=== PATIENT | female | born 1995 | race Caucasian/White ===

== ENCOUNTER 2018-04-12 12:06 | Day surgery (SDC) | payer OTHER, SELFPAY ==
[2018-04-12 12:33] VITALS: BP 118/68; PULSE 58; RESP 18; TEMP 36.7; O2SAT 100; BMI 19.4
[2018-04-12 12:39] LABS: Internal QC Validated? YES +Cl - CLEAR BKGD; Pregnancy, Urine Negative Negative
[2018-04-12 12:50] LABS: Absolute Lymphocyte Count 1.29 X10^3/ul (0.83-4.51); Absolute Neutrophil Count 2.1 X10^3/uL (2.0-7.7); Basophil# 0.01 X10^3/uL; Basophil% 0.3 % (0-1); Eosinophil# 0.11 X10^3/uL; Eosinophils% 2.8 % (0-5); Hematocrit 43.8 % (37-47); Hemoglobin 14.4 g/dl (12.0-15.0); Lymphocyte # 1.29 X10^3/ul (4.0); Lymphocyte % 33.4 % (19-41); Mean Corp Hgb Conc 32.9 g/gl (32-36); Mean Corpuscular Hgb 29.7 pg (27.0-32.0); Mean Corpuscular Volume 90.3 fL (81-99); Mean Platelet Vol. 11.3 fl (6.2-12.0); Monocyte# 0.35 X10^3/uL; Monocyte% 9.1 % (0-10); Neutrophil # 2.09 X10^3/uL (2.7-7.7); Neutrophil % 54.1 % (47-70); Platelet Count 151 K/mm3 (150-450); RBC Distribution Width CV 13.2 % (11.6-14.6); RBC Distribution Width SD 43.4 fl (35.1-43.9); Red Blood Count 4.85 M/mm3 (4.2-5.4); White Blood Count 3.9 K/mm3 (4.4-11.0)
[2018-04-12 12:51] LABS: POSITIVE COUNT NO; POSITIVE DIFFERENTIAL NO; POSITIVE MORPHOLOGY NO
--- NOTE | 2018-04-12 13:30 | HP.PCM_ITS ---
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: No Is patient in pain?: Yes Pain scale (1-10): 5 Allergies No Known Allergies Allergy (Verified 03/07/18 12:01) Medications melatonin 10 mg tablet 10 mg PO HS PRN 03/07/18 [History Confirmed 03/07/18] norgestimate 0.25 mg-ethinyl estradiol 35 mcg tablet 1 tab PO DAILY 03/07/18 [History Confirmed 03/07/18] Is last menstrual period known: Yes Last Menstral Period: 02/14/18 Post menopausal: No Patient : No : No [facility] Medical History Anxiety (Acute) Family History Mother Diabetes Congestive heart failure Father Narcolepsy Grandmother Kidney disease Grandfather Heart disease Alzheimer disease Social History Smoking Status: Never smoker alcohol intake: never substance use type: does not use caffeine: Yes what type of physical activity do you participate in: walking frequency: 3-4 times per week seatbelt use: always do you feel safe at home: Yes additional social history: - Rogelio- Ayana and Lidiaon Patient works at [employer] [facility] VAGINAL TEAR NOT HEALING PROPERLY: Details: CIERRA ESPINOZA is a 22 year old who presents for dyspareunia since delivery of her child. she delivered 9 months ago and had a repair of her right labia and it broke down and is two separate areas. she has pain with intercourse and vaginal pain with exercise, sitting. she denies any irregular bleeding. Female Reproductive History Last Menstral Period: 02/14/18 Pregancy History 1 Elective abortions Hx Para 1 Spontaneous abortions Hx # Term Pregnancies Ectopic pregnancies Hx # Pregnancies Multiple births # of living children Past Pregnancies Del. Date Name GA/Weeks Outcome Route Bth Weight Infant Gen Labor Lgth Anesthesia Del Locatn Provider FOB 10/02/16 Roxane 39 live - full term 7lbs 4oz Female 12 hours none [facility] Betsy Mercado Delivery Date: 10/02/16 On 03/07/18 @ 12:08 Yahaira Tate Borderline HELP ROS Const Constitutional: Denies poor appetite, headache(s), fever(s), increased appetite, weight gain, weight loss or fatigue ENT ENT: Denies dizziness or dry mouth Cardio Card: Denies chest pain Resp Resp: Denies dyspnea or cough GI GI: Reports as per HPI; denies vomiting, nausea, abdominal pain or constipation : Reports as per HPI; denies urinary urgency, vaginal discharge, urinary frequency, vaginal itching, vaginal odor, vaginal dryness, urinary incontinence, urinary hesitancy, pelvic pain, difficulty urinating or painful urination Musc Musc: Denies muscle weakness, joint pain or back pain Skin Skin/Breast: Denies hair loss, change in hair, dry skin, breast pain, breast skin changes or breast lump Neuro Neuro: Denies dizziness Psych Psych: Denies anxiety or depression Endo Endo: Denies cold intolerance, increased thirst, excessive sweating or heat intolerance Waldemar/Lymph Hematologic/Lymphatic: Denies easy bleeding, Denies easy bruising, Denies enlarged lymph nodes Exam Const General: cooperative, healthy appearing, comfortable, no acute distress, well developed Nutritional Appearance: average body habitus Orientation: alert [facility] Head: normal to inspection, normocephalic Ears: hearing grossly normal bilaterally, external ears normal Nose: external nose normal, nares normal Face and sinus: normal facial exam Neck Neck: normal visual inspection, trachea midline, no lymphadenopathy Thyroid: thyroid normal Chest Chest palpation & inspection: normal inspection of the chest Resp Effort & Inspection: normal respiratory effort Cardio Rate: regular rate GI Inspection: normal to inspection, non-distended Palpation: soft, no hepatosplenomegaly General: bladder normal to palpation External Female Exam: abnormal external appearance (right labia in two sections, tender to touch), normal appearance of the urethra Urethra: normal appearance of the urethra, normal palpation, no discharge Speculum Exam - Vagina: normal appearance of the vagina, normal vaginal discharge Speculum Exam - Cervix: normal appearance of the cervix, nontender Bimanual Exam- Vagina & Uterus: bladder normal to palpation, No cervical tenderness, normal bimanual exam, normal vaginal palpation, uterine size normal, uterine shape normal, uterine mobility normal, uterine consistency normal, normal cervical palpation, uterus non-tender Bimanual Exam- Adnexa, other: normal adnexae, adnexae mobile, no adnexal masses, pelvic support normal Pelvic Support: normal Musc Cervical Spine: other Other: gross motor intact no deficits, full bilateral strength Skin General: no rashes or lesions noted Neuro General: alert, awake, no focal motor deficits, moves all extremities Motor: muscle tone normal throughout Extrem General: normal to inspection, no pedal edema Psych Appearance: grossly normal Mental Status: mental status grossly normal Affect: normal affect Speech and Movement: speech and movement normal Assessment & Plan Problems 1. Dyspareunia Plan labiaplasty. risk of bleeding infection dyspareunia discussed.
--- NOTE | 2018-04-12 13:31 | PCM.DC.D&C ---
Discharge Diet: No Restrictions Discharge Activity: Return to Normal Activity, May Shower May resume sexual activity in: 4-6 weeks Call your doctor if you observe: Fever of 101 or Higher, Coldness, Increased Pain, Change in Color Cleanse incision/area with: Soap & Water Allergies/Adverse Reactions: Allergies No Known Allergies Allergy (Verified 04/05/18 13:08) Medications to take at Discharge melatonin 10 mg tablet 10 mg PO HS PRN 03/07/18 Norgestimate-Ethinyl Estradiol [Mononessa 28 Tablet] 1 each PO DAILY 04/05/18 [place]'s Wort 600 mg PO DAILY 04/05/18 Primary Care Physician: Zeinab William DO [Primary Care Provider] - Test Results: Test results from this visit will be discussed in further detail at your follow-up appointment, if applicable. Please Follow Up With: Amira Padilla MD - [phone]
--- NOTE | 2018-04-12 14:15 | PCM.OPRPT ---
Problem List (1) Anxiety Status: Acute (2) Dyspareunia Status: Chronic Report of Operation Date of Procedure: 04/12/18 Pre-Operative Diagnosis: Dyspareunia Post-Operative Diagnosis: Same Surgery/Procedure Performed:: Labioplasty Description of Surgical Findings:: Right unhealed labial laceration Type of Anesthesia:: General Special Medications: None Specimen's removed: None Drains: None Estimated Blood Loss (mL): 25 cc Fluids Replaced: Crystalloid Description of Procedure: Patient has a history of dyspareunia due to a poorly healed right labial periclitoral laceration postdelivery. Patient was placed under general anesthesia was prepped and draped in normal sterile fashion in the dorsal lithotomy position. Incision was made along the area of the breakdown of healing of the previous obstetric laceration. Underlying scar tissue was broken up and mobilized the vaginal mucosa to be reapproximated with 4-0 Monocryl. Hemostasis was noted and Dermabond was applied. Area was injected with 2% Xylocaine the patient was awoken and taken recovery in stable condition Grafts/Implants Used: None - Complications None
[2018-04-12] MEDS: Bupiv/Epi 0.5% Mpf 30 ML Vial (14:45)
[2018-04-12 15:01] VITALS: BP 118/68; BP 123/69; PULSE 95; RESP 16; TEMP 36.6; O2SAT 100
[2018-04-12 15:15] VITALS: BP 118/68; BP 124/77; PULSE 77; RESP 14; O2SAT 100
[2018-04-12 15:30] VITALS: BP 116/80; BP 118/68; PULSE 73; RESP 14; O2SAT 98
[2018-04-12 15:52] VITALS: BP 111/83; BP 118/68; PULSE 68; RESP 16; TEMP 37; O2SAT 98
[2018-04-12 16:20] VITALS: BP 118/68
== END 2018-04-12 16:29 | disposition home or self-care (01) ==
LOC: SDC 12:09 → AC 12:12
PROVIDERS: Family Provider Internal Medicine; PCP Internal Medicine; Visit Provider Obstetrics & Gynecology
PROC: (CPT 56620; principal; 2018-04-12 13:30)
DX: N94.10 Unspecified dyspareunia (principal); S31.41XD Laceration without foreign body of vagina and vulva, subsequent encounter; Y84.8 Other medical procedures as the cause of abnormal reaction of the patient, or of later complication, without mention of misadventure at the time of the procedure; F41.9 Anxiety disorder, unspecified; Z79.899 Other long term (current) drug therapy
CPT/HCPCS: 56620; 81025; 85025; 86850; 86900; J7120; J2405

== ENCOUNTER → 2018-08-23 16:56 | Outpatient (CLI) | payer OTHER, SELFPAY ==
[2018-05-03 11:49] VITALS: BMI 19.9
[2018-08-23 17:56] LABS: Hemoglobin A1c 4.9 % (4.2-6.3)
== END ==
PROVIDERS: Family Provider Internal Medicine; PCP Internal Medicine; Referring Provider Internal Medicine; Visit Provider Internal Medicine
DX: R35.0 Frequency of micturition (principal)
CPT/HCPCS: 36415; 83036; 87086

== ENCOUNTER 2018-10-05 10:41 | Emergency (ER) | payer BC, SELFPAY ==
[2018-10-05 10:41] VITALS: BP 113/77; PULSE 83; RESP 17; TEMP 36.8; O2SAT 99; BMI 20.5
[2018-10-05 11:34] LABS: Bacteria 0 SEEN /hpf (None Seen); Mucous, Urine 0 SEEN /hpf (<or=2+); Red Blood Cells-Urine 0 SEEN /hpf (0-5); White Blood Cells 0 SEEN /hpf (0-5)
[2018-10-05 11:35] LABS: Color, Urine Yellow (Yellow); Glucose, Dipstick Normal (Normal); Ketone-Dipstick Negative (Negative); Leukocyte Esterase-Dipstick Negative /ul (Negative); Nitrite-Dipstick Negative (Negative); Occult Blood-Urine Negative /ul (Negative); Protein-Dipstick Negative (Negative); Urine Bilirubin Dipstick Negative (Negative); Urine Clarity Clear (Clear); Urine Urobilinogen Normal (Normal)
[2018-10-05 11:43] LABS: Squamous Epithelial Cells - UA 0-5 SEEN /hpf (5-10)
[2018-10-05 11:47] LABS: Absolute Lymphocyte Count 1.17 X10^3/ul (0.83-4.51); Absolute Neutrophil Count 3.4 X10^3/uL (2.0-7.7); Basophil# 0.01 X10^3/uL; Basophil% 0.2 % (0-1); Eosinophil# 0.07 X10^3/uL; Eosinophils% 1.4 % (0-5); Hemoglobin 13.4 g/dl (12.0-15.0); Lymphocyte # 1.17 X10^3/ul (4.0); Lymphocyte % 23.5 % (19-41); Mean Corp Hgb Conc 32.7 g/gl (32-36); Mean Corpuscular Hgb 28.8 pg (27.0-32.0); Mean Corpuscular Volume 88.2 fL (81-99); Mean Platelet Vol. 10.8 fl (6.2-12.0); Monocyte# 0.34 X10^3/uL; Monocyte% 6.8 % (0-10); Neutrophil # 3.38 X10^3/uL (2.7-7.7); Neutrophil % 67.9 % (47-70); Platelet Count 135 K/mm3 (150-450); RBC Distribution Width CV 13.2 % (11.6-14.6); RBC Distribution Width SD 42.1 fl (35.1-43.9); Red Blood Count 4.65 M/mm3 (4.2-5.4)
[2018-10-05 11:49] LABS: POSITIVE COUNT NO; POSITIVE DIFFERENTIAL NO; POSITIVE MORPHOLOGY NO
[2018-10-05] MEDS: Morphine 4 MG/ML Syringe IV (11:50)
[2018-10-05] MEDS: 0.9% Normal Saline 1,000 ML 1000 ML IV (11:50)
[2018-10-05] MEDS: Ondansetron 4 MG/2 ML Vial IV (11:50)
--- NOTE | 2018-10-05 11:53 | CT_ITS ---
STUDY: CT ABDOMEN AND PELVIS WITH CONTRAST REASON FOR EXAM: Female, 23 years old. 4 day history of right lower quadrant pain with nausea and diarrhea. Dysuria. RADIATION DOSAGE (If Supplied By Facility): CTDIvol = ( 8.82 ) mGy, DLP = ( 366.86 ) mGycm TECHNIQUE: Transaxial images were obtained from the dome of the diaphragm to the symphysis pubis with oral contrast. 75mL IV/Oral Isovue 300 was administered. Sagittal and coronal images were reconstructed. Individualized dose optimization techniques were used for this CT. COMPARISON: None. FINDINGS: The visualized lung bases are unremarkable. The visualized portions of the heart are within normal limits. Normal liver. Normal gallbladder and extrahepatic biliary system. Normal spleen. Normal pancreas. Normal bilateral adrenal glands. Normal right kidney. Normal left kidney. There is a small hiatal hernia. There is diffuse circumferential wall thickening of the terminal ileum. This may represent changes secondary to terminal ileitis. Normal colon. The appendix is visualized and appears normal. Normal abdominal aorta. Normal inferior vena cava. Normal retroperitoneum. Normal urinary bladder. Follicles are seen in the right ovary. Small amount of free fluid is seen in the cul-de-sac. There is increased vascularity of the uterus. This may be related to the patient's menstrual cycle. Normal abdominal wall. Normal osseous structures. CT/Abdomen/Pelvis WITH Contrast IMPRESSION: Findings suggestive of terminal ileitis. Small amount of free fluid in the pelvis. Follicles are seen in the right ovary. Electronically Signed: Rod Mina, at 14:38 EDT , Service support ,
--- NOTE | 2018-10-05 11:55 | ED.VIS.GEN ---
History of Present Illness Chief Complaint: Abd Pain Detail of Chief Complaint: Proximity of [place] Informant: Patient Onset: Days - Onset Tuesday Context: Gradual Onset Timing: Continuous Quality: [facility] Current Severity: Mild Maximum Severity: Moderate Worsened by: Pushing, walking Relieved by: Nothing Associated Symptoms: Nausea, decreased appetite Narrative: Patient is a 23-year-old sexually active woman who presents with right lower quadrant pain in the [facility]. She has history of sexually transmitted infection age of 20, chlamydia. She also has history of ovarian cyst. She reports onset of pain Tuesday. She reports nausea. She has decreased appetite. She has no appetite today. She believes she has a urinary tract infection. He does report frequency. She denies vaginal bleeding or discharge. Denies dyspareunia. She denies back or flank pain. There is no history of trauma. She does not give symptoms of . Prior similar symptoms: No Recent Illness/Hospitalization: No - Past Medical History (1) Chlamydia infection Status: Chronic (2) Anxiety Status: Acute Past Medical History - Allergies and Home Meds Allergies/Adverse Reactions: Allergies No Known Allergies Allergy (Verified 10/05/18 10:41) Primary Care Physician: Zeinab William DO [Primary Care Provider] - Johnny Romo MD [NON-STAFF] - 3-5 Days Prior records reviewed: Yes Lives: Spouse/ Significant Other Smoking Status: Never smoker Alcohol: None Drugs: None Review of Systems General: Reports: Chills. Denies: Fever, Subjective, Sweats Eyes: Denies: Visual changes - bilaterally, Diplopia ENT: Denies: Rhinorrhea, Sore throat Cardiovascular: Denies: Chest pain, Palpitations Respiratory: Denies: Dyspnea, Cough, Dyspnea on exertion Gastrointestinal: Reports: Abdominal pain, Nausea. Denies: Vomiting, Diarrhea, Constipation, Melena, Hematochezia Genitourinary: Reports: Frequency. Denies: Dysuria, Hematuria Musculoskeletal: Denies: Myalgias, Arthralgias, Back pain, Extremity Pain Skin: Denies: Rash, Wounds Neurological: Denies: Headache, Weakness, Numbness Allergy: Denies: Uticaria, Swelling of the mouth Physical Exam Vital Signs/Narrative: Vital Signs Temp Pulse Resp BP Pulse Ox 10/05/18 10:41 98.2 F 83 17 113/77 99 Inital Vital Signs reviewed: Yes General: Well nourished, Well developed, No Acute Distress - Patient is quiet and appears ill but not in distress Head: Normocephalic, Atraumatic Eyes: Perrl, EOMI. Negative for: Pale conjunctiva, Scleral icterus ENT: No rhinorrhea, TM's clear, Dry mucous membranes Neck: Supple, Nontender, No lymphadenopathy, No JVD Cardiovascular: Regular rate, Regular rhythm, No murmurs, Normal S1, Normal S2 Respiratory: No distress, CTA bilaterally, Chest nontender Abdomen: Soft, Nondistended, No masses, Tender, Guarding, Hypoactive bowel sounds, Rovsig's sign. Negative for: Ventral hernia, Inguinal hernia, Umbilical hernia Back: Nontender, Normal Inspection. Negative for: CVA tenderness Extremities: Nontender, No edema Skin: Normal color, No rash. Negative for: Cyanosis Neurological: Alert, Oriented x3, Cranial nerves II-XII grossly intact, Normal Strength, Normal Sensation Psychological: Normal affect, Normal Mood Diagnostic/Tx/Re-eval Impressions Abdomen/Pelvis CT 10/05/18 11:53 IMPRESSION: Findings suggestive of terminal ileitis. Small amount of free fluid in the pelvis. Follicles are seen in the right ovary. Electronically Signed: Rod Mina, at 14:38 EDT , Service support , 10/05/18 11:53 Abdomen/Pelvis WITH Contrast [CT] Stat Laboratory Results 10/05/18 10/05/18 10/05/18 11:28 11:40 11:40 WBC 5.0 RBC 4.65 Hgb 13.4 Hct 41.0 MCV 88.2 MCH 28.8 MCHC 32.7 RDW 13.2 RDW Differential 42.1 Plt Count 135 L MPV 10.8 Immature Gran % (Auto) 0.200 Neut % (Auto) 67.9 Lymph % (Auto) 23.5 [place] % (Auto) 6.8 Eos % (Auto) 1.4 Baso % (Auto) 0.2 Absolute Neuts (auto) 3.4 Absolute Lymphs (auto) 1.17 Total Counted Not Reportable Serum , Qual NEGATIVE Urine Color Yellow Urine Clarity Clear Urine pH 8.0 Ur Specific [place] 1.010 Urine Protein Negative Urine Glucose (UA) Normal Urine Ketones Negative Urine Occult Blood Negative Urine Nitrite Negative Urine Bilirubin Negative Urine Urobilinogen Normal Ur Leukocyte Esterase Negative Urine RBC 0 SEEN Urine WBC 0 SEEN Ur Squamous Epith Cells 0-5 SEEN Urine Bacteria 0 SEEN Urine Mucus 0 SEEN 6 - Medical Decision Making With right lower quadrant pain chills, urinary symptoms and anorexia need to rule out UTI/pyelonephritis versus gynecologic versus appendicitis. Patient reports improvement after IV Zofran and morphine. She was reexamined at 1150. She still has tenderness in the proximity [place]. She was informed 30% of patients with normal white count do have appendicitis. CT with IV contrast was ordered to evaluate for appendicitis. Other differential would include ovarian cyst, mesenteric adenitis or inflammatory bowel disorder. CT of the abdomen pelvis reveals terminal ileitis. This would raise concern for Crohn's disease since she presents with right lower quadrant pain and diarrhea. Dr. Johnny Romo was paged for outpatient follow-up. ED Disposition - Plan for ED Patient: Disposition: Acute Care Hospital [facility] Diagnosis: 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 Instructions: ED Inflam Bowel Disease Crohn Referrals: Zeinab William DO [Primary Care Provider] - Johnny Romo MD [NON-STAFF] - 3-5 Days
--- NOTE | 2018-10-05 11:59 | ED.DCSUM_ITS ---
History of Present Illness Chief Complaint: Abd Pain Detail of Chief Complaint: Proximity of [place] Informant: Patient Onset: Days - Onset Tuesday Context: Gradual Onset Timing: Continuous Quality: [facility]comfort [facility] Current Severity: Mild Maximum Severity: Moderate Worsened by: Pushing, walking Relieved by: Nothing Associated Symptoms: Nausea, decreased appetite Narrative: Patient is a 23-year-old sexually active woman who presents with right lower quadrant pain [facility] the [facility] She has history of sexually transmitted infection age of 20, chlamydia. She also has history of ovarian cyst. She reports onset of pain Tuesday. She reports nausea. She has decreased appetite. She has no appetite today. She believes she has a urinary tract infection. He does report frequency. She denies vaginal bleeding or discharge. Denies dyspareunia. She denies back or flank pain. There is no history of trauma. She does not give symptoms of . Prior similar symptoms: No Recent Illness/Hospitalization: No - Past Medical History (1) Chlamydia infection Status: Chronic (2) Anxiety Status: Acute Past Medical History - Allergies and Home Meds Allergies/Adverse Reactions: Allergies No Known Allergies Allergy (Verified 10/05/18 10:41) Primary Care Physician: Zeinab William DO [Primary Care Provider] - Johnny Romo MD [NON-STAFF] - 3-5 Days Prior records reviewed: Yes Lives: Spouse/ Significant Other Smoking Status: Never smoker Alcohol: None Drugs: None Review of Systems General: Reports: Chills. Denies: Fever, Subjective, Sweats Eyes: Denies: Visual changes - bilaterally, Diplopia ENT: Denies: Rhinorrhea, Sore throat Cardiovascular: Denies: Chest pain, Palpitations Respiratory: Denies: Dyspnea, Cough, Dyspnea on exertion Gastrointestinal: Reports: Abdominal pain, Nausea. Denies: Vomiting, Diarrhea, Constipation, Melena, Hematochezia Genitourinary: Reports: Frequency. Denies: Dysuria, Hematuria Musculoskeletal: Denies: Myalgias, Arthralgias, Back pain, Extremity Pain Skin: Denies: Rash, Wounds Neurological: Denies: Headache, Weakness, Numbness Allergy: Denies: Uticaria, Swelling of the mouth Physical Exam Vital Signs/Narrative: Vital Signs Temp Pulse Resp BP Pulse Ox 10/05/18 10:41 98.2 F 83 17 113/77 99 Inital Vital Signs reviewed: Yes General: Well nourished, Well developed, No Acute Distress - Patient is quiet and appears ill but not in distress Head: Normocephalic, Atraumatic Eyes: Perrl, EOMI. Negative for: Pale conjunctiva, Scleral icterus ENT: No rhinorrhea, TM's clear, Dry mucous membranes Neck: Supple, Nontender, No lymphadenopathy, No JVD Cardiovascular: Regular rate, Regular rhythm, No murmurs, Normal S1, Normal S2 Respiratory: No distress, CTA bilaterally, Chest nontender Abdomen: Soft, Nondistended, No masses, Tender, Guarding, Hypoactive bowel sounds, Rovsig's sign. Negative for: Ventral hernia, Inguinal hernia, Umbilical hernia Back: Nontender, Normal Inspection. Negative for: CVA tenderness Extremities: Nontender, No edema Skin: Normal color, No rash. Negative for: Cyanosis Neurological: Alert, Oriented x3, Cranial nerves II-XII grossly intact, Normal Strength, Normal Sensation Psychological: Normal affect, Normal Mood Diagnostic/Tx/Re-eval Impressions Abdomen/Pelvis CT 10/05/18 11:53 IMPRESSION: Findings suggestive of terminal ileitis. Small amount of free fluid in the pelvis. Follicles are seen in the right ovary. Electronically Signed: Rod Mina, at 14:38 EDT , Service support , 10/05/18 11:53 Abdomen/Pelvis WITH Contrast [CT] Stat Laboratory Results 10/05/18 10/05/18 10/05/18 11:28 11:40 11:40 WBC 5.0 RBC 4.65 Hgb 13.4 Hct 41.0 MCV 88.2 MCH 28.8 MCHC 32.7 RDW 13.2 RDW Differential 42.1 Plt Count 135 L MPV 10.8 Immature Gran % (Auto) 0.200 Neut % (Auto) 67.9 Lymph % (Auto) 23.5 [place] % (Auto) 6.8 Eos % (Auto) 1.4 Baso % (Auto) 0.2 Absolute Neuts (auto) 3.4 Absolute Lymphs (auto) 1.17 Total Counted Not Reportable Serum , Qual NEGATIVE Urine Color Yellow Urine Clarity Clear Urine pH 8.0 Ur Specific [place] 1.010 Urine Protein Negative Urine Glucose (UA) Normal Urine Ketones Negative Urine Occult Blood Negative Urine Nitrite Negative Urine Bilirubin Negative Urine Urobilinogen Normal Ur Leukocyte Esterase Negative Urine RBC 0 SEEN Urine WBC 0 SEEN Ur Squamous Epith Cells 0-5 SEEN Urine Bacteria 0 SEEN Urine Mucus 0 SEEN 6 - Medical Decision Making With right lower quadrant pain chills, urinary symptoms and anorexia need to rule out UTI/pyelonephritis versus gynecologic versus appendicitis. Patient reports improvement after IV Zofran and morphine. She was reexamined at 1150. She still has tenderness in the proximity [place]. She was informed 30% of patients with normal white count do have appendicitis. CT with IV contrast was ordered to evaluate for appendicitis. Other differential would include ovarian cyst, mesenteric adenitis or inflammatory bowel disorder. CT of the abdomen pelvis reveals terminal ileitis. This would raise concern for Crohn's disease since she presents with right lower quadrant pain and diarrhea. Dr. Johnny Romo was paged for outpatient follow-up. ED Disposition - Plan for ED Patient: Disposition: Acute Care Hospital [facility] Diagnosis: 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 Instructions: ED Inflam Bowel Disease Crohn Referrals: Zeinab William DO [Primary Care Provider] - Johnny Romo MD [NON-STAFF] - 3-5 Days
[2018-10-05 12:45] LABS: Pregnancy, Serum, hCG Quali. NEGATIVE Negative (0-9 Nonpreg)
[2018-10-05 14:06] VITALS: BMI 20.5
[2018-10-05 14:17] VITALS: BP 103/67; PULSE 73; RESP 16; TEMP 36.7; O2SAT 100
[2018-10-05] MEDS: Morphine 2 MG/ML Syringe IV (14:34)
--- NOTE | 2018-10-05 15:33 | ED.VISSUMM ---
- ER Visit Summary Date of Service: 10/05/18 Chief Complaint: [] History of Present Illness: The patient is a 23 F [] Physical Examination: [] Test Results: [] Emergency Department Course and Treatment: [] Treatment Plan: [] Disposition: [] Impression: [] This note was generated with [employer] dictation software. It may contain incorrect words, spelling, and punctuation that were not noted in review of the chart prior to signing ED Disposition - Plan for ED Patient: Disposition: Acute Care Hospital [facility] Diagnosis: 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 Instructions: ED Inflam Bowel Disease Crohn Prescriptions: Hydrocodone Bitart/Apap 5-325 [[place] 5MG-325MG] 1 tablet PO Q6H PRN PRN 3 Days #10 tablet PRN Reason: Pain Metronidazole 500 mg PO Q8 #21 tablet Ciprofloxacin [Cipro] 500 mg PO BID #14 tablet Referrals: Zeinab William DO [Primary Care Provider] - Johnny Romo MD [NON-STAFF] - 3-5 Days
--- NOTE | 2018-10-05 15:37 | ED.DCSUM_ITS ---
- ER Visit Summary Date of Service: 10/05/18 Chief Complaint: [] History of Present Illness: The patient is a 23 F [] Physical Examination: [] Test Results: [] Emergency Department Course and Treatment: [] Treatment Plan: [] Disposition: [] Impression: [] This note was generated with [employer] dictation software. It may contain incorrect words, spelling, and punctuation that were not noted in review of the chart prior to signing ED Disposition - Plan for ED Patient: Disposition: Acute Care Hospital [facility] Diagnosis: 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 Instructions: ED Inflam Bowel Disease Crohn Prescriptions: Hydrocodone Bitart/Apap 5-325 [[place] 5MG-325MG] 1 tablet PO Q6H PRN PRN 3 Days #10 tablet PRN Reason: Pain Metronidazole 500 mg PO Q8 #21 tablet Ciprofloxacin [Cipro] 500 mg PO BID #14 tablet Referrals: Zeinab William DO [Primary Care Provider] - Johnny Romo MD [NON-STAFF] - 3-5 Days
[2018-10-05 15:40] VITALS: BP 107/67; PULSE 73; RESP 17; O2SAT 97
--- NOTE | 2018-10-05 15:41 | ED.RN ---
IV DC'ED, CATHETER INTACT, SMALL GAUZE DRESSING PLACED. DISCHARGE INSTRUCTIONS GIVEN TO AND REVIEWED WITH PATIENT, PATIENT DENIES QUESTIONS OR CONCERNS AND VOICES UNDERSTANDING OF DISCHARGE INSTRUCTIONS. PT AMBULATES OUT OF ROOM WITHOUT DIFFICULTY.
== END 2018-10-05 15:43 | disposition short-term general hospital (02) ==
PROVIDERS: Emergency Provider Emergency Medicine; Family Provider Internal Medicine; PCP Internal Medicine
DX: K50.00 Crohn's disease of small intestine without complications (principal); R35.0 Frequency of micturition; Z86.19 Personal history of other infectious and parasitic diseases
CPT/HCPCS: 74177; 81001; 84703; 85025; 96361; 96374; 96375; 96376; 99283; J7030; Q9967; A4216; J2405

== ENCOUNTER → 2019-01-25 | Outpatient (CLI) | payer BC, OTHER, SELFPAY ==
[2019-01-25 12:42] LABS: hCG Titer Quant., Serum 14761 mIU/mL (1-3)
== END | disposition home or self-care (01) ==
PROVIDERS: Family Provider Internal Medicine; PCP Internal Medicine; Referring Provider Nurse Practitioner Women's Health; Visit Provider Nurse Practitioner Women's Health
DX: O20.0 Threatened abortion (principal); Z3A.00 Weeks of gestation of pregnancy not specified
CPT/HCPCS: 36415; 84702; 86850; 86900

== ENCOUNTER → 2019-01-27 | Outpatient (CLI) | payer OTHER, SELFPAY ==
[2019-01-27 11:45] LABS: hCG Titer Quant., Serum 19359 mIU/mL (1-3)
== END | disposition home or self-care (01) ==
LOC: LAB 10:16
PROVIDERS: Family Provider Internal Medicine; PCP Internal Medicine; Referring Provider Nurse Practitioner Women's Health; Visit Provider Nurse Practitioner Women's Health
DX: O20.0 Threatened abortion (principal); Z3A.00 Weeks of gestation of pregnancy not specified
CPT/HCPCS: 36415; 84702

== ENCOUNTER → 2019-02-01 | Outpatient (CLI) | payer OTHER, SELFPAY ==
--- NOTE | 2019-02-01 08:47 | US_ITS ---
STUDY: FIRST TRIMESTER OBSTETRICAL ULTRASOUND REASON FOR EXAM: Female, 23 years old. viability. LMP: 12/11/2018 TECHNIQUE: Transvaginal TECHNICAL QUALITY: Adequate. PRIOR ULTRASOUND: None. FINDINGS: There is visualization of a single gestational sac in a normal intrauterine position. The mean sac diameter (MSD) measures 1.9 cm, indicating an estimated gestational age (EGA) of 6 weeks, 6 days. The gestational sac shape is within normal limits. There is a visualized yolk sac. The yolk sac measures 0.2 cm. The placenta is non-visualized. There is visualization of a live embryo. The crown-rump length (CRL) measures 1.1 cm, indicating an estimated gestational age (EGA) of 7 weeks, 2 days. There is demonstrated cardiac activity with a heart rate of 149 bpm. The estimated gestation age (EGA) by LMP is 7 weeks, 3 days. The estimated date of delivery (SCAR) by LMP is 09/17/2019. The estimated gestation age (EGA) by US is 7 weeks, 1 days. The estimated date of delivery (SCAR) by US is 09/19/2019. The uterus measures 9.7 x 6.7 x 4.9 cm. There is no demonstrated uterine fibroid. The cervix is closed. The right ovary measures 3.2 x 1.6 x 1.9 cm. There is no right ovarian cyst. There is no visualized right adnexal mass or complex lesion. The left ovary measures 2.3 x 1.9 x 1.3 cm. There is no left ovarian cyst. There is no visualized left adnexal mass or complex lesion. There is no fluid in the cul de sac. US/Transvaginal w/Preg US IMPRESSION: Single live intrauterine at 7 weeks, 1 day by current ultrasound with SCAR of 09/19/2019. Heart rate of 149 bpm. No suspicious sonographic findings Electronically Signed: Sher Berger MD at 9:52 EDT , Service support ,
== END | disposition home or self-care (01) ==
LOC: OPUS 08:45
PROVIDERS: Family Provider Internal Medicine; PCP Internal Medicine; Referring Provider Obstetrics & Gynecology; Visit Provider Obstetrics & Gynecology
DX: O20.0 Threatened abortion (principal); Z3A.00 Weeks of gestation of pregnancy not specified
CPT/HCPCS: 76817

== ENCOUNTER → 2019-02-13 | Outpatient (CLI) | payer OTHER, SELFPAY ==
[2019-02-13 17:05] VITALS: BMI 20.5
[2019-02-16 15:34] LABS: HPV Reflexed? NOT INDICATED
== END | disposition home or self-care (01) ==
LOC: LABSPEC 17:06
PROVIDERS: Family Provider Internal Medicine; PCP Internal Medicine; Referring Provider Obstetrics & Gynecology; Visit Provider Obstetrics & Gynecology
DX: Z12.4 Encounter for screening for malignant neoplasm of cervix (principal)
CPT/HCPCS: 87624; 88175; G0145

== ENCOUNTER 2019-02-16 10:26 | Day surgery (SDC) | payer OTHER, SELFPAY ==
[2019-02-13 17:05] VITALS: BMI 20.5
--- NOTE | 2019-02-15 05:43 | PCM.HPOB.BLA ---
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: No Is patient in pain?: No Allergies No Known Allergies Allergy (Verified 02/13/19 11:43) Medications vitamin#30 30 mg iron-10 mg iron-folic acid 1 mg-omg3 capsule cap PO cap 02/13/19 [History] Last Menstral Period: 02/14/18 Zika: Zika virus screening: Negative : No PFSH PFSH Medical History Anxiety (Acute) Surgical History labioplasty (Acute) Family History Mother Diabetes Congestive heart failure Father Narcolepsy Grandmother Kidney disease Grandfather Heart disease Alzheimer disease Social History (Updated 02/13/19 @ 13:54 by Amira Padilla MD) Smoking Status: Never smoker alcohol intake: never substance use type: does not use caffeine: Yes what type of physical activity do you participate in: walking frequency: 3-4 times per week seatbelt use: always do you feel safe at home: Yes additional social history: - Rogelio- Ayana and Nelda Patient works at [employer] Plan Pregancy History 1 Elective abortions Hx Para 1 Spontaneous abortions Hx # Term Pregnancies Ectopic pregnancies Hx # Pregnancies Multiple births # of living children Past Pregnancies Del. Date Name GA/Weeks Outcome Route Bth Weight Infant Gen Labor Lgth Anesthesia Del Locatn Provider FOB 10/02/16 Roxane 39 live - full term 7lbs 4oz Female 12 hours none [facility]etsy Mercado Delivery Date: 10/02/16 On 03/07/18 @ 12:08 Yahaira Tate Borderline HELP HPI NOB LMP 12/16: Details: CIERRA ESPINOZA is a 23 year old who presents for New OB visit. on ultrasound she has a loss confirmed 9w1d with no fht. no abnormalities seen. OB Visit Menstrual History Last Menstral Period: 02/14/18 Reported LMP: definite Normal amount/duration: Yes On hormonal BC at conception: No Antepartum Record Genetic Screening: Congenital Heart Defect: Other, Neural Tube Defect: Other, Hemoglobinopathy Or Carrier: Other, Cystic Fibrosis: Other, Chromosome Abnormality: Other, Gabrile-Sachs: Other, Hemophilia: Other, Intellectual Disability/Autism: Other, Recurrent Loss/Stillbirth: Other, Other Structural Defect: Other, Other Genetic Disease: Other, Maternal Metabolic Disorder: Other Infection History: Live with someone with TB or Exposed to TB: No, Patient or Partner has history of Genital Herpes: No, Rash or Viral illness since last mentrual period: No, Prior GBS-Infected child: No, History of STD: Yes (chlamydia in distand past), HIV Infection: No, History of Hepatitis: No, Recent travel outside of [place]: No, Concern for Hep exposure: No, Varicella immune: Yes Medical History Medical History: 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), Operations/hospitalizations, Negative: Diabetes, Hypertension, Heart disease, Auto-immune disorder, Kidney disease/UTI, Neurologic/epilepsy, Psychiatric, Depression/ depression, Hepatitis/liver disease, Varicosities/phlebitis, Thyroid dysfunction, Trauma/domestic violence, History of blood transfusions, D (Rh) Sensitized, Pulmonary (e.g.,TB,Asthma), Seasonal allergies, Drug/latex allergies/reactions, Breast, Anesthetic complications, History of abnormal pap, Uterine anomaly/lisbet, Infertility, Anti-retroviral treatment, Relevant family history, Other ACOG First Trimester First Trimester: Discussed ROS Const Reports system reviewed and no additional complaints, except as docu, Reports fatigue, Denies fever(s) Eyes Reports system reviewed and no additional complaints, except as docu ENT Reports system reviewed and no additional complaints, except as docu Card Denies chest pain, Denies shortness of breath Resp Reports system reviewed and no additional complaints, except as docu, Denies cough, Denies shortness of breath GI Denies abdominal pain, Reports nausea Reports system reviewed and no additional complaints, except as docu Musc Reports system reviewed and no additional complaints, except as docu Skin/Breast Reports system reviewed and no additional complaints, except as docu Neuro Yes system reviewed and no additional complaints, except as docu Psych Reports system reviewed and no additional complaints, except as docu Endo Reports system reviewed and no additional complaints, except as docu, Reports fatigue Exam Const General: healthy appearing, comfortable, no acute distress Orientation: alert [facility] Head: normal to inspection, normocephalic, atraumatic Ears: hearing grossly normal bilaterally, external ears normal Nose: external nose normal, nares normal Mouth: oral mucosae normal Teeth and gingiva: dentition normal Eyes General: appearance normal, both eyes and all related structures Neck Neck: normal visual inspection, no lymphadenopathy, supple Thyroid: thyroid normal Resp Effort & Inspection: normal respiratory effort GI Inspection: normal to inspection Palpation: soft, no hepatosplenomegaly General: bladder normal to palpation External Female Exam: normal external appearance, normal appearance of the urethra Urethra: normal appearance of the urethra Speculum Exam - Vagina: normal appearance of the vagina, normal vaginal discharge Speculum Exam - Cervix: normal appearance of the cervix Bimanual Exam- Vagina & Uterus: normal bimanual exam, bladder normal to palpation, uterus non-tender, other Bimanual Exam- Adnexa, other: adnexae non-tender Skin General: no rashes or lesions noted Neuro Motor: muscle tone normal throughout, no movement abnormalities noted Extrem General: normal to inspection, full ROM Assessment & Plan Problems 1. Missed O02.1 Plan discussed options plan suction d and c discussed surgical risks including risks of anesthesia, infection, bleeding, injury to bowel, bladder or blood vessels, and patient wishes to proceed with surgery. Orders Orders: Hepatitis B Surface Antigen Today Z34.90 Antibody Screen Today Z34.90 Type & Screen Today Z34.90 HIV - [facility] Today Z34.90 Rubella IgG Today Z34.90 CBC W/Diff, Automated Today Z34.90 Culture, Urine Today Z34.90 CT/NG [facility] BY PCR Today Z34.90 Rapid Plasmin Reagin (RPR) Today Z34.90 Supplemental Info ACOG book given and patient encouraged to read about nutrition, exercise, weight gain, and food avoidance in . Coding Level of Care Code Off vis,est,level 4 Diagnoses Missed O02.1 UPDATE- I have seen the patient and performed any clinically relevant updates to the history and physical exam. Amira Padilla MD
[2019-02-16] VITALS (8 sets, daily range): BP systolic 93–115; BP diastolic 57–88; PULSE 57–84; RESP 16–18; TEMP 36.2–37; O2SAT 100; BMI 20.5
--- NOTE | 2019-02-16 12:00 | POC_PTH ---
PATIENT: CIERRA ESPINOZA LOC: [facility] U#:[id number] AGE/SX: 23/ ROOM: RE02/16/[address]: Dr. Amira Padilla MD : 1995 BED: DIS: 02/16/2019 SPEC #: [id number] RECD: 02/16/19 14:46 STATUS: MABEL REJennifer #: [id number] BRENNAN: 02/16/19 12:[address]: Amira Padilla DEPT: SURGICAL PATHOLOGY RECD BY: Minesh Drake ENTERED: 02/16/19 15:08 SP TYPE: PROD CONC OTHR DR: Dr. Zeinab William DO Tissues: Product of conception, NOS Procedures: Surgery Specimen Level IV HEADER OPERATION: Dilation and curettage, suction PRE-OP DIAGNOSIS: Missed TISSUE SUBMITTED: Products of conception MICROSCOPIC DIAGNOSIS Endometrium, curettage: Chorionic villi, decidualized stroma and trophoblastic cells consistent with products of conception. AM:alban 02/19/19 MICROSCOPIC DESCRIPTION Slides are reviewed. GROSS DESCRIPTION Received without fixative is one container labeled with the patient's name and designated products of conception. The specimen consists of multiple fragments of hemorrhagic soft tissue that in aggregate measure 6 x 4 x 1.5 cm. No tissue is identified. Technician Preventative Medicine sections are submitted in three cassettes. A portion of the specimen is also submitted for Anora testing as per protocol. / SJ:alban 02/16/19 TC:5 CPT: 88110 ADDENDUM ADDENDUM ADDENDUM ADDENDUM ADDENDUM ADDENDUM ADDENDUM ADDENDUM ADDENDUM 03/01/2019 09:05 ADDENDUM 03/01/2019 09:05 ADDENDUM 03/01/2019 09:05 ADDENDUM 03/01/2019 09:05 ADDENDUM 03/01/2019 09:05 ANORA MICROARRAY CHROMOSOME ANALYSIS WITH PARENTAL SUPPORT RESULT: Maternal cell contamination MICROARRAY RESULT: N/A CLINICAL INTERPRETATION: Maternal cell contamination (GROUP HOME) was detected. Insufficient DNA detected for analysis. Please see complete above mentioned report in EMR
[2019-02-16] MEDS: Doxycycline 100 MG CAPSULE PO (12:11)
[2019-02-16 12:29] LABS: Hematocrit 38.5 % (37-47); Hemoglobin 13.1 g/dL (12.0-15.0); Mean Corpuscular Hgb 30.3 pg (27.0-32.0); Mean Corpuscular Volume 89.1 fL (81-99); Mean Platelet Vol. 11.1 fl (6.2-12.0); Platelet Count 116 K/mm3 (150-450); RBC Distribution Width CV 12.7 % (11.6-14.6); RBC Distribution Width SD 41.5 fl (35.1-43.9); Red Blood Count 4.32 M/mm3 (4.2-5.4); White Blood Count 3.2 K/mm3 (4.4-11.0)
--- NOTE | 2019-02-16 13:29 | PCM.OPRPT ---
Problem List (1) Missed Status: Acute Report of Operation Date of Procedure: 02/16/19 Pre-Operative Diagnosis: missed ab Post-Operative Diagnosis: same Surgery/Procedure Performed:: suction d and c Description of Surgical Findings:: 9 week sab Type of Anesthesia:: Local MAC Special Medications: cytotec Specimen's removed: poc Drains: none Estimated Blood Loss (mL): 50 Fluids Replaced: crystalloid Description of Procedure: Patient was taken to the operating room and placed under MAC local anesthesia. She was prepped and draped in the normal sterile fashion the dorsal lithotomy position. Bladder was drained of clear urine and anterior lip of the cervix was grasped and the uterus sounded to9 centimeters. Cervix was progressively dilated to allow passage of a 9 mm suction curette. Progressive passes were made removing the retained products of conception without complication. Sharp curettage confirmed complete removal of the retained products. All instruments were removed from the vagina and excellent hemostasis was noted and the patient was taken to recovery in stable condition. cytotec given rectally. Grafts/Implants Used: none - Complications none Multi Select Codes - Urinary/Genital Urinary/Genital CPT Codes: 97183 Care of miscarriage
--- NOTE | 2019-02-16 13:31 | DCINST_ITS ---
Discharge Diet: No Restrictions Discharge Activity: Return to Normal Activity, May Shower, May Take a Tub Bath Allergies/Adverse Reactions: Allergies No Known Allergies Allergy (Verified 02/14/19 11:30) Medications to take at Discharge NK 02/14/19 Primary Care Physician: Zeinab William DO [Primary Care Provider] - Test Results: Test results from this visit will be discussed in further detail at your follow- up appointment, if applicable. Please Follow Up With: Amira Padilla MD - [phone]
[2019-02-16] MEDS: miSOPROStol 200 MCG Tablet (13:35)
[2019-02-16] MEDS: HYDROcodone Bitartrate/Apap 5/325 Tablet PO (15:33)
== END 2019-02-16 16:55 | disposition home or self-care (01) ==
LOC: SDC 10:30 → AC 10:32
PROVIDERS: Family Provider Internal Medicine; PCP Internal Medicine; Referring Provider Obstetrics & Gynecology; Visit Provider Obstetrics & Gynecology
PROC: (CPT 59820; principal; 2019-02-16 11:45)
DX: O02.1 Missed abortion (principal)
CPT/HCPCS: 59820; 85027; 86850; 86900; 88305; J7120; J2405

== ENCOUNTER 2019-05-09 13:10 | Emergency (ER) | payer OTHER, SELFPAY ==
[2019-03-02 11:44] VITALS: BMI 20.5
[2019-05-09 13:11] VITALS: BP 93/56; PULSE 109; RESP 16; TEMP 36.8; O2SAT 97; BMI 20.5
--- NOTE | 2019-05-09 13:33 | ED.DCSUM_ITS ---
- ER Visit Summary Date of Service: 05/09/19 Chief Complaint: Suprapubic and right flank pain with nausea and vomiting History of Present Illness: The patient is a 23 F dyspnea past medical history other than anxiety. She is had prior C-sections and a labioplasty. Patient states since Tuesday she has had suprapubic abdominal pain now in her right flank with associated nausea vomiting. Denies diarrhea. Denies chills. Currently is on her menstrual cycle. She has had prior UTIs that were similar. She still has her appendix. She is never had a kidney stone. Physical Examination: Young female no acute distress. Vital signs are stable afebrile. She does not look septic or toxic. HEENT exam unremarkable. Moist week's membranes. Neck nontender no lymphadenopathy. Lungs clear to auscultation bilaterally. Heart regular rhythm rate about 100 no murmur. Abdomen soft. Nondistended normal bowel sounds no peritoneal signs. Right upper right lower quadrants are both unremarkable. She does have tenderness in the suprapubic area. Left side of her abdomen is nontender. No hernias or masses. No signs of obstruction. Or trauma. Patient moving all 4 extremities. Back she does have mild right CVA tenderness. No ecchymosis or bruising. No signs of trauma. Neurologically she is awake and alert with no focal motor deficits. Test Results: test negative. Urinalysis shows no acute signs of infection. Patient's urine has 0 white cells 0 nitrates 150 occult blood in 10- 25 red blood cells. She is on her menstrual cycle this could also be secondary to potential stone. Her urine test is negative. Also obtain a CT flank study without contrast and showed no acute abnormality. Was read as normal by the radiologist. I reviewed the. The appendix was seen and is read as normal. There is no obvious kidney stone. Urine culture also be sent. Emergency Department Course and Treatment: Patient was offered but deferred pain or nausea medication at this time. Her history and exam are consistent with a UTI and possibly early pyelonephritis versus other etiologies The urine is negative for any signs of infection. On repeat exam at 1456 she is drawing frame tender in the suprapubic area and right CVA area. Right lower quadrant unremarkable. A CAT scan is being obtained. She is also been given Tylenol for pain. Well at 1650 8 PM. She will be discharged home. I went over all test results with her. Treatment Plan: Tylenol and Motrin for pain. Follow-up with your primary care physician. Disposition: Discharge Impression: Acute right-sided flank pain G. This note was generated with [employer] dictation software. It may contain incorrect words, spelling, and punctuation that were not noted in review of the chart prior to signing ED Disposition - Plan for ED Patient: Disposition: Home or Assisted Living Instructions: PYELONEPHRITIS, Female (Adult) Prescriptions: Cephalexin [Keflex] 500 mg PO Q6 #40 cap Prescription Printed Ondansetron [Zofran Odt] 4 mg PO Q8H PRN PRN #14 tab PRN Reason: Nausea Prescription Printed Referrals: Zeinab William DO [Primary Care Provider] - 3-5 Days if not improving Additional Instructions: Plenty of fluids and rest. Alternate Tylenol Motrin for pain. Zofran for nausea. The antibiotic Keflex 1 pill 4 times a day for 10 days for the urinary tract infection. Return if feeling worse or follow-up with your doctor if not improving.
--- NOTE | 2019-05-09 13:35 | ED.DEP ---
ED Disposition - Plan for ED Patient: Disposition: Home or Assisted Living Instructions: PYELONEPHRITIS, Female (Adult) Prescriptions: Cephalexin [Keflex] 500 mg PO Q6 #40 cap Prescription Printed Ondansetron [Zofran Odt] 4 mg PO Q8H PRN PRN #14 tab PRN Reason: Nausea Prescription Printed Referrals: Zeinab William DO [Primary Care Provider] - 3-5 Days if not improving Additional Instructions: Plenty of fluids and rest. Alternate Tylenol Motrin for pain. Zofran for nausea. The antibiotic Keflex 1 pill 4 times a day for 10 days for the urinary tract infection. Return if feeling worse or follow-up with your doctor if not improving.
[2019-05-09 14:21] LABS: Mucous, Urine 0 SEEN /hpf (<or=2+)
[2019-05-09 14:24] LABS: Color, Urine Yellow (Yellow); Glucose, Dipstick Normal (Normal); Ketone-Dipstick 5 mg/dl (Negative); Leukocyte Esterase-Dipstick 25 /ul (Negative); Nitrite-Dipstick Negative (Negative); Occult Blood-Urine 150 /ul (Negative); Protein-Dipstick 30 mg/dl (Negative); Specific Gravity, Urine 1.015 (1.002-1.030); Urine Clarity Sl. Cloudy (Clear); Urine Urobilinogen 1 mg/dl (Normal)
[2019-05-09 14:25] LABS: Internal QC Validated? YES +Cl - CLEAR BKGD; Pregnancy, Urine Negative Negative
[2019-05-09 14:30] LABS: Urine Bilirubin Dipstick 1 mg/dL (Negative)
[2019-05-09 14:37] LABS: Bacteria 1+ /hpf (None Seen); Red Blood Cells-Urine 10-25 SEEN /hpf (0-5); Squamous Epithelial Cells - UA 0-5 SEEN /hpf (5-10); White Blood Cells 0-5 SEEN /hpf (0-5)
--- NOTE | 2019-05-09 14:55 | CT_ITS ---
STUDY: CT ABDOMEN AND PELVIS WITHOUT CONTRAST REASON FOR EXAM: Female, 23 years old. Right flank pain. Dysuria and hematuria. RADIATION DOSAGE (If Supplied By Facility): CTDIvol = ( 6.45 ) mGy, DLP = ( 307.84 ) mGycm TECHNIQUE: Transaxial images were obtained from the dome of the diaphragm to the symphysis pubis without oral contrast, and without intravenous contrast. Sagittal and coronal images were reconstructed. Individualized dose optimization techniques were used for this CT. COMPARISON: Comparison is made with prior study dated October 05, 2018. FINDINGS: The visualized lung bases are unremarkable. The visualized portions of the heart are within normal limits. Normal liver. Normal gallbladder and extrahepatic biliary system. Normal spleen. Normal pancreas. Normal bilateral adrenal glands. Normal right kidney. Normal left kidney. Normal visualized stomach. Normal small intestine. Normal colon. The appendix is visualized and appears normal. Normal abdominal aorta. Normal inferior vena cava. Normal retroperitoneum. Normal urinary bladder. Normal abdominal wall. Normal osseous structures. CT/Abdomen/Pelvis without Cont IMPRESSION: Normal unenhanced CT of the abdomen and pelvis. Electronically Signed: Rod Mina, at 15:33 EDT , Service support ,
[2019-05-09] MEDS: Acetaminophen 500 MG Tablet 1000 MG PO (15:44)
--- NOTE | 2019-05-09 16:59 | ED.DEP ---
ED Disposition - Plan for ED Patient: Disposition: Home or Assisted Living Instructions: FLANK PAIN, Uncertain Cause Prescriptions: Cephalexin [Keflex] 500 mg PO Q6 #40 cap Prescription Printed Ondansetron [Zofran Odt] 4 mg PO Q8H PRN PRN #14 tab PRN Reason: Nausea Prescription Printed Referrals: Zeinab William DO [Primary Care Provider] - 3-5 Days if not improving Additional Instructions: Plenty of fluids and rest. Alternate Tylenol Motrin for pain. Zofran for nausea Return if feeling worse or follow-up with your doctor if not improving. Your labs and CAT scan were normal today. The urinalysis appears negative. A urine culture was also sent due to your symptoms.
[2019-05-09 17:23] VITALS: BP 104/59; PULSE 93; RESP 18; O2SAT 97
== END 2019-05-09 17:25 | disposition home or self-care (01) ==
LOC: ED 13:38
PROVIDERS: Emergency Provider Emergency Medicine; Family Provider Internal Medicine; PCP Internal Medicine
DX: R10.30 Lower abdominal pain, unspecified (principal); R11.2 Nausea with vomiting, unspecified; F41.9 Anxiety disorder, unspecified; Z87.440 Personal history of urinary (tract) infections; Z79.899 Other long term (current) drug therapy
CPT/HCPCS: 74176; 81001; 81025; 99283

== ENCOUNTER → 2019-07-26 17:01 | Outpatient (CLI) | payer OTHER, SELFPAY ==
[2019-07-26 13:18] VITALS: BMI 20.5
== END ==
PROVIDERS: PCP Internal Medicine; Referring Provider Obstetrics & Gynecology; Visit Provider Obstetrics & Gynecology
DX: N93.0 Postcoital and contact bleeding (principal)
CPT/HCPCS: 87070; 87205

== ENCOUNTER → 2019-07-27 16:27 | Outpatient (CLI) | payer OTHER, SELFPAY ==
[2019-07-26 13:18] VITALS: BMI 20.5
--- NOTE | 2019-07-27 16:29 | US_ITS ---
STUDY: ULTRASOUND OF THE FEMALE PELVIS - COMPLETE REASON FOR EXAM: Female, 23 years old. STOPPING AND BLEEDING DURING INTERCOURSE LMP: 07/01/2019 TECHNIQUE: Transabdominal TECHNICAL QUALITY: Adequate. COMPARISON: 05/09/2019 FINDINGS: The uterus is anteverted and is in a midline position. The uterus measures 8.7 x 5.3 x 3.8 cm. Normal uterine cervix. The endometrium measures 8.0 mm in thickness, and is hyperechoic. There is no demonstrated endometrial mass. There is no demonstrated myometrial mass. I.U.D. - The patient does not have an I.U.D. The right ovary is visualized. The right ovary measures 2.4 x 2.5 x 1.6 cm. There is no right ovarian cyst or ovarian mass. There is no visualized right adnexal mass or complex lesion. There is normal arterial and normal venous vascularity. The left ovary is visualized. The left ovary measures 2.8 x 1.9 x 1.8 cm. There is no left ovarian cyst or ovarian mass. There is no visualized left adnexal mass or complex lesion. There is normal arterial and normal venous vascularity. There is no fluid in the cul-de-sac. Visualized urinary bladder is unremarkable. US/Pelvic (Non ) IMPRESSION: Normal female pelvis. Electronically Signed: Ziyad Hancock MD (Brooks) at 21:15 EST , Service support ,
== END ==
PROVIDERS: PCP Internal Medicine; Referring Provider Nurse Practitioner Women's Health; Visit Provider Nurse Practitioner Women's Health
DX: N93.0 Postcoital and contact bleeding (principal)
CPT/HCPCS: 76856

== ENCOUNTER → 2019-09-18 | Outpatient (CLI) | payer OTHER, SELFPAY ==
[2019-09-18 13:42] VITALS: BMI 20.5
[2019-09-18 20:49] LABS: Chlamydia Trachomatis by PCR Negative (Negative); Neisserai gonorrhoeae by PCR Negative (Negative); Probe Check PASS; Sample Adequacy Control PASS; Specimen Processing Control PASS
== END | disposition home or self-care (01) ==
LOC: LABSPEC 15:29
PROVIDERS: PCP Internal Medicine; Referring Provider Nurse Practitioner Women's Health; Visit Provider Nurse Practitioner Women's Health
DX: N93.0 Postcoital and contact bleeding (principal)
CPT/HCPCS: 87491; 87591

== ENCOUNTER 2019-11-23 21:43 | Emergency (ER) | payer OTHER, SELFPAY ==
[2019-09-18 13:42] VITALS: BMI 20.5
[2019-11-23 21:44] VITALS: BP 134/86; PULSE 87; RESP 16; TEMP 36.3; O2SAT 99; BMI 20.9
--- NOTE | 2019-11-23 22:06 | US_ITS ---
STUDY: ULTRASOUND TRANSVAGINAL CLINICAL: Female, 24 years old. Heavy bleeding since yesterday. TECHNIQUE: Transvaginal COMPARISON: Pelvic ultrasound, July 27, 2019. FINDINGS: Uterus is anteverted and midline, measuring 8.4 x 4.6 x 3.8 cm. There is no evidence of myometrial mass. Normal endometrial thickness measuring 3.7 mm. The endometrium is hyperechoic. There are no endometrial masses, and there is no fluid in the endometrial cavity. There are nabothian cysts in otherwise normal cervix. The right ovary is not visualized. There is no evidence of right adnexal mass. Normal left ovary, measuring 3.4 x 2.2 x 3.2 cm. There are multiple follicles without a dominant cyst. No vascularity on Doppler imaging. There is no free fluid in the pelvis. Polycystic ovary disease: No. US/Transvaginal Non- IMPRESSION: 1. Normal appearing uterus and left ovary. The right ovary is not visualized. There is no major interval change. Electronically Signed: Ken Lopez DO at 23:27 EDT Tel [phone], Service support ,
--- NOTE | 2019-11-23 22:08 | ED.VIS.GEN ---
History of Present Illness Chief Complaint: Vag Bleeding Informant: Patient Onset: Yesterday Current Severity: Moderate Maximum Severity: Moderate Narrative: Patient presents with heavy vaginal bleeding. She started her menstrual cycle yesterday which she states was normal timing. Tonight she had very heavy bleeding and went through a tampon and a maxi pad in 2 hours. She states her typical period last 5 or 6 days. She will normally change her tampon every 2 hours when her bleeding is at its heaviest. She does feel somewhat lightheaded. She is G2, P1, Ab1. She had a miscarriage last February. She has been trying to get . - Past Medical History (1) Anxiety Status: Chronic Comment: celexa Past Medical History - Allergies and Home Meds Allergies/Adverse Reactions: Allergies No Known Allergies Allergy (Verified 11/23/19 21:46) Primary Care Physician: Zeinab William DO [Primary Care Provider] - Prior records reviewed: Yes Lives: With Family Smoking Status: Never smoker Review of Systems General: Denies: Chills, Fever Eyes: Denies: Visual changes - bilaterally ENT: Denies: Bilateral ear pain Cardiovascular: Denies: Chest pain Respiratory: Denies: Dyspnea, Cough Gastrointestinal: Reports: Abdominal pain - Mild pelvic cramping. Denies: Vomiting Genitourinary: Denies: Dysuria, Frequency Musculoskeletal: Denies: Extremity Pain Skin: Denies: Rash Neurological: Denies: Headache Hematologic: Denies: Easy bruising, Easy bleeding Allergy: Denies: Uticaria Physical Exam Vital Signs/Narrative: Vital Signs Temp Pulse Resp BP Pulse Ox 11/23/19 21:44 97.4 F L 87 16 134/86 H 99 Inital Vital Signs reviewed: Yes General: Well nourished, Well developed Head: Normocephalic ENT: Moist mucous membranes Neck: Supple Cardiovascular: Regular rate, Regular rhythm Respiratory: No distress, CTA bilaterally Abdomen: Soft, Nontender, Normal bowel sounds Skin: Normal color Neurological: Alert, Oriented x3 Psychological: Normal affect Diagnostic/Tx/Re-eval Impressions Transvaginal US 11/23/19 22:06 IMPRESSION: 1. Normal appearing uterus and left ovary. The right ovary is not visualized. There is no major interval change. Electronically Signed: Ken Lopez DO at 23:27 EDT Tel [phone], Service support , 11/23/19 22:06 Transvaginal Non- [US] Stat Laboratory Results 11/23/19 11/23/19 22:20 22:20 WBC 4.4 RBC 4.20 Hgb 12.1 Hct 37.4 MCV 89.0 MCH 28.8 MCHC 32.4 RDW Std Deviation 42.3 RDW Coeff of Chapin 13.0 Plt Count 148 L MPV 11.6 Immature Gran % (Auto) 0.200 Neut % (Auto) 54.3 Lymph % (Auto) 33.9 Mccracken % (Auto) 9.1 Eos % (Auto) 1.8 Baso % (Auto) 0.7 Absolute Neuts (auto) 2.4 Absolute Lymphs (auto) 1.49 Nucleated RBC % 0 Serum , Qual NEGATIVE - Medical Decision Making Patient was given 500 cc fluid bolus here. Vital signs remained stable. Hemoglobin is normal. Platelet count is slightly low, however this is improved when compared to prior values. Ultrasound is unremarkable. At this time I advised her I do not think that her bleeding will stay heavy much longer and that she has normal endometrial thickness on her ultrasound. She is to return for any worsening symptoms and call Dr. Ehsan Urrutia on Tuesday with an update. ED Disposition - Plan for ED Patient: Disposition: Home or Assisted Living Diagnosis: Menorrhagia Instructions: ED Bleeding Menstrual Heavy Referrals: Amira Padilla MD [STAFF PHYSICIAN] - 5-7 Days
[2019-11-23 22:27] LABS: Absolute Lymphocyte Count 1.49 X10^3/uL (0.83-4.51); Absolute Neutrophil Count 2.4 X10^3/uL (2.0-7.7); Basophil# 0.03 X10^3/uL; Basophil% 0.7 % (0-1); Eosinophil# 0.08 X10^3/uL; Eosinophils% 1.8 % (0-5); Hematocrit 37.4 % (37-47); Hemoglobin 12.1 g/dL (12.0-15.0); Lymphocyte # 1.49 X10^3/ul (4.0); Lymphocyte % 33.9 % (19-41); Mean Corp Hgb Conc 32.4 g/dL (32-36); Mean Corpuscular Hgb 28.8 pg (27.0-32.0); Mean Platelet Vol. 11.6 fl (6.2-12.0); Monocyte% 9.1 % (0-10); NRBC Flagged by Analyzer 0 % (0-5); Neutrophil # 2.38 X10^3/uL (2.7-7.7); Neutrophil % 54.3 % (47-70); Platelet Count 148 K/mm3 (150-450); RBC Distribution Width SD 42.3 fl (35.1-43.9); White Blood Count 4.4 K/mm3 (4.4-11.0)
[2019-11-23 23:11] LABS: Internal QC Validated? YES +Cl - CLEAR BKGD; Pregnancy, Serum, hCG Quali. NEGATIVE Negative
[2019-11-23 23:38] VITALS: BP 102/69; PULSE 60; RESP 14; O2SAT 99
== END 2019-11-23 23:38 | disposition home or self-care (01) ==
PROVIDERS: Emergency Provider Emergency Medicine; PCP Internal Medicine
DX: N92.0 Excessive and frequent menstruation with regular cycle (principal); F41.9 Anxiety disorder, unspecified; Z79.899 Other long term (current) drug therapy
CPT/HCPCS: 76830; 84703; 85025; 96360; 99283; J7040

== ENCOUNTER → 2019-11-30 13:39 | Outpatient (CLI) | payer OTHER, SELFPAY ==
[2019-11-30 13:15] VITALS: BMI 20.9
== END ==
PROVIDERS: PCP Internal Medicine; Referring Provider Obstetrics & Gynecology; Visit Provider Obstetrics & Gynecology
DX: N92.0 Excessive and frequent menstruation with regular cycle (principal)
CPT/HCPCS: 36415; 84443; 87086; 87088; 87186

== ENCOUNTER → 2020-04-04 18:32 | Outpatient (CLI) | payer OTHER, SELFPAY ==
[2019-11-30 13:15] VITALS: BMI 20.9
--- NOTE | 2020-04-04 18:37 | US_ITS ---
STUDY: ULTRASOUND OF THE FEMALE PELVIS - COMPLETE REASON FOR EXAM: Female, 24 years old. RLQ PAIN LMP: 02/24/2020 TECHNIQUE: Transabdominal and Transvaginal TECHNICAL QUALITY: Adequate. COMPARISON: Prior study of 11/23/2019 FINDINGS: The uterus is anteverted and is in a midline position. The uterus measures 9.0 x 6.0 x 4.5 cm. There is a Nabothian cyst of the cervix. The endometrium measures 7 mm in thickness, and is hyperechoic. There is no demonstrated endometrial mass. There is no demonstrated myometrial mass. There is prominence of myometrial blood vessels. I.U.D. - The patient does not have an I.U.D. The right ovary is visualized. The right ovary measures 6.1 x 4.8 x 4.3 cm. There is a right ovarian cyst measuring 3.9 x 3.9 x 4.0 cm. There is no visualized right adnexal mass or complex lesion. There is normal arterial and normal venous vascularity. The left ovary is visualized. The left ovary measures 4.0 x 2.0 x 1.9 cm. There is no left ovarian cyst or ovarian mass. There is no visualized left adnexal mass or complex lesion. There is normal arterial and normal venous vascularity. There is no fluid in the cul-de-sac. The pre void volume of the bladder was 198 ml. Polycystic ovary disease: No. US/Pelvic (Non ) IMPRESSION: Prominent uterine myometrial blood vessels. 3.9 x 3.9 x 4.0 cm right ovarian cyst. Electronically Signed: Mathew De Leon MD at 22:08 EDT , Service support ,
--- NOTE | 2020-04-04 18:52 | US_ITS ---
STUDY: ULTRASOUND OF THE FEMALE PELVIS - COMPLETE REASON FOR EXAM: Female, 24 years old. RLQ PAIN LMP: 02/24/2020 TECHNIQUE: Transabdominal and Transvaginal TECHNICAL QUALITY: Adequate. COMPARISON: Prior study of 11/23/2019 FINDINGS: The uterus is anteverted and is in a midline position. The uterus measures 9.0 x 6.0 x 4.5 cm. There is a Nabothian cyst of the cervix. The endometrium measures 7 mm in thickness, and is hyperechoic. There is no demonstrated endometrial mass. There is no demonstrated myometrial mass. There is prominence of myometrial blood vessels. I.U.D. - The patient does not have an I.U.D. The right ovary is visualized. The right ovary measures 6.1 x 4.8 x 4.3 cm. There is a right ovarian cyst measuring 3.9 x 3.9 x 4.0 cm. There is no visualized right adnexal mass or complex lesion. There is normal arterial and normal venous vascularity. The left ovary is visualized. The left ovary measures 4.0 x 2.0 x 1.9 cm. There is no left ovarian cyst or ovarian mass. There is no visualized left adnexal mass or complex lesion. There is normal arterial and normal venous vascularity. There is no fluid in the cul-de-sac. The pre void volume of the bladder was 198 ml. Polycystic ovary disease: No. US/Transvaginal Non- IMPRESSION: Prominent uterine myometrial blood vessels. 3.9 x 3.9 x 4.0 cm right ovarian cyst. Electronically Signed: Mathew De Leon MD at 22:08 EDT , Service support ,
== END ==
PROVIDERS: PCP Internal Medicine; Visit Provider Nurse Practitioner Women's Health
DX: N83.201 Unspecified ovarian cyst, right side (principal)
CPT/HCPCS: 76830; 76856; 93976

== ENCOUNTER → 2020-05-15 14:12 | Outpatient (CLI) | payer OTHER, SELFPAY ==
[2019-11-30 13:15] VITALS: BMI 20.9
--- NOTE | 2020-05-15 14:13 | US_ITS ---
STUDY: ULTRASOUND OF THE FEMALE PELVIS - COMPLETE REASON FOR EXAM: Female, 24 years old. Pelvic pain -- prev RTO cyst LMP: 04/30/2020. TECHNIQUE: Transabdominal and Transvaginal TECHNICAL QUALITY: Adequate. COMPARISON: Comparison is made with prior study dated 04/04/2020. FINDINGS: The uterus is anteverted and is in a midline position. The uterus measures 8.9 cm x 5.3 cm x 3.8 cm. Normal uterine cervix. The endometrium measures 3.6 mm in thickness, and is . There is no demonstrated endometrial mass. There is no demonstrated myometrial mass. I.U.D. - The patient does not have an I.U.D. The right ovary is visualized. The right ovary measures 2.7 cm x 1.3 cm x 2.2 cm. There is no right ovarian cyst or ovarian mass. There is no visualized right adnexal mass or complex lesion. There is normal arterial and normal venous vascularity. Previously seen right ovarian cyst is not seen at this time. The left ovary is visualized. The left ovary measures 3.1 cm x 1.5 cm x 1.4 cm. There is no left ovarian cyst or ovarian mass. There is no visualized left adnexal mass or complex lesion. There is normal arterial and normal venous vascularity. There is no fluid in the cul-de-sac. The pre void volume of the bladder was 250 ml. US/Pelvic (Non ) IMPRESSION: Normal female pelvis. The previously seen right ovarian cyst has cleared. Electronically Signed: Rod Mina, at 15:44 EST , Service support ,
--- NOTE | 2020-05-15 14:13 | US_ITS ---
STUDY: ULTRASOUND OF THE FEMALE PELVIS - COMPLETE REASON FOR EXAM: Female, 24 years old. Pelvic pain -- prev RTO cyst LMP: 04/30/2020. TECHNIQUE: Transabdominal and Transvaginal TECHNICAL QUALITY: Adequate. COMPARISON: Comparison is made with prior study dated 04/04/2020. FINDINGS: The uterus is anteverted and is in a midline position. The uterus measures 8.9 cm x 5.3 cm x 3.8 cm. Normal uterine cervix. The endometrium measures 3.6 mm in thickness, and is . There is no demonstrated endometrial mass. There is no demonstrated myometrial mass. I.U.D. - The patient does not have an I.U.D. The right ovary is visualized. The right ovary measures 2.7 cm x 1.3 cm x 2.2 cm. There is no right ovarian cyst or ovarian mass. There is no visualized right adnexal mass or complex lesion. There is normal arterial and normal venous vascularity. Previously seen right ovarian cyst is not seen at this time. The left ovary is visualized. The left ovary measures 3.1 cm x 1.5 cm x 1.4 cm. There is no left ovarian cyst or ovarian mass. There is no visualized left adnexal mass or complex lesion. There is normal arterial and normal venous vascularity. There is no fluid in the cul-de-sac. The pre void volume of the bladder was 250 ml. US/Transvaginal Non- IMPRESSION: Normal female pelvis. The previously seen right ovarian cyst has cleared. Electronically Signed: Rod Mina, at 15:44 EST , Service support ,
== END ==
PROVIDERS: PCP Internal Medicine; Referring Provider Nurse Practitioner Women's Health; Visit Provider Nurse Practitioner Women's Health
DX: R10.2 Pelvic and perineal pain (principal)
CPT/HCPCS: 76830; 76856

== ENCOUNTER → 2020-07-10 09:56 | Outpatient (CLI) | payer OTHER, SELFPAY ==
[2019-11-30 13:15] VITALS: BMI 20.9
[2020-07-10 10:49] LABS: hCG Titer Quant., Serum < 1 mIU/mL (1-3)
== END ==
PROVIDERS: PCP Internal Medicine; Referring Provider Obstetrics & Gynecology; Visit Provider Obstetrics & Gynecology
DX: N91.2 Amenorrhea, unspecified (principal)
CPT/HCPCS: 36415; 84702

== ENCOUNTER 2021-09-01 09:16 | Outpatient (CLI) | payer OTHER, SELFPAY ==
--- NOTE | 2021-09-01 09:19 | BI_ITS ---
MAMMOGRAPHY - BILATERAL DIAGNOSTIC REASON FOR EXAM: Female, 26 years old. Palpable lump in the right axillary region. PERTINENT HISTORY: Grandmother with breast cancer. TECHNIQUE: Digital bilateral breast tab (3D mammographic acquisition) in the CC and MLO projections. 2-D mediolateral oblique (MLO) and craniocaudad (CC) views of both breasts were obtained. CAD: Full Field Digital Mammography with Computer Added Detection was performed. COMPARISON: None. Baseline examination. FINDINGS: Breast Composition: The breasts are extremely dense, which lowers the sensitivity of mammography. There are no dominant masses or suspicious calcifications. Findings suggestive of a asymmetrical glandular tissue in the right axilla as compared to the left side. Correlation with ultrasound is recommended. No other significant abnormalities are identified. BI/DIAG MAMM W/CAD, BILAT IMPRESSION: Negative diagnostic mammogram. With the patient''s history of a palpable lump in the left axilla, correlation with ultrasound is recommended. ASSESSMENT CATEGORY: BIRADS Category 0: Incomplete. Need additional imaging evaluation. A letter regarding these results will be sent to the patient by the facility within 30 days. Approximately 10% of breast cancers are not detected by mammography. A normal mammogram should not delay biopsy of a clinically suspicious abnormality. Electronically Signed: Rod Mina MD at 9:57 EST ,
--- NOTE | 2021-09-01 09:19 | US_ITS ---
STUDY: ULTRASOUND BREAST - RIGHT REASON FOR EXAM: Female, 26 years old. Palpable lump in the right axilla. TECHNIQUE: Axial and longitudinal images of the RIGHT breast were performed with a high resolution ultrasound transducer. # OF IMAGES: 18 COMPARISON: Comparison is made with prior mammogram done earlier today. FINDINGS: RIGHT Breast: 3 lymph nodes are seen in the right axilla. Fatty hilum is seen in each lymph node. The largest lymph node measures 2.4 cm x 1.0 cm x 0.6 cm. US/Breast Limited Unilateral IMPRESSION: 3 lymph nodes are seen in the right axillary region. These most likely are benign in nature. Clinical correlation recommended. ASSESSMENT CATEGORY: BIRADS Category 2: Benign. A letter regarding these results will be sent to the patient by the facility within 30 days. Electronically Signed: Rod Mina MD at 12:28 EST ,
== END 2021-09-01 23:59 | disposition home or self-care (01) ==
LOC: OPBI 09:18
PROVIDERS: PCP Internal Medicine; Referring Provider Nurse Practitioner Women's Health; Visit Provider Nurse Practitioner Women's Health
DX: N63.10 Unspecified lump in the right breast, unspecified quadrant (principal)
CPT/HCPCS: 76642; 77062; 77066; G0279

== ENCOUNTER → 2022-06-17 | Outpatient (CLI) | payer OTHER, SELFPAY ==
--- NOTE | 2022-06-17 18:14 | US_ITS ---
STUDY: RENAL ULTRASOUND - COMPLETE REASON FOR EXAM: Female, 26 years old. FLANK PAIN RT and gt;LT TECHNIQUE: Ultrasound evaluation of the kidneys was performed with real-time and static rios-scale imaging. COMPARISON: ct 05.09.19 FINDINGS: RIGHT KIDNEY: Normal location of the right kidney, which is normal in size. The right kidney measures 10.4x4.3 cm. There is a normal cortex of the right kidney. The renal cortex measures 1.2 cm. There is no right renal mass or cyst. There are no right renal calculi. There is no right hydronephrosis. DISTAL RIGHT URETER: There is non-visualization of the distal right ureter. There is no demonstrated right ureterovesical junction calculus. There is no demonstrated right ureteral jet. LEFT KIDNEY: Normal location of the left kidney, which is normal in size. The left kidney measures 11.3x5.5 cm. There is a normal cortex of the left kidney. The renal cortex measures 1.9 cm. There is no left renal mass or cyst. There are 5mm and 3mm left renal calculi. There is no left hydronephrosis. DISTAL LEFT URETER: There is non-visualization of the distal left ureter. There is no demonstrated left ureterovesical junction calculus. There is no demonstrated left ureteral jet. AORTA: There is obscuration of the abdominal aorta by overlying bowel gas I.V.C.: The IVC is obscured. BLADDER: The distended urinary bladder has a volume of 19 ml. There is a normal wall thickness of the distended urinary bladder. There is no demonstrated mass within the urinary bladder. There are no demonstrated bladder calculi. US/Kidney and Bladder IMPRESSION: Nonobstructive left renal stone. Electronically Signed: Erik Lo MD at 19:32 EST ,
== END | disposition home or self-care (01) ==
LOC: US 18:14
PROVIDERS: PCP Internal Medicine; Visit Provider Internal Medicine
DX: R10.9 Unspecified abdominal pain (principal)
CPT/HCPCS: 76770

== ENCOUNTER → 2022-06-28 | Outpatient (CLI) | payer OTHER, SELFPAY ==
[2022-07-07 11:59] LABS: Chlamydia By Nucleic Acid AMP Negative; Gonococcus By Nucleic Acid AMP Negative; HPV Reflexed? NOT INDICATED
== END | disposition home or self-care (01) ==
LOC: LABSPEC 11:07
PROVIDERS: PCP Internal Medicine; Visit Provider Nurse Practitioner Women's Health
DX: Z11.3 Encounter for screening for infections with a predominantly sexual mode of transmission (principal); Z12.4 Encounter for screening for malignant neoplasm of cervix
CPT/HCPCS: 87491; 87591; 88175; G0145

== ENCOUNTER → 2022-07-01 | Outpatient (CLI) | payer OTHER, SELFPAY ==
--- NOTE | 2022-07-01 12:49 | CT_ITS ---
STUDY: CT ABDOMEN AND PELVIS WITHOUT CONTRAST REASON FOR EXAM: Female, 26 years old. L RENAL STONE/ABD PAIN RADIATION DOSAGE (If Supplied By Facility): CTDIvol = ( 6.23 ) mGy, DLP = ( 289.29 ) mGycm TECHNIQUE: Transaxial images were obtained from the dome of the diaphragm to the symphysis pubis without oral contrast, and without intravenous contrast. Sagittal and coronal images were reconstructed. Individualized dose optimization techniques were used for this CT. COMPARISON: Comparison is made with prior examination dated 05/09/2019. FINDINGS: The visualized lung bases are unremarkable. The visualized portions of the heart are within normal limits. Normal liver. Normal gallbladder and extrahepatic biliary system. Normal spleen. Normal pancreas. Normal bilateral adrenal glands. Tiny nonobstructive right intrarenal calculi in the upper pole. 2.5 mm nonobstructive calculus in the upper pole calyx of the left kidney. 2 mm calculus in the posterior mid pole calyx of the left kidney as well as a punctate calcification in the central portion of the left kidney. Minimal fullness of the proximal portion of the left ureter. No obstructive ureteral calculus is seen at this time. Normal visualized stomach. Normal small intestine. Normal colon. The appendix is visualized and appears normal. Normal abdominal aorta. Normal inferior vena cava. Normal retroperitoneum. Normal urinary bladder. IUD is seen within the uterus. There is a 2.5 cm cyst in the left ovary. Normal abdominal wall. Normal osseous structures. CT/Abdomen/Pelvis without Cont IMPRESSION: Bilateral nonobstructive intrarenal More prominent on the left side. Electronically Signed: Rod Mina MD at 13:23 EST ,
== END | disposition home or self-care (01) ==
LOC: CT 12:47
PROVIDERS: PCP Internal Medicine; Referring Provider Urology; Visit Provider Urology
DX: N20.0 Calculus of kidney (principal); N83.202 Unspecified ovarian cyst, left side; R10.9 Unspecified abdominal pain
CPT/HCPCS: 74176

== ENCOUNTER 2023-07-10 09:51 | Emergency (ER) | payer OTHER, SELFPAY ==
[2023-07-10 09:51] VITALS: BP 121/84; PULSE 97; RESP 14; TEMP 36.5; O2SAT 99; BMI 20.7
--- NOTE | 2023-07-10 10:10 | EDS_ITS ---
HPI History of Present Illness Chief Complaint: Bite Informant: patient Narrative Narrative: Patient presents after cat bite to left hand. This bite occurred about 1 in the afternoon yesterday. It was her cat. She states is a little more red today. No fevers chills. No drugs for immunosuppression. No history of immunosuppression issues. No fever. ROS ROS ED Constitutional Constitutional ED: Denies chills, fever(s) or subjective Cardiovascular Cardiovascular: Denies racing heartbeat Gastrointestinal Gastrointestinal: Denies nausea or vomiting Integumentary Reports other Details: Cat bite left hand Neurologic Neurologic: Denies paresthesias Hematologic/Lymphatic Hematologic/Lymphatic: Denies lymphadenopathy PFSH PFSH Medical History ADD (attention deficit disorder) Anxiety Home Medications citalopram 20 mg tablet (Celexa) 30 mg PO DAILY 06/24/21 [History Last Taken Unknown] lisdexamfetamine 30 mg capsule (Vyvanse) 30 mg PO DAILY 06/24/21 [History Last Taken Unknown] levonorgestrel 20.4 mcg/24 hrs (8 yrs) 52 mg intrauterine device (Liletta) 1 device intrauterine ONCE 11/18/21 [History Last Taken Unknown] amoxicillin 875 mg-potassium clavulanate 125 mg tablet 875 mg (0.875 x 875-125 mg) PO Q12H #20 TABLETS 07/10/23 [Rx Last Taken Unknown] Allergy/AdvReac Type Severity Reaction Status Date / Time No Known Allergies Allergy Verified 07/10/23 09:53 Family History Mother Diabetes Congestive heart failure Renal failure Father Narcolepsy Grandmother Kidney disease Grandfather Heart disease Alzheimer disease Surgical History labioplasty Social History (Updated 06/28/22 @ 09:28 by Yahaira Tate) current occupational status: student current occupation: [employer] Smoking Status: Never smoker alcohol intake: never substance use type: does not use caffeine: Yes what type of physical activity do you participate in: walking and aerobics frequency: 5-6 times per week seatbelt use: always do you feel safe at home: Yes additional social history: - [employer] EXAM Physical Exam Narrative Exam Narrative: General: Patient awake alert nontoxic sitting comfortably in bed. HEENT shows moist mucous membranes. Cardiorespiratory shows easy unlabored breathing normal heart rate saturations were normal at 99% on room air showing no hypoxia. Extremity: There are some small breaks in the skin in the the left first webspace. There is some local erythema but no lymphangitic streaking or proximal tenderness or swelling. No real swelling in the area. She has excell ent range of motion of all the joints. These areas of skin break are not near the joint. And joints are not painful to move. Overall there is just some mild erythema locally. But this has evidently increased since yesterday which is certainly concerning. Const Vital Signs: 07/10/23 09:51 Temperature 97.7 F L Temperature Source Temporal Pulse Rate 97 Respiratory Rate 14 Blood Pressure 121/84 H Blood Pressure Mean 96 Pulse Ox 99 Oxygen Delivery Method Room Air MDM MDM MDM Narrative Medical decision making narrative: We will get the patient started on Augmentin. If she gets worsening pain swelling pain with motion of the joint red streak up the arm fevers or chills she needs to return. I think she should do well. We are still early on on this and all the redness is just very localized. If she resolves completely by 5 days she can likely stop the antibiotics otherwise she should continue for the full 10 days if there is any remaining erythema. Patient also had had C. difficile colitis after mastitis once. We discussed using yogurt with active cultures. This is not guaranteed to prevent this but it is very low risk. We cannot totally prevent the colitis but she does need antibiotic treatment for a cat bite with erythema. Discharge Plan Triage Chief Complaint: Bite ED Provider: Eros Robin Dx/Rx/DC Orders Clinical Impression: Cat bite of left hand Instructions: ED Cat Bite Prescriptions: New amoxicillin-pot clavulanate [amoxicillin-pot clavulanate] 875-125 mg tablet 875 mg PO Q12H Qty: 20 0RF No Action citalopram [Celexa] 20 mg tablet 30 mg PO DAILY Vyvanse 30 mg capsule 30 mg PO DAILY Liletta 20.1 mcg/24 hrs (6 yrs) 52 mg intrauterine device 1 device intrauterine ONCE Rx Instructions: as a single dose Primary Care Provider: Zeinab William Referrals: Zeinab William, DO [Primary Care Provider] - 3-5 Days if not improving Disposition Disposition: Home, Self Care
[2023-07-10] MEDS: Amox/Clavulanate 875 MG Tablet PO (10:23)
--- OUTSIDE RECORDS SUMMARY | 2023-07-10 10:32 | XMS RPT_ITS | CCD ---
Author Name Unknown Address [address] [place] [address] Organization [facility] Care Team Providers Care Intelligence Intern Name Role Phone Zeinab William Unavailable Amira Paidlla Unavailable [phone] Gravius, Apryl Unavailable Unavailable Unavailable Unavailable Zeinab William Unavailable Amira Padilla Unavailable Diamante Guerrero Unavailable Unavailable Gravius, Apryl Unavailable Unavailable Unavailable Unavailable Gena Izaguirre Unavailable Gravius, Apryl Unavailable Unavailable Amira Padilla Unavailable Ilda Echavarria Unavailable Unavailable Oscar Heredia Unavailable Unavailable Danica Olguin Unavailable Unavailable Oscar Pereira Unavailable Unavailable Zeinab William DO Unavailable Amira Padilla Unavailable Gena Izaguirre Unavailable Ilda Echavarria LPN Unavailable Unavailable Oscar Heredia LPN Unavailable Unavailable Ciesa HELPER DRIVER, Marely Unavailable Gravius DRIER AND GRINDER TENDER, Apryl Unavailable Unavailable Unavailable Unavailable Mary Manley Unavailable [phone] SILVANA Walters LPN Unavailable Unavailable Odell HUBBARD, Tessa Yip Unavailable [phone] [place] DRIER AND GRINDER TENDER, Sommer Unavailable Unavailable Unavailable Unavailable Slarb BOND MANAGER, Bernadette Unavailable Unavailable Stewart , Zeinab Unavailable Danica Olguin LPN Unavailable Unavailable Ciesa, Betsy Unavailable Betsy Herring Unavailable Jennifer Wright MA Unavailable Unavailable Odell HUBBARD, Tessa Yip Unavailable [phone] Mohan EIDVíctor Unavailable Unavailable Unavailable Primary Care Provider Unavailabl e Unavailable Unavailable Zeinab William DO Attending Unavailable Zeinab William DO Referring Unavailable Zeinab William DO Consulting Unavailable Geovanni ALEJANDRA Vidal Unavailable Unavailable Kymberly Rios MA Unavailable Unavailable Unavailable Unavailable Medications Completed/Discontinued Medications Medication Drug Class(es) Dates Sig (Normalized) Sig (Original) ascorbic acid 60 mg / beta carotene 5000 unt / copper sulfate 40 mg / dl-alpha tocopheryl acetate 30 unt / sodium selenite 0.04 mg / zinc oxide 40 mg oral tablet (14 sources) Vitamin C Multivitamin Ramsey lt Oral Tablet daily Active busPIRone hydrochloride 15 mg oral tablet (20 sources) Start: 2020 End: 09-05-2020 take 2 tablets by mouth at bedtime busPIRone HCl 15 MG Oral Tablet 2 (two) Tablet at bedtime for 90 days Quantity: 90 {Tablet} Refills: 3 Ordered: 05-Sep-2020 Danica Olguin LPN Start : 08-Aug-2020 End : 05-Sep-2020 Inactive Problems Active Problems Problem Classification Problem Date Documented Da te Episodic/Chronic Abdominal pain (20 sources) Flank pain; Translations: [Flank pain] Resolved: 01-10-2023 06-17-2022 Episodic Past or Other Problems Problem Classification Problem Date Documented Da te Episodic/Chronic Chronic kidney disease (16 sources) Chronic kidney disease Conditions associated with dizziness or vertigo (20 sources) Conditions associated with dizziness or vertigo Unclassified (20 sources) Physical exam; Translations: [Patient encounter status] 05-05-2018 Unclassified (10 sources) Pregnancies (); Translations: [Pregnancies ()] 05-05-2018 Results Test Name Value Interpretation Reference Range Facil ity Vital Signs Date Time Vital Sign Value Performing Clinician Facility 01-10-2023 12:37-0400 Body height 162.56 cm [place] Geovanni ALEJANDRA [facility] Work Phone: 01-10-2023 12:37-0400 Body mass index (BMI) [Ratio] 20.28 kg/m2 [facility] Work Phone: 01-10-2023 12:37-0400 Body surface area Derived from formula 1.56 m2 [facility] Work Phone: 01-10-2023 12:37-0400 Body temperature 97.7 [degF] [facility] Work Phone: 01-10-2023 12:37-0400 Body weight 53.58 kg [facility] Work Phone: 01-10-2023 12:37-0400 Diastolic blood pressure 70 mm[Hg] [facility] Work Phone: Encounters Encounter Date Encounter Type Care Provider Facility Start: 04-01-2023 End: 04-01-2023 Office outpatient visit 5 minutes Zeinab Cavazoson DO Work Phone: [facility] Start: 04-01-2023 End: 04-01-2023 Lab Order Zeinab Cavazoson DO Work Phone: [facility] Start: 02-28-2023 End: 02-28-2023 Office outpatient visit 10 minutes Zeinab Cavazoson DO Work Phone: [facility] Start: 02-02-2023 Review Zeinab Cavazoso n DO Work Phone: [facility] Start: 02-02-2023 End: 02-24-2023 Patient encounter procedure Zeinab Cavazoson DO Work Phone: [facility] Start: 01-10-2023 End: 01-10-2023 Patient encounter status Zeinab Cavazoson DO Work Phone: [facility] Start: 01-10-2023 End: 01-10-2023 Periodic preventive med est patient 18-39 yrs Zeinab Stewart DO Work Phone: [facility] Start: 12-20-2022 End: 12-20-2022 Lab Order Zeinab Stewart DO Work Phone: [facility] Start: 11-22-2022 ambulatory Zeinab Stewart DO [facility] Start: 11-19-2022 End: 11-19-2022 Office outpatient visit 10 minutes Zeinab Stewart DO Work Phone: [facility] Start: 08-20-2022 End: 08-20-2022 Office outpatient visit 10 minutes Zeinab Stewart DO Work Phone: [facility] Start: 07-30-2022 End: 07-30-2022 Patient encounter procedure Zeinab Stewart DO Work Phone: [facility] Start: 07-30-2022 End: 07-30-2022 Office outpatient visit 15 minutes Zeinab Stewart DO Work Phone: [facility] Start: 06-21-2022 End: 06-21-2022 Annotation/Addendum Zeinab Stewart DO Work Phone: [facility] Start: 06-18-2022 End: 06-18-2022 Annotation/Addendum Zeinab Stewart DO Work Phone: [facility] Start: 06-17-2022 End: 06-17-2022 Office outpatient visit 40 minutes Zeinab Stewart DO Work Phone: [facility] Start: 06-17-2022 Review Zeinab Cavazoso n DO Work Phone: [facility] Start: 02-11-2022 Telephone encounter No Pcp [facility] [place] Procedures Date Procedure Procedure Detail Performing Clinician Start: 03-02-2023 End: 03-02-2023 Urgent Care Visit Report Procedure Note: See Note; NOTES: [facility] [address] , [address] [place] [address] OFFICE VISIT Date of Service: 03/02/23 MR#: [id number] Acct: [id number] Name: STEFANO ESPINOZA Rep #: [id number] : 1995 Provider: EDGARDO Borges Age/Sex: 27/F Location: [facility] Status: Signed Intake Vital Signs 06/28/22 09:24 03/01/23 11:02 Height 5 ft 4 in 5 ft 4 in Intake Visit Reasons: PE TCU PHYSICAL/HOSPITAL Chief Complaint: nexplanon insertion Allergies No Known Allergies Allergy (Verified 06/28/22 09:23) PFSH Medical History ADD (attention deficit disorder) Anxiety Surgical History labioplasty Family History Mother Diabetes Congestive heart failure Renal failure Father Narcolepsy Grandmother Kidney disease Grandfather Heart disease Alzheimer disease Social History (Updated 06/28/22 @ 09:28 by Yahaira Tate) current occupational status: student current occupation: [employer] Smoking Status: Never smoker alcohol intake: never substance use type: does not use caffeine: Yes what type of physical activity do you participate in: walking and aerobics frequency: 5-6 times per week seatbelt use: always do you feel safe at home: Yes additional social history: - [employer] Female Reproductive History Menstrual Ab spontaneous: 1 HPI HPI Chief Complaint: nexplanon insertion Details: STEFANO ESPINOZA, is a 27 F who presents to the office today for preemployment physical. Please see corresponding scanned documents with today's date. Office Procedures Physical Exam Coding PE Coding Pre-employment PE: Yes Coding Level of Care Code No Charge Diagnoses Encounter for pre-employment health screening examination Z02.1 Assessment and Plan Assessment and Plan (1) Encounter for pre-employment health screening examination: Status: Acute 03/02/23 1544 <Electronically signed by Venkat REYNOSO> Date Venkat Fung Signature: Date (if applicable) CC: Zeinab William DO Work Phone: Start: 07-01-2022 End: 07-01-2022 Abdomen/Pelvis without Cont Procedure Note: See Note; NOTES: [facility] Imaging Services [address] [place] [address] Abdomen/Pelvis without Cont MR#: [id number] Acct: [id number] Name: STEFANO ESPINOZA Rep #: [id number] : 1995 F 26 From: Rod ferro MD PCP: Dr. Zeinab William DO Status: REG CLI Study: Abdomen/Pelvis without Cont Date of Exam: 06/11 09/01 Exam# [id number] Ordering Dr: Gena Izaguirre MD STUDY: CT ABDOMEN AND PELVIS WITHOUT CONTRAST REASON FOR EXAM: Female, 26 years old. L RENAL STONE/ABD PAIN RADIATION DOSAGE (If Supplied By Facility): CTDIvol = ( 6.23 ) mGy, DLP = ( 289.29 ) mGycm TECHNIQUE: Transaxial images were obtained from the dome of the diaphragm to the symphysis pubis without oral contrast, and without intravenous contrast. Sagittal and coronal images were reconstructed. Individualized dose optimization techniques were used for this CT. COMPARISON: Comparison is made with prior examination dated 05/09/2019. FINDINGS: The visualized lung bases are unremarkable. The visualized portions of the heart are within normal limits. Normal liver. Normal gallbladder and extrahepatic biliary system. Normal spleen. Normal pancreas. Normal bilateral adrenal glands. Tiny nonobstructive right intrarenal calculi in the upper pole. 2.5 mm nonobstructive calculus in the upper pole calyx of the left kidney. 2 mm calculus in the posterior mid pole calyx of the left kidney as well as a punctate calcification in the central portion of the left kidney. Minimal fullness of the proximal portion of the left ureter. No obstructive ureteral calculus is seen at this time. Normal visualized stomach. Normal small intestine. Normal colon. The appendix is visualized and appears normal. Normal abdominal aorta. Normal inferior vena cava. Normal retroperitoneum. Normal urinary bladder. IUD is seen within the uterus. There is a 2.5 cm cyst in the left ovary. Normal abdominal wall. Normal osseous structures. CT/Abdomen/Pelvis without Cont IMPRESSION: Bilateral nonobstructive intrarenal More prominent on the left side. Electronically Signed: Rod Mina MD at 13:23 EST Reading Location ID and State: [address] [place] [address] , Service support , CC: Dr. Gena Izaguirre MD; Dr. Zeinab William DO Ballet Professor: Signed Gena Izaguirre Work Phone: Start: 06-28-2022 End: 06-28-2022 [employer] Office Visit Report Procedure Note: See Note; NOTES: [facility] 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: No Is patient in pain?: No Allergies No Known Allergies Allergy (Verified 06/28/22 09:23) Medications citalopram 20 mg tablet (Celexa) 30 mg PO DAILY 06/24/21 [History Confirmed 06/28/22] lisdexamfetamine 30 mg capsule (Vyvanse) 30 mg PO DAILY 06/24/21 [History Confirmed 06/28/22] levonorgestrel 20.4 mcg/24 hrs (8 yrs) 52 mg intrauterine device (Liletta) 1 device intrauterine ONCE 11/18/21 [History Confirmed 06/28/22] doxycycline monohydrate 100 mg capsule 100 mg PO BID 7 days #14 caps 06/28/22 [Rx Confirmed 06/28/22] Post menopausal: No Patient : No : No PFSH Medical History ADD (attention deficit disorder) Anxiety Surgical History labioplasty Family History Mother Diabetes Congestive heart failure Renal failure Father Narcolepsy Grandmother Kidney disease Grandfather Heart disease Alzheimer disease Social History (Updated 06/28/22 @ 09:28 by Yahaira Tate) current occupational status: student current occupation: [employer] Smoking Status: Never smoker alcohol intake: never substance use type: does not use caffeine: Yes what type of physical activity do you participate in: walking and aerobics frequency: 5-6 times per week seatbelt use: always do you feel safe at home: Yes additional social history: - [employer] History 2 Elective abortions Hx Para 1 Spontaneous abortions 1 Hx # Term Pregnancies Ectopic pregnancies Hx # Pregnancies Multiple births # of living children Past Pregnancies Del. Date Name GA/Weeks Outcome Route Bth Weight Gen Labor Lgth Anesthesia Del Locatn Provider FOB 10/02/16 Roxnae 39 live - full term 7lbs 4oz Female 12 hours none [facility] Betsy Mercado Delivery Date: 10/02/16 Last Updated by: Yahaira Tate Borderline HELP HPI Encounter for routine gynecological examination Details: STEFANO ESPINOZA is a 26 year old who presents for annual exam. Occasional light spotting with IUD. Has noted bleeding after intercourse X 1 month. Same sexual partner. History chlamydia in her teens. Last PAP: 2019 History of abnormal PAP: no Last mammogram: 08/2021 lymph node Other preventative health care screenings: Stewart Female Reproductive History Control Method: liletta IUD Questions: metorrhagia: No, sexually active: Yes, dyspareunia: No and PCB: Yes ROS Const Constitutional: Denies fatigue, weight gain or weight loss Cardio Card: Denies chest pain Resp Resp: Denies cough or dyspnea on exertion GI GI: Denies abdominal pain, bloating, change in stool character, constipation or vomiting : Reports as per HPI; Denies difficulty voiding, pelvic pain, urinary frequency, urinary incontinence, urinary urgency, vaginal discharge or vaginal pruritus Exam Const General: cooperative, healthy appearing, no acute distress and well developed Orientation: alert, oriented to person and oriented to place HENOK Head: normal to inspection Neck Neck: normal visual inspection Thyroid: thyroid normal Lymphatic: no lymphadenopathy noted Chest Breast inspection: normal inspection of the breasts and normal inspection of the axillae Breast palpation: normal palpation of the breasts, normal palpation of the axillae and no axillary lymphadenopathy Resp Effort Inspection: normal respiratory effort GI Palpation: soft, no masses and nontender Rectal Exam: deferred External Female Exam: normal external appearance and normal appearance of the urethra Urethra: normal appearance of the urethra and normal palpation Speculum Exam - Vagina: normal appearance of the vagina and normal vaginal discharge Speculum Exam - Cervix: other (friable with exam; IUD strings 3cm from os) Bimanual Exam- Vagina Uterus: normal bimanual exam, uterine size normal, uterine shape normal and non-tender Bimanual Exam- Adnexa, other: normal adnexae, no masses, normal and non-tender Pelvic Support: normal Neuro General: patient alert and patient oriented x3 Psych Affect: normal affect Coding Level of Care Code Off vis,est,prev 18-39yrs Diagnoses Encounter for routine gynecological examination Z01.411 Gynecological examination findings: abnormal findings PRESENT Postcoital bleeding N93.0 Assessment and Plan Assessment and Plan (1) Encounter for routine gynecological examination: Qualifiers: Gynecological examination findings: abnormal findings PRESENT Qualified Code(s): Z01.411 - Encounter for gynecological examination (general) (routine) with abnormal findings (2) Postcoital bleeding: Status: Acute Comment: friable cervix:GCC and pap pending Rx doxy Orders: Orders PAP I-G w/rfx hrHPV-Aptima Today Z12.4 - Encounter for screening for malignant neoplasm of cervix Medications: New doxycycline monohydrate 100 mg PO BID 7 days 14 caps 0RF Discontinued estradiol off 5 days; repeat cycle Discontinued Reason: Order Completed 0.5 mg PO DAILY 7 days 7 tabs 3RF Plan Completed breast and pelvic exam Reviewed diet and exercise Pap thin prep pap with reflex HPV GCC-call positive Discussed use, benefits, risks and side effects of doxycycline Call if postcoital bleeding persists Mammogram recent breast self exam encouraged monthly Contraception IUD RTO 1 year, prn with problems Yenifer Beth HELPER DRIVER 06/28/22 0953 <Electronically signed by Yenifer Beth NP SQL SERVER DBA DEVELOPER-C> Date Yenifer Beth NP SQL SERVER DBA DEVELOPER-C Cosigner Signature: Date (if applicable) CC: Zeinab William DO Work Phone: Start: 06-17-2022 End: 06-17-2022 Kidney and Bladder Procedure Note: See Note; NOTES: [facility] Imaging Services [address] [place] [id number] Kidney and Bladder MR#: [id number] Acct: [id number] Name: STEFANO ESPINOZA Rep #: [id number] : 1995 F 26 From: Erik Craig PCP: Dr. Zeinab William, DO Status: REG CLI Study: Kidney and Bladder Date of Exam: 06/17/22 Exam# [id number] Ordering Dr: Zeinab William DO STUDY: RENAL ULTRASOUND - COMPLETE REASON FOR EXAM: Female, 26 years old. FLANK PAIN RT and gt;LT TECHNIQUE: Ultrasound evaluation of the kidneys was performed with real-time and static rios-scale imaging. COMPARISON: ct 05.09.19 FINDINGS: RIGHT KIDNEY: Normal location of the right kidney, which is normal in size. The right kidney measures 10.4x4.3 cm. There is a normal cortex of the right kidney. The renal cortex measures 1.2 cm. There is no right renal mass or cyst. There are no right renal calculi. There is no right hydronephrosis. DISTAL RIGHT URETER: There is non-visualization of the distal right ureter. There is no demonstrated right ureterovesical junction calculus. There is no demonstrated right ureteral jet. LEFT KIDNEY: Normal location of the left kidney, which is normal in size. The left kidney measures 11.3x5.5 cm. There is a normal cortex of the left kidney. The renal cortex measures 1.9 cm. There is no left renal mass or cyst. There are 5mm and 3mm left renal calculi. There is no left hydronephrosis. DISTAL LEFT URETER: There is non-visualization of the distal left ureter. There is no demonstrated left ureterovesical junction calculus. There is no demonstrated left ureteral jet. AORTA: There is obscuration of the abdominal aorta by overlying bowel gas I.V.C.: The IVC is obscured. BLADDER: The distended urinary bladder has a volume of 19 ml. There is a normal wall thickness of the distended urinary bladder. There is no demonstrated mass within the urinary bladder. There are no demonstrated bladder calculi. US/Kidney and Bladder IMPRESSION: Nonobstructive left renal stone. Electronically Signed: Erik Lo MD at 19:32 EST , CC: Dr. Zeinab William DO Ballet Professor: Signed Zeinab William DO Work Phone: Start: 11-18-2021 End: 11-18-2021 [employer] Office Visit Report Comments: See Note; NOTES: [facility] [address] [place] [address] OFFICE VISIT Date of Service: 11/18/21 MR#: [id number] Acct: [id number] Name: STEFANO ESPINOZA Rep #: [id number] : 1995 Provider: Dr. Leticia Teixeira DO Age/Sex: 26/F [place] [facility] [place]: Signed Intake Vital Signs 11/18/21 11:04 Height 5 ft 4 in Weight: 126 lb 6 oz BMI 21.7 BP 92/62 Intake Visit Reasons: STRING CHECK Radiation Technician Required: No Is patient in pain?: No Allergies No Known Allergies Allergy (Verified 11/18/21 11:03) Medications citalopram 20 mg tablet 30 mg PO DAILY tab 06/24/21 [History Confirmed 11/18/21] lisdexamfetamine 30 mg capsule 30 mg PO DAILY 06/24/21 [History Confirmed 11/18/21] levonorgestrel 20.1 mcg/24 hrs (6 yrs) 52 mg intrauterine device 1 device INTRAUTERINE ONCE 11/18/21 [History Confirmed 11/18/21] Post menopausal: No Patient : No : No PFSH Medical History ADD (attention deficit disorder) Anxiety Contraceptive management Surgical History labioplasty Family History Mother Diabetes Congestive heart failure Renal failure Father Narcolepsy Grandmother Kidney disease Grandfather Heart disease Alzheimer disease Social History current occupational status: student current occupation: [employer] Smoking Status: Never smoker alcohol intake: never substance use type: does not use caffeine: Yes what type of physical activity do you participate in: walking frequency: 3-4 times per week seatbelt use: always do you feel safe at home: Yes additional social history: - [employer] HPI STRING CHECK Details: STEFANO ESPINOZA is a 26 year old who presents for IUD check. She states that she has had some bleeding on and off w some cramping. Pregancy History 2 Elective abortions Hx Para 1 Spontaneous abortions 1 Hx # Term Pregnancies Ectopic pregnancies Hx # Pregnancies Multiple births # of living children Past Pregnancies Del. Date Name GA/Weeks Outcome Route Bth Weight Gen Labor Lgth Anesthesia Del Locatn Provider FOB 10/02/16 Roxane 39 live - full term 7lbs 4oz Female 12 hours none [facility] Betsy Mercado Delivery Date: 10/02/16 Borderline HELP Yahaira Tate Const ROS Unobtainable: All systems reviewed are unremarkable except as noted in H Resp Resp: Reports system reviewed and no additional complaints, except as documented; Denies cough GI GI: Reports as per HPI Psych Psych: Reports system reviewed and no additional complaints, except as documented Exam Const General: cooperative, healthy appearing, comfortable and no acute distress Resp Effort Inspection: normal respiratory effort General: bimanual renal exam normal bilaterally External Female Exam: normal appearance of the urethra Urethra: normal appearance of the urethra Speculum Exam - Vagina: normal appearance of the vagina Speculum Exam - Cervix: normal appearance of the cervix Bimanual Exam- Adnexa, other: normal adnexae and normal Pelvic Support: normal Other: The IUD strings appear normal and adequately placed IUD is suspected based on the exam today. Skin General: no rashes or lesions noted Psych Appearance: grossly normal Speech and Movement: speech and movement normal Coding Level of Care Code Off vis,est,level 3 Diagnoses Contraceptive management Z30.9 Assessment and Plan Assessment and Plan (1) Contraceptive management: Status: Acute Comment: No PA needed for IUD. Plan - Dr. Leticia Patel DO: IUD appears correctly placed. pt will call if bleeding continues. will try estrogen 11/18/21 1140 <Electronically signed by Leticia Patel DO> Date Leticia Patel DO Cosigner Signature: Date (if applicable) CC: Zeinab William DO Work Phone: Start: 10-07-2021 End: 10-07-2021 [employer] Office Visit Report Comments: See Note; NOTES: [facility] [address] [place] [address] OFFICE VISIT Date of Service: 10/07/21 MR#: [id number] Acct: [id number] Name: STEFANO ESPINOZA Rep #: [id number] : 1995 Provider: Dr. Leticia Teixeira DO Age/Sex: 26/F [place] [facility] [place]: Signed Intake Vital Signs 09/23/21 14:50 10/07/21 15:27 Height 5 ft 4 in 5 ft 4 in Weight: 129 lb BMI 22.1 BP 100/70 Intake Visit Reasons: nexplanon removal and IUD insertion Radiation Technician Required: No Is patient in pain?: No Allergies No Known Allergies Allergy (Verified 10/07/21 15:26) Medications citalopram 20 mg tablet 30 mg PO DAILY tab 06/24/21 [History Confirmed 10/07/21] lisdexamfetamine 30 mg capsule 30 mg PO DAILY 06/24/21 [History Confirmed 10/07/21] Post menopausal: No Patient : No : No PFSH PFSH Medical History ADD (attention deficit disorder) Anxiety Contraceptive management Surgical History labioplasty Family History Mother Diabetes Congestive heart failure Renal failure Father Narcolepsy Grandmother Kidney disease Grandfather Heart disease Alzheimer disease Social History current occupational status: student current occupation: [employer] Smoking Status: Never smoker alcohol intake: never substance use type: does not use caffeine: Yes what type of physical activity do you participate in: walking frequency: 3-4 times per week seatbelt use: always do you feel safe at home: Yes additional social history: - Rogelio- [employer] Pregancy History 2 Elective abortions Hx Para 1 Spontaneous abortions 1 Hx # Term Pregnancies Ectopic pregnancies Hx # Pregnancies Multiple births # of living children Past Pregnancies Del. Date Name GA/Weeks Outcome Route Bth Weight Infant Gen Labor Lgth Anesthesia Del Locatn Provider FOB 10/02/16 Roxane 39 live - full term 7lbs 4oz Female 12 hours none [facility] Mercado Delivery Date: 10/02/16 Borderline HELP Yahaira Tate HPI nexplanon removal and IUD insertion Details: STEFANO ESPINOZA is a 26 year old who presents for nexplanon removal and IUD insertion ROS Const ROS Unobtainable: All systems reviewed are unremarkable except as noted in H Resp Resp: Reports system reviewed and no additional complaints, except as documented; Denies cough GI GI: Reports as per HPI Psych Psych: Reports system reviewed and no additional complaints, except as documented Exam Const General: cooperative, healthy appearing, comfortable and no acute distress Resp Effort Inspection: normal respiratory effort General: bimanual renal exam normal bilaterally External Female Exam: normal appearance of the urethra Urethra: normal appearance of the urethra Speculum Exam - Vagina: normal appearance of the vagina Speculum Exam - Cervix: normal appearance of the cervix Bimanual Exam- Adnexa, other: normal adnexae and normal Pelvic Support: normal Skin General: no rashes or lesions noted Psych Appearance: grossly normal Speech and Movement: speech and movement normal Office Procedures IUD Insertion IUD Details: Sign in Communication: Completed Sign out documentation: Completed The uterus sounded to [] cm. After prepping the cervix with betadine and using sterile technique, the cervix was grasped with a single tooth tenaculum and the IUD was inserted without difficulty and the string was cut to 3cm from the external os of the cervix. All instruments were removed from the vagina and excellent hemostasis was noted. Procedure Summary: patient tolerated the procedure well without complication. IUD Insertion IUD GC/Chlamydia:: not done Test: Yes declined Consent Signed: Yes Time out checklist: patient IUD: Yes Liletta IUD inserted Details: Sign in Communication: Completed Sign out documentation: Completed The uterus sounded to 8.5 cm. After prepping the cervix with betadine and using sterile technique, the cervix was grasped with a single tooth tenaculum and the IUD was inserted without difficulty and the string was cut to 3cm from the external os of the cervix. All instruments were removed from the vagina and excellent hemostasis was noted. Procedure Summary: patient tolerated the procedure well without complication. Nexplanon Removal Nexplanon Removal Consent Signed: Yes Time out checklist: patient Details: Sign in Communication: Completed Sign out Discussion: Completed Technique: Patient place din supine position with left arm bent at the elbow and placed of the head. Skin cleansed with betadine. 1 mL of 1% lidocaine with epi injected subQ along insertion site. Scalpel used to make a 5mm stab incision superficially at distal end of nexplanon. Device removed under sterile technique with a small hemostat. Sterile pressure dressing applied. Office Meds levonorgestrel Performing Provider: Leticia Patel DO Documented (not given) by: Leticia Patel DO on 10/07/21 15:58 Dose Route Admin Location Lot Number Expiration Date NDC Manufactu rer 1 insert intrauterine Coding Level of Care Code Attention Reji Diagnoses Contraceptive management Z30.9 CPT Codes IUD (92507) Nexplanon Removal (29366) Assessment and Plan Assessment and Plan (1) Contraceptive management: Status: Acute Comment: No PA needed for IUD. Plan - Dr. Leticia Patel DO: successful removal of nexplanon and insertion of IUD. return in 4- 6 weeks for IUD check Plan Details Other Medications: New: levonorgestrel 1 insert intrauterine ONCE 1 ea 0RF Z97.5 Other Orders: Orders: Liletta IUD Today Z97.5 Nexplanon Removal Today Z30.46 10/07/21 1617 <Electronically signed by Leticia Patel DO> Date Leticia Patel DO Cosigner Signature: Date (if applicable) CC: Zeinab William DO Work Phone: Start: 09-01-2021 End: 09-01-2021 Breast Limited Unilateral Comments: See Note; NOTES: [facility] Imaging Services [address] [place] [address] Breast Limited Unilateral MR#: [id number] Acct: [id number] Name: STEFANO ESPINOZA Rep #: [id number] : 1995 F 26 From: Rod ferro MD PCP: Dr. Zeinab William, Status: [facility] CL Study: Breast Limited Unilateral Date of Exam: Exam# [id number] Ordering Dr: Yenifer Beth NP SQL SERVER DBA DEVELOPER -C STUDY: ULTRASOUND BREAST - RIGHT REASON FOR EXAM: Female, 26 years old. Palpable lump in the right axilla. TECHNIQUE: Axial and longitudinal images of the RIGHT breast were performed with a high resolution ultrasound transducer. # OF IMAGES: 18 COMPARISON: Comparison is made with prior mammogram done earlier today. FINDINGS: RIGHT Breast: 3 lymph nodes are seen in the right axilla. Fatty hilum is seen in each lymph node. The largest lymph node measures 2.4 cm x 1.0 cm x 0.6 cm. US/Breast Limited Unilateral IMPRESSION: 3 lymph nodes are seen in the right axillary region. These most likely are benign in nature. Clinical correlation recommended. ASSESSMENT CATEGORY: BIRADS Category 2: Benign. A letter regarding these results will be sent to the patient by the facility within 30 days. Electronically Signed: Rod Mina MD at 12:28 EST , CC: BRUNILDA Beth; Dr. Zeinab William DO Ballet Professor: Signed Zeinab William DO Work Phone: Start: 09-01-2021 End: 09-01-2021 DIAG MAMM W/CAD, BILAT Comments: See Note; NOTES: [facility] Imaging Services [address] [place] [address] DIAG MAMM W/CAD, BILAT MR#: [id number] Acct: [id number] Name: STEFANO ESPINOZA Rep #: [id number] : 1995 F 26 From: Rod ferro MD PCP: Dr. Zeinab William DO Status: REG CLI Study: DIAG MAMM W/CAD, BILAT Date of Exam: 09/01/21 Exam# [id number] Ordering Dr: Yenifer eBth NP SQL SERVER DBA DEVELOPER [place] MAMMOGRAPHY - BILATERAL DIAGNOSTIC REASON FOR EXAM: Female, 26 years old. Palpable lump in the right axillary region. PERTINENT HISTORY: Grandmother with breast cancer. TECHNIQUE: Digital bilateral breast tab (3D mammographic acquisition) in the CC and MLO projections. 2-D mediolateral oblique (MLO) and craniocaudad (CC) views of both breasts were obtained. CAD: Full Field Digital Mammography with Computer Added Detection was performed. COMPARISON: None. Baseline examination. FINDINGS: Breast Composition: The breasts are extremely dense, which lowers the sensitivity of mammography. There are no dominant masses or suspicious calcifications. Findings suggestive of a asymmetrical glandular tissue in the right axilla as compared to the left side. Correlation with ultrasound is recommended. No other significant abnormalities are identified. BI/DIAG MAMM W/CAD, BILAT IMPRESSION: Negative diagnostic mammogram. With the patient''s history of a palpable lump in the left axilla, correlation with ultrasound is recommended. ASSESSMENT CATEGORY: BIRADS Category 0: Incomplete. Need additional imaging evaluation. A letter regarding these results will be sent to the patient by the facility within 30 days. Approximately 10% of breast cancers are not detected by mammography. A normal mammogram should not delay biopsy of a clinically suspicious abnormality. Electronically Signed: Rod Mina MD at 9:57 EST Reading Location ID and State: [facility] / [place] , Service support , CC: BRUNILDA Beth; Dr. Zeinab William DO Ballet Professor: Signed Zeinab William DO Work Phone: Start: 08-26-2021 End: 08-26-2021 [employer] Office Visit Report Comments: See Note; NOTES: [facility] [address] [place] [address]. [address] [place] [address] OFFICE VISIT Date of Service: 08/26/21 MR#: [id number] Acct: [id number] Name: STEAFNO ESPINOZA Rep #: [id number] : 1995 Provider: BRUNILDA fritz Age/Sex: 26/F [place] [facility] [place]: [place] Intake Vital Signs 08/26/21 10:28 Height 5 ft 4 in Weight: 129 lb BMI 22.1 BP 136/78 H Intake Visit Reasons: Rt side breast lump Allergies No Known Allergies Allergy (Verified 08/26/21 10:28) Medications citalopram 20 mg tablet 30 mg PO DAILY tab 06/24/21 [History Confirmed 08/26/21] etonogestrel 68 mg subdermal implant 1 implant SUBDERMAL ONCE 06/24/21 [History Confirmed 08/26/21] lisdexamfetamine 30 mg capsule 30 mg PO DAILY 06/24/21 [History Confirmed 08/26/21] Is last menstrual period known: Yes Last Menstral Period: 06/29/21 Nurse's Note: lump R breast/axilla area x 6 days. getting larger, painful, hard PFSH Medical History ADD (attention deficit disorder) Anxiety Surgical History labioplasty Family History Mother Diabetes Congestive heart failure Renal failure Father Narcolepsy Grandmother Kidney disease Grandfather Heart disease Alzheimer disease Social History current occupational status: student current occupation: [employer] Smoking Status: Never smoker alcohol intake: never substance use type: does not use caffeine: Yes what type of physical activity do you participate in: walking frequency: 3-4 times per week seatbelt use: always do you feel safe at home: Yes additional social history: - Rogelio- [employer] and [employer] HPI Rt side breast lump Details: STEFANO ESPINOZA is a 26 year old who presents for lump in right breast X 5 days. Somewhat tender. Denies changes to skin, or nipple discharge. Denies recent illnesses or vaccines. No recent menses, has nexplanon Female Reproductive History Last Menstral Period: 06/29/21 Pregancy History 1 Elective abortions Hx Para 1 Spontaneous abortions 1 Hx # Term Pregnancies Ectopic pregnancies Hx # Pregnancies Multiple births # of living children Past Pregnancies Del. Date Name GA/Weeks Outcome Route Bth Weight Gen Labor Lgth Anesthesia Del Locatn Provider FOB 10/02/16 Roxane 39 live - full term 7lbs 4oz Female 12 hours none [facility] Delivery Date: 10/02/16 Borderline HELP Yahaira Tate ROS Const ROS Unobtainable: All systems reviewed are unremarkable except as noted in H Skin Skin/Breast: Reports as per HPI Exam Const General: cooperative and no acute distress Nutritional Appearance: well nourished Orientation: oriented x3 Chest Breast inspection: normal inspection of the breasts and normal inspection of the axillae Breast palpation: normal palpation of the breasts and abnormal palpation of the breast (right breast tail has 3mm firm mobile mass) Results POC Urine Office , Urine Negative Last Edit by Mini Molina on 08/26/21 10:43 Coding Level of Care Code Off vis,est,level 3 Diagnoses Breast mass, right N63.10 Assessment and Plan Assessment and Plan (1) Breast mass, right: Status: Acute Comment: imaging Orders: Orders: DIAG MAMM W/CAD, BILAT Today N63.10 Breast Complete Unilateral Today N63.10 Plan - Yenifer Beth NP, SQL SERVER DBA DEVELOPER-C: Bilateral diagnositic mammogram with right breast ultrasound-call results UPT negative Plan Details Other Orders: Orders: POC Urine Today N92.6 08/26/21 1046 <Electronically signed by Yenifer WORLEY> Date Yenifer WORLEY Cosigner Signature: Date (if applicable) CC: Zeinab William DO Work Phone: Start: 06-24-2021 End: 06-24-2021 [employer] Office Visit Report Comments: See Note; NOTES: [facility] [address] [place] [address]. 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) Allergies No Known Allergies Allergy (Verified 06/24/21 13:36) Medications citalopram 20 mg tablet 30 mg PO DAILY tab 06/24/21 [History Confirmed 06/24/21] etonogestrel 68 mg subdermal implant 1 implant SUBDERMAL ONCE 06/24/21 [History Confirmed 06/24/21] lisdexamfetamine 30 mg capsule 30 mg PO DAILY 06/24/21 [History Confirmed 06/24/21] Is last menstrual period known: Yes Last Menstral Period: 06/21/21 PFSH Medical History (Updated 06/24/21 @ 13:55 by Yenifer Beth SQL SERVER DBA DEVELOPER, SQL SERVER DBA DEVELOPER-C) ADD (attention deficit disorder) Anxiety Surgical History labioplasty Family History (Updated 06/24/21 @ 13:39 by Mini Molina) Mother Diabetes Congestive heart failure Renal failure Father Narcolepsy Grandmother Kidney disease Grandfather Heart disease Alzheimer disease Social History (Updated 06/24/21 @ 13:40 by Mini Molina) current occupational status: student current occupation: [employer] Smoking Status: Never smoker alcohol intake: never substance use type: does not use caffeine: Yes what type of physical activity do you participate in: walking frequency: 3-4 times per week seatbelt use: always do you feel safe at home: Yes additional social history: - Rogelio- [employer] and [employer] Pregancy History 1 Elective abortions Hx Para 1 Spontaneous abortions 1 Hx # Term Pregnancies Ectopic pregnancies Hx # Pregnancies Multiple births # of living children Past Pregnancies Del. Date Name GA/Weeks Outcome Route Bth Weight Infant Gen Labor Lgth Anesthesia Del Locatn Provider FOB 10/02/16 Roxane 39 live - full term 7lbs 4oz Female 12 hours none [facility] Delivery Date: 10/02/16 Borderline HELP Yahaira Tate HPI Encounter for routine gynecological examination: Details: STEFANO ESPINOZA is a 25 year old who presents for annual exam. Just finished sprintec for 3 months as prescribed per Dr Whitehead for break through bleeding with nexplanon. She did start a menses day after finishing pills. , denies concerns. Last PAP: 2019 History of abnormal PAP: no Other preventative health care screenings: Stewart Details: STEFANO ESPINOZA is a 25 year old who presents for annual exam. Last PAP: [] History of abnormal PAP: [] Last mammogram: [] History of abnormal mammogram: [] Colon cancer screening: [] Other preventative health care screenings: [] Female Reproductive History Last Menstral Period: 06/21/21 ROS Const Constitutional: Denies fatigue, weight gain or weight loss Cardio Card: Denies chest pain Resp Resp: Denies cough or dyspnea on exertion GI GI: Denies abdominal pain, bloating, change in stool character, constipation or vomiting : Reports as per HPI; Denies difficulty voiding, pelvic pain, urinary frequency, urinary incontinence, urinary urgency, vaginal discharge or vaginal pruritus Exam Const General: cooperative, healthy appearing, no acute distress and well developed Orientation: alert, oriented to person and oriented to place HENMT Head: normal to inspection Neck Neck: normal visual inspection Thyroid: thyroid normal Lymphatic: no lymphadenopathy noted Chest Breast inspection: normal inspection of the breasts and normal inspection of the axillae Breast palpation: normal palpation of the breasts, normal palpation of the axillae and no axillary lymphadenopathy Resp Effort Inspection: normal respiratory effort GI Palpation: soft, no masses and nontender Rectal Exam: deferred External Female Exam: normal external appearance and normal appearance of the urethra Urethra: normal appearance of the urethra and normal palpation Speculum Exam - Vagina: normal appearance of the vagina and normal vaginal discharge Speculum Exam - Cervix: normal appearance of the cervix Bimanual Exam- Vagina Uterus: normal bimanual exam, uterine size normal, uterine shape normal and non-tender Bimanual Exam- Adnexa, other: normal adnexae, no masses, normal and non-tender Pelvic Support: normal Neuro General: patient alert and patient oriented x3 Psych Affect: normal affect Coding Level of Care Code Off vis,est,prev 18-39yrs Diagnoses Encounter for routine gynecological examination Z01.419 Breakthrough bleeding on Nexplanon N92.1; Z97.5 Assessment and Plan Assessment and Plan (1) Encounter for routine gynecological examination: (2) Breakthrough bleeding on Nexplanon: Status: Acute Comment: Sprintec continuous X 3 months. Finishes 06/29: will call if recurs/wants IUD then Plan - Yenifer Beth SQL SERVER DBA DEVELOPER, SQL SERVER DBA DEVELOPER-C: Completed breast and pelvic exam Reviewed diet and exercise Pap 2018 breast self exam encouraged monthly Contraception nexplanon; will call if irregular bleeding recurs RTO 1 year, prn with problems Yenifer Beth HELPER DRIVER Plan Details Other Medications: Changed: From: citalopram (Celexa) 20 mg PO DAILY 90 tabs 1RF To: citalopram (Celexa) 30 mg PO DAILY 06/24/21 1355 <Electronically signed by Yenifer Beth SQL SERVER DBA DEVELOPER SQL SERVER DBA DEVELOPER-C> Date Yenifer Beth SQL SERVER DBA DEVELOPER SQL SERVER DBA DEVELOPER-C Cosigner Signature: Date (if applicable) CC: Zeinab William DO Work Phone: Start: 04-13-2021 End: 04-13-2021 [employer] Office Visit Report Comments: See Note; NOTES: [facility] [address] [place] [address] OFFICE VISIT Date of Service: 04/13/21 MR#: [id number] Acct: [id number] Name: STEFANO ESPINOZA Rep #: [id number] : 1995 Provider: Dr. Zakia ledbetter MD Age/Sex: 25/F [place] [facility] [place]: Signed Intake Vital Signs 04/13/21 14:59 Height 5 ft 4 in Weight: 128 lb BMI 21.9 BP 110/80 Intake Visit Reasons: bleeding w/Nexplanon Radiation Technician Required: No Is patient in pain?: No Allergies No Known Allergies Allergy (Verified 04/13/21 14:59) Medications citalopram 20 mg tablet 20 mg PO DAILY #90 tab 02/26/20 [Rx Confirmed 04/13/21] norgestimate 0.25 mg-ethinyl estradiol 35 mcg tablet 1 tab PO DAILY #84 tab 04/13/21 [Rx Confirmed 04/13/21] Post menopausal: No Patient : No PFSH Medical History (Updated 04/13/21 @ 15:[address] Zakia Whitehead MD) Anxiety Surgical History labioplasty Family History Mother Diabetes Congestive heart failure Father Narcolepsy Grandmother Kidney disease Grandfather Heart disease Alzheimer disease Social History Smoking Status: Never smoker alcohol intake: never substance use type: does not use caffeine: Yes what type of physical activity do you participate in: walking frequency: 3-4 times per week seatbelt use: always do you feel safe at home: Yes additional social history: - Rogelio- [employer] and [employer] Patient works at [employer] HPI bleeding w/Nexplanon Details: STEFANO ESPINOZA is a 25 year old who presents for AUB with nexplanon. Placed end of September/Early October. Bleeding was initially off and on and has now become very heavy. Soaks through a pad and a tampon in an hour and a half. Bleeding started becoming worse about 2 months ago. Has bleeding lasting 7-10 days then 3 days of spotting followed by 5 days off before resumes. Does report back cramping. Pregancy History 1 Elective abortions Hx Para 1 Spontaneous abortions 1 Hx # Term Pregnancies Ectopic pregnancies Hx # Pregnancies Multiple births # of living children Past Pregnancies Del. Date Name GA/Weeks Outcome Route Bth Weight Gen Labor Lgth Anesthesia Del Locatn Provider FOB 10/02/16 Roxane 39 live - full term 7lbs 4oz Female 12 hours none [facility] Delivery Date: 10/02/16 Borderline HELP Yahaira Tate ROS Const Constitutional: Denies chills, fatigue or fever(s) : Denies hematuria, pelvic pain, urinary urgency, vaginal discharge, vaginal dryness, vaginal odor or vaginal pruritus Exam Const General: cooperative, healthy appearing, comfortable, no acute distress, well developed and well groomed Nutritional Appearance: average body habitus and well nourished Orientation: alert, awake and oriented x3 HENMT Head: normal to inspection, normocephalic and atraumatic Eyes Pupils: PERRL and accommodation normal EOM: EOM intact bilaterally Resp Effort Inspection: normal respiratory effort, able to speak in complete sentences and symmetric chest movement Cardio Rate: regular rate Neuro General: patient alert, patient awake, patient oriented x3 and CN's II-XI intact bilaterally Cranial Nerves: PERRL, accommodation normal and EOM intact bilaterally Cognition: normal cognition Speech: speech normal Gait: normal gait Psych Appearance: grossly normal and well kempt Mental Status: mental status grossly normal Affect: normal affect Speech and Movement: speech and movement normal Attitude: cooperative Thought Process: normal Thought Content: normal Judgment: judgment good Coding Level of Care Code Off vis,est,level 3 Diagnoses Breakthrough bleeding on Nexplanon N92.1; Z97.5 Assessment and Plan Assessment and Plan (1) Breakthrough bleeding on Nexplanon: Status: Acute Comment: Started on Sprintec continuous on 04/13. If not better, considering IUD Plan - Dr. Zakia Whitehead MD: Patient presents with heavy, frequent bleeding on Nexplanon Discussed removal vs. OCPs to try to stabilize lining and reset cycle. Plan continuous OCPs x3 months. If bleeding not improved with OCPs, would consider changing to IUD Plan Details Other Medications: New: norgestimate-ethinyl estradiol 0.25-35 mg-mcg (Sprintec (28)) take active pills only 1 TAB PO DAILY 84 tabs 0RF 04/13/21 9893 <Electronically signed by Zakia Whitehead MD> Date Zakia Whitehead MD Cosigner Signature: Date (if applicable) CC: Zeinab William DO Work Phone: Start: 01-01-2021 End: 01-02-2021 Foot min 3 Views Comments: See Note; NOTES: [facility] [address] [place] [address] Foot min 3 Views MR#: [id number] Acct: [id number] Name: STEFANO ESPINOZA Rep #: [id number] : 1995 F 25 From: Dayron Roberts MD PCP: Dr. Zeinab William DO Status: DEP AMB Study: Foot min 3 Views Date of Exam: 01/01/21 Exam# [id number] Ordering Dr: Zeinab William DO STUDY: X-RAY - LEFT FOOT CLINICAL: Female, 25 years old. FOOT PAIN TECHNIQUE: 3 view(s) of the foot. COMPARISON: None. FINDINGS: Normal talus, calcaneus, and tarsal bones. Normal visualized subtalar, talonavicular, calcaneocuboid, tarsal and tarsometatarsal articulations. Normal metatarsi. Normal metatarsophalangeal joint of the great toe. Normal tibial and fibular sesamoid bones. Normal interphalangeal joint of the great toe. Normal phalanges of the great toe. Normal second through fifth metatarsophalangeal joints. Normal interphalangeal joints and phalanges of the lesser toes. The soft tissue structures are unremarkable. RAD/Foot min 3 Views IMPRESSION: Normal x-ray examination of the foot. Electronically Signed: Dayron Roberts MD at 15:37 EDT Tel , Service support , CC: Dr. Zeinab William DO Ballet Professor: Signed Zeinab William DO Work Phone: Start: 09-08-2020 End: 09-09-2020 [employer] Office Visit Report Comments: See Note; NOTES: [facility] [address] [place] [address] OFFICE VISIT Date of Service: 09/08/20 MR#: [id number] Acct: [id number] Name: STEFANO ESPINOZA Rep #: [id number] : 1995 Provider: Dr. Amira peterson MD Age/Sex: 25/F [place] [facility] [place]: Signed Intake Vital Signs 09/08/20 Height 5 ft 4 in 09/08/20 Weight: 129 lb 09/08/20 BMI 22.1 09/08/20 BP 120/82 H Intake Visit Reasons: Nexplanon insertion Chief Complaint: nexplanon insertion Radiation Technician Required: No Is patient in pain?: No Allergies No Known Allergies Allergy (Verified 09/08/20 16:08) Medications citalopram 20 mg tablet 20 mg PO DAILY #90 tab 02/26/20 [Rx] Is last menstrual period known: Yes Last Menstral Period: 09/07/20 Post menopausal: No Patient : No : No PFSH PFSH Medical History Anxiety (Chronic) Surgical History labioplasty (Acute) Family History Mother Diabetes Congestive heart failure Father Narcolepsy Grandmother Kidney disease Grandfather Heart disease Alzheimer disease Social History (Updated 09/09/20 @ 03:[address] Amira Padilla MD) Smoking Status: Never smoker alcohol intake: never substance use type: does not use caffeine: Yes what type of physical activity do you participate in: walking frequency: 3-4 times per week seatbelt use: always do you feel safe at home: Yes additional social history: - [employer] and [employer] Patient works at [employer] Pregancy History 1 Elective abortions Hx Para 1 Spontaneous abortions 1 Hx # Term Pregnancies Ectopic pregnancies Hx # Pregnancies Multiple births # of living children Past Pregnancies Del. Date Name GA/Weeks Outcome Route Bth Weight Gen Labor Lgth Anesthesia Del Locatn Provider FOB 10/02/16 Roxane 39 live - full term 7lbs 4oz Female 12 hours none [facility] Betsy Mercado Delivery Date: 10/02/16 Borderline HELP Yahaira Tate HPI Nexplanon insertion: Details: STEFANO ESPINOZA is a 25 year old who presents for nexplanon insertion Female Reproductive History Last Menstral Period: 09/07/20 ROS Const Constitutional: Reports system reviewed and no additional complaints, except as docu; denies chills, fever(s), weight gain or weight loss GI GI: Reports as per HPI; denies abdominal pain, bloating, constipation, cramping, nausea or vomiting : Reports as per HPI; denies urinary frequency, urinary incontinence, urinary urgency, vaginal discharge or vaginal dryness Exam Const General: cooperative, healthy appearing, comfortable, well developed Orientation: alert HENMT Head: normal to inspection Resp Effort Inspection: normal respiratory effort Office Procedures Nexplanon insert Nexplanon Insertion Test: Yes declined (on day 2 full flow menses) Consent Signed: Yes Time out checklist: patient, procedure, site marked/identified, positioning of patient, supplies available, allergies confirmed, team agrees on procedure Time out time: 16:20 Details: Sign in Communication: Completed Sign out Discussion: Completed Technique: Patient placed in supine position with left arm bent at the elbow and placed over the head. Skin cleansed with betadine. 1mL of 1% lidocaine with epinephrine injected subQ along insertion site. 5mm stab incision made with a scalpel and Nexplanon carlota inserted under sterile technique. The carlota was palpable under the skin after insertion and the notch visible on the trochar after insertion. Steristrips and sterile pressure dressing applied. Office Meds Nexplanon Performing Provider: Amira Padilla MD Administered by: Ava Field on 09/08/20 16:22 Dose Route Admin Location Lot Number Expiration Date NDC Manufactu rer 68 mg subdermal left arm [id number] 09/26/22 8931-0197-48 [employer]. Assessment Plan Problems 1. Pelvic pain R10.2 2. Metrorrhagia N92.1 Plan fu annually or prn Orders Orders: Nexplanon insert 09/08/20 Z30.9 Coding Level of Care Code Off vis,est,level 2 Diagnoses Pelvic pain R10.2 Metrorrhagia N92.1 Additional Codes Nexplanon Insertion (29991) 09/09/20 0307 <Electronically signed by Amira Padilla MD> Date Amira Padilla MD [facility] Signature: Date (if applicable) CC: Zeinab William Start: 05-15-2020 End: 05-15-2020 Pelvic (Non ) Comments: See Note; NOTES: [facility] Imaging Services [address] [place] [address] Pelvic (Non ) MR#: [id number] Acct: [id number] Name: STEFANO ESPINOZA Rep #: [id number] : 1995 F 24 From: Rod ferro MD PCP: Dr. Zeinab William, DO Status: REG CLI Study: Pelvic (Non ) Date of Exam: 05/15/20 Exam# [id number] Ordering Dr: Yenifer Beth SQL SERVER DBA DEVELOPER SQL SERVER DBA DEVELOPER -C STUDY: ULTRASOUND OF THE FEMALE PELVIS - COMPLETE REASON FOR EXAM: Female, 24 years old. Pelvic pain -- prev RTO cyst LMP: 04/30/2020. TECHNIQUE: Transabdominal and Transvaginal TECHNICAL QUALITY: Adequate. COMPARISON: Comparison is made with prior study dated 04/04/2020. FINDINGS: The uterus is anteverted and is in a midline position. The uterus measures 8.9 cm x 5.3 cm x 3.8 cm. Normal uterine cervix. The endometrium measures 3.6 mm in thickness, and is . There is no demonstrated endometrial mass. There is no demonstrated myometrial mass. I.U.D. - The patient does not have an I.U.D. The right ovary is visualized. The right ovary measures 2.7 cm x 1.3 cm x 2.2 cm. There is no right ovarian cyst or ovarian mass. There is no visualized right adnexal mass or complex lesion. There is normal arterial and normal venous vascularity. Previously seen right ovarian cyst is not seen at this time. The left ovary is visualized. The left ovary measures 3.1 cm x 1.5 cm x 1.4 cm. There is no left ovarian cyst or ovarian mass. There is no visualized left adnexal mass or complex lesion. There is normal arterial and normal venous vascularity. There is no fluid in the cul-de-sac. The pre void volume of the bladder was 250 ml. US/Pelvic (Non ) IMPRESSION: Normal female pelvis. The previously seen right ovarian cyst has cleared. Electronically Signed: Rod Mina, at 15:44 EST , Service support , CC: BRUNILDA Beth; Dr. Zeinab William DO Ballet Professor: Signed Zeinab William Work Phone: Start: 05-15-2020 End: 05-15-2020 Transvaginal Non- Comments: See Note; NOTES: [facility] Imaging Services [address] [place] [address] Transvaginal Non- MR#: [id number] Acct: [id number] Name: STEFANO ESPINOZA Rep #: [id number] : 1995 F 24 From: Rod ferro MD PCP: Dr. Zeinab William DO Status: REG CLI Study: Transvaginal Non- Date of Exam: Exam# [id number] Ordering Dr: Yenifer Beth NP, NP STUDY: ULTRASOUND OF THE FEMALE PELVIS - COMPLETE REASON FOR EXAM: Female, 24 years old. Pelvic pain -- prev RTO cyst LMP: 04/30/2020. TECHNIQUE: Transabdominal and Transvaginal TECHNICAL QUALITY: Adequate. COMPARISON: Comparison is made with prior study dated 04/04/2020. FINDINGS: The uterus is anteverted and is in a midline position. The uterus measures 8.9 cm x 5.3 cm x 3.8 cm. Normal uterine cervix. The endometrium measures 3.6 mm in thickness, and is . There is no demonstrated endometrial mass. There is no demonstrated myometrial mass. I.U.D. - The patient does not have an I.U.D. The right ovary is visualized. The right ovary measures 2.7 cm x 1.3 cm x 2.2 cm. There is no right ovarian cyst or ovarian mass. There is no visualized right adnexal mass or complex lesion. There is normal arterial and normal venous vascularity. Previously seen right ovarian cyst is not seen at this time. The left ovary is visualized. The left ovary measures 3.1 cm x 1.5 cm x 1.4 cm. There is no left ovarian cyst or ovarian mass. There is no visualized left adnexal mass or complex lesion. There is normal arterial and normal venous vascularity. There is no fluid in the cul-de-sac. The pre void volume of the bladder was 250 ml. US/Transvaginal Non- IMPRESSION: Normal female pelvis. The previously seen right ovarian cyst has cleared. Electronically Signed: Rod Mina, at 15:44 EST , Service support , CC: BRUNILDA Beth; Dr. Zeinab William, Ballet Professor: Signed Zeinab William Work Phone: Start: 04-04-2020 End: 04-04-2020 Transvaginal Non- Comments: See Note; NOTES: [facility] Imaging Services [address] [place] [address] Transvaginal Non- MR#: [id number] Acct: [id number] Name: STEFANO ESPINOZA Rep #: [id number] : 1995 F 24 From: Mathew Clifford i, MD PCP: Dr. Zeinab William, DO Status: REG CLI Study: Transvaginal Non- Date of Exam: Exam# [id number] Ordering Dr: Yenifer Beth SQL SERVER DBA DEVELOPER SQL SERVER DBA DEVELOPER -C STUDY: ULTRASOUND OF THE FEMALE PELVIS - COMPLETE REASON FOR EXAM: Female, 24 years old. RLQ PAIN LMP: 02/24/2020 TECHNIQUE: Transabdominal and Transvaginal TECHNICAL QUALITY: Adequate. COMPARISON: Prior study of 11/23/2019 FINDINGS: The uterus is anteverted and is in a midline position. The uterus measures 9.0 x 6.0 x 4.5 cm. There is a Nabothian cyst of the cervix. The endometrium measures 7 mm in thickness, and is hyperechoic. There is no demonstrated endometrial mass. There is no demonstrated myometrial mass. There is prominence of myometrial blood vessels. I.U.D. - The patient does not have an I.U.D. The right ovary is visualized. The right ovary measures 6.1 x 4.8 x 4.3 cm. There is a right ovarian cyst measuring 3.9 x 3.9 x 4.0 cm. There is no visualized right adnexal mass or complex lesion. There is normal arterial and normal venous vascularity. The left ovary is visualized. The left ovary measures 4.0 x 2.0 x 1.9 cm. There is no left ovarian cyst or ovarian mass. There is no visualized left adnexal mass or complex lesion. There is normal arterial and normal venous vascularity. There is no fluid in the cul-de-sac. The pre void volume of the bladder was 198 ml. Polycystic ovary disease: No. US/Transvaginal Non- IMPRESSION: Prominent uterine myometrial blood vessels. 3.9 x 3.9 x 4.0 cm right ovarian cyst. Electronically Signed: Mathew De Leon MD at 22:08 EDT , Service support , CC: BRUNILDA Beth; Dr. Zeinab William DO Ballet Professor: Signed Zeinab William Work Phone: Start: 04-04-2020 End: 04-04-2020 Pelvic (Non ) Comments: See Note; NOTES: [facility] Imaging Services [address] [place] [address] Pelvic (Non ) MR#: [id number] Acct: [id number] Name: STEFANO ESPINOZA Rep #: [id number] : 1995 F 24 From: Mathew Clifford i, MD PCP: Dr. Zeinab William DO Status: REG CLI Study: Pelvic (Non ) Date of Exam: 04/04/20 Exam# [id number] Ordering Dr: Yenifer Beth NP, NP STUDY: ULTRASOUND OF THE FEMALE PELVIS - COMPLETE REASON FOR EXAM: Female, 24 years old. RLQ PAIN LMP: 02/24/2020 TECHNIQUE: Transabdominal and Transvaginal TECHNICAL QUALITY: Adequate. COMPARISON: Prior study of 11/23/2019 FINDINGS: The uterus is anteverted and is in a midline position. The uterus measures 9.0 x 6.0 x 4.5 cm. There is a Nabothian cyst of the cervix. The endometrium measures 7 mm in thickness, and is hyperechoic. There is no demonstrated endometrial mass. There is no demonstrated myometrial mass. There is prominence of myometrial blood vessels. I.U.D. - The patient does not have an I.U.D. The right ovary is visualized. The right ovary measures 6.1 x 4.8 x 4.3 cm. There is a right ovarian cyst measuring 3.9 x 3.9 x 4.0 cm. There is no visualized right adnexal mass or complex lesion. There is normal arterial and normal venous vascularity. The left ovary is visualized. The left ovary measures 4.0 x 2.0 x 1.9 cm. There is no left ovarian cyst or ovarian mass. There is no visualized left adnexal mass or complex lesion. There is normal arterial and normal venous vascularity. There is no fluid in the cul-de-sac. The pre void volume of the bladder was 198 ml. Polycystic ovary disease: No. US/Pelvic (Non ) IMPRESSION: Prominent uterine myometrial blood vessels. 3.9 x 3.9 x 4.0 cm right ovarian cyst. Electronically Signed: Mathew De Leon MD at 22:08 EDT , Service support , CC: BRUNILDA Beth; Dr. Zeinab William DO Ballet Professor: Signed Zeinab William Work Phone: Start: 11-30-2019 End: 11-30-2019 [employer] Office Visit Report Comments: See Note; NOTES: [facility] [address] [place] [address]. [address] [place] [address] OFFICE VISIT Date of Service: 11/30/19 MR#: [id number] Acct: [id number] Name: STEFANO ESPINOZA Rep #: : 1995 Provider: Dr. Amira peterson MD Age/Sex: 24/F [place] [facility] [place]: Signed Intake Vital Signs 11/30/19 BMI 20.9 11/30/19 Height 5 ft 4 in 11/30/19 Weight: 123 lb 11/30/19 BMI 21.1 11/30/19 BP 90/58 L Intake Visit Reasons: ER f/u for heavy bleeding episode Chief Complaint: ER follow up for menorrhagia Radiation Technician Required: No Is patient in pain?: No Allergies No Known Allergies Allergy (Verified 11/30/19 13:15) Medications citalopram 20 mg tablet 20 mg PO DAILY #30 tab 02/19/19 [Rx Confirmed 11/30/19] busPIRone [Buspar] 15 mg PO DAILY 11/23/19 [History Confirmed 11/30/19] Post menopausal: No Patient : No : No PFSH Medical History Anxiety (Chronic) Surgical History labioplasty (Acute) Family History Mother Diabetes Congestive heart failure Father Narcolepsy Grandmother Kidney disease Grandfather Heart disease Alzheimer disease Social History (Updated 11/30/19 @ 13:[address] Amira Padilla MD) Smoking Status: Never smoker alcohol intake: never substance use type: does not use caffeine: Yes what type of physical activity do you participate in: walking frequency: 3-4 times per week seatbelt use: always do you feel safe at home: Yes additional social history: - Rogelio- [employer] and [employer] Patient works at [employer] ER f/u for heavy bleeding episode: Details: STEFANO ESPINOZA is a 24 year old who presents for heavy bleeding episode that she came into the ER for. she has stopped bleeding since then. She is trying to conceive. Female Reproductive History Cycle Length: 21-35 Bleeding Duration: 5 Questions: Metorrhagia: No, Sexually active: Yes, Dyspareunia: No, PCB: No Pregancy History 2 Elective abortions Hx Para 1 Spontaneous abortions 1 Hx # Term Pregnancies Ectopic pregnancies Hx # Pregnancies Multiple births # of living children Past Pregnancies Del. Date Name GA/Weeks Outcome Route Bth Weight Infant Gen Labor Lgth Anesthesia Del Locatn Provider FOB 10/02/16 Roxane 39 live - full term 7lbs 4oz Female 12 hours none [facility] Betsy Mercado Delivery Date: 10/02/16 On 03/07/18 @ 12:08 Yahaira Tate Borderline HELP ROS Const Constitutional: Denies fatigue, fever(s), headache(s), increased appetite, poor appetite, weight gain or weight loss ENT ENT: Denies dry mouth GI GI: Reports as per HPI; denies abdominal pain, constipation, nausea or vomiting : Reports as per HPI; denies difficulty urinating, painful urination, blood in urine, nipple discharge, pelvic pain, urinary frequency, urinary incontinence, urinary hesitancy, urinary urgency, vaginal discharge, vaginal dryness, vaginal odor, vaginal itching or other Skin Skin/Breast: Denies hair loss, change in hair, dry skin, breast lump, breast pain, breast skin changes or nipple discharge Exam Const General: cooperative, healthy appearing, comfortable, no acute distress, well developed Nutritional Appearance: average body habitus Orientation: alert HENMT Head: normal to inspection, normocephalic Ears: hearing grossly normal bilaterally, external ears normal Nose: external nose normal, nares normal Face and sinus: normal facial exam Neck Neck: normal visual inspection, no lymphadenopathy, trachea midline Thyroid: thyroid normal Resp Effort Inspection: normal respiratory effort Musc Other: gross motor intact no deficits, full bilateral strength Skin General: no rashes or lesions noted Neuro Motor: muscle tone normal throughout Results POC Urinalysis Dip (Clinic) Office Urine Color YELLOW Last Edit by Ava Field on 11/30/19 13:20 Office Urine Clarity Cloudy Last Edit by Ava Field on 11/30/19 13:20 Office Urine Glucose Negative Last Edit by Ava Field on 11/30/19 13:20 Office Urine Ketones Last Edit by Ava Field on 11/30/19 13:20 Off Ur Spec Aroda 1.015 Last Edit by Ava Field on 11/30/19 13:20 Office Urine pH Last Edit by Ava Field on 11/30/19 13:20 Office Urine Bilirubin Negative Last Edit by Ava Field on 11/30/19 13:20 Office Urine Urobilinogen Negative Last Edit by Ava Field on 11/30/19 13:20 Office Urine Blood Last Edit by Ava Field on 11/30/19 13:20 Office Urine Blood Hemolyzed Large Last Edit by Ava Field on 11/30/19 13:20 Office Urine Protein Negative Last Edit by Ava Field on 11/30/19 13:20 Office Urine Nitrate Negative Last Edit by Ava Field on 11/30/19 13:20 Off Ur Leukocytes Positive Last Edit by Ava Field on 11/30/19 13:20 Assessment Plan Problems 1. Pelvic pain R10.2 2. Metrorrhagia N92.1 Plan recommend checking TSH, reassurrance given. offered lysteda. discussed possible infertility Orders Orders: POC Urinalysis Dip (Clinic) Today N92.0 Culture, Urine Today N92.0 Coding Level of Care Code Off vis,est,level 3 Diagnoses Pelvic pain R10.2 Metrorrhagia N92.1 11/30/19 1332 <Electronically signed by Amira Padilla MD> Date Amira Padilla MD Cosigner Signature: Date (if applicable) CC: Zeinab William Start: 11-23-2019 End: 11-24-2019 MR/ED.DCSUM Comments: See Note; NOTES: [facility] Medical Records Department [address] [place] [address] Emergency Department Summary 11/23/19 MR#: [id number] Acct: [id number] Name: STEFANO ESPINOZA Rep #: [id number] : 1995 24 From: Leticia Santo MD PCP: Dr. Zeinab William, DO Status:DEP ER History of Present Illness Chief Complaint: Vag Bleeding Informant: Patient Onset: Yesterday Current Severity: Moderate Maximum Severity: Moderate Narrative: Patient presents with heavy vaginal bleeding. She started her menstrual cycle yesterday which she states was normal timing. Tonight she had very heavy bleeding and went through a tampon and a maxi pad in 2 hours. She states her typical period last 5 or 6 days. She will normally change her tampon every 2 hours when her bleeding is at its heaviest. She does feel somewhat lightheaded. She is G2, P1, Ab1. She had a miscarriage last February. She has been trying to get . - Past Medical History (1) Anxiety Status: Chronic Comment: melvina Past Medical History - Allergies and Home Meds Allergies/Adverse Reactions: Allergies No Known Allergies Allergy (Verified 11/23/19 21:46) Primary Care Physician: Zeinab William DO [Primary Care Provider] - Prior records reviewed: Yes Lives: With Family Smoking Status: Never smoker Review of Systems General: Denies: Chills, Fever Eyes: Denies: Visual changes - bilaterally ENT: Denies: Bilateral ear pain Cardiovascular: Denies: Chest pain Respiratory: Denies: Dyspnea, Cough Gastrointestinal: Reports: Abdominal pain - Mild pelvic cramping. Denies: Vomiting Genitourinary: Denies: Dysuria, Frequency Musculoskeletal: Denies: Extremity Pain Skin: Denies: Rash Neurological: Denies: Headache Hematologic: Denies: Easy bruising, Easy bleeding Allergy: Denies: Uticaria Physical Exam Vital Signs/Narrative: Vital Signs Temp Pulse Resp BP Pulse Ox 11/23/19 21:44 97.4 F L 87 16 134/86 H 99 Inital Vital Signs reviewed: Yes General: Well nourished, Well developed Head: Normocephalic ENT: Moist mucous membranes Neck: Supple Cardiovascular: Regular rate, Regular rhythm Respiratory: No distress, CTA bilaterally Abdomen: Soft, Nontender, Normal bowel sounds Skin: Normal color Neurological: Alert, Oriented x3 Psychological: Normal affect Diagnostic/Tx/Re-eval Impressions Transvaginal US 11/23/19 22:06 IMPRESSION: 1. Normal appearing uterus and left ovary. The right ovary is not visualized. There is no major interval change. Electronically Signed: Ken Lopez DO at 23:27 EDT Tel [phone], Service support , 11/23/19 22:06 Transvaginal Non- [US] Stat Laboratory Results 11/23/19 11/23/19 22:20 22:20 WBC 4.4 RBC 4.20 Hgb 12.1 Hct 37.4 MCV 89.0 MCH 28.8 MCHC 32.4 RDW Std Deviation 42.3 RDW Coeff of Chapin 13.0 Plt Count 148 L MPV 11.6 Immature Gran % (Auto) 0.200 Neut % (Auto) 54.3 Lymph % (Auto) 33.9 Power % (Auto) 9.1 Eos % (Auto) 1.8 Baso % (Auto) 0.7 Absolute Neuts (auto) 2.4 Absolute Lymphs (auto) 1.49 Nucleated RBC % 0 Serum , Qual NEGATIVE - Medical Decision Making Patient was given 500 cc fluid bolus here. Vital signs remained stable. Hemoglobin is normal. Platelet count is slightly low, however this is improved when compared to prior values. Ultrasound is unremarkable. At this time I advised her I do not think that her bleeding will stay heavy much longer and that she has normal endometrial thickness on her ultrasound. She is to return for any worsening symptoms and call Dr. Ehsan Urrutia on Tuesday with an update. ED Disposition - Plan for ED Patient: Disposition: Home or Assisted Living Diagnosis: Menorrhagia Instructions: ED Bleeding Menstrual Heavy Referrals: Amira Padilla MD [STAFF PHYSICIAN] - 5-7 Days What to do if you have Problems For any increased pain, shortness of breath, bleeding, nausea or vomiting, chest pain, or any unexpected problems, contact your Primary Care Provider. Call [facility] ([phone]) or report to the closest Emergency Room. Call 911 if necessary. 11/24/19 0211 <Electronically signed by Leticia Santo MD> Date Leticia Santo MD Cosigner Signature (If Indicated): Date CC: DO Zeinab Johnson Start: 11-23-2019 End: 11-23-2019 Transvaginal Non- Comments: See Note; NOTES: [facility] Imaging Services [address] [facility] [place] [address] Transvaginal Non- MR#: [id number] Acct: [id number] Name: STEFANO ESPINOZA Rep #: [id number] : 1995 F 24 From: Ken Lopez DO PCP: Dr. Zeinab William DO Status: REG ER Study: Transvaginal Non- Date of Exam: Exam# [id number] Ordering Dr: Leticia Santo MD STUDY: ULTRASOUND TRANSVAGINAL CLINICAL: Female, 24 years old. Heavy bleeding since yesterday. TECHNIQUE: Transvaginal COMPARISON: Pelvic ultrasound, July 27, 2019. FINDINGS: Uterus is anteverted and midline, measuring 8.4 x 4.6 x 3.8 cm. There is no evidence of myometrial mass. Normal endometrial thickness measuring 3.7 mm. The endometrium is hyperechoic. There are no endometrial masses, and there is no fluid in the endometrial cavity. There are nabothian cysts in otherwise normal cervix. The right ovary is not visualized. There is no evidence of right adnexal mass. Normal left ovary, measuring 3.4 x 2.2 x 3.2 cm. There are multiple follicles without a dominant cyst. No vascularity on Doppler imaging. There is no free fluid in the pelvis. Polycystic ovary disease: No. US/Transvaginal Non- IMPRESSION: 1. Normal appearing uterus and left ovary. The right ovary is not visualized. There is no major interval change. Electronically Signed: Ken Lopez DO at 23:27 EDT Tel [phone], Service support , CC: Dr. Leticia Santo MD; Dr. Zeinab William DO Ballet Professor: Signed Zeinab William Start: 09-18-2019 End: 09-18-2019 [employer] Office Visit Report Comments: See Note; NOTES: [facility] [address] [place], [place] [address] OFFICE VISIT Date of Service: 09/18/19 MR#: [id number] Acct: [id number] Name: STEFANO ESPINOZA Rep #: [id number] : 1995 Provider: TIMI Beth Age/Sex: 24/F [place] [facility] [place]: Signed Intake Vital Signs09/18/19 Height 5 ft 4 in 09/18/19 Weight: 122 lb 8 oz 09/18/19 BMI 21.0 09/18/19 BP 112/70 Intake Visit Reasons: [employer] PERIODS Radiation Technician Required: No Is patient in pain?: Yes Allergies No Known Allergies Allergy (Verified 09/18/19 13:41) Medications citalopram 20 mg tablet 20 mg PO DAILY #30 tab 02/19/19 [Rx Confirmed 09/18/19] doxycycline monohydrate 100 mg capsule 100 mg PO BID #20 cap 09/18/19 [Rx Confirmed 09/18/19] Is last menstrual period known: Yes Post menopausal: No Patient : No : No [facility] Medical History Anxiety (Acute) Surgical History labioplasty (Acute) Family History Mother Diabetes Congestive heart failure Father Narcolepsy Grandmother Kidney disease Grandfather Heart disease Alzheimer disease Social History (Updated 09/18/19 @ 14:29 by BRUNILDA Villatoro) Smoking Status: Never smoker alcohol intake: never substance use type: does not use caffeine: Yes what type of physical activity do you participate in: walking frequency: 3-4 times per week seatbelt use: always do you feel safe at home: Yes additional social history: - [employer]elio- [employer] Patient works at [employer] PERIODS: Details: STEFANO ESPINOZA is a 24 year old who presents for continued irregular spotting and pain with intercourse. Was seen in July [address] Padilla and had negative comprehensive vaginal culture and normal ultrasound. Per last OV note was to take doxycycline but did not get Rx. She is and they are attempting . LMP 08/30/19 Pregancy History 1 Elective abortions Hx Para 1 Spontaneous abortions Past Pregnancies Del. DatName GA/WeeksOutcome Route [facility] Janet Lim LgAnesthesDel LocaProviderFOB e ht en th ia tn Delivery Date: 10/02/16 On 03/07/18 @ 12:08 Yahaira Tate Borderline HELP ROS Const Constitutional: Reports system reviewed and no additional complaints, except as docu Eyes Eyes: Reports system reviewed and no additional complaints, except as docu GI GI: Denies abdominal pain or change in bowel habits : Reports as per HPI Exam General: bladder normal to palpation External Female Exam: normal external appearance, normal appearance of the urethra Urethra: normal appearance of the urethra Speculum Exam - Vagina: normal appearance of the vagina, abnormal vaginal discharge bloody, no lesions, nontender Speculum Exam - Cervix: other (friable) Bimanual Exam- Vagina AND Uterus: normal bimanual exam, uterine size normal, bladder normal to palpation, uterine shape normal, uterine mobility normal, uterus non-tender Bimanual Exam- Adnexa, other: normal adnexae, no adnexal masses, adnexae non-tender Assessment AND Plan Problems 1. Postcoital bleeding N93.0 2. Pelvic pain R10.2 Plan Recent normal US GCC Rx doxy Call if bleeding persists after antibiotic and consider short term aygestin Orders Orders: Medications New: Coding Level of Care Code Off vis,est,level 3 Diagnoses Postcoital bleeding N93.0 Pelvic pain R10.2 09/18/19 1429 <Electronically signed by Yenifer WORLEY> Date Yenifer GOODC Cosigner Signature: Date (if applicable) CC: Zeinab William Start: 07-26-2019 End: 07-26-2019 [employer] Office Visit Report Comments: See Note; NOTES: [facility] [address] [place] [address] OFFICE VISIT Date of Service: 07/26/19 MR#: [id number] Acct: [id number] Name: STEFANO ESPINOZA Rep #: [id number] : 1995 Provider: Amira Padilla MD Age/Sex: 23/F [place] [facility] [place]: [place] Intake Vital Signs07/26/19 BMI 20.5 07/26/19 Height 5 ft 4 in 07/26/19 Weight: 121 lb 07/26/19 BMI 20.7 07/26/19 BP 120/68 Intake Visit Reasons: spotting/trying to get Chief Complaint: spotting between periods, after intercourse Radiation Technician Required: No Is patient in pain?: No Allergies No Known Allergies Allergy (Verified 07/26/19 13:17) Medications citalopram 20 mg tablet 20 mg PO DAILY #30 tab 02/19/19 [Rx Confirmed 07/26/19] Is last menstrual period known: Yes Last Menstral Period: 07/01/19 Post menopausal: No Patient : No : No [facility] Social History (Updated 07/26/19 @ 13:50 by Amira Padilla MD) Smoking Status: Never smoker alcohol intake: never substance use type: does not use caffeine: Yes what type of physical activity do you participate in: walking frequency: 3-4 times per week seatbelt use: always do you feel safe at home: Yes additional social history: - [employer] Patient works at [employer] spotting/trying to get : Details: STEFANO ESPINOZA is a 23 year old who presents for postcoital bleeding for the last few months. She occasionally has bleeding in between cycles but overall is regular. she denies any endocrine abnormalities or infection symptoms. Female Reproductive History Last Menstral Period: 07/01/19 Cycle Length: 21-35 Bleeding Duration: 4 Questions: Metorrhagia: Yes, Sexually active: Yes, Dyspareunia: No, PCB: Yes Pregancy History 1 Elective abortions Hx Para 1 Spontaneous abortions Past Pregnancies Del. DatName GA/WeeksOutcome Route [facility] Janet Lim LgAnesthesDel LocaProviderFOB e ht en th ia tn Delivery Date: 10/02/16 On 03/07/18 @ 12:08 Yahaira Tate Borderline HELP ROS Const Constitutional: Denies fatigue, fever(s), headache(s), increased appetite, poor appetite, weight gain or weight loss : Reports as per HPI; denies difficulty urinating, painful urination, urinary frequency, urinary incontinence, urinary hesitancy, urinary urgency, vaginal discharge, vaginal dryness, vaginal odor or vaginal itching Skin Skin/Breast: Reports system reviewed and no additional complaints, except as docu Endo Endo: Reports system reviewed and no additional complaints, except as docu Waldemar/Lymph Hematologic/Lymphatic: Reports system reviewed and no additional complaints, except as docu Exam Const General: cooperative, healthy appearing, comfortable, no acute distress, well developed Nutritional Appearance: average body habitus Orientation: alert General: bladder normal to palpation External Female Exam: normal external appearance, normal appearance of the urethra Urethra: normal appearance of the urethra, normal palpation Speculum Exam - Vagina: normal appearance of the vagina, vaginal bleeding Speculum Exam - Cervix: normal appearance of the cervix, nontender Bimanual Exam- Vagina AND Uterus: normal bimanual exam, uterine size normal, bladder normal to palpation, uterine shape normal, No cervical tenderness, uterine mobility normal, uterine consistency normal, normal cervical palpation, uterus non-tender Bimanual Exam- Adnexa, other: normal adnexae, adnexae mobile, no adnexal masses, pelvic support normal Pelvic Support: normal OB/External AND Speculum: vaginal bleeding Speculum Exam: vaginal bleeding Assessment AND Plan Problems 1. Postcoital bleeding N93.0 check infections and ultrasound. treat with doxycycline empirically if negative testing and nl ultrasound. 2. Metrorrhagia N92.1 Plan Problem list updated and treatment plans were reviewed with the patient and relevant educational handouts given. See problem list details for specific plan information. Orders Orders: Coding Level of Care Code Off vis,est,level 4 Diagnoses Postcoital bleeding N93.0 Metrorrhagia N92.1 01/16/20 1350 <Electronically signed by Amira Padilla MD> Date Amira Padilla MD [facility] Signature: Date (if applicable) CC: Zeinab William Start: 05-09-2019 End: 05-09-2019 Discharge Instruction Comments: See Note; NOTES: [facility] Medical Records Department [address] [place] [address] Discharge Instruction 05/09/19 1335 MR#: [id number] Acct: [id number] Name: STEFANO ESPINOZA Rep #: [id number] : 1995 23 From: Edilberto Iqbal MD PCP: Zeinab William DO Status: REG ER ED Disposition - Plan for ED Patient: Disposition: Home or Assisted Living Instructions: PYELONEPHRITIS, Female (Adult) Prescriptions: Cephalexin [Keflex] 500 mg PO Q6 #40 cap Prescription Printed Ondansetron [Zofran Odt] 4 mg PO Q8H PRN PRN #14 tab PRN Reason: Nausea Prescription Printed Referrals: Zeinab William DO [Primary Care Provider] - 3-5 Days if not improving Additional Instructions: Plenty of fluids and rest. Alternate Tylenol Motrin for pain. Zofran for nausea. The antibiotic Keflex 1 pill 4 times a day for 10 days for the urinary tract infection. Return if feeling worse or follow-up with your doctor if not improving. What to do if you have Problems For any increased pain, shortness of breath, bleeding, nausea or vomiting, chest pain, or any unexpected problems, contact your Primary Care Provider. Call [facility] ([phone]) or report to the closest Emergency Room. Call 911 if necessary. 05/09/19 6496 <Electronically signed by Edilberto Iqbal MD> Date [facility]ilberto Iqbal [facility] Signature (If Indicated): Date CC: Zeinab Perkins Start: 05-09-2019 End: 05-09-2019 Emergency Department Summary Comments: See Note; NOTES: [facility] Medical Records Department [address] [place] [address] Emergency Department Summary 05/09/19 1333 MR#: [id number] Acct: [id number] Name: STEFANO ESPINOZA Rep #: [id number] : 1995 23 From: Edilberto Iqbal MD PCP: Zeinab William DO Status: REG ER - ER Visit Summary Date of Service: 05/09/19 Chief Complaint: Suprapubic and right flank pain with nausea and vomiting History of Present Illness: The patient is a 23 F dyspnea past medical history other than anxiety. She is had prior C-sections and a labioplasty. Patient states since Tuesday she has had suprapubic abdominal pain now in her right flank with associated nausea vomiting. Denies diarrhea. Denies chills. Currently is on her menstrual cycle. She has had prior UTIs that were similar. She still has her appendix. She is never had a kidney stone. Physical Examination: Young female no acute distress. Vital signs are stable afebrile. She does not look septic or toxic. HEENT exam unremarkable. Moist week's membranes. Neck nontender no lymphadenopathy. Lungs clear to auscultation bilaterally. Heart regular rhythm rate about 100 no murmur. Abdomen soft. Nondistended normal bowel sounds no peritoneal signs. Right upper right lower quadrants are both unremarkable. She does have tenderness in the suprapubic area. Left side of her abdomen is nontender. No hernias or masses. No signs of obstruction. Or trauma. Patient moving all 4 extremities. Back she does have mild right CVA tenderness. No ecchymosis or bruising. No signs of trauma. Neurologically she is awake and alert with no focal motor deficits. Test Results: test negative. Urinalysis shows no acute signs of infection. Patient's urine has 0 white cells 0 nitrates 150 occult blood in 10-25 red blood cells. She is on her menstrual cycle this could also be secondary to potential stone. Her urine test is negative. Also obtain a CT flank study without contrast and showed no acute abnormality. Was read as normal by the radiologist. I reviewed the. The appendix was seen and is read as normal. There is no obvious kidney stone. Urine culture also be sent. Emergency Department Course and Treatment: Patient was offered but deferred pain or nausea medication at this time. Her history and exam are consistent with a UTI and possibly early pyelonephritis versus other etiologies The urine is negative for any signs of infection. On repeat exam at 1456 she is drier and grinder tender in the suprapubic area and right CVA area. Right lower quadrant unremarkable. A CAT scan is being obtained. She is also been given Tylenol for pain. Well at 1650 8 PM. She will be discharged home. I went over all test results with her. Treatment Plan: Tylenol and Motrin for pain. Follow-up with your primary care physician. Disposition: Discharge Impression: Acute right-sided flank pain G. This note was generated with Minglebox dictation software. It may contain incorrect words, spelling, and punctuation that were not noted in review of the chart prior to signing ED Disposition - Plan for ED Patient: Disposition: Home or Assisted Living Instructions: PYELONEPHRITIS, Female (Adult) Prescriptions: Cephalexin [Keflex] 500 mg PO Q6 #40 cap Prescription Printed Ondansetron [Zofran Odt] 4 mg PO Q8H PRN PRN #14 tab PRN Reason: Nausea Prescription Printed Referrals: Zeinab William, [Primary Care Provider] - 3-5 Days if not improving Additional Instructions: Plenty of fluids and rest. Alternate Tylenol Motrin for pain. Zofran for nausea. The antibiotic Keflex 1 pill 4 times a day for 10 days for the urinary tract infection. Return if feeling worse or follow-up with your doctor if not improving. What to do if you have Problems For any increased pain, shortness of breath, bleeding, nausea or vomiting, chest pain, or any unexpected problems, contact your Primary Care Provider. Call [facility] ([phone]) or report to the closest Emergency Room. Call 911 if necessary. 05/09/19 1703 <Electronically signed by Edilberto Iqbal MD> Date Edilberto Iqbal MD Cosigner Signature (If Indicated): Date CC: Zeinab Perkins Start: 05-09-2019 End: 05-09-2019 Abdomen/Pelvis without Cont Comments: See Note; NOTES: [facility] Imaging Services [address] [place] [address] Abdomen/Pelvis without Cont MR#: [id number] Acct: [id number] Name: STEFANO ESPINOZA Rep #: [id number] : 1995 F 23 From: Rod Mina MD PCP: Zeinab William DO Status: REG ER Study: Abdomen/Pelvis without Cont Date of Exam: 05/09/19 Exam# [id number] Ordering Dr: Edilberto Iqbal MD STUDY: CT ABDOMEN AND PELVIS WITHOUT CONTRAST REASON FOR EXAM: Female, 23 years old. Right flank pain. Dysuria and hematuria. RADIATION DOSAGE (If Supplied By Facility): CTDIvol = ( 6.45 ) mGy, DLP = ( 307.84 ) mGycm TECHNIQUE: Transaxial images were obtained from the dome of the diaphragm to the symphysis pubis without oral contrast, and without intravenous contrast. Sagittal and coronal images were reconstructed. Individualized dose optimization techniques were used for this CT. COMPARISON: Comparison is made with prior study dated October 05, 2018. FINDINGS: The visualized lung bases are unremarkable. The visualized portions of the heart are within normal limits. Normal liver. Normal gallbladder and extrahepatic biliary system. Normal spleen. Normal pancreas. Normal bilateral adrenal glands. Normal right kidney. Normal left kidney. Normal visualized stomach. Normal small intestine. Normal colon. The appendix is visualized and appears normal. Normal abdominal aorta. Normal inferior vena cava. Normal retroperitoneum. Normal urinary bladder. Normal abdominal wall. Normal osseous structures. CT/Abdomen/Pelvis without Cont IMPRESSION: Normal unenhanced CT of the abdomen and pelvis. Electronically Signed: Rod Mina, at 15:33 EDT , Service support , CC: Edilberto Iqbal MD; Zeinab William DO Ballet Professor: Signed Tessa Bain MD Work Phone: Start: 02-16-2019 End: 02-16-2019 Discharge Instruction Comments: See Note; NOTES: [facility] Medical Records Department [address] [place] [id number] Instructions for Home/Discharge Instructions 02/16/19 1331 MR#: [id number] Acct: [id number] Name: STEFANO ESPINOZA Rep #: [id number] : 1995 23 From: Amira Padilla MD PCP: Zeinab William DO [place] [facility] [place] Diet: No Restrictions Discharge Activity: Return to Normal Activity, May Shower, May Take a Tub Bath Allergies/Adverse Reactions: Allergies No Known Allergies Allergy (Verified 02/14/19 11:30) Medications to take at Discharge NK 02/14/19 Primary Care Physician: Zeinab William DO [Primary Care Provider] - Test Results: Test results from this visit will be discussed in further detail at your follow-up appointment, if applicable. Please Follow Up With: Amira Padilla MD - [phone] 02/16/19 1332 <Electronically signed by Amira Padilla MD> Date Amira Padilla MD CC: Zeinab William DO Signed Zeinab William Start: 02-16-2019 End: 02-16-2019 Operative Report Comments: See Note; NOTES: [facility] Medical Records Department [address] [place] [address] Operative Report 02/16/19 1329 MR#: [id number] Acct: [id number] Name: STEFANO ESPINOZA Rep #: [id number] : 1995 23 From: Amira Padilla MD PCP: Zeinab William DO Status: [facility] Y Location: [place] [address] Problem List (1) Missed Status: Acute Report of Operation Date of Procedure: 02/16/19 Pre-Operative Diagnosis: missed ab Post-Operative Diagnosis: same Surgery/Procedure Performed:: suction d and c Description of Surgical Findings:: 9 week sab Type of Anesthesia:: Local MAC Special Medications: cytotec Specimen's removed: poc Drains: none Estimated Blood Loss (mL): 50 Fluids Replaced: crystalloid Description of Procedure: Patient was taken to the operating room and placed under MAC local anesthesia. She was prepped and draped in the normal sterile fashion the dorsal lithotomy position. Bladder was drained of clear urine and anterior lip of the cervix was grasped and the uterus sounded to9 centimeters. Cervix was progressively dilated to allow passage of a 9 mm suction curette. Progressive passes were made removing the retained products of conception without complication. Sharp curettage confirmed complete removal of the retained products. All instruments were removed from the vagina and excellent hemostasis was noted and the patient was taken to recovery in stable condition. cytotec given rectally. Grafts/Implants Used: none - Complications none Multi Select Codes - Urinary/Genital Urinary/Genital CPT Codes: 91455 Care of miscarriage 02/16/19 1331 <Electronically signed by Amira Padilla MD> Date Amira Padilla MD CC: Zeinab William DO; Amira Padilla MD Signed Zeinab William Start: 02-16-2019 End: 02-16-2019 History and Physical Exam Comments: See Note; NOTES: [facility] Medical Records Department [address] [place] [address] History and Physical 02/15/19 0543 MR#: [id number] Acct: [id number] Name: STEFANO ESPINOZA Rep #: [id number] : 1995 23 From: Amira Padilla MD PCP: Zeinab William DO [place]: [place] [facility] [place] Location: [address] - Problem List (1) Missed Status: Acute History and Physical Date of Admission: 02/16/19 Intake Vital Signs 02/13/19 Body Mass Index (BMI) 20.5 02/13/19 Height 5 ft 4.5 in 02/13/19 Weight: 120 lb 02/13/19 Body Mass Index (BMI) 20.2 Intake Visit Reasons: NOB LMP 12/16 Chief Complaint: NEW OB Radiation Technician Required: No Is patient in pain?: No Allergies No Known Allergies Allergy (Verified 02/13/19 11:43) Medications vitamin#30 30 mg iron-10 mg iron-folic acid 1 mg-omg3 capsule cap PO cap 02/13/19 [History] Last Menstral Period: 02/14/18 Zika: Zika virus screening: Negative : No PFSH PFSH Medical History Anxiety (Acute) Surgical History labioplasty (Acute) Family History Mother Diabetes Congestive heart failure Father Narcolepsy Grandmother Kidney disease Grandfather Heart disease Alzheimer disease Social History (Updated 02/13/19 @ 13:54 by Amira Padilla MD) Smoking Status: Never smoker alcohol intake: never substance use type: does not use caffeine: Yes what type of physical activity do you participate in: walking frequency: 3-4 times per week seatbelt use: always do you feel safe at home: Yes additional social history: - [employer] Patient works at [employer] Pregancy History 1 Elective abortions Hx Para 1 Spontaneous abortions Past Pregnancies Del. DateName GA/Weeks Outcome Route Bth WeighInfant GeLabor LgtAnesthSweta LocatProvider FOB t n h a n Delivery Date: 10/02/16 On 03/07/18 @ 12:08 Yahaira Tate Borderline HELP HPI NOB LMP 12/16: Details: STEFANO ESPINOZA is a 23 year old who presents for New OB visit. on ultrasound she has a loss confirmed 9w1d with no fht. no abnormalities seen. OB Visit Menstrual History Last Menstral Period: 02/14/18 Reported LMP: definite Normal amount/duration: Yes On hormonal BC at conception: No Antepartum Record Genetic Screening: Congenital Heart Defect: Other, Neural Tube Defect: Other, Hemoglobinopathy Or Carrier: Other, Cystic Fibrosis: Other, Chromosome Abnormality: Other, Gabriel-Sachs: Other, Hemophilia: Other, Intellectual Disability/Autism: Other, Recurrent Loss/Stillbirth: Other, Other Structural Defect: Other, Other Genetic Disease: Other, Maternal Metabolic Disorder: Other Infection History: Live with someone with TB or Exposed to TB: No, Patient or Partner has history of Genital Herpes: No, Rash or Viral illness since last mentrual period: No, Prior GBS-Infected child: No, History of STD: Yes (chlamydia in distand past), HIV Infection: No, History of Hepatitis: No, Recent travel outside of [place]: No, Concern for Hep exposure: No, Varicella immune: Yes Medical History 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), Operations/hospitalizations, Negative: Diabetes, Hypertension, Heart disease, Auto-immune disorder, Kidney disease/UTI, Neurologic/epilepsy, Psychiatric, Depression/ depression, Hepatitis/liver disease, Varicosities/phlebitis, Thyroid dysfunction, Trauma/domestic violence, History of blood transfusions, D (Rh) Sensitized, Pulmonary (e.g.,TB,Asthma), Seasonal allergies, Drug/latex allergies/reactions, Breast, Anesthetic complications, History of abnormal pap, Uterine anomaly/lisbet, Infertility, Anti-retroviral treatment, Relevant family history, Other ACOG First Trimester First Trimester: Discussed ROS Const Reports system reviewed and no additional complaints, except as docu, Reports fatigue, Denies fever(s) Eyes Reports system reviewed and no additional complaints, except as docu ENT Reports system reviewed and no additional complaints, except as docu Card Denies chest pain, Denies shortness of breath Resp Reports system reviewed and no additional complaints, except as docu, Denies cough, Denies shortness of breath GI Denies abdominal pain, Reports nausea Reports system reviewed and no additional complaints, except as docu Musc Reports system reviewed and no additional complaints, except as docu Skin/Breast Reports system reviewed and no additional complaints, except as docu Neuro Yes system reviewed and no additional complaints, except as docu Psych Reports system reviewed and no additional complaints, except as docu Endo Reports system reviewed and no additional complaints, except as docu, Reports fatigue Exam Const General: healthy appearing, comfortable, no acute distress Orientation: alert [facility] Head: normal to inspection, normocephalic, atraumatic Ears: hearing grossly normal bilaterally, external ears normal Nose: external nose normal, nares normal Mouth: oral mucosae normal Teeth and gingiva: dentition normal Eyes General: appearance normal, both eyes and all related structures Neck Neck: normal visual inspection, no lymphadenopathy, supple Thyroid: thyroid normal Resp Effort AND Inspection: normal respiratory effort GI Inspection: normal to inspection Palpation: soft, no hepatosplenomegaly General: bladder normal to palpation External Female Exam: normal external appearance, normal appearance of the urethra Urethra: normal appearance of the urethra Speculum Exam - Vagina: normal appearance of the vagina, normal vaginal discharge Speculum Exam - Cervix: normal appearance of the cervix Bimanual Exam- Vagina AND Uterus: normal bimanual exam, bladder normal to palpation, uterus non-tender, other Bimanual Exam- Adnexa, other: adnexae non-tender Skin General: no rashes or lesions noted Neuro Motor: muscle tone normal throughout, no movement abnormalities noted Extrem General: normal to inspection, full ROM Assessment AND Plan Problems 1. Missed O02.1 Plan discussed options plan suction d and c discussed surgical risks including risks of anesthesia, infection, bleeding, injury to bowel, bladder or blood vessels, and patient wishes to proceed with surgery. Orders Orders: Supplemental Info ACOG book given and patient encouraged to read about nutrition, exercise, weight gain, and food avoidance in . Coding Level of Care Code Off vis,est,level 4 Diagnoses Missed O02.1 UPDATE- I have seen the patient and performed any clinically relevant updates to the history and physical exam. Amira Padilla MD 02/16/19 1329 <Electronically signed by Amira Padilla MD> Date Amira Padilla MD Cosigner Signature: Date (if applicable) CC: Zeinab William DO; Amira Padilla MD Signed Zeinab William Start: 02-01-2019 End: 02-01-2019 Transvaginal w/Preg US Comments: See Note; NOTES: [facility] Imaging Services [address] [place] [address] Transvaginal w/Preg US MR#: [id number] Acct: [id number] Name: STEFANO ESPINOZA Rep #: [id number] : 1995 F 23 From: Zbigniew Berger MD PCP: Zeinab William DO Status: [facility] Study: Transvaginal w/Preg US Date of Exam: 02/01/19 Exam# [id number] Ordering Dr: Yenifer Beth STUDY: FIRST TRIMESTER OBSTETRICAL ULTRASOUND REASON FOR EXAM: Female, 23 years old. viability. LMP: 12/11/2018 TECHNIQUE: Transvaginal TECHNICAL QUALITY: Adequate. PRIOR ULTRASOUND: None. FINDINGS: There is visualization of a single gestational sac in a normal intrauterine position. The mean sac diameter (MSD) measures 1.9 cm, indicating an estimated gestational age (EGA) of 6 weeks, 6 days. The gestational sac shape is within normal limits. There is a visualized yolk sac. The yolk sac measures 0.2 cm. The placenta is non-visualized. There is visualization of a live embryo. The crown-rump length (CRL) measures 1.1 cm, indicating an estimated gestational age (EGA) of 7 weeks, 2 days. There is demonstrated cardiac activity with a heart rate of 149 bpm. The estimated gestation age (EGA) by LMP is 7 weeks, 3 days. The estimated date of delivery (SCAR) by LMP is 09/17/2019. The estimated gestation age (EGA) by US is 7 weeks, 1 days. The estimated date of delivery (SCAR) by US is 09/19/2019. The uterus measures 9.7 x 6.7 x 4.9 cm. There is no demonstrated uterine fibroid. The cervix is closed. The right ovary measures 3.2 x 1.6 x 1.9 cm. There is no right ovarian cyst. There is no visualized right adnexal mass or complex lesion. The left ovary measures 2.3 x 1.9 x 1.3 cm. There is no left ovarian cyst. There is no visualized left adnexal mass or complex lesion. There is no fluid in the cul de sac. US/Transvaginal w/Preg US IMPRESSION: Single live intrauterine at 7 weeks, 1 day by current ultrasound with SCAR of 09/19/2019. Heart rate of 149 bpm. No suspicious sonographic findings Electronically Signed: Sher Berger MD at 9:52 EDT , Service support , CC: TIMI Beth; Zeinab William DO Ballet Professor: Signed Zeinab William Work Phone: Start: 10-05-2018 End: 10-05-2018 Emergency Department Summary Comments: See Note; NOTES: [facility] Medical Records Department [address] [place] [address] Emergency Department Summary 10/05/18 1533 MR#: [id number] Acct: [id number] Name: STEFANO ESPINOZA Rep #: [id number] : 1995 23 From: James Terry MD PCP: Zeinab William DO Status: REG ER - ER Visit Summary Date of Service: 10/05/18 Chief Complaint: [] History of Present Illness: The patient is a 23 F [] Physical Examination: [] Test Results: [] Emergency Department Course and Treatment: [] Treatment Plan: [] Disposition: [] Impression: [] This note was generated with Minglebox dictation software. It may contain incorrect words, spelling, and punctuation that were not noted in review of the chart prior to signing ED Disposition - Plan for ED Patient: Disposition: Acute Care Hospital [facility] Diagnosis: 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 Instructions: ED Inflam Bowel Disease Crohn Prescriptions: Hydrocodone Bitart/Apap 5-325 [Fishers 5MG-325MG] 1 tablet PO Q6H PRN PRN 3 Days #10 tablet PRN Reason: Pain Metronidazole 500 mg PO Q8 #21 tablet Ciprofloxacin [Cipro] 500 mg PO BID #14 tablet Referrals: Zeinab William DO [Primary Care Provider] - Johnny Romo MD [NON-STAFF] - 3-5 Days What to do if you have Problems For any increased pain, shortness of breath, bleeding, nausea or vomiting, chest pain, or any unexpected problems, contact your Primary Care Provider. Call [facility] ([phone]) or report to the closest Emergency Room. Call 911 if necessary. 10/05/18 1537 <Electronically signed by James Terry MD> Date James Terry MD Cosigner Signature (If Indicated): Date CC: Zeinab Perkins Start: 10-05-2018 End: 10-05-2018 Abdomen/Pelvis WITH Contrast Comments: See Note; NOTES: [facility] Imaging Services [address] [place], [place] [address] [address] Abdomen/Pelvis WITH Contrast MR#: [id number] Acct: [id number] Name: STEFANO ESPINOZA Rep #: [id number] : 1995 F 23 From: Rod Mina MD PCP: Zeinab William DO Status: REG Study: Abdomen/Pelvis WITH Contrast Date of Exam: 10/05/18 Exam# [id number] Ordering Dr: James Terry MD STUDY: CT ABDOMEN AND PELVIS WITH CONTRAST REASON FOR EXAM: Female, 23 years old. 4 day history of right lower quadrant pain with nausea and diarrhea. Dysuria. RADIATION DOSAGE (If Supplied By Facility): CTDIvol = ( 8.82 ) mGy, DLP = ( 366.86 ) mGycm TECHNIQUE: Transaxial images were obtained from the dome of the diaphragm to the symphysis pubis with oral contrast. 75mL IV/Oral Isovue 300 was administered. Sagittal and coronal images were reconstructed. Individualized dose optimization techniques were used for this CT. COMPARISON: None. FINDINGS: The visualized lung bases are unremarkable. The visualized portions of the heart are within normal limits. Normal liver. Normal gallbladder and extrahepatic biliary system. Normal spleen. Normal pancreas. Normal bilateral adrenal glands. Normal right kidney. Normal left kidney. There is a small hiatal hernia. There is diffuse circumferential wall thickening of the terminal ileum. This may represent changes secondary to terminal ileitis. Normal colon. The appendix is visualized and appears normal. Normal abdominal aorta. Normal inferior vena cava. Normal retroperitoneum. Normal urinary bladder. Follicles are seen in the right ovary. Small amount of free fluid is seen in the cul-de-sac. There is increased vascularity of the uterus. This may be related to the patient's menstrual cycle. Normal abdominal wall. Normal osseous structures. CT/Abdomen/Pelvis WITH Contrast IMPRESSION: Findings suggestive of terminal ileitis. Small amount of free fluid in the pelvis. Follicles are seen in the right ovary. Electronically Signed: Rod Mina, at 14:38 EDT , Service support , CC: Zeinab William DO; James Terry MD Ballet Professor: Signed Zeinab Stewart Start: 05-31-2018 End: 05-31-2018 [employer] Office Visit Report Comments: See Note; NOTES: [facility] [address] [place] [address] OFFICE VISIT Date of Service: 05/31/18 MR#: [id number] Acct: [id number] Name: STEFANO ESPINOZA Rep #: [id number] : 1995 Provider: Amira Padilla MD Age/Sex: 22/F [place] [facility] [place] Signed Intake Vital Signs05/31/18 Weight: 115 lb 05/31/18 Height 5 ft 4 in 05/31/18 Blood Pressure 98/68 Intake Visit Reasons: RECHECK Chief Complaint: 6w post op, estrace Radiation Technician Required: No Is patient in pain?: No Allergies No Known Allergies Allergy (Verified 05/31/18 09:37) Medications melatonin 10 mg tablet 10 mg PO HS PRN 03/07/18 [History Confirmed 05/31/18] Norgestimate-Ethinyl Estradiol [Mononessa 28 Tablet] 1 ea PO DAILY 04/05/18 [History Confirmed 05/31/18] Baring's Wort 600 mg PO DAILY 04/05/18 [History Confirmed 05/31/18] ondansetron HCl 4 mg tablet 4 mg PO Q6H PRN #60 tab 04/13/18 [Rx Confirmed 05/31/18] oxycodone-acetaminophen 5 mg-325 mg tablet 1 tab PO ONCE PRN #15 tab 04/13/18 [Rx Confirmed 05/31/18] estradiol 0.01% (0.1 mg/gram) vaginal cream 1 g VAGINAL DAILY #42.5 g 05/03/18 [Rx Confirmed 05/31/18] Last Menstral Period: 02/14/18 Zika: Zika virus screening: Negative : No PFSH PFSH Medical History Anxiety (Acute) Surgical History labioplasty (Acute) Family History Mother Diabetes Congestive heart failure Father Narcolepsy Grandmother Kidney disease Grandfather Heart disease Alzheimer disease Social History Smoking Status: Never smoker alcohol intake: never substance use type: does not use caffeine: Yes what type of physical activity do you participate in: walking frequency: 3-4 times per week seatbelt use: always do you feel safe at home: Yes additional social history: - Rogelio- Ayana and Nelda Patient works at [employer] Pregancy History 1 Elective abortions Hx Para 1 Spontaneous abortions Past Pregnancies Del. DateName GA/Weeks Outcome Route Bth WeighInfant GeLabor LgtAnesthesiDel LocatProvider FOB t n h a n Delivery Date: 10/02/16 On 03/07/18 @ 12:08 Yahaira Tate Borderline HELP HPI RECHECK: Details: STEFANO ESPINOZA is a 22 year old who presents for fu postop visit. she is doing well and denies pain and feels great. ACOG First Trimester First Trimester: Discussed Diagnostics Diagnostics Labs Blood Type A POSITIVE 04/12/18 Antibody Screen NEGATIVE 04/12/18 Hct 43.8 % (37-47) 04/12/18 Hgb 14.4 g/dl (12.0-15.0) 04/12/18 Details: HIV: Urine Culture: Sequential Screen: NIPT Screen: ROS Const Reports system reviewed and no additional complaints, except as docu Reports system reviewed and no additional complaints, except as docu Exam Const General: cooperative, well groomed, healthy appearing, comfortable External Female Exam: normal external appearance (well healed lump gone) Assessment AND Plan Problems 1. Dyspareunia Plan doing well fu for annual Coding Level of Care Code Off vis,est,level 2 Diagnoses Dyspareunia 05/31/18 1036 <Electronically signed by Amira Paidlla MD> Date Amira Padilla MD Cosigner Signature: Date (if applicable) CC: Zeinab William Start: 05-06-2018 End: 05-06-2018 [employer] Office Visit Report Comments: See Note; NOTES: [facility] [address] [place] [address] OFFICE VISIT Date of Service: 05/03/18 MR#: [id number] Acct: [id number] Name: STEFANO ESPINOZA Rep #: [id number] : 1995 Provider: Amira Padilla MD Age/Sex: 22/F [place] [facility] [place]: Signed Intake Vital Signs05/03/18 Height 5 ft 4 in 05/03/18 Weight: 116 lb 2 oz 05/03/18 Body Mass Index (BMI) 19.9 05/03/18 Blood Pressure 98/62 Intake Visit Reasons: 3 week post op Chief Complaint: 3w post op Radiation Technician Required: No Is patient in pain?: Yes Allergies No Known Allergies Allergy (Verified 05/03/18 11:49) Medications melatonin 10 mg tablet 10 mg PO HS PRN 03/07/18 [History Confirmed 05/03/18] Norgestimate-Ethinyl Estradiol [Mononessa 28 Tablet] 1 ea PO DAILY 04/05/18 [History Confirmed 05/03/18] Isela's Wort 600 mg PO DAILY 04/05/18 [History Confirmed 05/03/18] ondansetron HCl 4 mg tablet 4 mg PO Q6H PRN #60 tab 04/13/18 [Rx Confirmed 05/03/18] oxycodone-acetaminophen 5 mg-325 mg tablet 1 tab PO ONCE PRN #15 tab 04/13/18 [Rx Confirmed 05/03/18] estradiol 0.01% (0.1 mg/gram) vaginal cream 1 g VAGINAL DAILY #42.5 g 05/03/18 [Rx Confirmed 05/03/18] Is last menstrual period known: No Post menopausal: No Patient : No : No PFSH Medical History Anxiety (Acute) Surgical History labioplasty (Acute) Family History Mother Diabetes Congestive heart failure Father Narcolepsy Grandmother Kidney disease Grandfather Heart disease Alzheimer disease Social History Smoking Status: Never smoker alcohol intake: never substance use type: does not use caffeine: Yes what type of physical activity do you participate in: walking frequency: 3-4 times per week seatbelt use: always do you feel safe at home: Yes additional social history: - Rogelio- Ayana and Verjamaicaon Patient works at [employer] 3 week post op: Details: STEFANO ESPINOZA is a 22 year old who presents for fu visit Pregancy History 1 Elective abortions Hx Para 1 Spontaneous abortions Past Pregnancies Del. DateName GA/Weeks Outcome Route Bth WeighInfant GeLabor LgtAnesthesiDel LocatProvider FOB t n h a n Delivery Date: 10/02/16 On 03/07/18 @ 12:08 Yahaira Tate Borderline HELP ROS Const Constitutional: Reports system reviewed and no additional complaints, except as docu GI GI: Denies abdominal pain, nausea, vomiting or cramping : Denies urinary frequency, vaginal dryness, vaginal discharge, urinary urgency, urinary incontinence, vaginal odor or pelvic pain Exam Const General: cooperative, healthy appearing, comfortable, no acute distress GI Inspection: normal to inspection Palpation: soft, nontender External Female Exam: normal external appearance (healing well, small keloid/stitch knot on internal side of healing incision) Assessment AND Plan Problems 1. Dyspareunia Plan routine postop fu in 4 weeks, recommend estrace cream Medications New: estradiol 0.01%(0.1mg/gram) (Estrace) Use finger tip 1 g Vaginal DAILY 42.5 grams 1RF amount to vaginal area nightly. Coding Level of Care Code Off vis,est,level 3 Diagnoses Dyspareunia 05/06/18 0533 <Electronically signed by Amira Padilla MD> Date Amira Padilla MD Cosigner Signature: Date (if applicable) CC: Zeinab William Start: 04-13-2018 End: 04-13-2018 Operative Report Comments: See Note; NOTES: [facility] Medical Records Department [address] [place] [address] Operative Report 04/12/18 1415 MR#: [id number] Acct: [id number] Name: STEFANO ESPINOZA Rep #: [id number] : 1995 22 From: Amira Padilla MD PCP: Zeinab William DO Status: [facility] [place] [facility] [place] List (1) Anxiety Status: Acute (2) Dyspareunia Status: Chronic Report of Operation Date of Procedure: 04/12/18 Pre-Operative Diagnosis: Dyspareunia Post-Operative Diagnosis: Same Surgery/Procedure Performed:: Labioplasty Description of Surgical Findings:: Right unhealed labial laceration Type of Anesthesia:: General Special Medications: None Specimen's removed: None Drains: None Estimated Blood Loss (mL): 25 cc Fluids Replaced: Crystalloid Description of Procedure: Patient has a history of dyspareunia due to a poorly healed right labial periclitoral laceration postdelivery. Patient was placed under general anesthesia was prepped and draped in normal sterile fashion in the dorsal lithotomy position. Incision was made along the area of the breakdown of healing of the previous obstetric laceration. Underlying scar tissue was broken up and mobilized the vaginal mucosa to be reapproximated with 4-0 Monocryl. Hemostasis was noted and Dermabond was applied. Area was injected with 2% Xylocaine the patient was awoken and taken recovery in stable condition Grafts/Implants Used: None - Complications None 04/13/18 0437 <Electronically signed by Amira Padilla MD> Date Amira Padilla MD CC: Zeinab William DO; Amira Padilla MD Signed Zeinab William Start: 04-12-2018 Antibody screen Zeinab William Plan of Treatment Date Care Activity Detail Author Start: 04-01-2023 Iaadiadoo influenza 2019 Novel Coronavirus (COVID-19), KENJI (01915) [facility]; [facility] Work Phone: Start: 01-10-2023 Procedure Education Eprescribed prescriptions (G8553) [facility]; [facility] Work Phone: Start: 01-10-2023 Glucose quantitative blood xcpt reagent strip GLUCOSE (76812) [facility]; [facility] Work Phone: Start: 01-10-2023 Lipid panel LIPID PANEL (21224) [facility]; [facility] Work Phone: Start: 07-30-2022 Provider Instructions for Treatment Reviewed Lab [facility]; [facility] Work Phone: Start: 07-30-2022 25 hydroxy includes fractions if performed CALCIFEDIOL (40450) [facility]; [facility] Work Phone: Start: 07-30-2022 Cyanocobalamin vitamin b-12 VITAMIN B-12 (CYANOCOBALAMIN) (33774) [facility]; [facility] Work Phone: Start: 06-17-2022 Procedure Education Eprescribed prescriptions (G8553) [facility]; [facility] Work Phone: Start: 06-17-2022 25 hydroxy includes fractions if performed CALCIFIDIOL (62774) VIT D 25 [facility]; [facility] Work Phone: Start: 06-17-2022 Cyanocobalamin vitamin b-12 VITAMIN B-12 (CYANOCOBALAMIN) (84130) [facility]; [facility] Work Phone: Start: 06-17-2022 Assay of thyroid stimulating hormone tsh TSH (08437) [facility]; [facility] Work Phone: Start: 06-17-2022 Comprehensive metabolic panel METABOLIC PANEL, COMPREHENSIVE (17078) [facility]; [facility] Work Phone: Start: 06-17-2022 Antinuclear antibodies lee ann LEE ANN (ANTINUCLEAR ANTIBODY) (88440) [facility]; [facility] Work Phone: Start: 06-17-2022 Culture bct isol&prsmptv id isolate ea urine URINE NATHANIEL CULTURE-IDENTIFICATN (23616) [facility]; [facility] Work Phone: Start: 06-17-2022 Blood count manual cell count each CBC WITH MANUAL DIFF (21742) [facility]; [facility] Work Phone: Start: 06-17-2022 Thromboplastin time partial plasma/whole blood PTT (Activated Partial Thromboplastin Time) (34468) [facility]; [facility] Work Phone: Start: 06-17-2022 Prothrombin time PT (Prothrobim Time) (64431) [facility]; [facility] Work Phone: Start: 06-17-2022 Lactate dehydrogenase ldh LDH (LD) (LACTATE DEHYDROGENASE) (42316) [facility]; [facility] Work Phone: Start: 06-17-2022 C-reactive protein C-REACTIVE PROTEIN (17121) [facility]; [facility] Work Phone: Start: 06-17-2022 Sedimentation rate rbc non-automated ESR-F (SED RATE ERYTHROCYTE - FEMALE) (17877) [facility]; [facility] Work Phone: Start: 03-11-2022 Influenza vaccination INFLUENZA (#1) [facility] Start: 02-01-2022 Procedure Education Eprescribed prescriptions (G8553) [facility]; [facility] Work Phone: Start: 01-14-2022 Tb cell mediated antign respnse gamma interferon QuantiFERON-TB Gold Plus (QFT-Plus) (35192) [facility]; [facility] Work Phone: Start: 01-14-2022 Procedure Education Eprescribed prescriptions (G8553) [facility]; [facility] Work Phone: Start: 01-14-2022 Provider Instructions for Treatment Reviewed Lab [facility]; [facility] Work Phone: Start: 10-05-2021 Procedure Education Eprescribed prescriptions (G8553) [facility]; [facility] Work Phone: Start: 10-05-2021 Provider Instructions for Treatment Follow up if no improvement or if symptoms worsen [facility]; [facility] Work Phone: Start: 09-28-2021 Provider Instructions for Treatment Follow up in 1 week virtual [facility]; [facility] Work Phone: Start: 07-16-2021 Procedure Education Eprescribed prescriptions (G8553) [facility]; [facility] Work Phone: Start: 07-16-2021 Iaadiadoo influenza 2019 Novel Coronavirus (COVID-19), KENJI (63081) [facility]; [facility] Work Phone: Start: 05-25-2021 Hepatitis b surf antibody hbsab HEPATITIS B SURFACE ANTIBODY (21724) [facility]; [facility] Work Phone: Start: 05-22-2021 Antibody bordetella BORDETELLA ANTIBODY (20535) [facility]; [facility] Work Phone: Start: 05-22-2021 Antibody varicella-zoster Varicella - Zoster Antibody Igg (70988) [facility]; [facility] Work Phone: Start: 05-22-2021 Immunoassay infectious agent antibody catia nos Tetanus/Diphtheria Antibody Profile (89116) [facility]; [facility] Work Phone: Start: 05-20-2021 Antibody rubeola RUBEOLA IgG (70300) [facility]; [facility] Work Phone: Start: 05-20-2021 Antibody mumps MUMPS IgG (14430) [facility]; [facility] Work Phone: Start: 05-20-2021 Antibody rubella RUBELLA IgG (05023) [facility]; [facility] Work Phone: Start: 05-18-2021 Procedure Education Eprescribed prescriptions (G8553) [facility]; [facility] Work Phone: Start: 03-27-2021 Procedure Education Eprescribed prescriptions (G8553) [facility]; [facility] Work Phone: Start: 03-27-2021 Provider Instructions for Treatment Follow up in 6 months [facility]; [facility] Work Phone: Start: 01-22-2021 Drug screen non tlc devices Urine Drug Screen -Medicare (Office - Urine Drug Screen 9 Panel) (42132) [facility]; [facility] Work Phone: Start: 01-07-2021 Drug screen class list a Drug Screen (7drug + Alcohol) (17579) [facility]; [facility] Work Phone: Start: 01-01-2021 Procedure Education Eprescribed prescriptions (G8553) [facility]; [facility] Work Phone: Start: 12-24-2020 Procedure Education Eprescribed prescriptions (G8553) [facility]; [facility] Work Phone: Start: 12-24-2020 Provider Instructions for Treatment Follow up in 3 months [facility]; [facility] Work Phone: Start: 12-17-2020 Procedure Education Eprescribed prescriptions (G8553) [facility]; [facility] Work Phone: Start: 12-17-2020 Provider Instructions for Treatment Follow up in 1 week virtual to review labs and ADD form. [facility]; [facility] Work Phone: Start: 12-17-2020 25 hydroxy includes fractions if performed CALCIFEDIOL (46751) [facility]; [facility] Work Phone: Start: 12-17-2020 Cyanocobalamin vitamin b-12 VITAMIN B12 AND FOLATES (56330) [facility]; [facility] Work Phone: Start: 10-03-2020 Procedure Education Eprescribed prescriptions (G8553) [facility]; [facility] Work Phone: Start: 10-03-2020 Provider Instructions for Treatment COVID SCREENING FORM [facility]; [facility] Work Phone: Start: 09-05-2020 Procedure Education Eprescribed prescriptions (G8553) [facility]; [facility] Work Phone: Start: 09-05-2020 Provider Instructions for Treatment Follow up in 1 month [facility]; [facility] Work Phone: Start: 09-05-2020 Comprehensive metabolic panel METABOLIC PANEL, COMPREHENSIVE (20864) [facility]; [facility] Work Phone: Start: 09-05-2020 Blood count complete auto&auto difrntl wbc CBC W/AUTO DIFF WBC (92686) [facility]; [facility] Work Phone: Start: 09-05-2020 TSH Qn TSH (36376) [facility]; [facility] Work Phone: Start: 09-05-2020 Lipid panel LIPID PANEL (47803) [facility]; [facility] Work Phone: Start: 2020 Procedure Education Eprescribed prescriptions (G8553) [facility]; [facility] Work Phone: Start: 2020 Provider Instructions for Treatment Follow up in 4 weeks [facility]; [facility] Work Phone: Start: 08-05-2020 Procedure Education Eprescribed prescriptions (G8553) [facility]; [facility] Work Phone: Start: 08-05-2020 Provider Instructions for Treatment Follow up in 3 days with KF as virtual front end application developer to schedule [facility]; [facility] Work Phone: Start: 12-24-2019 Procedure Education Eprescribed prescriptions (G8553) [facility] Work Phone: Start: 12-24-2019 Provider Instructions for Treatment Continue Current Prescription(s) [facility] Work Phone: Start: 08-23-2018 Culture bacterial quanttative colony count urine URINE NATHANIEL CULTURE-CATIA COL COUNT (53542) [facility] Work Phone: Start: 08-23-2018 Hemoglobin A1c/Hemoglobin.total mass fraction (Bld) HGB A1C (49123) [facility] Work Phone: Start: 08-23-2018 Hemoglobin glycosylated a1c HGB A1C (37695) [facility]; [facility] Work Phone: Start: 08-23-2018 Procedure Education Eprescribed prescriptions (G8553) [facility] Work Phone: Start: 05-05-2018 Glucose mass conc GLUCOSE (89443) [facility] Work Phone: Start: 05-05-2018 Lipid panel LIPID PANEL (99144) [facility] Work Phone: Start: 05-05-2018 Procedure Education Eprescribed prescriptions (G8553) [facility] Work Phone: Start: 2016 PAP TESTING PAP TESTING [facility] Start: 2014 Urine microalbumin profile DTAP,TDAP,TD (1 - Tdap) [facility] Start: 2013 HEPATITIS C SCREENING HEPATITIS C SCREENING [facility] Start: 2013 HIV SCREENING HIV SCREENING [facility] Start: 2009 PEDS TO ADULT TRANSITION ANNUAL ASSESSMENT PEDS TO ADULT TRANSITION ANNUAL ASSESSMENT [facility] Start: 2007 Adult depression screening assessment DEPRESSION SCREENING [facility] Start: 2007 PEDS TO ADULT TRANSITION INITIAL DISCUSSION PEDS TO ADULT TRANSITION INITIAL DISCUSSION [facility] Start: 2006 HPV VACCINE (1 - 2-dose series) HPV VACCINE (1 - 2-dose series) [facility] Start: 02-06-1996 COVID-19 VACCINE (#1) COVID-19 VACCINE (#1) [facility] Work Phone: [facility] [facility] Work Phone: [facility] Work Phone: [facility] Work Phone: [facility] Work Phone: [facility] Work Phone: [facility] Work Phone: [facility] Work Phone: [facility] Work Phone: [facility] Work Phone: Immunizations Immunization Date Immunization Notes Care Provider [facility] 04-01-2023 influenza, injectabl e, quadrivalent, contains preservative Zeinab Cavazoson DO Work Phone: [facility] Work Phone: Payers Date Payer Category Payer Unknown [id number] 2021 [employer] ( and others) [id number] 2021 Unknown [id number] 2018 Unknown [facility] [id number] 2018-Present [phone] [address] [address] [place] [address] Indemnity [id number] 2018 Unknown [employer] [id number] 2018-Present [phone] [address] [place] [address] Indemnity [id number] 2018 [employer] ( and others) [id number] 1995 Unknown [id number] Unknown Social History Date Type Detail Facility Caffeine Use [facility] Work Phone: Clinical Notes 01-14-2022 to 02-11-2022 Telephone Encounter - Katerina Yazmin - 02/11/2022 10:23 AM EDTTelephone Encounter - Katerina Yazmin - 01/14/2022 4:02 PM EDT Note Date & Type Note Facility 02-11-2022 Miscellaneous Notes PHONED STEFANO EXPLAINED WE DO NOT HAVE HER VACCINE RECORDS. SHE STATED SHE WAS ABLE TO OBTAIN THESE FROM THE CORRECT PROVIDER WHO HAD THEM. documented in this encounter [facility] 01-14-2022 Miscellaneous Notes PATIENT REQUESTING MEDICAL VACCINE RECORDS FOR PAOLA SALGADO NAME-VOLODYMYR PATIENT #[phone] documented in this encounter [facility] Work Phone: Instructions* Name Dates Details Patient Instructions Indication:Non-smoker Start:17-Dec-2020 Instruction Type:Provider Instructions for Treatment How to Access Health Informa tion Online using Patient Portal and [employer] Indication:Non-smoker Start:17-Dec-2020 Instruction Type:Patient Education How to Access Health Informa tion Online using Patient Portal and [employer] Apps Indication:BMI 21.0-21.9, adult Start:03-Oct-2020 Instruction Type:Patient Education Patient Instructions Indication:BMI 21.0-21.9, adult Start:03-Oct-2020 Instruction Type:Provider Instructions for Treatment Patient Instructions Indication:Non-smoker Start:05-Sep-2020 Instruction Type:Provider Instructions for Treatment How to Access Health Informa tion Online using Patient Portal and [employer] Apps Indication:Non-smoker Start:05-Sep-2020 Instruction Type:Patient Education How to Access Health Informa tion Online using Patient Portal and [employer] Apps Indication:Non-smoker Start:08-Aug-2020 Instruction Type:Patient Education Patient Instructions Indication:Non-smoker Start:08-Aug-2020 Instruction Type:Provider Instructions for Treatment Patient Instructions Indication:BMI 21.0-21.9, adult Start:05-Aug-2020 Instruction Type:Provider Instructions for Treatment How to Access Health Informa tion Online using Patient Portal and [employer] Indication:BMI 21.0-21.9, adult Start:05-Aug-2020 Instruction Type:Patient Education How to access health informa tion online Indication:BMI 21.0-21.9, adult Start:24-Dec-2019 Instruction Type:Patient Education How to access health informa tion online - Detail Indication:BMI 21.0-21.9, adult Start:24-Dec-2019 Instruction Type:Patient Education Patient Instructions Indication:BMI 21.0-21.9, adult Start:24-Dec-2019 Instruction Type:Provider Instructions for Treatment How to access health informa tion online Indication:Urinary frequency Start:23-Aug-2018 Instruction Type:Patient Education How to access health informa tion online - Detail Indication:Urinary frequency Start:23-Aug-2018 Instruction Type:Patient Education Patient Instructions Indication:Urinary frequency Start:23-Aug-2018 Instruction Type:Provider Instructions for Treatment How to access health informa tion online Indication:Non-smoker Start:05-May-2018 Instruction Type:Patient Education How to access health informa tion online - Detail Indication:Non-smoker Start:05-May-2018 Instruction Type:Patient Education Patient Instructions Indication:Non-smoker Start:05-May-2018 Instruction Type:Provider Instructions for Treatment How to access health informa tion online Indication:Non-smoker Start:27-Feb-2018 Instruction Type:Patient Education How to access health informa tion online - Detail Indication:Non-smoker Start:27-Feb-2018 Instruction Type:Patient Education Patient Instructions Indication:Non-smoker Start:27-Feb-2018 Instruction Type:Provider Instructions for Treatment [facility] Work Phone: Instructions* Name Dates Details Patient Instructions Indication:Non-smoker Start:24-Dec-2020 Instruction Type:Provider Instructions for Treatment How to Access Health Informa tion Online using Patient Portal and [employer] Apps Indication:Non-smoker Start:24-Dec-2020 Instruction Type:Patient Education Patient Instructions Indication:Non-smoker Start:17-Dec-2020 Instruction Type:Provider Instructions for Treatment How to Access Health Informa tion Online using Patient Portal and [employer] Apps Indication:Non-smoker Start:17-Dec-2020 Instruction Type:Patient Education How to Access Health Informa tion Online using Patient Portal and [employer] Apps Indication:BMI 21.0-21.9, adult Start:03-Oct-2020 Instruction Type:Patient Education Patient Instructions Indication:BMI 21.0-21.9, adult Start:03-Oct-2020 Instruction Type:Provider Instructions for Treatment Patient Instructions Indication:Non-smoker Start:05-Sep-2020 Instruction Type:Provider Instructions for Treatment How to Access Health Informa tion Online using Patient Portal and [employer] Apps Indication:Non-smoker Start:05-Sep-2020 Instruction Type:Patient Education How to Access Health Informa tion Online using Patient Portal and [employer] Apps Indication:Non-smoker Start:08-Aug-2020 Instruction Type:Patient Education Patient Instructions Indication:Non-smoker Start:08-Aug-2020 Instruction Type:Provider Instructions for Treatment Patient Instructions Indication:BMI 21.0-21.9, adult Start:05-Aug-2020 Instruction Type:Provider Instructions for Treatment How to Access Health Informa tion Online using Patient Portal and [employer] Apps Indication:BMI 21.0-21.9, adult Start:05-Aug-2020 Instruction Type:Patient Education How to access health informa tion online Indication:BMI 21.0-21.9, adult Start:24-Dec-2019 Instruction Type:Patient Education How to access health informa tion online - Detail Indication:BMI 21.0-21.9, adult Start:24-Dec-2019 Instruction Type:Patient Education Patient Instructions Indication:BMI 21.0-21.9, adult Start:24-Dec-2019 Instruction Type:Provider Instructions for Treatment How to access health informa tion online Indication:Urinary frequency Start:23-Aug-2018 Instruction Type:Patient Education How to access health informa tion online - Detail Indication:Urinary frequency Start:23-Aug-2018 Instruction Type:Patient Education Patient Instructions Indication:Urinary frequency Start:23-Aug-2018 Instruction Type:Provider Instructions for Treatment How to access health informa tion online Indication:Non-smoker Start:05-May-2018 Instruction Type:Patient Education How to access health informa tion online - Detail Indication:Non-smoker Start:05-May-2018 Instruction Type:Patient Education Patient Instructions Indication:Non-smoker Start:05-May-2018 Instruction Type:Provider Instructions for Treatment How to access health informa tion online Indication:Non-smoker Start:27-Feb-2018 Instruction Type:Patient Education How to access health informa tion online - Detail Indication:Non-smoker Start:27-Feb-2018 Instruction Type:Patient Education Patient Instructions Indication:Non-smoker Start:27-Feb-2018 Instruction Type:Provider Instructions for Treatment [facility] Work Phone: Instructions* Name Dates Details How to Access Health Informa tion Online using Patient Portal and [employer] Apps Indication:Non-smoker Start:01-Jan-2021 Instruction Type:Patient Education Patient Instructions Indication:Non-smoker Start:01-Jan-2021 Instruction Type:Provider Instructions for Treatment Patient Instructions Indication:Non-smoker Start:24-Dec-2020 Instruction Type:Provider Instructions for Treatment How to Access Health Informa tion Online using Patient Portal and [employer] Indication:Non-smoker Start:24-Dec-2020 Instruction Type:Patient Education Patient Instructions Indication:Non-smoker Start:17-Dec-2020 Instruction Type:Provider Instructions for Treatment How to Access Health Informa tion Online using Patient Portal and [employer] Indication:Non-smoker Start:17-Dec-2020 Instruction Type:Patient Education How to Access Health Informa tion Online using Patient Portal and [employer] Indication:BMI 21.0-21.9, adult Start:03-Oct-2020 Instruction Type:Patient Education Patient Instructions Indication:BMI 21.0-21.9, adult Start:03-Oct-2020 Instruction Type:Provider Instructions for Treatment Patient Instructions Indication:Non-smoker Start:05-Sep-2020 Instruction Type:Provider Instructions for Treatment How to Access Health Informa tion Online using Patient Portal and [employer] Apps Indication:Non-smoker Start:05-Sep-2020 Instruction Type:Patient Education How to Access Health Informa tion Online using Patient Portal and [employer] Apps Indication:Non-smoker Start:08-Aug-2020 Instruction Type:Patient Education Patient Instructions Indication:Non-smoker Start:08-Aug-2020 Instruction Type:Provider Instructions for Treatment Patient Instructions Indication:BMI 21.0-21.9, adult Start:05-Aug-2020 Instruction Type:Provider Instructions for Treatment How to Access Health Informa tion Online using Patient Portal and [employer] Indication:BMI 21.0-21.9, adult Start:05-Aug-2020 Instruction Type:Patient Education How to access health informa tion online Indication:BMI 21.0-21.9, adult Start:24-Dec-2019 Instruction Type:Patient Education How to access health informa tion online - Detail Indication:BMI 21.0-21.9, adult Start:24-Dec-2019 Instruction Type:Patient Education Patient Instructions Indication:BMI 21.0-21.9, adult Start:24-Dec-2019 Instruction Type:Provider Instructions for Treatment How to access health informa tion online Indication:Urinary frequency Start:23-Aug-2018 Instruction Type:Patient Education How to access health informa tion online - Detail Indication:Urinary frequency Start:23-Aug-2018 Instruction Type:Patient Education Patient Instructions Indication:Urinary frequency Start:23-Aug-2018 Instruction Type:Provider Instructions for Treatment How to access health informa tion online Indication:Non-smoker Start:05-May-2018 Instruction Type:Patient Education How to access health informa tion online - Detail Indication:Non-smoker Start:05-May-2018 Instruction Type:Patient Education Patient Instructions Indication:Non-smoker Start:05-May-2018 Instruction Type:Provider Instructions for Treatment How to access health informa tion online Indication:Non-smoker Start:27-Feb-2018 Instruction Type:Patient Education How to access health informa tion online - Detail Indication:Non-smoker Start:27-Feb-2018 Instruction Type:Patient Education Patient Instructions Indication:Non-smoker Start:27-Feb-2018 Instruction Type:Provider Instructions for Treatment [facility] Work Phone: Instructions* Name Dates Details Patient Instructions Indication:Attention deficit disorder (ADD) in adult Start:07-Jan-2021 Instruction Type:Provider Instructions for Treatment How to Access Health Informa tion Online using Patient Portal and [employer] Apps Indication:Attention deficit disorder (ADD) in adult Start:07-Jan-2021 Instruction Type:Patient Education How to Access Health Informa tion Online using Patient Portal and [employer] Apps Indication:Non-smoker Start:01-Jan-2021 Instruction Type:Patient Education Patient Instructions Indication:Non-smoker Start:01-Jan-2021 Instruction Type:Provider Instructions for Treatment Patient Instructions Indication:Non-smoker Start:24-Dec-2020 Instruction Type:Provider Instructions for Treatment How to Access Health Informa tion Online using Patient Portal and [employer] Apps Indication:Non-smoker Start:24-Dec-2020 Instruction Type:Patient Education Patient Instructions Indication:Non-smoker Start:17-Dec-2020 Instruction Type:Provider Instructions for Treatment How to Access Health Informa tion Online using Patient Portal and [employer] Apps Indication:Non-smoker Start:17-Dec-2020 Instruction Type:Patient Education How to Access Health Informa tion Online using Patient Portal and [employer] Apps Indication:BMI 21.0-21.9, adult Start:03-Oct-2020 Instruction Type:Patient Education Patient Instructions Indication:BMI 21.0-21.9, adult Start:03-Oct-2020 Instruction Type:Provider Instructions for Treatment Patient Instructions Indication:Non-smoker Start:05-Sep-2020 Instruction Type:Provider Instructions for Treatment How to Access Health Informa tion Online using Patient Portal and [employer] Apps Indication:Non-smoker Start:05-Sep-2020 Instruction Type:Patient Education How to Access Health Informa tion Online using Patient Portal and [employer] Apps Indication:Non-smoker Start:08-Aug-2020 Instruction Type:Patient Education Patient Instructions Indication:Non-smoker Start:08-Aug-2020 Instruction Type:Provider Instructions for Treatment Patient Instructions Indication:BMI 21.0-21.9, adult Start:05-Aug-2020 Instruction Type:Provider Instructions for Treatment How to Access Health Informa tion Online using Patient Portal and [employer] Apps Indication:BMI 21.0-21.9, adult Start:05-Aug-2020 Instruction Type:Patient Education How to access health informa tion online Indication:BMI 21.0-21.9, adult Start:24-Dec-2019 Instruction Type:Patient Education How to access health informa tion online - Detail Indication:BMI 21.0-21.9, adult Start:24-Dec-2019 Instruction Type:Patient Education Patient Instructions Indication:BMI 21.0-21.9, adult Start:24-Dec-2019 Instruction Type:Provider Instructions for Treatment How to access health informa tion online Indication:Urinary frequency Start:23-Aug-2018 Instruction Type:Patient Education How to access health informa tion online - Detail Indication:Urinary frequency Start:23-Aug-2018 Instruction Type:Patient Education Patient Instructions Indication:Urinary frequency Start:23-Aug-2018 Instruction Type:Provider Instructions for Treatment How to access health informa tion online Indication:Non-smoker Start:05-May-2018 Instruction Type:Patient Education How to access health informa tion online - Detail Indication:Non-smoker Start:05-May-2018 Instruction Type:Patient Education Patient Instructions Indication:Non-smoker Start:05-May-2018 Instruction Type:Provider Instructions for Treatment How to access health informa tion online Indication:Non-smoker Start:27-Feb-2018 Instruction Type:Patient Education How to access health informa tion online - Detail Indication:Non-smoker Start:27-Feb-2018 Instruction Type:Patient Education Patient Instructions Indication:Non-smoker Start:27-Feb-2018 Instruction Type:Provider Instructions for Treatment [facility] Work Phone: Instructions* Name Dates Details Patient Instructions Indication:Attention deficit disorder (ADD) in adult Start:22-Jan-2021 Instruction Type:Provider Instructions for Treatment How to Access Health Informa tion Online using Patient Portal and [employer] Apps Indication:Attention deficit disorder (ADD) in adult Start:22-Jan-2021 Instruction Type:Patient Education Patient Instructions Indication:Attention deficit disorder (ADD) in adult Start:07-Jan-2021 Instruction Type:Provider Instructions for Treatment How to Access Health Informa tion Online using Patient Portal and [employer] Apps Indication:Attention deficit disorder (ADD) in adult Start:07-Jan-2021 Instruction Type:Patient Education How to Access Health Informa tion Online using Patient Portal and [employer] Apps Indication:Non-smoker Start:01-Jan-2021 Instruction Type:Patient Education Patient Instructions Indication:Non-smoker Start:01-Jan-2021 Instruction Type:Provider Instructions for Treatment Patient Instructions Indication:Non-smoker Start:24-Dec-2020 Instruction Type:Provider Instructions for Treatment How to Access Health Informa tion Online using Patient Portal and [employer] Apps Indication:Non-smoker Start:24-Dec-2020 Instruction Type:Patient Education Patient Instructions Indication:Non-smoker Start:17-Dec-2020 Instruction Type:Provider Instructions for Treatment How to Access Health Informa tion Online using Patient Portal and [employer] Apps Indication:Non-smoker Start:17-Dec-2020 Instruction Type:Patient Education How to Access Health Informa tion Online using Patient Portal and [employer] Apps Indication:BMI 21.0-21.9, adult Start:03-Oct-2020 Instruction Type:Patient Education Patient Instructions Indication:BMI 21.0-21.9, adult Start:03-Oct-2020 Instruction Type:Provider Instructions for Treatment Patient Instructions Indication:Non-smoker Start:05-Sep-2020 Instruction Type:Provider Instructions for Treatment How to Access Health Informa tion Online using Patient Portal and [employer] Apps Indication:Non-smoker Start:05-Sep-2020 Instruction Type:Patient Education How to Access Health Informa tion Online using Patient Portal and [employer] Apps Indication:Non-smoker Start:08-Aug-2020 Instruction Type:Patient Education Patient Instructions Indication:Non-smoker Start:08-Aug-2020 Instruction Type:Provider Instructions for Treatment Patient Instructions Indication:BMI 21.0-21.9, adult Start:05-Aug-2020 Instruction Type:Provider Instructions for Treatment How to Access Health Informa tion Online using Patient Portal and [employer] Apps Indication:BMI 21.0-21.9, adult Start:05-Aug-2020 Instruction Type:Patient Education How to access health informa tion online Indication:BMI 21.0-21.9, adult Start:24-Dec-2019 Instruction Type:Patient Education How to access health informa tion online - Detail Indication:BMI 21.0-21.9, adult Start:24-Dec-2019 Instruction Type:Patient Education Patient Instructions Indication:BMI 21.0-21.9, adult Start:24-Dec-2019 Instruction Type:Provider Instructions for Treatment How to access health informa tion online Indication:Urinary frequency Start:23-Aug-2018 Instruction Type:Patient Education How to access health informa tion online - Detail Indication:Urinary frequency Start:23-Aug-2018 Instruction Type:Patient Education Patient Instructions Indication:Urinary frequency Start:23-Aug-2018 Instruction Type:Provider Instructions for Treatment How to access health informa tion online Indication:Non-smoker Start:05-May-2018 Instruction Type:Patient Education How to access health informa tion online - Detail Indication:Non-smoker Start:05-May-2018 Instruction Type:Patient Education Patient Instructions Indication:Non-smoker Start:05-May-2018 Instruction Type:Provider Instructions for Treatment How to access health informa tion online Indication:Non-smoker Start:27-Feb-2018 Instruction Type:Patient Education How to access health informa tion online - Detail Indication:Non-smoker Start:27-Feb-2018 Instruction Type:Patient Education Patient Instructions Indication:Non-smoker Start:27-Feb-2018 Instruction Type:Provider Instructions for Treatment [facility] Work Phone: Instructions* Name Dates Details Patient Instructions Indication:Attention deficit disorder (ADD) in adult Start:18-May-2021 Instruction Type:Provider Instructions for Treatment How to Access Health Informa tion Online using Patient Portal and [employer] Apps Indication:Attention deficit disorder (ADD) in adult Start:18-May-2021 Instruction Type:Patient Education Patient Instructions Indication:BMI 22.0-22.9, adult Start:27-Mar-2021 Instruction Type:Provider Instructions for Treatment How to Access Health Informa tion Online using Patient Portal and [employer] Apps Indication:BMI 22.0-22.9, adult Start:27-Mar-2021 Instruction Type:Patient Education Patient Instructions Indication:Attention deficit disorder (ADD) in adult Start:22-Jan-2021 Instruction Type:Provider Instructions for Treatment How to Access Health Informa tion Online using Patient Portal and [employer] Apps Indication:Attention deficit disorder (ADD) in adult Start:22-Jan-2021 Instruction Type:Patient Education Patient Instructions Indication:Attention deficit disorder (ADD) in adult Start:07-Jan-2021 Instruction Type:Provider Instructions for Treatment How to Access Health Informa tion Online using Patient Portal and [employer] Apps Indication:Attention deficit disorder (ADD) in adult Start:07-Jan-2021 Instruction Type:Patient Education How to Access Health Informa tion Online using Patient Portal and [employer] Apps Indication:Non-smoker Start:01-Jan-2021 Instruction Type:Patient Education Patient Instructions Indication:Non-smoker Start:01-Jan-2021 Instruction Type:Provider Instructions for Treatment Patient Instructions Indication:Non-smoker Start:24-Dec-2020 Instruction Type:Provider Instructions for Treatment How to Access Health Informa tion Online using Patient Portal and [employer] Apps Indication:Non-smoker Start:24-Dec-2020 Instruction Type:Patient Education Patient Instructions Indication:Non-smoker Start:17-Dec-2020 Instruction Type:Provider Instructions for Treatment How to Access Health Informa tion Online using Patient Portal and [employer] Apps Indication:Non-smoker Start:17-Dec-2020 Instruction Type:Patient Education How to Access Health Informa tion Online using Patient Portal and [employer] Apps Indication:BMI 21.0-21.9, adult Start:03-Oct-2020 Instruction Type:Patient Education Patient Instructions Indication:BMI 21.0-21.9, adult Start:03-Oct-2020 Instruction Type:Provider Instructions for Treatment Patient Instructions Indication:Non-smoker Start:05-Sep-2020 Instruction Type:Provider Instructions for Treatment How to Access Health Informa tion Online using Patient Portal and [employer] Apps Indication:Non-smoker Start:05-Sep-2020 Instruction Type:Patient Education How to Access Health Informa tion Online using Patient Portal and [employer] Apps Indication:Non-smoker Start:08-Aug-2020 Instruction Type:Patient Education Patient Instructions Indication:Non-smoker Start:08-Aug-2020 Instruction Type:Provider Instructions for Treatment Patient Instructions Indication:BMI 21.0-21.9, adult Start:05-Aug-2020 Instruction Type:Provider Instructions for Treatment How to Access Health Informa tion Online using Patient Portal and [employer] Indication:BMI 21.0-21.9, adult Start:05-Aug-2020 Instruction Type:Patient Education How to access health informa tion online Indication:BMI 21.0-21.9, adult Start:24-Dec-2019 Instruction Type:Patient Education How to access health informa tion online - Detail Indication:BMI 21.0-21.9, adult Start:24-Dec-2019 Instruction Type:Patient Education Patient Instructions Indication:BMI 21.0-21.9, adult Start:24-Dec-2019 Instruction Type:Provider Instructions for Treatment How to access health informa tion online Indication:Urinary frequency Start:23-Aug-2018 Instruction Type:Patient Education How to access health informa tion online - Detail Indication:Urinary frequency Start:23-Aug-2018 Instruction Type:Patient Education Patient Instructions Indication:Urinary frequency Start:23-Aug-2018 Instruction Type:Provider Instructions for Treatment How to access health informa tion online Indication:Non-smoker Start:05-May-2018 Instruction Type:Patient Education How to access health informa tion online - Detail Indication:Non-smoker Start:05-May-2018 Instruction Type:Patient Education Patient Instructions Indication:Non-smoker Start:05-May-2018 Instruction Type:Provider Instructions for Treatment How to access health informa tion online Indication:Non-smoker Start:27-Feb-2018 Instruction Type:Patient Education How to access health informa tion online - Detail Indication:Non-smoker Start:27-Feb-2018 Instruction Type:Patient Education Patient Instructions Indication:Non-smoker Start:27-Feb-2018 Instruction Type:Provider Instructions for Treatment [facility]; [facility] Work Phone: Instructions* Name Dates Details Patient Instructions Indication:Non-smoker Start:16-Jul-2021 Instruction Type:Provider Instructions for Treatment How to Access Health Informa tion Online using Patient Portal and [employer] Indication:Non-smoker Start:16-Jul-2021 Instruction Type:Patient Education Patient Instructions Indication:Attention deficit disorder (ADD) in adult Start:18-May-2021 Instruction Type:Provider Instructions for Treatment How to Access Health Informa tion Online using Patient Portal and [employer] Indication:Attention deficit disorder (ADD) in adult Start:18-May-2021 Instruction Type:Patient Education Patient Instructions Indication:BMI 22.0-22.9, adult Start:27-Mar-2021 Instruction Type:Provider Instructions for Treatment How to Access Health Informa tion Online using Patient Portal and [employer] Indication:BMI 22.0-22.9, adult Start:27-Mar-2021 Instruction Type:Patient Education Patient Instructions Indication:Attention deficit disorder (ADD) in adult Start:22-Jan-2021 Instruction Type:Provider Instructions for Treatment How to Access Health Informa tion Online using Patient Portal and [employer] Indication:Attention deficit disorder (ADD) in adult Start:22-Jan-2021 Instruction Type:Patient Education Patient Instructions Indication:Attention deficit disorder (ADD) in adult Start:07-Jan-2021 Instruction Type:Provider Instructions for Treatment How to Access Health Informa tion Online using Patient Portal and [employer] Indication:Attention deficit disorder (ADD) in adult Start:07-Jan-2021 Instruction Type:Patient Education How to Access Health Informa tion Online using Patient Portal and [employer] Apps Indication:Non-smoker Start:01-Jan-2021 Instruction Type:Patient Education Patient Instructions Indication:Non-smoker Start:01-Jan-2021 Instruction Type:Provider Instructions for Treatment Patient Instructions Indication:Non-smoker Start:24-Dec-2020 Instruction Type:Provider Instructions for Treatment How to Access Health Informa tion Online using Patient Portal and [employer] Indication:Non-smoker Start:24-Dec-2020 Instruction Type:Patient Education Patient Instructions Indication:Non-smoker Start:17-Dec-2020 Instruction Type:Provider Instructions for Treatment How to Access Health Informa tion Online using Patient Portal and [employer] Indication:Non-smoker Start:17-Dec-2020 Instruction Type:Patient Education How to Access Health Informa tion Online using Patient Portal and [employer] Indication:BMI 21.0-21.9, adult Start:03-Oct-2020 Instruction Type:Patient Education Patient Instructions Indication:BMI 21.0-21.9, adult Start:03-Oct-2020 Instruction Type:Provider Instructions for Treatment Patient Instructions Indication:Non-smoker Start:05-Sep-2020 Instruction Type:Provider Instructions for Treatment How to Access Health Informa tion Online using Patient Portal and [employer] Indication:Non-smoker Start:05-Sep-2020 Instruction Type:Patient Education How to Access Health Informa tion Online using Patient Portal and [employer] Indication:Non-smoker Start:08-Aug-2020 Instruction Type:Patient Education Patient Instructions Indication:Non-smoker Start:08-Aug-2020 Instruction Type:Provider Instructions for Treatment Patient Instructions Indication:BMI 21.0-21.9, adult Start:05-Aug-2020 Instruction Type:Provider Instructions for Treatment How to Access Health Informa tion Online using Patient Portal and [employer] Indication:BMI 21.0-21.9, adult Start:05-Aug-2020 Instruction Type:Patient Education How to access health informa tion online Indication:BMI 21.0-21.9, adult Start:24-Dec-2019 Instruction Type:Patient Education How to access health informa tion online - Detail Indication:BMI 21.0-21.9, adult Start:24-Dec-2019 Instruction Type:Patient Education Patient Instructions Indication:BMI 21.0-21.9, adult Start:24-Dec-2019 Instruction Type:Provider Instructions for Treatment How to access health informa tion online Indication:Urinary frequency Start:23-Aug-2018 Instruction Type:Patient Education How to access health informa tion online - Detail Indication:Urinary frequency Start:23-Aug-2018 Instruction Type:Patient Education Patient Instructions Indication:Urinary frequency Start:23-Aug-2018 Instruction Type:Provider Instructions for Treatment How to access health informa tion online Indication:Non-smoker Start:05-May-2018 Instruction Type:Patient Education How to access health informa tion online - Detail Indication:Non-smoker Start:05-May-2018 Instruction Type:Patient Education Patient Instructions Indication:Non-smoker Start:05-May-2018 Instruction Type:Provider Instructions for Treatment How to access health informa tion online Indication:Non-smoker Start:27-Feb-2018 Instruction Type:Patient Education How to access health informa tion online - Detail Indication:Non-smoker Start:27-Feb-2018 Instruction Type:Patient Education Patient Instructions Indication:Non-smoker Start:27-Feb-2018 Instruction Type:Provider Instructions for Treatment [facility]; [facility] Work Phone: Instructions* Name Dates Details Patient Instructions Indication:Non-smoker Start:16-Jul-2021 Instruction Type:Provider Instructions for Treatment How to Access Health Informa tion Online using Patient Portal and [employer] Apps Indication:Non-smoker Start:16-Jul-2021 Instruction Type:Patient Education Patient Instructions Indication:Attention deficit disorder (ADD) in adult Start:18-May-2021 Instruction Type:Provider Instructions for Treatment How to Access Health Informa tion Online using Patient Portal and [employer] Apps Indication:Attention deficit disorder (ADD) in adult Start:18-May-2021 Instruction Type:Patient Education Patient Instructions Indication:BMI 22.0-22.9, adult Start:27-Mar-2021 Instruction Type:Provider Instructions for Treatment How to Access Health Informa tion Online using Patient Portal and [employer] Apps Indication:BMI 22.0-22.9, adult Start:27-Mar-2021 Instruction Type:Patient Education Patient Instructions Indication:Attention deficit disorder (ADD) in adult Start:22-Jan-2021 Instruction Type:Provider Instructions for Treatment How to Access Health Informa tion Online using Patient Portal and [employer] Indication:Attention deficit disorder (ADD) in adult Start:22-Jan-2021 Instruction Type:Patient Education Patient Instructions Indication:Attention deficit disorder (ADD) in adult Start:07-Jan-2021 Instruction Type:Provider Instructions for Treatment How to Access Health Informa tion Online using Patient Portal and [employer] Indication:Attention deficit disorder (ADD) in adult Start:07-Jan-2021 Instruction Type:Patient Education How to Access Health Informa tion Online using Patient Portal and [employer] Indication:Non-smoker Start:01-Jan-2021 Instruction Type:Patient Education Patient Instructions Indication:Non-smoker Start:01-Jan-2021 Instruction Type:Provider Instructions for Treatment Patient Instructions Indication:Non-smoker Start:24-Dec-2020 Instruction Type:Provider Instructions for Treatment How to Access Health Informa tion Online using Patient Portal and [employer] Indication:Non-smoker Start:24-Dec-2020 Instruction Type:Patient Education Patient Instructions Indication:Non-smoker Start:17-Dec-2020 Instruction Type:Provider Instructions for Treatment How to Access Health Informa tion Online using Patient Portal and [employer] Indication:Non-smoker Start:17-Dec-2020 Instruction Type:Patient Education How to Access Health Informa tion Online using Patient Portal and [employer] Indication:BMI 21.0-21.9, adult Start:03-Oct-2020 Instruction Type:Patient Education Patient Instructions Indication:BMI 21.0-21.9, adult Start:03-Oct-2020 Instruction Type:Provider Instructions for Treatment Patient Instructions Indication:Non-smoker Start:05-Sep-2020 Instruction Type:Provider Instructions for Treatment How to Access Health Informa tion Online using Patient Portal and [employer] Indication:Non-smoker Start:05-Sep-2020 Instruction Type:Patient Education How to Access Health Informa tion Online using Patient Portal and [employer] Indication:Non-smoker Start:08-Aug-2020 Instruction Type:Patient Education Patient Instructions Indication:Non-smoker Start:08-Aug-2020 Instruction Type:Provider Instructions for Treatment Patient Instructions Indication:BMI 21.0-21.9, adult Start:05-Aug-2020 Instruction Type:Provider Instructions for Treatment How to Access Health Informa tion Online using Patient Portal and [employer] Indication:BMI 21.0-21.9, adult Start:05-Aug-2020 Instruction Type:Patient Education How to access health informa tion online Indication:BMI 21.0-21.9, adult Start:24-Dec-2019 Instruction Type:Patient Education How to access health informa tion online - Detail Indication:BMI 21.0-21.9, adult Start:24-Dec-2019 Instruction Type:Patient Education Patient Instructions Indication:BMI 21.0-21.9, adult Start:24-Dec-2019 Instruction Type:Provider Instructions for Treatment How to access health informa tion online Indication:Urinary frequency Start:23-Aug-2018 Instruction Type:Patient Education How to access health informa tion online - Detail Indication:Urinary frequency Start:23-Aug-2018 Instruction Type:Patient Education Patient Instructions Indication:Urinary frequency Start:23-Aug-2018 Instruction Type:Provider Instructions for Treatment How to access health informa tion online Indication:Non-smoker Start:05-May-2018 Instruction Type:Patient Education How to access health informa tion online - Detail Indication:Non-smoker Start:05-May-2018 Instruction Type:Patient Education Patient Instructions Indication:Non-smoker Start:05-May-2018 Instruction Type:Provider Instructions for Treatment How to access health informa tion online Indication:Non-smoker Start:27-Feb-2018 Instruction Type:Patient Education How to access health informa tion online - Detail Indication:Non-smoker Start:27-Feb-2018 Instruction Type:Patient Education Patient Instructions Indication:Non-smoker Start:27-Feb-2018 Instruction Type:Provider Instructions for Treatment [facility]; [facility] Work Phone: Instructions* Name Dates Details Patient Instructions Indication:Attention deficit disorder (ADD) in adult Start:04-Aug-2021 Instruction Type:Provider Instructions for Treatment How to Access Health Informa tion Online using Patient Portal and [employer] Indication:Attention deficit disorder (ADD) in adult Start:04-Aug-2021 Instruction Type:Patient Education Patient Instructions Indication:Non-smoker Start:16-Jul-2021 Instruction Type:Provider Instructions for Treatment How to Access Health Informa tion Online using Patient Portal and [employer] Indication:Non-smoker Start:16-Jul-2021 Instruction Type:Patient Education Patient Instructions Indication:Attention deficit disorder (ADD) in adult Start:18-May-2021 Instruction Type:Provider Instructions for Treatment How to Access Health Informa tion Online using Patient Portal and [employer] Indication:Attention deficit disorder (ADD) in adult Start:18-May-2021 Instruction Type:Patient Education Patient Instructions Indication:BMI 22.0-22.9, adult Start:27-Mar-2021 Instruction Type:Provider Instructions for Treatment How to Access Health Informa tion Online using Patient Portal and [employer] Indication:BMI 22.0-22.9, adult Start:27-Mar-2021 Instruction Type:Patient Education Patient Instructions Indication:Attention deficit disorder (ADD) in adult Start:22-Jan-2021 Instruction Type:Provider Instructions for Treatment How to Access Health Informa tion Online using Patient Portal and [employer] Indication:Attention deficit disorder (ADD) in adult Start:22-Jan-2021 Instruction Type:Patient Education Patient Instructions Indication:Attention deficit disorder (ADD) in adult Start:07-Jan-2021 Instruction Type:Provider Instructions for Treatment How to Access Health Informa tion Online using Patient Portal and [employer] Indication:Attention deficit disorder (ADD) in adult Start:07-Jan-2021 Instruction Type:Patient Education How to Access Health Informa tion Online using Patient Portal and [employer] Apps Indication:Non-smoker Start:01-Jan-2021 Instruction Type:Patient Education Patient Instructions Indication:Non-smoker Start:01-Jan-2021 Instruction Type:Provider Instructions for Treatment Patient Instructions Indication:Non-smoker Start:24-Dec-2020 Instruction Type:Provider Instructions for Treatment How to Access Health Informa tion Online using Patient Portal and [employer] Indication:Non-smoker Start:24-Dec-2020 Instruction Type:Patient Education Patient Instructions Indication:Non-smoker Start:17-Dec-2020 Instruction Type:Provider Instructions for Treatment How to Access Health Informa tion Online using Patient Portal and [employer] Indication:Non-smoker Start:17-Dec-2020 Instruction Type:Patient Education How to Access Health Informa tion Online using Patient Portal and [employer] Indication:BMI 21.0-21.9, adult Start:03-Oct-2020 Instruction Type:Patient Education Patient Instructions Indication:BMI 21.0-21.9, adult Start:03-Oct-2020 Instruction Type:Provider Instructions for Treatment Patient Instructions Indication:Non-smoker Start:05-Sep-2020 Instruction Type:Provider Instructions for Treatment How to Access Health Informa tion Online using Patient Portal and [employer] Indication:Non-smoker Start:05-Sep-2020 Instruction Type:Patient Education How to Access Health Informa tion Online using Patient Portal and [employer] Indication:Non-smoker Start:08-Aug-2020 Instruction Type:Patient Education Patient Instructions Indication:Non-smoker Start:08-Aug-2020 Instruction Type:Provider Instructions for Treatment Patient Instructions Indication:BMI 21.0-21.9, adult Start:05-Aug-2020 Instruction Type:Provider Instructions for Treatment How to Access Health Informa tion Online using Patient Portal and [employer] Indication:BMI 21.0-21.9, adult Start:05-Aug-2020 Instruction Type:Patient Education How to access health informa tion online Indication:BMI 21.0-21.9, adult Start:24-Dec-2019 Instruction Type:Patient Education How to access health informa tion online - Detail Indication:BMI 21.0-21.9, adult Start:24-Dec-2019 Instruction Type:Patient Education Patient Instructions Indication:BMI 21.0-21.9, adult Start:24-Dec-2019 Instruction Type:Provider Instructions for Treatment How to access health informa tion online Indication:Urinary frequency Start:23-Aug-2018 Instruction Type:Patient Education How to access health informa tion online - Detail Indication:Urinary frequency Start:23-Aug-2018 Instruction Type:Patient Education Patient Instructions Indication:Urinary frequency Start:23-Aug-2018 Instruction Type:Provider Instructions for Treatment How to access health informa tion online Indication:Non-smoker Start:05-May-2018 Instruction Type:Patient Education How to access health informa tion online - Detail Indication:Non-smoker Start:05-May-2018 Instruction Type:Patient Education Patient Instructions Indication:Non-smoker Start:05-May-2018 Instruction Type:Provider Instructions for Treatment How to access health informa tion online Indication:Non-smoker Start:27-Feb-2018 Instruction Type:Patient Education How to access health informa tion online - Detail Indication:Non-smoker Start:27-Feb-2018 Instruction Type:Patient Education Patient Instructions Indication:Non-smoker Start:27-Feb-2018 Instruction Type:Provider Instructions for Treatment [facility]; [facility] Work Phone: Instructions* Name Dates Details Patient Instructions Indication:Attention deficit disorder (ADD) in adult Start:04-Aug-2021 Instruction Type:Provider Instructions for Treatment How to Access Health Informa tion Online using Patient Portal and [employer] Indication:Attention deficit disorder (ADD) in adult Start:04-Aug-2021 Instruction Type:Patient Education Patient Instructions Indication:Non-smoker Start:16-Jul-2021 Instruction Type:Provider Instructions for Treatment How to Access Health Informa tion Online using Patient Portal and [employer] Indication:Non-smoker Start:16-Jul-2021 Instruction Type:Patient Education Patient Instructions Indication:Attention deficit disorder (ADD) in adult Start:18-May-2021 Instruction Type:Provider Instructions for Treatment How to Access Health Informa tion Online using Patient Portal and [employer] Indication:Attention deficit disorder (ADD) in adult Start:18-May-2021 Instruction Type:Patient Education Patient Instructions Indication:BMI 22.0-22.9, adult Start:27-Mar-2021 Instruction Type:Provider Instructions for Treatment How to Access Health Informa tion Online using Patient Portal and [employer] Indication:BMI 22.0-22.9, adult Start:27-Mar-2021 Instruction Type:Patient Education Patient Instructions Indication:Attention deficit disorder (ADD) in adult Start:22-Jan-2021 Instruction Type:Provider Instructions for Treatment How to Access Health Informa tion Online using Patient Portal and [employer] Indication:Attention deficit disorder (ADD) in adult Start:22-Jan-2021 Instruction Type:Patient Education Patient Instructions Indication:Attention deficit disorder (ADD) in adult Start:07-Jan-2021 Instruction Type:Provider Instructions for Treatment How to Access Health Informa tion Online using Patient Portal and [employer] Indication:Attention deficit disorder (ADD) in adult Start:07-Jan-2021 Instruction Type:Patient Education How to Access Health Informa tion Online using Patient Portal and [employer] Indication:Non-smoker Start:01-Jan-2021 Instruction Type:Patient Education Patient Instructions Indication:Non-smoker Start:01-Jan-2021 Instruction Type:Provider Instructions for Treatment Patient Instructions Indication:Non-smoker Start:24-Dec-2020 Instruction Type:Provider Instructions for Treatment How to Access Health Informa tion Online using Patient Portal and [employer] Indication:Non-smoker Start:24-Dec-2020 Instruction Type:Patient Education Patient Instructions Indication:Non-smoker Start:17-Dec-2020 Instruction Type:Provider Instructions for Treatment How to Access Health Informa tion Online using Patient Portal and [employer] Indication:Non-smoker Start:17-Dec-2020 Instruction Type:Patient Education How to Access Health Informa tion Online using Patient Portal and [employer] Indication:BMI 21.0-21.9, adult Start:03-Oct-2020 Instruction Type:Patient Education Patient Instructions Indication:BMI 21.0-21.9, adult Start:03-Oct-2020 Instruction Type:Provider Instructions for Treatment Patient Instructions Indication:Non-smoker Start:05-Sep-2020 Instruction Type:Provider Instructions for Treatment How to Access Health Informa tion Online using Patient Portal and [employer] Indication:Non-smoker Start:05-Sep-2020 Instruction Type:Patient Education How to Access Health Informa tion Online using Patient Portal and [employer] Indication:Non-smoker Start:08-Aug-2020 Instruction Type:Patient Education Patient Instructions Indication:Non-smoker Start:08-Aug-2020 Instruction Type:Provider Instructions for Treatment Patient Instructions Indication:BMI 21.0-21.9, adult Start:05-Aug-2020 Instruction Type:Provider Instructions for Treatment How to Access Health Informa tion Online using Patient Portal and [employer] Indication:BMI 21.0-21.9, adult Start:05-Aug-2020 Instruction Type:Patient Education How to access health informa tion online Indication:BMI 21.0-21.9, adult Start:24-Dec-2019 Instruction Type:Patient Education How to access health informa tion online - Detail Indication:BMI 21.0-21.9, adult Start:24-Dec-2019 Instruction Type:Patient Education Patient Instructions Indication:BMI 21.0-21.9, adult Start:24-Dec-2019 Instruction Type:Provider Instructions for Treatment How to access health informa tion online Indication:Urinary frequency Start:23-Aug-2018 Instruction Type:Patient Education How to access health informa tion online - Detail Indication:Urinary frequency Start:23-Aug-2018 Instruction Type:Patient Education Patient Instructions Indication:Urinary frequency Start:23-Aug-2018 Instruction Type:Provider Instructions for Treatment How to access health informa tion online Indication:Non-smoker Start:05-May-2018 Instruction Type:Patient Education How to access health informa tion online - Detail Indication:Non-smoker Start:05-May-2018 Instruction Type:Patient Education Patient Instructions Indication:Non-smoker Start:05-May-2018 Instruction Type:Provider Instructions for Treatment How to access health informa tion online Indication:Non-smoker Start:27-Feb-2018 Instruction Type:Patient Education How to access health informa tion online - Detail Indication:Non-smoker Start:27-Feb-2018 Instruction Type:Patient Education Patient Instructions Indication:Non-smoker Start:27-Feb-2018 Instruction Type:Provider Instructions for Treatment [facility]; [facility] Work Phone: Instructions* Name Dates Details Patient Instructions Indication:Attention deficit disorder (ADD) in adult Start:04-Aug-2021 Instruction Type:Provider Instructions for Treatment How to Access Health Informa tion Online using Patient Portal and [employer] Indication:Attention deficit disorder (ADD) in adult Start:04-Aug-2021 Instruction Type:Patient Education Patient Instructions Indication:Non-smoker Start:16-Jul-2021 Instruction Type:Provider Instructions for Treatment How to Access Health Informa tion Online using Patient Portal and [employer] Indication:Non-smoker Start:16-Jul-2021 Instruction Type:Patient Education Patient Instructions Indication:Attention deficit disorder (ADD) in adult Start:18-May-2021 Instruction Type:Provider Instructions for Treatment How to Access Health Informa tion Online using Patient Portal and [employer] Indication:Attention deficit disorder (ADD) in adult Start:18-May-2021 Instruction Type:Patient Education Patient Instructions Indication:BMI 22.0-22.9, adult Start:27-Mar-2021 Instruction Type:Provider Instructions for Treatment How to Access Health Informa tion Online using Patient Portal and [employer] Indication:BMI 22.0-22.9, adult Start:27-Mar-2021 Instruction Type:Patient Education Patient Instructions Indication:Attention deficit disorder (ADD) in adult Start:22-Jan-2021 Instruction Type:Provider Instructions for Treatment How to Access Health Informa tion Online using Patient Portal and [employer] Indication:Attention deficit disorder (ADD) in adult Start:22-Jan-2021 Instruction Type:Patient Education Patient Instructions Indication:Attention deficit disorder (ADD) in adult Start:07-Jan-2021 Instruction Type:Provider Instructions for Treatment How to Access Health Informa tion Online using Patient Portal and [employer]rd [employer] Indication:Attention deficit disorder (ADD) in adult Start:07-Jan-2021 Instruction Type:Patient Education How to Access Health Informa tion Online using Patient Portal and [employer]rd [employer] Apps Indication:Non-smoker Start:01-Jan-2021 Instruction Type:Patient Education Patient Instructions Indication:Non-smoker Start:01-Jan-2021 Instruction Type:Provider Instructions for Treatment Patient Instructions Indication:Non-smoker Start:24-Dec-2020 Instruction Type:Provider Instructions for Treatment How to Access Health Informa tion Online using Patient Portal and [employer]rd [employer] Apps Indication:Non-smoker Start:24-Dec-2020 Instruction Type:Patient Education Patient Instructions Indication:Non-smoker Start:17-Dec-2020 Instruction Type:Provider Instructions for Treatment How to Access Health Informa tion Online using Patient Portal and [employer]rd [employer] Apps Indication:Non-smoker Start:17-Dec-2020 Instruction Type:Patient Education How to Access Health Informa tion Online using Patient Portal and [employer]rd [employer] Apps Indication:BMI 21.0-21.9, adult Start:03-Oct-2020 Instruction Type:Patient Education Patient Instructions Indication:BMI 21.0-21.9, adult Start:03-Oct-2020 Instruction Type:Provider Instructions for Treatment Patient Instructions Indication:Non-smoker Start:05-Sep-2020 Instruction Type:Provider Instructions for Treatment How to Access Health Informa tion Online using Patient Portal and [employer]rd [employer] Apps Indication:Non-smoker Start:05-Sep-2020 Instruction Type:Patient Education How to Access Health Informa tion Online using Patient Portal and [employer]rd [employer] Apps Indication:Non-smoker Start:08-Aug-2020 Instruction Type:Patient Education Patient Instructions Indication:Non-smoker Start:08-Aug-2020 Instruction Type:Provider Instructions for Treatment Patient Instructions Indication:BMI 21.0-21.9, adult Start:05-Aug-2020 Instruction Type:Provider Instructions for Treatment How to Access Health Informa tion Online using Patient Portal and [employer]rd [employer] Apps Indication:BMI 21.0-21.9, adult Start:05-Aug-2020 Instruction Type:Patient Education How to access health informa tion online Indication:BMI 21.0-21.9, adult Start:24-Dec-2019 Instruction Type:Patient Education How to access health informa tion online - Detail Indication:BMI 21.0-21.9, adult Start:24-Dec-2019 Instruction Type:Patient Education Patient Instructions Indication:BMI 21.0-21.9, adult Start:24-Dec-2019 Instruction Type:Provider Instructions for Treatment How to access health informa tion online Indication:Urinary frequency Start:23-Aug-2018 Instruction Type:Patient Education How to access health informa tion online - Detail Indication:Urinary frequency Start:23-Aug-2018 Instruction Type:Patient Education Patient Instructions Indication:Urinary frequency Start:23-Aug-2018 Instruction Type:Provider Instructions for Treatment How to access health informa tion online Indication:Non-smoker Start:05-May-2018 Instruction Type:Patient Education How to access health informa tion online - Detail Indication:Non-smoker Start:05-May-2018 Instruction Type:Patient Education Patient Instructions Indication:Non-smoker Start:05-May-2018 Instruction Type:Provider Instructions for Treatment How to access health informa tion online Indication:Non-smoker Start:27-Feb-2018 Instruction Type:Patient Education How to access health informa tion online - Detail Indication:Non-smoker Start:27-Feb-2018 Instruction Type:Patient Education Patient Instructions Indication:Non-smoker Start:27-Feb-2018 Instruction Type:Provider Instructions for Treatment [facility]; [facility] Work Phone: Instructions* Name Dates Details Patient Instructions Indication:BMI 22.0-22.9, adult Start:05-Oct-2021 Instruction Type:Provider Instructions for Treatment How to Access Health Informa tion Online using Patient Portal and [employer] Apps Indication:BMI 22.0-22.9, adult Start:05-Oct-2021 Instruction Type:Patient Education Patient Instructions Indication:Attention deficit disorder (ADD) in adult Start:04-Aug-2021 Instruction Type:Provider Instructions for Treatment How to Access Health Informa tion Online using Patient Portal and [employer] Indication:Attention deficit disorder (ADD) in adult Start:04-Aug-2021 Instruction Type:Patient Education Patient Instructions Indication:Non-smoker Start:16-Jul-2021 Instruction Type:Provider Instructions for Treatment How to Access Health Informa tion Online using Patient Portal and [employer] Indication:Non-smoker Start:16-Jul-2021 Instruction Type:Patient Education Patient Instructions Indication:Attention deficit disorder (ADD) in adult Start:18-May-2021 Instruction Type:Provider Instructions for Treatment How to Access Health Informa tion Online using Patient Portal and [employer] Apps Indication:Attention deficit disorder (ADD) in adult Start:18-May-2021 Instruction Type:Patient Education Patient Instructions Indication:BMI 22.0-22.9, adult Start:27-Mar-2021 Instruction Type:Provider Instructions for Treatment How to Access Health Informa tion Online using Patient Portal and [employer] Apps Indication:BMI 22.0-22.9, adult Start:27-Mar-2021 Instruction Type:Patient Education Patient Instructions Indication:Attention deficit disorder (ADD) in adult Start:22-Jan-2021 Instruction Type:Provider Instructions for Treatment How to Access Health Informa tion Online using Patient Portal and [employer] Apps Indication:Attention deficit disorder (ADD) in adult Start:22-Jan-2021 Instruction Type:Patient Education Patient Instructions Indication:Attention deficit disorder (ADD) in adult Start:07-Jan-2021 Instruction Type:Provider Instructions for Treatment How to Access Health Informa tion Online using Patient Portal and [employer] Apps Indication:Attention deficit disorder (ADD) in adult Start:07-Jan-2021 Instruction Type:Patient Education How to Access Health Informa tion Online using Patient Portal and [employer] Apps Indication:Non-smoker Start:01-Jan-2021 Instruction Type:Patient Education Patient Instructions Indication:Non-smoker Start:01-Jan-2021 Instruction Type:Provider Instructions for Treatment Patient Instructions Indication:Non-smoker Start:24-Dec-2020 Instruction Type:Provider Instructions for Treatment How to Access Health Informa tion Online using Patient Portal and [employer] Apps Indication:Non-smoker Start:24-Dec-2020 Instruction Type:Patient Education Patient Instructions Indication:Non-smoker Start:17-Dec-2020 Instruction Type:Provider Instructions for Treatment How to Access Health Informa tion Online using Patient Portal and [employer] Apps Indication:Non-smoker Start:17-Dec-2020 Instruction Type:Patient Education How to Access Health Informa tion Online using Patient Portal and [employer] Apps Indication:BMI 21.0-21.9, adult Start:03-Oct-2020 Instruction Type:Patient Education Patient Instructions Indication:BMI 21.0-21.9, adult Start:03-Oct-2020 Instruction Type:Provider Instructions for Treatment Patient Instructions Indication:Non-smoker Start:05-Sep-2020 Instruction Type:Provider Instructions for Treatment How to Access Health Informa tion Online using Patient Portal and [employer] Indication:Non-smoker Start:05-Sep-2020 Instruction Type:Patient Education How to Access Health Informa tion Online using Patient Portal and [employer] Apps Indication:Non-smoker Start:08-Aug-2020 Instruction Type:Patient Education Patient Instructions Indication:Non-smoker Start:08-Aug-2020 Instruction Type:Provider Instructions for Treatment Patient Instructions Indication:BMI 21.0-21.9, adult Start:05-Aug-2020 Instruction Type:Provider Instructions for Treatment How to Access Health Informa tion Online using Patient Portal and [employer] Apps Indication:BMI 21.0-21.9, adult Start:05-Aug-2020 Instruction Type:Patient Education How to access health informa tion online Indication:BMI 21.0-21.9, adult Start:24-Dec-2019 Instruction Type:Patient Education How to access health informa tion online - Detail Indication:BMI 21.0-21.9, adult Start:24-Dec-2019 Instruction Type:Patient Education Patient Instructions Indication:BMI 21.0-21.9, adult Start:24-Dec-2019 Instruction Type:Provider Instructions for Treatment How to access health informa tion online Indication:Urinary frequency Start:23-Aug-2018 Instruction Type:Patient Education How to access health informa tion online - Detail Indication:Urinary frequency Start:23-Aug-2018 Instruction Type:Patient Education Patient Instructions Indication:Urinary frequency Start:23-Aug-2018 Instruction Type:Provider Instructions for Treatment How to access health informa tion online Indication:Non-smoker Start:05-May-2018 Instruction Type:Patient Education How to access health informa tion online - Detail Indication:Non-smoker Start:05-May-2018 Instruction Type:Patient Education Patient Instructions Indication:Non-smoker Start:05-May-2018 Instruction Type:Provider Instructions for Treatment How to access health informa tion online Indication:Non-smoker Start:27-Feb-2018 Instruction Type:Patient Education How to access health informa tion online - Detail Indication:Non-smoker Start:27-Feb-2018 Instruction Type:Patient Education Patient Instructions Indication:Non-smoker Start:27-Feb-2018 Instruction Type:Provider Instructions for Treatment [facility]; [facility] Work Phone: Instructions* Name Dates Details Patient Instructions Indication:BMI 22.0-22.9, adult Start:05-Oct-2021 Instruction Type:Provider Instructions for Treatment How to Access Health Informa tion Online using Patient Portal and [employer] Apps Indication:BMI 22.0-22.9, adult Start:05-Oct-2021 Instruction Type:Patient Education Patient Instructions Indication:Attention deficit disorder (ADD) in adult Start:04-Aug-2021 Instruction Type:Provider Instructions for Treatment How to Access Health Informa tion Online using Patient Portal and [employer] Apps Indication:Attention deficit disorder (ADD) in adult Start:04-Aug-2021 Instruction Type:Patient Education Patient Instructions Indication:Non-smoker Start:16-Jul-2021 Instruction Type:Provider Instructions for Treatment How to Access Health Informa tion Online using Patient Portal and [employer] Apps Indication:Non-smoker Start:16-Jul-2021 Instruction Type:Patient Education Patient Instructions Indication:Attention deficit disorder (ADD) in adult Start:18-May-2021 Instruction Type:Provider Instructions for Treatment How to Access Health Informa tion Online using Patient Portal and [employer] Apps Indication:Attention deficit disorder (ADD) in adult Start:18-May-2021 Instruction Type:Patient Education Patient Instructions Indication:BMI 22.0-22.9, adult Start:27-Mar-2021 Instruction Type:Provider Instructions for Treatment How to Access Health Informa tion Online using Patient Portal and [employer] Apps Indication:BMI 22.0-22.9, adult Start:27-Mar-2021 Instruction Type:Patient Education Patient Instructions Indication:Attention deficit disorder (ADD) in adult Start:22-Jan-2021 Instruction Type:Provider Instructions for Treatment How to Access Health Informa tion Online using Patient Portal and [employer] Apps Indication:Attention deficit disorder (ADD) in adult Start:22-Jan-2021 Instruction Type:Patient Education Patient Instructions Indication:Attention deficit disorder (ADD) in adult Start:07-Jan-2021 Instruction Type:Provider Instructions for Treatment How to Access Health Informa tion Online using Patient Portal and [employer] Apps Indication:Attention deficit disorder (ADD) in adult Start:07-Jan-2021 Instruction Type:Patient Education How to Access Health Informa tion Online using Patient Portal and [employer] Apps Indication:Non-smoker Start:01-Jan-2021 Instruction Type:Patient Education Patient Instructions Indication:Non-smoker Start:01-Jan-2021 Instruction Type:Provider Instructions for Treatment Patient Instructions Indication:Non-smoker Start:24-Dec-2020 Instruction Type:Provider Instructions for Treatment How to Access Health Informa tion Online using Patient Portal and [employer] Apps Indication:Non-smoker Start:24-Dec-2020 Instruction Type:Patient Education Patient Instructions Indication:Non-smoker Start:17-Dec-2020 Instruction Type:Provider Instructions for Treatment How to Access Health Informa tion Online using Patient Portal and [employer] Apps Indication:Non-smoker Start:17-Dec-2020 Instruction Type:Patient Education How to Access Health Informa tion Online using Patient Portal and [employer] Apps Indication:BMI 21.0-21.9, adult Start:03-Oct-2020 Instruction Type:Patient Education Patient Instructions Indication:BMI 21.0-21.9, adult Start:03-Oct-2020 Instruction Type:Provider Instructions for Treatment Patient Instructions Indication:Non-smoker Start:05-Sep-2020 Instruction Type:Provider Instructions for Treatment How to Access Health Informa tion Online using Patient Portal and [employer] Apps Indication:Non-smoker Start:05-Sep-2020 Instruction Type:Patient Education How to Access Health Informa tion Online using Patient Portal and [employer] Apps Indication:Non-smoker Start:08-Aug-2020 Instruction Type:Patient Education Patient Instructions Indication:Non-smoker Start:08-Aug-2020 Instruction Type:Provider Instructions for Treatment Patient Instructions Indication:BMI 21.0-21.9, adult Start:05-Aug-2020 Instruction Type:Provider Instructions for Treatment How to Access Health Informa tion Online using Patient Portal and [employer] Apps Indication:BMI 21.0-21.9, adult Start:05-Aug-2020 Instruction Type:Patient Education How to access health informa tion online Indication:BMI 21.0-21.9, adult Start:24-Dec-2019 Instruction Type:Patient Education How to access health informa tion online - Detail Indication:BMI 21.0-21.9, adult Start:24-Dec-2019 Instruction Type:Patient Education Patient Instructions Indication:BMI 21.0-21.9, adult Start:24-Dec-2019 Instruction Type:Provider Instructions for Treatment How to access health informa tion online Indication:Urinary frequency Start:23-Aug-2018 Instruction Type:Patient Education How to access health informa tion online - Detail Indication:Urinary frequency Start:23-Aug-2018 Instruction Type:Patient Education Patient Instructions Indication:Urinary frequency Start:23-Aug-2018 Instruction Type:Provider Instructions for Treatment How to access health informa tion online Indication:Non-smoker Start:05-May-2018 Instruction Type:Patient Education How to access health informa tion online - Detail Indication:Non-smoker Start:05-May-2018 Instruction Type:Patient Education Patient Instructions Indication:Non-smoker Start:05-May-2018 Instruction Type:Provider Instructions for Treatment How to access health informa tion online Indication:Non-smoker Start:27-Feb-2018 Instruction Type:Patient Education How to access health informa tion online - Detail Indication:Non-smoker Start:27-Feb-2018 Instruction Type:Patient Education Patient Instructions Indication:Non-smoker Start:27-Feb-2018 Instruction Type:Provider Instructions for Treatment [facility]; [facility] Work Phone: Instructions* Name Dates Details Patient Instructions Indication:BMI 22.0-22.9, adult Start:05-Oct-2021 Instruction Type:Provider Instructions for Treatment How to Access Health Informa tion Online using Patient Portal and [employer] Apps Indication:BMI 22.0-22.9, adult Start:05-Oct-2021 Instruction Type:Patient Education Patient Instructions Indication:Attention deficit disorder (ADD) in adult Start:04-Aug-2021 Instruction Type:Provider Instructions for Treatment How to Access Health Informa tion Online using Patient Portal and [employer] Indication:Attention deficit disorder (ADD) in adult Start:04-Aug-2021 Instruction Type:Patient Education Patient Instructions Indication:Non-smoker Start:16-Jul-2021 Instruction Type:Provider Instructions for Treatment How to Access Health Informa tion Online using Patient Portal and [employer] Apps Indication:Non-smoker Start:16-Jul-2021 Instruction Type:Patient Education Patient Instructions Indication:Attention deficit disorder (ADD) in adult Start:18-May-2021 Instruction Type:Provider Instructions for Treatment How to Access Health Informa tion Online using Patient Portal and [employer] Apps Indication:Attention deficit disorder (ADD) in adult Start:18-May-2021 Instruction Type:Patient Education Patient Instructions Indication:BMI 22.0-22.9, adult Start:27-Mar-2021 Instruction Type:Provider Instructions for Treatment How to Access Health Informa tion Online using Patient Portal and [employer] Apps Indication:BMI 22.0-22.9, adult Start:27-Mar-2021 Instruction Type:Patient Education Patient Instructions Indication:Attention deficit disorder (ADD) in adult Start:22-Jan-2021 Instruction Type:Provider Instructions for Treatment How to Access Health Informa tion Online using Patient Portal and [employer] Apps Indication:Attention deficit disorder (ADD) in adult Start:22-Jan-2021 Instruction Type:Patient Education Patient Instructions Indication:Attention deficit disorder (ADD) in adult Start:07-Jan-2021 Instruction Type:Provider Instructions for Treatment How to Access Health Informa tion Online using Patient Portal and [employer] Apps Indication:Attention deficit disorder (ADD) in adult Start:07-Jan-2021 Instruction Type:Patient Education How to Access Health Informa tion Online using Patient Portal and [employer] Apps Indication:Non-smoker Start:01-Jan-2021 Instruction Type:Patient Education Patient Instructions Indication:Non-smoker Start:01-Jan-2021 Instruction Type:Provider Instructions for Treatment Patient Instructions Indication:Non-smoker Start:24-Dec-2020 Instruction Type:Provider Instructions for Treatment How to Access Health Informa tion Online using Patient Portal and [employer] Apps Indication:Non-smoker Start:24-Dec-2020 Instruction Type:Patient Education Patient Instructions Indication:Non-smoker Start:17-Dec-2020 Instruction Type:Provider Instructions for Treatment How to Access Health Informa tion Online using Patient Portal and [employer] Apps Indication:Non-smoker Start:17-Dec-2020 Instruction Type:Patient Education How to Access Health Informa tion Online using Patient Portal and [employer] Apps Indication:BMI 21.0-21.9, adult Start:03-Oct-2020 Instruction Type:Patient Education Patient Instructions Indication:BMI 21.0-21.9, adult Start:03-Oct-2020 Instruction Type:Provider Instructions for Treatment Patient Instructions Indication:Non-smoker Start:05-Sep-2020 Instruction Type:Provider Instructions for Treatment How to Access Health Informa tion Online using Patient Portal and [employer] Apps Indication:Non-smoker Start:05-Sep-2020 Instruction Type:Patient Education How to Access Health Informa tion Online using Patient Portal and [employer] Apps Indication:Non-smoker Start:08-Aug-2020 Instruction Type:Patient Education Patient Instructions Indication:Non-smoker Start:08-Aug-2020 Instruction Type:Provider Instructions for Treatment Patient Instructions Indication:BMI 21.0-21.9, adult Start:05-Aug-2020 Instruction Type:Provider Instructions for Treatment How to Access Health Informa tion Online using Patient Portal and [employer] Apps Indication:BMI 21.0-21.9, adult Start:05-Aug-2020 Instruction Type:Patient Education How to access health informa tion online Indication:BMI 21.0-21.9, adult Start:24-Dec-2019 Instruction Type:Patient Education How to access health informa tion online - Detail Indication:BMI 21.0-21.9, adult Start:24-Dec-2019 Instruction Type:Patient Education Patient Instructions Indication:BMI 21.0-21.9, adult Start:24-Dec-2019 Instruction Type:Provider Instructions for Treatment How to access health informa tion online Indication:Urinary frequency Start:23-Aug-2018 Instruction Type:Patient Education How to access health informa tion online - Detail Indication:Urinary frequency Start:23-Aug-2018 Instruction Type:Patient Education Patient Instructions Indication:Urinary frequency Start:23-Aug-2018 Instruction Type:Provider Instructions for Treatment How to access health informa tion online Indication:Non-smoker Start:05-May-2018 Instruction Type:Patient Education How to access health informa tion online - Detail Indication:Non-smoker Start:05-May-2018 Instruction Type:Patient Education Patient Instructions Indication:Non-smoker Start:05-May-2018 Instruction Type:Provider Instructions for Treatment How to access health informa tion online Indication:Non-smoker Start:27-Feb-2018 Instruction Type:Patient Education How to access health informa tion online - Detail Indication:Non-smoker Start:27-Feb-2018 Instruction Type:Patient Education Patient Instructions Indication:Non-smoker Start:27-Feb-2018 Instruction Type:Provider Instructions for Treatment [facility]; [facility] Work Phone: Instructions* Name Dates Details Patient Instructions Indication:BMI 22.0-22.9, adult Start:14-Jan-2022 Instruction Type:Provider Instructions for Treatment How to Access Health Informa tion Online using Patient Portal and [employer] Indication:BMI 22.0-22.9, adult Start:14-Jan-2022 Instruction Type:Patient Education Patient Instructions Indication:BMI 22.0-22.9, adult Start:05-Oct-2021 Instruction Type:Provider Instructions for Treatment How to Access Health Informa tion Online using Patient Portal and [employer] Apps Indication:BMI 22.0-22.9, adult Start:05-Oct-2021 Instruction Type:Patient Education Patient Instructions Indication:Attention deficit disorder (ADD) in adult Start:04-Aug-2021 Instruction Type:Provider Instructions for Treatment How to Access Health Informa tion Online using Patient Portal and [employer] Apps Indication:Attention deficit disorder (ADD) in adult Start:04-Aug-2021 Instruction Type:Patient Education Patient Instructions Indication:Non-smoker Start:16-Jul-2021 Instruction Type:Provider Instructions for Treatment How to Access Health Informa tion Online using Patient Portal and [employer] Apps Indication:Non-smoker Start:16-Jul-2021 Instruction Type:Patient Education Patient Instructions Indication:Attention deficit disorder (ADD) in adult Start:18-May-2021 Instruction Type:Provider Instructions for Treatment How to Access Health Informa tion Online using Patient Portal and [employer] Apps Indication:Attention deficit disorder (ADD) in adult Start:18-May-2021 Instruction Type:Patient Education Patient Instructions Indication:BMI 22.0-22.9, adult Start:27-Mar-2021 Instruction Type:Provider Instructions for Treatment How to Access Health Informa tion Online using Patient Portal and [employer] Indication:BMI 22.0-22.9, adult Start:27-Mar-2021 Instruction Type:Patient Education Patient Instructions Indication:Attention deficit disorder (ADD) in adult Start:22-Jan-2021 Instruction Type:Provider Instructions for Treatment How to Access Health Informa tion Online using Patient Portal and [employer] Indication:Attention deficit disorder (ADD) in adult Start:22-Jan-2021 Instruction Type:Patient Education Patient Instructions Indication:Attention deficit disorder (ADD) in adult Start:07-Jan-2021 Instruction Type:Provider Instructions for Treatment How to Access Health Informa tion Online using Patient Portal and [employer] Apps Indication:Attention deficit disorder (ADD) in adult Start:07-Jan-2021 Instruction Type:Patient Education How to Access Health Informa tion Online using Patient Portal and [employer] Apps Indication:Non-smoker Start:01-Jan-2021 Instruction Type:Patient Education Patient Instructions Indication:Non-smoker Start:01-Jan-2021 Instruction Type:Provider Instructions for Treatment Patient Instructions Indication:Non-smoker Start:24-Dec-2020 Instruction Type:Provider Instructions for Treatment How to Access Health Informa tion Online using Patient Portal and [employer] Indication:Non-smoker Start:24-Dec-2020 Instruction Type:Patient Education Patient Instructions Indication:Non-smoker Start:17-Dec-2020 Instruction Type:Provider Instructions for Treatment How to Access Health Informa tion Online using Patient Portal and [employer] Indication:Non-smoker Start:17-Dec-2020 Instruction Type:Patient Education How to Access Health Informa tion Online using Patient Portal and [employer] Indication:BMI 21.0-21.9, adult Start:03-Oct-2020 Instruction Type:Patient Education Patient Instructions Indication:BMI 21.0-21.9, adult Start:03-Oct-2020 Instruction Type:Provider Instructions for Treatment Patient Instructions Indication:Non-smoker Start:05-Sep-2020 Instruction Type:Provider Instructions for Treatment How to Access Health Informa tion Online using Patient Portal and [employer] Indication:Non-smoker Start:05-Sep-2020 Instruction Type:Patient Education How to Access Health Informa tion Online using Patient Portal and [employer] Indication:Non-smoker Start:08-Aug-2020 Instruction Type:Patient Education Patient Instructions Indication:Non-smoker Start:08-Aug-2020 Instruction Type:Provider Instructions for Treatment Patient Instructions Indication:BMI 21.0-21.9, adult Start:05-Aug-2020 Instruction Type:Provider Instructions for Treatment How to Access Health Informa tion Online using Patient Portal and [employer] Indication:BMI 21.0-21.9, adult Start:05-Aug-2020 Instruction Type:Patient Education How to access health informa tion online Indication:BMI 21.0-21.9, adult Start:24-Dec-2019 Instruction Type:Patient Education How to access health informa tion online - Detail Indication:BMI 21.0-21.9, adult Start:24-Dec-2019 Instruction Type:Patient Education Patient Instructions Indication:BMI 21.0-21.9, adult Start:24-Dec-2019 Instruction Type:Provider Instructions for Treatment How to access health informa tion online Indication:Urinary frequency Start:23-Aug-2018 Instruction Type:Patient Education How to access health informa tion online - Detail Indication:Urinary frequency Start:23-Aug-2018 Instruction Type:Patient Education Patient Instructions Indication:Urinary frequency Start:23-Aug-2018 Instruction Type:Provider Instructions for Treatment How to access health informa tion online Indication:Non-smoker Start:05-May-2018 Instruction Type:Patient Education How to access health informa tion online - Detail Indication:Non-smoker Start:05-May-2018 Instruction Type:Patient Education Patient Instructions Indication:Non-smoker Start:05-May-2018 Instruction Type:Provider Instructions for Treatment How to access health informa tion online Indication:Non-smoker Start:27-Feb-2018 Instruction Type:Patient Education How to access health informa tion online - Detail Indication:Non-smoker Start:27-Feb-2018 Instruction Type:Patient Education Patient Instructions Indication:Non-smoker Start:27-Feb-2018 Instruction Type:Provider Instructions for Treatment [facility]; [facility] Work Phone: Instructions* Name Dates Details Patient Instructions Indication:BMI 22.0-22.9, adult Start:14-Jan-2022 Instruction Type:Provider Instructions for Treatment How to Access Health Informa tion Online using Patient Portal and [employer] Indication:BMI 22.0-22.9, adult Start:14-Jan-2022 Instruction Type:Patient Education Patient Instructions Indication:BMI 22.0-22.9, adult Start:05-Oct-2021 Instruction Type:Provider Instructions for Treatment How to Access Health Informa tion Online using Patient Portal and [employer] Indication:BMI 22.0-22.9, adult Start:05-Oct-2021 Instruction Type:Patient Education Patient Instructions Indication:Attention deficit disorder (ADD) in adult Start:04-Aug-2021 Instruction Type:Provider Instructions for Treatment How to Access Health Informa tion Online using Patient Portal and [employer] Indication:Attention deficit disorder (ADD) in adult Start:04-Aug-2021 Instruction Type:Patient Education Patient Instructions Indication:Non-smoker Start:16-Jul-2021 Instruction Type:Provider Instructions for Treatment How to Access Health Informa tion Online using Patient Portal and [employer] Indication:Non-smoker Start:16-Jul-2021 Instruction Type:Patient Education Patient Instructions Indication:Attention deficit disorder (ADD) in adult Start:18-May-2021 Instruction Type:Provider Instructions for Treatment How to Access Health Informa tion Online using Patient Portal and [employer] Indication:Attention deficit disorder (ADD) in adult Start:18-May-2021 Instruction Type:Patient Education Patient Instructions Indication:BMI 22.0-22.9, adult Start:27-Mar-2021 Instruction Type:Provider Instructions for Treatment How to Access Health Informa tion Online using Patient Portal and [employer] Apps Indication:BMI 22.0-22.9, adult Start:27-Mar-2021 Instruction Type:Patient Education Patient Instructions Indication:Attention deficit disorder (ADD) in adult Start:22-Jan-2021 Instruction Type:Provider Instructions for Treatment How to Access Health Informa tion Online using Patient Portal and [employer] Apps Indication:Attention deficit disorder (ADD) in adult Start:22-Jan-2021 Instruction Type:Patient Education Patient Instructions Indication:Attention deficit disorder (ADD) in adult Start:07-Jan-2021 Instruction Type:Provider Instructions for Treatment How to Access Health Informa tion Online using Patient Portal and [employer] Apps Indication:Attention deficit disorder (ADD) in adult Start:07-Jan-2021 Instruction Type:Patient Education How to Access Health Informa tion Online using Patient Portal and [employer] Apps Indication:Non-smoker Start:01-Jan-2021 Instruction Type:Patient Education Patient Instructions Indication:Non-smoker Start:01-Jan-2021 Instruction Type:Provider Instructions for Treatment Patient Instructions Indication:Non-smoker Start:24-Dec-2020 Instruction Type:Provider Instructions for Treatment How to Access Health Informa tion Online using Patient Portal and [employer] Indication:Non-smoker Start:24-Dec-2020 Instruction Type:Patient Education Patient Instructions Indication:Non-smoker Start:17-Dec-2020 Instruction Type:Provider Instructions for Treatment How to Access Health Informa tion Online using Patient Portal and [employer] Apps Indication:Non-smoker Start:17-Dec-2020 Instruction Type:Patient Education How to Access Health Informa tion Online using Patient Portal and [employer] Indication:BMI 21.0-21.9, adult Start:03-Oct-2020 Instruction Type:Patient Education Patient Instructions Indication:BMI 21.0-21.9, adult Start:03-Oct-2020 Instruction Type:Provider Instructions for Treatment Patient Instructions Indication:Non-smoker Start:05-Sep-2020 Instruction Type:Provider Instructions for Treatment How to Access Health Informa tion Online using Patient Portal and [employer] Indication:Non-smoker Start:05-Sep-2020 Instruction Type:Patient Education How to Access Health Informa tion Online using Patient Portal and [employer] Indication:Non-smoker Start:08-Aug-2020 Instruction Type:Patient Education Patient Instructions Indication:Non-smoker Start:08-Aug-2020 Instruction Type:Provider Instructions for Treatment Patient Instructions Indication:BMI 21.0-21.9, adult Start:05-Aug-2020 Instruction Type:Provider Instructions for Treatment How to Access Health Informa tion Online using Patient Portal and [employer] Indication:BMI 21.0-21.9, adult Start:05-Aug-2020 Instruction Type:Patient Education How to access health informa tion online Indication:BMI 21.0-21.9, adult Start:24-Dec-2019 Instruction Type:Patient Education How to access health informa tion online - Detail Indication:BMI 21.0-21.9, adult Start:24-Dec-2019 Instruction Type:Patient Education Patient Instructions Indication:BMI 21.0-21.9, adult Start:24-Dec-2019 Instruction Type:Provider Instructions for Treatment How to access health informa tion online Indication:Urinary frequency Start:23-Aug-2018 Instruction Type:Patient Education How to access health informa tion online - Detail Indication:Urinary frequency Start:23-Aug-2018 Instruction Type:Patient Education Patient Instructions Indication:Urinary frequency Start:23-Aug-2018 Instruction Type:Provider Instructions for Treatment How to access health informa tion online Indication:Non-smoker Start:05-May-2018 Instruction Type:Patient Education How to access health informa tion online - Detail Indication:Non-smoker Start:05-May-2018 Instruction Type:Patient Education Patient Instructions Indication:Non-smoker Start:05-May-2018 Instruction Type:Provider Instructions for Treatment How to access health informa tion online Indication:Non-smoker Start:27-Feb-2018 Instruction Type:Patient Education How to access health informa tion online - Detail Indication:Non-smoker Start:27-Feb-2018 Instruction Type:Patient Education Patient Instructions Indication:Non-smoker Start:27-Feb-2018 Instruction Type:Provider Instructions for Treatment [facility]; [facility] Work Phone: Instructions* Name Dates Details Patient Instructions Indication:BMI 22.0-22.9, adult Start:14-Jan-2022 Instruction Type:Provider Instructions for Treatment How to Access Health Informa tion Online using Patient Portal and [employer] Indication:BMI 22.0-22.9, adult Start:14-Jan-2022 Instruction Type:Patient Education Patient Instructions Indication:BMI 22.0-22.9, adult Start:05-Oct-2021 Instruction Type:Provider Instructions for Treatment How to Access Health Informa tion Online using Patient Portal and [employer] Indication:BMI 22.0-22.9, adult Start:05-Oct-2021 Instruction Type:Patient Education Patient Instructions Indication:Attention deficit disorder (ADD) in adult Start:04-Aug-2021 Instruction Type:Provider Instructions for Treatment How to Access Health Informa tion Online using Patient Portal and [employer] Indication:Attention deficit disorder (ADD) in adult Start:04-Aug-2021 Instruction Type:Patient Education Patient Instructions Indication:Non-smoker Start:16-Jul-2021 Instruction Type:Provider Instructions for Treatment How to Access Health Informa tion Online using Patient Portal and [employer] Indication:Non-smoker Start:16-Jul-2021 Instruction Type:Patient Education Patient Instructions Indication:Attention deficit disorder (ADD) in adult Start:18-May-2021 Instruction Type:Provider Instructions for Treatment How to Access Health Informa tion Online using Patient Portal and [employer] Indication:Attention deficit disorder (ADD) in adult Start:18-May-2021 Instruction Type:Patient Education Patient Instructions Indication:BMI 22.0-22.9, adult Start:27-Mar-2021 Instruction Type:Provider Instructions for Treatment How to Access Health Informa tion Online using Patient Portal and [employer] Indication:BMI 22.0-22.9, adult Start:27-Mar-2021 Instruction Type:Patient Education Patient Instructions Indication:Attention deficit disorder (ADD) in adult Start:22-Jan-2021 Instruction Type:Provider Instructions for Treatment How to Access Health Informa tion Online using Patient Portal and [employer] Indication:Attention deficit disorder (ADD) in adult Start:22-Jan-2021 Instruction Type:Patient Education Patient Instructions Indication:Attention deficit disorder (ADD) in adult Start:07-Jan-2021 Instruction Type:Provider Instructions for Treatment How to Access Health Informa tion Online using Patient Portal and [employer] Indication:Attention deficit disorder (ADD) in adult Start:07-Jan-2021 Instruction Type:Patient Education How to Access Health Informa tion Online using Patient Portal and [employer] Indication:Non-smoker Start:01-Jan-2021 Instruction Type:Patient Education Patient Instructions Indication:Non-smoker Start:01-Jan-2021 Instruction Type:Provider Instructions for Treatment Patient Instructions Indication:Non-smoker Start:24-Dec-2020 Instruction Type:Provider Instructions for Treatment How to Access Health Informa tion Online using Patient Portal and [employer] Indication:Non-smoker Start:24-Dec-2020 Instruction Type:Patient Education Patient Instructions Indication:Non-smoker Start:17-Dec-2020 Instruction Type:Provider Instructions for Treatment How to Access Health Informa tion Online using Patient Portal and [employer] Indication:Non-smoker Start:17-Dec-2020 Instruction Type:Patient Education How to Access Health Informa tion Online using Patient Portal and [employer] Indication:BMI 21.0-21.9, adult Start:03-Oct-2020 Instruction Type:Patient Education Patient Instructions Indication:BMI 21.0-21.9, adult Start:03-Oct-2020 Instruction Type:Provider Instructions for Treatment Patient Instructions Indication:Non-smoker Start:05-Sep-2020 Instruction Type:Provider Instructions for Treatment How to Access Health Informa tion Online using Patient Portal and [employer] Indication:Non-smoker Start:05-Sep-2020 Instruction Type:Patient Education How to Access Health Informa tion Online using Patient Portal and [employer] Indication:Non-smoker Start:08-Aug-2020 Instruction Type:Patient Education Patient Instructions Indication:Non-smoker Start:08-Aug-2020 Instruction Type:Provider Instructions for Treatment Patient Instructions Indication:BMI 21.0-21.9, adult Start:05-Aug-2020 Instruction Type:Provider Instructions for Treatment How to Access Health Informa tion Online using Patient Portal and [employer] Indication:BMI 21.0-21.9, adult Start:05-Aug-2020 Instruction Type:Patient Education How to access health informa tion online Indication:BMI 21.0-21.9, adult Start:24-Dec-2019 Instruction Type:Patient Education How to access health informa tion online - Detail Indication:BMI 21.0-21.9, adult Start:24-Dec-2019 Instruction Type:Patient Education Patient Instructions Indication:BMI 21.0-21.9, adult Start:24-Dec-2019 Instruction Type:Provider Instructions for Treatment How to access health informa tion online Indication:Urinary frequency Start:23-Aug-2018 Instruction Type:Patient Education How to access health informa tion online - Detail Indication:Urinary frequency Start:23-Aug-2018 Instruction Type:Patient Education Patient Instructions Indication:Urinary frequency Start:23-Aug-2018 Instruction Type:Provider Instructions for Treatment How to access health informa tion online Indication:Non-smoker Start:05-May-2018 Instruction Type:Patient Education How to access health informa tion online - Detail Indication:Non-smoker Start:05-May-2018 Instruction Type:Patient Education Patient Instructions Indication:Non-smoker Start:05-May-2018 Instruction Type:Provider Instructions for Treatment How to access health informa tion online Indication:Non-smoker Start:27-Feb-2018 Instruction Type:Patient Education How to access health informa tion online - Detail Indication:Non-smoker Start:27-Feb-2018 Instruction Type:Patient Education Patient Instructions Indication:Non-smoker Start:27-Feb-2018 Instruction Type:Provider Instructions for Treatment [facility]; [facility] Work Phone: Instructions* Name Dates Details Patient Instructions Indication:BMI 22.0-22.9, adult Start:14-Jan-2022 Instruction Type:Provider Instructions for Treatment How to Access Health Informa tion Online using Patient Portal and [employer] Indication:BMI 22.0-22.9, adult Start:14-Jan-2022 Instruction Type:Patient Education Patient Instructions Indication:BMI 22.0-22.9, adult Start:05-Oct-2021 Instruction Type:Provider Instructions for Treatment How to Access Health Informa tion Online using Patient Portal and [employer] Indication:BMI 22.0-22.9, adult Start:05-Oct-2021 Instruction Type:Patient Education Patient Instructions Indication:Attention deficit disorder (ADD) in adult Start:04-Aug-2021 Instruction Type:Provider Instructions for Treatment How to Access Health Informa tion Online using Patient Portal and [employer] Indication:Attention deficit disorder (ADD) in adult Start:04-Aug-2021 Instruction Type:Patient Education Patient Instructions Indication:Non-smoker Start:16-Jul-2021 Instruction Type:Provider Instructions for Treatment How to Access Health Informa tion Online using Patient Portal and [employer] Indication:Non-smoker Start:16-Jul-2021 Instruction Type:Patient Education Patient Instructions Indication:Attention deficit disorder (ADD) in adult Start:18-May-2021 Instruction Type:Provider Instructions for Treatment How to Access Health Informa tion Online using Patient Portal and [employer] Indication:Attention deficit disorder (ADD) in adult Start:18-May-2021 Instruction Type:Patient Education Patient Instructions Indication:BMI 22.0-22.9, adult Start:27-Mar-2021 Instruction Type:Provider Instructions for Treatment How to Access Health Informa tion Online using Patient Portal and [employer] Indication:BMI 22.0-22.9, adult Start:27-Mar-2021 Instruction Type:Patient Education Patient Instructions Indication:Attention deficit disorder (ADD) in adult Start:22-Jan-2021 Instruction Type:Provider Instructions for Treatment How to Access Health Informa tion Online using Patient Portal and [employer] Indication:Attention deficit disorder (ADD) in adult Start:22-Jan-2021 Instruction Type:Patient Education Patient Instructions Indication:Attention deficit disorder (ADD) in adult Start:07-Jan-2021 Instruction Type:Provider Instructions for Treatment How to Access Health Informa tion Online using Patient Portal and [employer] Indication:Attention deficit disorder (ADD) in adult Start:07-Jan-2021 Instruction Type:Patient Education How to Access Health Informa tion Online using Patient Portal and [employer] Indication:Non-smoker Start:01-Jan-2021 Instruction Type:Patient Education Patient Instructions Indication:Non-smoker Start:01-Jan-2021 Instruction Type:Provider Instructions for Treatment Patient Instructions Indication:Non-smoker Start:24-Dec-2020 Instruction Type:Provider Instructions for Treatment How to Access Health Informa tion Online using Patient Portal and [employer] Indication:Non-smoker Start:24-Dec-2020 Instruction Type:Patient Education Patient Instructions Indication:Non-smoker Start:17-Dec-2020 Instruction Type:Provider Instructions for Treatment How to Access Health Informa tion Online using Patient Portal and [employer] Indication:Non-smoker Start:17-Dec-2020 Instruction Type:Patient Education How to Access Health Informa tion Online using Patient Portal and [employer] Indication:BMI 21.0-21.9, adult Start:03-Oct-2020 Instruction Type:Patient Education Patient Instructions Indication:BMI 21.0-21.9, adult Start:03-Oct-2020 Instruction Type:Provider Instructions for Treatment Patient Instructions Indication:Non-smoker Start:05-Sep-2020 Instruction Type:Provider Instructions for Treatment How to Access Health Informa tion Online using Patient Portal and [employer] Indication:Non-smoker Start:05-Sep-2020 Instruction Type:Patient Education How to Access Health Informa tion Online using Patient Portal and [employer] Indication:Non-smoker Start:08-Aug-2020 Instruction Type:Patient Education Patient Instructions Indication:Non-smoker Start:08-Aug-2020 Instruction Type:Provider Instructions for Treatment Patient Instructions Indication:BMI 21.0-21.9, adult Start:05-Aug-2020 Instruction Type:Provider Instructions for Treatment How to Access Health Informa tion Online using Patient Portal and [employer] Indication:BMI 21.0-21.9, adult Start:05-Aug-2020 Instruction Type:Patient Education How to access health informa tion online Indication:BMI 21.0-21.9, adult Start:24-Dec-2019 Instruction Type:Patient Education How to access health informa tion online - Detail Indication:BMI 21.0-21.9, adult Start:24-Dec-2019 Instruction Type:Patient Education Patient Instructions Indication:BMI 21.0-21.9, adult Start:24-Dec-2019 Instruction Type:Provider Instructions for Treatment How to access health informa tion online Indication:Urinary frequency Start:23-Aug-2018 Instruction Type:Patient Education How to access health informa tion online - Detail Indication:Urinary frequency Start:23-Aug-2018 Instruction Type:Patient Education Patient Instructions Indication:Urinary frequency Start:23-Aug-2018 Instruction Type:Provider Instructions for Treatment How to access health informa tion online Indication:Non-smoker Start:05-May-2018 Instruction Type:Patient Education How to access health informa tion online - Detail Indication:Non-smoker Start:05-May-2018 Instruction Type:Patient Education Patient Instructions Indication:Non-smoker Start:05-May-2018 Instruction Type:Provider Instructions for Treatment How to access health informa tion online Indication:Non-smoker Start:27-Feb-2018 Instruction Type:Patient Education How to access health informa tion online - Detail Indication:Non-smoker Start:27-Feb-2018 Instruction Type:Patient Education Patient Instructions Indication:Non-smoker Start:27-Feb-2018 Instruction Type:Provider Instructions for Treatment [facility]; [facility] Work Phone: Instructions* Name Dates Details How to Access Health Informa tion Online using Patient Portal and [employer] Indication:Attention deficit disorder (ADD) in adult Start:01-Feb-2022 Instruction Type:Patient Education Patient Instructions Indication:Attention deficit disorder (ADD) in adult Start:01-Feb-2022 Instruction Type:Provider Instructions for Treatment Patient Instructions Indication:BMI 22.0-22.9, adult Start:14-Jan-2022 Instruction Type:Provider Instructions for Treatment How to Access Health Informa tion Online using Patient Portal and [employer] Indication:BMI 22.0-22.9, adult Start:14-Jan-2022 Instruction Type:Patient Education Patient Instructions Indication:BMI 22.0-22.9, adult Start:05-Oct-2021 Instruction Type:Provider Instructions for Treatment How to Access Health Informa tion Online using Patient Portal and [employer] Indication:BMI 22.0-22.9, adult Start:05-Oct-2021 Instruction Type:Patient Education Patient Instructions Indication:Attention deficit disorder (ADD) in adult Start:04-Aug-2021 Instruction Type:Provider Instructions for Treatment How to Access Health Informa tion Online using Patient Portal and [employer] Indication:Attention deficit disorder (ADD) in adult Start:04-Aug-2021 Instruction Type:Patient Education Patient Instructions Indication:Non-smoker Start:16-Jul-2021 Instruction Type:Provider Instructions for Treatment How to Access Health Informa tion Online using Patient Portal and [employer] Indication:Non-smoker Start:16-Jul-2021 Instruction Type:Patient Education Patient Instructions Indication:Attention deficit disorder (ADD) in adult Start:18-May-2021 Instruction Type:Provider Instructions for Treatment How to Access Health Informa tion Online using Patient Portal and [employer] Indication:Attention deficit disorder (ADD) in adult Start:18-May-2021 Instruction Type:Patient Education Patient Instructions Indication:BMI 22.0-22.9, adult Start:27-Mar-2021 Instruction Type:Provider Instructions for Treatment How to Access Health Informa tion Online using Patient Portal and [employer] Indication:BMI 22.0-22.9, adult Start:27-Mar-2021 Instruction Type:Patient Education Patient Instructions Indication:Attention deficit disorder (ADD) in adult Start:22-Jan-2021 Instruction Type:Provider Instructions for Treatment How to Access Health Informa tion Online using Patient Portal and [employer] Indication:Attention deficit disorder (ADD) in adult Start:22-Jan-2021 Instruction Type:Patient Education Patient Instructions Indication:Attention deficit disorder (ADD) in adult Start:07-Jan-2021 Instruction Type:Provider Instructions for Treatment How to Access Health Informa tion Online using Patient Portal and [employer] Indication:Attention deficit disorder (ADD) in adult Start:07-Jan-2021 Instruction Type:Patient Education How to Access Health Informa tion Online using Patient Portal and [employer] Indication:Non-smoker Start:01-Jan-2021 Instruction Type:Patient Education Patient Instructions Indication:Non-smoker Start:01-Jan-2021 Instruction Type:Provider Instructions for Treatment Patient Instructions Indication:Non-smoker Start:24-Dec-2020 Instruction Type:Provider Instructions for Treatment How to Access Health Informa tion Online using Patient Portal and [employer] Indication:Non-smoker Start:24-Dec-2020 Instruction Type:Patient Education Patient Instructions Indication:Non-smoker Start:17-Dec-2020 Instruction Type:Provider Instructions for Treatment How to Access Health Informa tion Online using Patient Portal and [employer] Indication:Non-smoker Start:17-Dec-2020 Instruction Type:Patient Education How to Access Health Informa tion Online using Patient Portal and [employer] Apps Indication:BMI 21.0-21.9, adult Start:03-Oct-2020 Instruction Type:Patient Education Patient Instructions Indication:BMI 21.0-21.9, adult Start:03-Oct-2020 Instruction Type:Provider Instructions for Treatment Patient Instructions Indication:Non-smoker Start:05-Sep-2020 Instruction Type:Provider Instructions for Treatment How to Access Health Informa tion Online using Patient Portal and [employer] Indication:Non-smoker Start:05-Sep-2020 Instruction Type:Patient Education How to Access Health Informa tion Online using Patient Portal and [employer] Indication:Non-smoker Start:08-Aug-2020 Instruction Type:Patient Education Patient Instructions Indication:Non-smoker Start:08-Aug-2020 Instruction Type:Provider Instructions for Treatment Patient Instructions Indication:BMI 21.0-21.9, adult Start:05-Aug-2020 Instruction Type:Provider Instructions for Treatment How to Access Health Informa tion Online using Patient Portal and [employer] Indication:BMI 21.0-21.9, adult Start:05-Aug-2020 Instruction Type:Patient Education How to access health informa tion online Indication:BMI 21.0-21.9, adult Start:24-Dec-2019 Instruction Type:Patient Education How to access health informa tion online - Detail Indication:BMI 21.0-21.9, adult Start:24-Dec-2019 Instruction Type:Patient Education Patient Instructions Indication:BMI 21.0-21.9, adult Start:24-Dec-2019 Instruction Type:Provider Instructions for Treatment How to access health informa tion online Indication:Urinary frequency Start:23-Aug-2018 Instruction Type:Patient Education How to access health informa tion online - Detail Indication:Urinary frequency Start:23-Aug-2018 Instruction Type:Patient Education Patient Instructions Indication:Urinary frequency Start:23-Aug-2018 Instruction Type:Provider Instructions for Treatment How to access health informa tion online Indication:Non-smoker Start:05-May-2018 Instruction Type:Patient Education How to access health informa tion online - Detail Indication:Non-smoker Start:05-May-2018 Instruction Type:Patient Education Patient Instructions Indication:Non-smoker Start:05-May-2018 Instruction Type:Provider Instructions for Treatment How to access health informa tion online Indication:Non-smoker Start:27-Feb-2018 Instruction Type:Patient Education How to access health informa tion online - Detail Indication:Non-smoker Start:27-Feb-2018 Instruction Type:Patient Education Patient Instructions Indication:Non-smoker Start:27-Feb-2018 Instruction Type:Provider Instructions for Treatment [facility]; [facility] Work Phone: Instructions* Name Dates Details How to Access Health Informa tion Online using Patient Portal and [employer] Apps Indication:Attention deficit disorder (ADD) in adult Start:01-Feb-2022 Instruction Type:Patient Education Patient Instructions Indication:Attention deficit disorder (ADD) in adult Start:01-Feb-2022 Instruction Type:Provider Instructions for Treatment Patient Instructions Indication:BMI 22.0-22.9, adult Start:14-Jan-2022 Instruction Type:Provider Instructions for Treatment How to Access Health Informa tion Online using Patient Portal and [employer] Indication:BMI 22.0-22.9, adult Start:14-Jan-2022 Instruction Type:Patient Education Patient Instructions Indication:BMI 22.0-22.9, adult Start:05-Oct-2021 Instruction Type:Provider Instructions for Treatment How to Access Health Informa tion Online using Patient Portal and [employer] Indication:BMI 22.0-22.9, adult Start:05-Oct-2021 Instruction Type:Patient Education Patient Instructions Indication:Attention deficit disorder (ADD) in adult Start:04-Aug-2021 Instruction Type:Provider Instructions for Treatment How to Access Health Informa tion Online using Patient Portal and [employer] Indication:Attention deficit disorder (ADD) in adult Start:04-Aug-2021 Instruction Type:Patient Education Patient Instructions Indication:Non-smoker Start:16-Jul-2021 Instruction Type:Provider Instructions for Treatment How to Access Health Informa tion Online using Patient Portal and [employer] Indication:Non-smoker Start:16-Jul-2021 Instruction Type:Patient Education Patient Instructions Indication:Attention deficit disorder (ADD) in adult Start:18-May-2021 Instruction Type:Provider Instructions for Treatment How to Access Health Informa tion Online using Patient Portal and [employer] Indication:Attention deficit disorder (ADD) in adult Start:18-May-2021 Instruction Type:Patient Education Patient Instructions Indication:BMI 22.0-22.9, adult Start:27-Mar-2021 Instruction Type:Provider Instructions for Treatment How to Access Health Informa tion Online using Patient Portal and [employer] Indication:BMI 22.0-22.9, adult Start:27-Mar-2021 Instruction Type:Patient Education Patient Instructions Indication:Attention deficit disorder (ADD) in adult Start:22-Jan-2021 Instruction Type:Provider Instructions for Treatment How to Access Health Informa tion Online using Patient Portal and [employer] Apps Indication:Attention deficit disorder (ADD) in adult Start:22-Jan-2021 Instruction Type:Patient Education Patient Instructions Indication:Attention deficit disorder (ADD) in adult Start:07-Jan-2021 Instruction Type:Provider Instructions for Treatment How to Access Health Informa tion Online using Patient Portal and [employer] Indication:Attention deficit disorder (ADD) in adult Start:07-Jan-2021 Instruction Type:Patient Education How to Access Health Informa tion Online using Patient Portal and [employer] Apps Indication:Non-smoker Start:01-Jan-2021 Instruction Type:Patient Education Patient Instructions Indication:Non-smoker Start:01-Jan-2021 Instruction Type:Provider Instructions for Treatment Patient Instructions Indication:Non-smoker Start:24-Dec-2020 Instruction Type:Provider Instructions for Treatment How to Access Health Informa tion Online using Patient Portal and [employer] Apps Indication:Non-smoker Start:24-Dec-2020 Instruction Type:Patient Education Patient Instructions Indication:Non-smoker Start:17-Dec-2020 Instruction Type:Provider Instructions for Treatment How to Access Health Informa tion Online using Patient Portal and [employer] Indication:Non-smoker Start:17-Dec-2020 Instruction Type:Patient Education How to Access Health Informa tion Online using Patient Portal and [employer] Indication:BMI 21.0-21.9, adult Start:03-Oct-2020 Instruction Type:Patient Education Patient Instructions Indication:BMI 21.0-21.9, adult Start:03-Oct-2020 Instruction Type:Provider Instructions for Treatment Patient Instructions Indication:Non-smoker Start:05-Sep-2020 Instruction Type:Provider Instructions for Treatment How to Access Health Informa tion Online using Patient Portal and [employer] Apps Indication:Non-smoker Start:05-Sep-2020 Instruction Type:Patient Education How to Access Health Informa tion Online using Patient Portal and [employer] Apps Indication:Non-smoker Start:08-Aug-2020 Instruction Type:Patient Education Patient Instructions Indication:Non-smoker Start:08-Aug-2020 Instruction Type:Provider Instructions for Treatment Patient Instructions Indication:BMI 21.0-21.9, adult Start:05-Aug-2020 Instruction Type:Provider Instructions for Treatment How to Access Health Informa tion Online using Patient Portal and [employer] Apps Indication:BMI 21.0-21.9, adult Start:05-Aug-2020 Instruction Type:Patient Education How to access health informa tion online Indication:BMI 21.0-21.9, adult Start:24-Dec-2019 Instruction Type:Patient Education How to access health informa tion online - Detail Indication:BMI 21.0-21.9, adult Start:24-Dec-2019 Instruction Type:Patient Education Patient Instructions Indication:BMI 21.0-21.9, adult Start:24-Dec-2019 Instruction Type:Provider Instructions for Treatment How to access health informa tion online Indication:Urinary frequency Start:23-Aug-2018 Instruction Type:Patient Education How to access health informa tion online - Detail Indication:Urinary frequency Start:23-Aug-2018 Instruction Type:Patient Education Patient Instructions Indication:Urinary frequency Start:23-Aug-2018 Instruction Type:Provider Instructions for Treatment How to access health informa tion online Indication:Non-smoker Start:05-May-2018 Instruction Type:Patient Education How to access health informa tion online - Detail Indication:Non-smoker Start:05-May-2018 Instruction Type:Patient Education Patient Instructions Indication:Non-smoker Start:05-May-2018 Instruction Type:Provider Instructions for Treatment How to access health informa tion online Indication:Non-smoker Start:27-Feb-2018 Instruction Type:Patient Education How to access health informa tion online - Detail Indication:Non-smoker Start:27-Feb-2018 Instruction Type:Patient Education Patient Instructions Indication:Non-smoker Start:27-Feb-2018 Instruction Type:Provider Instructions for Treatment [facility]; [facility] Work Phone: Instructions* Name Dates Details How to Access Health Informa tion Online using Patient Portal and [employer] Apps Indication:Attention deficit disorder (ADD) in adult Start:01-Feb-2022 Instruction Type:Patient Education Patient Instructions Indication:Attention deficit disorder (ADD) in adult Start:01-Feb-2022 Instruction Type:Provider Instructions for Treatment Patient Instructions Indication:BMI 22.0-22.9, adult Start:14-Jan-2022 Instruction Type:Provider Instructions for Treatment How to Access Health Informa tion Online using Patient Portal and [employer] Apps Indication:BMI 22.0-22.9, adult Start:14-Jan-2022 Instruction Type:Patient Education Patient Instructions Indication:BMI 22.0-22.9, adult Start:05-Oct-2021 Instruction Type:Provider Instructions for Treatment How to Access Health Informa tion Online using Patient Portal and [employer] Apps Indication:BMI 22.0-22.9, adult Start:05-Oct-2021 Instruction Type:Patient Education Patient Instructions Indication:Attention deficit disorder (ADD) in adult Start:04-Aug-2021 Instruction Type:Provider Instructions for Treatment How to Access Health Informa tion Online using Patient Portal and [employer] Apps Indication:Attention deficit disorder (ADD) in adult Start:04-Aug-2021 Instruction Type:Patient Education Patient Instructions Indication:Non-smoker Start:16-Jul-2021 Instruction Type:Provider Instructions for Treatment How to Access Health Informa tion Online using Patient Portal and [employer] Apps Indication:Non-smoker Start:16-Jul-2021 Instruction Type:Patient Education Patient Instructions Indication:Attention deficit disorder (ADD) in adult Start:18-May-2021 Instruction Type:Provider Instructions for Treatment How to Access Health Informa tion Online using Patient Portal and [employer] Indication:Attention deficit disorder (ADD) in adult Start:18-May-2021 Instruction Type:Patient Education Patient Instructions Indication:BMI 22.0-22.9, adult Start:27-Mar-2021 Instruction Type:Provider Instructions for Treatment How to Access Health Informa tion Online using Patient Portal and [employer] Indication:BMI 22.0-22.9, adult Start:27-Mar-2021 Instruction Type:Patient Education Patient Instructions Indication:Attention deficit disorder (ADD) in adult Start:22-Jan-2021 Instruction Type:Provider Instructions for Treatment How to Access Health Informa tion Online using Patient Portal and [employer] Indication:Attention deficit disorder (ADD) in adult Start:22-Jan-2021 Instruction Type:Patient Education Patient Instructions Indication:Attention deficit disorder (ADD) in adult Start:07-Jan-2021 Instruction Type:Provider Instructions for Treatment How to Access Health Informa tion Online using Patient Portal and [employer] Indication:Attention deficit disorder (ADD) in adult Start:07-Jan-2021 Instruction Type:Patient Education How to Access Health Informa tion Online using Patient Portal and [employer] Indication:Non-smoker Start:01-Jan-2021 Instruction Type:Patient Education Patient Instructions Indication:Non-smoker Start:01-Jan-2021 Instruction Type:Provider Instructions for Treatment Patient Instructions Indication:Non-smoker Start:24-Dec-2020 Instruction Type:Provider Instructions for Treatment How to Access Health Informa tion Online using Patient Portal and [employer] Indication:Non-smoker Start:24-Dec-2020 Instruction Type:Patient Education Patient Instructions Indication:Non-smoker Start:17-Dec-2020 Instruction Type:Provider Instructions for Treatment How to Access Health Informa tion Online using Patient Portal and [employer] Indication:Non-smoker Start:17-Dec-2020 Instruction Type:Patient Education How to Access Health Informa tion Online using Patient Portal and [employer] Apps Indication:BMI 21.0-21.9, adult Start:03-Oct-2020 Instruction Type:Patient Education Patient Instructions Indication:BMI 21.0-21.9, adult Start:03-Oct-2020 Instruction Type:Provider Instructions for Treatment Patient Instructions Indication:Non-smoker Start:05-Sep-2020 Instruction Type:Provider Instructions for Treatment How to Access Health Informa tion Online using Patient Portal and [employer] Indication:Non-smoker Start:05-Sep-2020 Instruction Type:Patient Education How to Access Health Informa tion Online using Patient Portal and [employer] Apps Indication:Non-smoker Start:08-Aug-2020 Instruction Type:Patient Education Patient Instructions Indication:Non-smoker Start:08-Aug-2020 Instruction Type:Provider Instructions for Treatment Patient Instructions Indication:BMI 21.0-21.9, adult Start:05-Aug-2020 Instruction Type:Provider Instructions for Treatment How to Access Health Informa tion Online using Patient Portal and [employer] Indication:BMI 21.0-21.9, adult Start:05-Aug-2020 Instruction Type:Patient Education How to access health informa tion online Indication:BMI 21.0-21.9, adult Start:24-Dec-2019 Instruction Type:Patient Education How to access health informa tion online - Detail Indication:BMI 21.0-21.9, adult Start:24-Dec-2019 Instruction Type:Patient Education Patient Instructions Indication:BMI 21.0-21.9, adult Start:24-Dec-2019 Instruction Type:Provider Instructions for Treatment How to access health informa tion online Indication:Urinary frequency Start:23-Aug-2018 Instruction Type:Patient Education How to access health informa tion online - Detail Indication:Urinary frequency Start:23-Aug-2018 Instruction Type:Patient Education Patient Instructions Indication:Urinary frequency Start:23-Aug-2018 Instruction Type:Provider Instructions for Treatment How to access health informa tion online Indication:Non-smoker Start:05-May-2018 Instruction Type:Patient Education How to access health informa tion online - Detail Indication:Non-smoker Start:05-May-2018 Instruction Type:Patient Education Patient Instructions Indication:Non-smoker Start:05-May-2018 Instruction Type:Provider Instructions for Treatment How to access health informa tion online Indication:Non-smoker Start:27-Feb-2018 Instruction Type:Patient Education How to access health informa tion online - Detail Indication:Non-smoker Start:27-Feb-2018 Instruction Type:Patient Education Patient Instructions Indication:Non-smoker Start:27-Feb-2018 Instruction Type:Provider Instructions for Treatment [facility]; [facility] Work Phone: Instructions* Name Dates Details How to Access Health Informa tion Online using Patient Portal and [employer] Indication:Attention deficit disorder (ADD) in adult Start:01-Feb-2022 Instruction Type:Patient Education Patient Instructions Indication:Attention deficit disorder (ADD) in adult Start:01-Feb-2022 Instruction Type:Provider Instructions for Treatment Patient Instructions Indication:BMI 22.0-22.9, adult Start:14-Jan-2022 Instruction Type:Provider Instructions for Treatment How to Access Health Informa tion Online using Patient Portal and [employer] Indication:BMI 22.0-22.9, adult Start:14-Jan-2022 Instruction Type:Patient Education Patient Instructions Indication:BMI 22.0-22.9, adult Start:05-Oct-2021 Instruction Type:Provider Instructions for Treatment How to Access Health Informa tion Online using Patient Portal and [employer] Indication:BMI 22.0-22.9, adult Start:05-Oct-2021 Instruction Type:Patient Education Patient Instructions Indication:Attention deficit disorder (ADD) in adult Start:04-Aug-2021 Instruction Type:Provider Instructions for Treatment How to Access Health Informa tion Online using Patient Portal and [employer] Indication:Attention deficit disorder (ADD) in adult Start:04-Aug-2021 Instruction Type:Patient Education Patient Instructions Indication:Non-smoker Start:16-Jul-2021 Instruction Type:Provider Instructions for Treatment How to Access Health Informa tion Online using Patient Portal and [employer] Apps Indication:Non-smoker Start:16-Jul-2021 Instruction Type:Patient Education Patient Instructions Indication:Attention deficit disorder (ADD) in adult Start:18-May-2021 Instruction Type:Provider Instructions for Treatment How to Access Health Informa tion Online using Patient Portal and [employer] Indication:Attention deficit disorder (ADD) in adult Start:18-May-2021 Instruction Type:Patient Education Patient Instructions Indication:BMI 22.0-22.9, adult Start:27-Mar-2021 Instruction Type:Provider Instructions for Treatment How to Access Health Informa tion Online using Patient Portal and [employer] Indication:BMI 22.0-22.9, adult Start:27-Mar-2021 Instruction Type:Patient Education Patient Instructions Indication:Attention deficit disorder (ADD) in adult Start:22-Jan-2021 Instruction Type:Provider Instructions for Treatment How to Access Health Informa tion Online using Patient Portal and [employer] Indication:Attention deficit disorder (ADD) in adult Start:22-Jan-2021 Instruction Type:Patient Education Patient Instructions Indication:Attention deficit disorder (ADD) in adult Start:07-Jan-2021 Instruction Type:Provider Instructions for Treatment How to Access Health Informa tion Online using Patient Portal and [employer] Indication:Attention deficit disorder (ADD) in adult Start:07-Jan-2021 Instruction Type:Patient Education How to Access Health Informa tion Online using Patient Portal and [employer] Indication:Non-smoker Start:01-Jan-2021 Instruction Type:Patient Education Patient Instructions Indication:Non-smoker Start:01-Jan-2021 Instruction Type:Provider Instructions for Treatment Patient Instructions Indication:Non-smoker Start:24-Dec-2020 Instruction Type:Provider Instructions for Treatment How to Access Health Informa tion Online using Patient Portal and [employer] Indication:Non-smoker Start:24-Dec-2020 Instruction Type:Patient Education Patient Instructions Indication:Non-smoker Start:17-Dec-2020 Instruction Type:Provider Instructions for Treatment How to Access Health Informa tion Online using Patient Portal and [employer] Indication:Non-smoker Start:17-Dec-2020 Instruction Type:Patient Education How to Access Health Informa tion Online using Patient Portal and [employer] Indication:BMI 21.0-21.9, adult Start:03-Oct-2020 Instruction Type:Patient Education Patient Instructions Indication:BMI 21.0-21.9, adult Start:03-Oct-2020 Instruction Type:Provider Instructions for Treatment Patient Instructions Indication:Non-smoker Start:05-Sep-2020 Instruction Type:Provider Instructions for Treatment How to Access Health Informa tion Online using Patient Portal and [employer] Indication:Non-smoker Start:05-Sep-2020 Instruction Type:Patient Education How to Access Health Informa tion Online using Patient Portal and [employer] Indication:Non-smoker Start:08-Aug-2020 Instruction Type:Patient Education Patient Instructions Indication:Non-smoker Start:08-Aug-2020 Instruction Type:Provider Instructions for Treatment Patient Instructions Indication:BMI 21.0-21.9, adult Start:05-Aug-2020 Instruction Type:Provider Instructions for Treatment How to Access Health Informa tion Online using Patient Portal and [employer] Indication:BMI 21.0-21.9, adult Start:05-Aug-2020 Instruction Type:Patient Education How to access health informa tion online Indication:BMI 21.0-21.9, adult Start:24-Dec-2019 Instruction Type:Patient Education How to access health informa tion online - Detail Indication:BMI 21.0-21.9, adult Start:24-Dec-2019 Instruction Type:Patient Education Patient Instructions Indication:BMI 21.0-21.9, adult Start:24-Dec-2019 Instruction Type:Provider Instructions for Treatment How to access health informa tion online Indication:Urinary frequency Start:23-Aug-2018 Instruction Type:Patient Education How to access health informa tion online - Detail Indication:Urinary frequency Start:23-Aug-2018 Instruction Type:Patient Education Patient Instructions Indication:Urinary frequency Start:23-Aug-2018 Instruction Type:Provider Instructions for Treatment How to access health informa tion online Indication:Non-smoker Start:05-May-2018 Instruction Type:Patient Education How to access health informa tion online - Detail Indication:Non-smoker Start:05-May-2018 Instruction Type:Patient Education Patient Instructions Indication:Non-smoker Start:05-May-2018 Instruction Type:Provider Instructions for Treatment How to access health informa tion online Indication:Non-smoker Start:27-Feb-2018 Instruction Type:Patient Education How to access health informa tion online - Detail Indication:Non-smoker Start:27-Feb-2018 Instruction Type:Patient Education Patient Instructions Indication:Non-smoker Start:27-Feb-2018 Instruction Type:Provider Instructions for Treatment [facility]; [facility] Work Phone: Instructions* Name Dates Details How to Access Health Informa tion Online using Patient Portal and [employer] Indication:Attention deficit disorder (ADD) in adult Start:01-Feb-2022 Instruction Type:Patient Education Patient Instructions Indication:Attention deficit disorder (ADD) in adult Start:01-Feb-2022 Instruction Type:Provider Instructions for Treatment Patient Instructions Indication:BMI 22.0-22.9, adult Start:14-Jan-2022 Instruction Type:Provider Instructions for Treatment How to Access Health Informa tion Online using Patient Portal and [employer] Indication:BMI 22.0-22.9, adult Start:14-Jan-2022 Instruction Type:Patient Education Patient Instructions Indication:BMI 22.0-22.9, adult Start:05-Oct-2021 Instruction Type:Provider Instructions for Treatment How to Access Health Informa tion Online using Patient Portal and [employer]rd [employer] Indication:BMI 22.0-22.9, adult Start:05-Oct-2021 Instruction Type:Patient Education Patient Instructions Indication:Attention deficit disorder (ADD) in adult Start:04-Aug-2021 Instruction Type:Provider Instructions for Treatment How to Access Health Informa tion Online using Patient Portal and [employer]rd [employer] Indication:Attention deficit disorder (ADD) in adult Start:04-Aug-2021 Instruction Type:Patient Education Patient Instructions Indication:Non-smoker Start:16-Jul-2021 Instruction Type:Provider Instructions for Treatment How to Access Health Informa tion Online using Patient Portal and [employer]rd [employer] Apps Indication:Non-smoker Start:16-Jul-2021 Instruction Type:Patient Education Patient Instructions Indication:Attention deficit disorder (ADD) in adult Start:18-May-2021 Instruction Type:Provider Instructions for Treatment How to Access Health Informa tion Online using Patient Portal and [employer]rd [employer] Apps Indication:Attention deficit disorder (ADD) in adult Start:18-May-2021 Instruction Type:Patient Education Patient Instructions Indication:BMI 22.0-22.9, adult Start:27-Mar-2021 Instruction Type:Provider Instructions for Treatment How to Access Health Informa tion Online using Patient Portal and [employer]rd [employer] Apps Indication:BMI 22.0-22.9, adult Start:27-Mar-2021 Instruction Type:Patient Education Patient Instructions Indication:Attention deficit disorder (ADD) in adult Start:22-Jan-2021 Instruction Type:Provider Instructions for Treatment How to Access Health Informa tion Online using Patient Portal and [employer]rd [employer] Indication:Attention deficit disorder (ADD) in adult Start:22-Jan-2021 Instruction Type:Patient Education Patient Instructions Indication:Attention deficit disorder (ADD) in adult Start:07-Jan-2021 Instruction Type:Provider Instructions for Treatment How to Access Health Informa tion Online using Patient Portal and [employer]rd [employer] Indication:Attention deficit disorder (ADD) in adult Start:07-Jan-2021 Instruction Type:Patient Education How to Access Health Informa tion Online using Patient Portal and [employer]rd [employer] Apps Indication:Non-smoker Start:01-Jan-2021 Instruction Type:Patient Education Patient Instructions Indication:Non-smoker Start:01-Jan-2021 Instruction Type:Provider Instructions for Treatment Patient Instructions Indication:Non-smoker Start:24-Dec-2020 Instruction Type:Provider Instructions for Treatment How to Access Health Informa tion Online using Patient Portal and [employer]rd [employer] Apps Indication:Non-smoker Start:24-Dec-2020 Instruction Type:Patient Education Patient Instructions Indication:Non-smoker Start:17-Dec-2020 Instruction Type:Provider Instructions for Treatment How to Access Health Informa tion Online using Patient Portal and [employer] Apps Indication:Non-smoker Start:17-Dec-2020 Instruction Type:Patient Education How to Access Health Informa tion Online using Patient Portal and [employer]rd [employer] Apps Indication:BMI 21.0-21.9, adult Start:03-Oct-2020 Instruction Type:Patient Education Patient Instructions Indication:BMI 21.0-21.9, adult Start:03-Oct-2020 Instruction Type:Provider Instructions for Treatment Patient Instructions Indication:Non-smoker Start:05-Sep-2020 Instruction Type:Provider Instructions for Treatment How to Access Health Informa tion Online using Patient Portal and [employer] Indication:Non-smoker Start:05-Sep-2020 Instruction Type:Patient Education How to Access Health Informa tion Online using Patient Portal and [employer] Apps Indication:Non-smoker Start:08-Aug-2020 Instruction Type:Patient Education Patient Instructions Indication:Non-smoker Start:08-Aug-2020 Instruction Type:Provider Instructions for Treatment Patient Instructions Indication:BMI 21.0-21.9, adult Start:05-Aug-2020 Instruction Type:Provider Instructions for Treatment How to Access Health Informa tion Online using Patient Portal and [employer]rd [employer] Apps Indication:BMI 21.0-21.9, adult Start:05-Aug-2020 Instruction Type:Patient Education How to access health informa tion online Indication:BMI 21.0-21.9, adult Start:24-Dec-2019 Instruction Type:Patient Education How to access health informa tion online - Detail Indication:BMI 21.0-21.9, adult Start:24-Dec-2019 Instruction Type:Patient Education Patient Instructions Indication:BMI 21.0-21.9, adult Start:24-Dec-2019 Instruction Type:Provider Instructions for Treatment How to access health informa tion online Indication:Urinary frequency Start:23-Aug-2018 Instruction Type:Patient Education How to access health informa tion online - Detail Indication:Urinary frequency Start:23-Aug-2018 Instruction Type:Patient Education Patient Instructions Indication:Urinary frequency Start:23-Aug-2018 Instruction Type:Provider Instructions for Treatment How to access health informa tion online Indication:Non-smoker Start:05-May-2018 Instruction Type:Patient Education How to access health informa tion online - Detail Indication:Non-smoker Start:05-May-2018 Instruction Type:Patient Education Patient Instructions Indication:Non-smoker Start:05-May-2018 Instruction Type:Provider Instructions for Treatment How to access health informa tion online Indication:Non-smoker Start:27-Feb-2018 Instruction Type:Patient Education How to access health informa tion online - Detail Indication:Non-smoker Start:27-Feb-2018 Instruction Type:Patient Education Patient Instructions Indication:Non-smoker Start:27-Feb-2018 Instruction Type:Provider Instructions for Treatment [facility]; [facility] Work Phone: Instructions* Name Dates Details Patient Instructions Indication:Flank pain Start:17-Jun-2022 Instruction Type:Provider Instructions for Treatment How to Access Health Informa tion Online using Patient Portal and [employer]rd [employer] Apps Indication:Flank pain Start:17-Jun-2022 Instruction Type:Patient Education How to Access Health Informa tion Online using Patient Portal and [employer] Apps Indication:Attention deficit disorder (ADD) in adult Start:01-Feb-2022 Instruction Type:Patient Education Patient Instructions Indication:Attention deficit disorder (ADD) in adult Start:01-Feb-2022 Instruction Type:Provider Instructions for Treatment Patient Instructions Indication:BMI 22.0-22.9, adult Start:14-Jan-2022 Instruction Type:Provider Instructions for Treatment How to Access Health Informa tion Online using Patient Portal and [employer] Indication:BMI 22.0-22.9, adult Start:14-Jan-2022 Instruction Type:Patient Education Patient Instructions Indication:BMI 22.0-22.9, adult Start:05-Oct-2021 Instruction Type:Provider Instructions for Treatment How to Access Health Informa tion Online using Patient Portal and [employer] Apps Indication:BMI 22.0-22.9, adult Start:05-Oct-2021 Instruction Type:Patient Education Patient Instructions Indication:Attention deficit disorder (ADD) in adult Start:04-Aug-2021 Instruction Type:Provider Instructions for Treatment How to Access Health Informa tion Online using Patient Portal and [employer] Apps Indication:Attention deficit disorder (ADD) in adult Start:04-Aug-2021 Instruction Type:Patient Education Patient Instructions Indication:Non-smoker Start:16-Jul-2021 Instruction Type:Provider Instructions for Treatment How to Access Health Informa tion Online using Patient Portal and [employer] Apps Indication:Non-smoker Start:16-Jul-2021 Instruction Type:Patient Education Patient Instructions Indication:Attention deficit disorder (ADD) in adult Start:18-May-2021 Instruction Type:Provider Instructions for Treatment How to Access Health Informa tion Online using Patient Portal and [employer] Apps Indication:Attention deficit disorder (ADD) in adult Start:18-May-2021 Instruction Type:Patient Education Patient Instructions Indication:BMI 22.0-22.9, adult Start:27-Mar-2021 Instruction Type:Provider Instructions for Treatment How to Access Health Informa tion Online using Patient Portal and [employer] Apps Indication:BMI 22.0-22.9, adult Start:27-Mar-2021 Instruction Type:Patient Education Patient Instructions Indication:Attention deficit disorder (ADD) in adult Start:22-Jan-2021 Instruction Type:Provider Instructions for Treatment How to Access Health Informa tion Online using Patient Portal and [employer] Apps Indication:Attention deficit disorder (ADD) in adult Start:22-Jan-2021 Instruction Type:Patient Education Patient Instructions Indication:Attention deficit disorder (ADD) in adult Start:07-Jan-2021 Instruction Type:Provider Instructions for Treatment How to Access Health Informa tion Online using Patient Portal and [employer] Apps Indication:Attention deficit disorder (ADD) in adult Start:07-Jan-2021 Instruction Type:Patient Education How to Access Health Informa tion Online using Patient Portal and [employer] Apps Indication:Non-smoker Start:01-Jan-2021 Instruction Type:Patient Education Patient Instructions Indication:Non-smoker Start:01-Jan-2021 Instruction Type:Provider Instructions for Treatment Patient Instructions Indication:Non-smoker Start:24-Dec-2020 Instruction Type:Provider Instructions for Treatment How to Access Health Informa tion Online using Patient Portal and [employer] Apps Indication:Non-smoker Start:24-Dec-2020 Instruction Type:Patient Education Patient Instructions Indication:Non-smoker Start:17-Dec-2020 Instruction Type:Provider Instructions for Treatment How to Access Health Informa tion Online using Patient Portal and [employer] Apps Indication:Non-smoker Start:17-Dec-2020 Instruction Type:Patient Education How to Access Health Informa tion Online using Patient Portal and [employer] Apps Indication:BMI 21.0-21.9, adult Start:03-Oct-2020 Instruction Type:Patient Education Patient Instructions Indication:BMI 21.0-21.9, adult Start:03-Oct-2020 Instruction Type:Provider Instructions for Treatment Patient Instructions Indication:Non-smoker Start:05-Sep-2020 Instruction Type:Provider Instructions for Treatment How to Access Health Informa tion Online using Patient Portal and [employer] Apps Indication:Non-smoker Start:05-Sep-2020 Instruction Type:Patient Education How to Access Health Informa tion Online using Patient Portal and [employer] Apps Indication:Non-smoker Start:08-Aug-2020 Instruction Type:Patient Education Patient Instructions Indication:Non-smoker Start:08-Aug-2020 Instruction Type:Provider Instructions for Treatment Patient Instructions Indication:BMI 21.0-21.9, adult Start:05-Aug-2020 Instruction Type:Provider Instructions for Treatment How to Access Health Informa tion Online using Patient Portal and [employer] Apps Indication:BMI 21.0-21.9, adult Start:05-Aug-2020 Instruction Type:Patient Education How to access health informa tion online Indication:BMI 21.0-21.9, adult Start:24-Dec-2019 Instruction Type:Patient Education How to access health informa tion online - Detail Indication:BMI 21.0-21.9, adult Start:24-Dec-2019 Instruction Type:Patient Education Patient Instructions Indication:BMI 21.0-21.9, adult Start:24-Dec-2019 Instruction Type:Provider Instructions for Treatment How to access health informa tion online Indication:Urinary frequency Start:23-Aug-2018 Instruction Type:Patient Education How to access health informa tion online - Detail Indication:Urinary frequency Start:23-Aug-2018 Instruction Type:Patient Education Patient Instructions Indication:Urinary frequency Start:23-Aug-2018 Instruction Type:Provider Instructions for Treatment How to access health informa tion online Indication:Non-smoker Start:05-May-2018 Instruction Type:Patient Education How to access health informa tion online - Detail Indication:Non-smoker Start:05-May-2018 Instruction Type:Patient Education Patient Instructions Indication:Non-smoker Start:05-May-2018 Instruction Type:Provider Instructions for Treatment How to access health informa tion online Indication:Non-smoker Start:27-Feb-2018 Instruction Type:Patient Education How to access health informa tion online - Detail Indication:Non-smoker Start:27-Feb-2018 Instruction Type:Patient Education Patient Instructions Indication:Non-smoker Start:27-Feb-2018 Instruction Type:Provider Instructions for Treatment [facility]; [facility] Work Phone: Instructions* Name Dates Details Patient Instructions Indication:Flank pain Start:17-Jun-2022 Instruction Type:Provider Instructions for Treatment How to Access Health Informa tion Online using Patient Portal and [employer]rd [employer] Apps Indication:Flank pain Start:17-Jun-2022 Instruction Type:Patient Education How to Access Health Informa tion Online using Patient Portal and [employer]rd [employer] Apps Indication:Attention deficit disorder (ADD) in adult Start:01-Feb-2022 Instruction Type:Patient Education Patient Instructions Indication:Attention deficit disorder (ADD) in adult Start:01-Feb-2022 Instruction Type:Provider Instructions for Treatment Patient Instructions Indication:BMI 22.0-22.9, adult Start:14-Jan-2022 Instruction Type:Provider Instructions for Treatment How to Access Health Informa tion Online using Patient Portal and [employer] Apps Indication:BMI 22.0-22.9, adult Start:14-Jan-2022 Instruction Type:Patient Education Patient Instructions Indication:BMI 22.0-22.9, adult Start:05-Oct-2021 Instruction Type:Provider Instructions for Treatment How to Access Health Informa tion Online using Patient Portal and [employer]rd [employer] Apps Indication:BMI 22.0-22.9, adult Start:05-Oct-2021 Instruction Type:Patient Education Patient Instructions Indication:Attention deficit disorder (ADD) in adult Start:04-Aug-2021 Instruction Type:Provider Instructions for Treatment How to Access Health Informa tion Online using Patient Portal and [employer] Apps Indication:Attention deficit disorder (ADD) in adult Start:04-Aug-2021 Instruction Type:Patient Education Patient Instructions Indication:Non-smoker Start:16-Jul-2021 Instruction Type:Provider Instructions for Treatment How to Access Health Informa tion Online using Patient Portal and [employer]rd [employer] Apps Indication:Non-smoker Start:16-Jul-2021 Instruction Type:Patient Education Patient Instructions Indication:Attention deficit disorder (ADD) in adult Start:18-May-2021 Instruction Type:Provider Instructions for Treatment How to Access Health Informa tion Online using Patient Portal and [employer] Apps Indication:Attention deficit disorder (ADD) in adult Start:18-May-2021 Instruction Type:Patient Education Patient Instructions Indication:BMI 22.0-22.9, adult Start:27-Mar-2021 Instruction Type:Provider Instructions for Treatment How to Access Health Informa tion Online using Patient Portal and [employer] Apps Indication:BMI 22.0-22.9, adult Start:27-Mar-2021 Instruction Type:Patient Education Patient Instructions Indication:Attention deficit disorder (ADD) in adult Start:22-Jan-2021 Instruction Type:Provider Instructions for Treatment How to Access Health Informa tion Online using Patient Portal and [employer] Apps Indication:Attention deficit disorder (ADD) in adult Start:22-Jan-2021 Instruction Type:Patient Education Patient Instructions Indication:Attention deficit disorder (ADD) in adult Start:07-Jan-2021 Instruction Type:Provider Instructions for Treatment How to Access Health Informa tion Online using Patient Portal and [employer]rd [employer] Apps Indication:Attention deficit disorder (ADD) in adult Start:07-Jan-2021 Instruction Type:Patient Education How to Access Health Informa tion Online using Patient Portal and [employer] Apps Indication:Non-smoker Start:01-Jan-2021 Instruction Type:Patient Education Patient Instructions Indication:Non-smoker Start:01-Jan-2021 Instruction Type:Provider Instructions for Treatment Patient Instructions Indication:Non-smoker Start:24-Dec-2020 Instruction Type:Provider Instructions for Treatment How to Access Health Informa tion Online using Patient Portal and [employer] Apps Indication:Non-smoker Start:24-Dec-2020 Instruction Type:Patient Education Patient Instructions Indication:Non-smoker Start:17-Dec-2020 Instruction Type:Provider Instructions for Treatment How to Access Health Informa tion Online using Patient Portal and [employer] Apps Indication:Non-smoker Start:17-Dec-2020 Instruction Type:Patient Education How to Access Health Informa tion Online using Patient Portal and [employer]rd [employer] Apps Indication:BMI 21.0-21.9, adult Start:03-Oct-2020 Instruction Type:Patient Education Patient Instructions Indication:BMI 21.0-21.9, adult Start:03-Oct-2020 Instruction Type:Provider Instructions for Treatment Patient Instructions Indication:Non-smoker Start:05-Sep-2020 Instruction Type:Provider Instructions for Treatment How to Access Health Informa tion Online using Patient Portal and [employer] Apps Indication:Non-smoker Start:05-Sep-2020 Instruction Type:Patient Education How to Access Health Informa tion Online using Patient Portal and [employer] Apps Indication:Non-smoker Start:08-Aug-2020 Instruction Type:Patient Education Patient Instructions Indication:Non-smoker Start:08-Aug-2020 Instruction Type:Provider Instructions for Treatment Patient Instructions Indication:BMI 21.0-21.9, adult Start:05-Aug-2020 Instruction Type:Provider Instructions for Treatment How to Access Health Informa tion Online using Patient Portal and [employer] Apps Indication:BMI 21.0-21.9, adult Start:05-Aug-2020 Instruction Type:Patient Education How to access health informa tion online Indication:BMI 21.0-21.9, adult Start:24-Dec-2019 Instruction Type:Patient Education How to access health informa tion online - Detail Indication:BMI 21.0-21.9, adult Start:24-Dec-2019 Instruction Type:Patient Education Patient Instructions Indication:BMI 21.0-21.9, adult Start:24-Dec-2019 Instruction Type:Provider Instructions for Treatment How to access health informa tion online Indication:Urinary frequency Start:23-Aug-2018 Instruction Type:Patient Education How to access health informa tion online - Detail Indication:Urinary frequency Start:23-Aug-2018 Instruction Type:Patient Education Patient Instructions Indication:Urinary frequency Start:23-Aug-2018 Instruction Type:Provider Instructions for Treatment How to access health informa tion online Indication:Non-smoker Start:05-May-2018 Instruction Type:Patient Education How to access health informa tion online - Detail Indication:Non-smoker Start:05-May-2018 Instruction Type:Patient Education Patient Instructions Indication:Non-smoker Start:05-May-2018 Instruction Type:Provider Instructions for Treatment How to access health informa tion online Indication:Non-smoker Start:27-Feb-2018 Instruction Type:Patient Education How to access health informa tion online - Detail Indication:Non-smoker Start:27-Feb-2018 Instruction Type:Patient Education Patient Instructions Indication:Non-smoker Start:27-Feb-2018 Instruction Type:Provider Instructions for Treatment [facility]; [facility] Work Phone: Instructions* Name Dates Details Patient Instructions Indication:Flank pain Start:17-Jun-2022 Instruction Type:Provider Instructions for Treatment How to Access Health Informa tion Online using Patient Portal and [employer]rd [employer] Apps Indication:Flank pain Start:17-Jun-2022 Instruction Type:Patient Education How to Access Health Informa tion Online using Patient Portal and [employer]rd [employer] Apps Indication:Attention deficit disorder (ADD) in adult Start:01-Feb-2022 Instruction Type:Patient Education Patient Instructions Indication:Attention deficit disorder (ADD) in adult Start:01-Feb-2022 Instruction Type:Provider Instructions for Treatment Patient Instructions Indication:BMI 22.0-22.9, adult Start:14-Jan-2022 Instruction Type:Provider Instructions for Treatment How to Access Health Informa tion Online using Patient Portal and [employer] Apps Indication:BMI 22.0-22.9, adult Start:14-Jan-2022 Instruction Type:Patient Education Patient Instructions Indication:BMI 22.0-22.9, adult Start:05-Oct-2021 Instruction Type:Provider Instructions for Treatment How to Access Health Informa tion Online using Patient Portal and [employer]rd [employer] Apps Indication:BMI 22.0-22.9, adult Start:05-Oct-2021 Instruction Type:Patient Education Patient Instructions Indication:Attention deficit disorder (ADD) in adult Start:04-Aug-2021 Instruction Type:Provider Instructions for Treatment How to Access Health Informa tion Online using Patient Portal and [employer] Apps Indication:Attention deficit disorder (ADD) in adult Start:04-Aug-2021 Instruction Type:Patient Education Patient Instructions Indication:Non-smoker Start:16-Jul-2021 Instruction Type:Provider Instructions for Treatment How to Access Health Informa tion Online using Patient Portal and [employer] Apps Indication:Non-smoker Start:16-Jul-2021 Instruction Type:Patient Education Patient Instructions Indication:Attention deficit disorder (ADD) in adult Start:18-May-2021 Instruction Type:Provider Instructions for Treatment How to Access Health Informa tion Online using Patient Portal and [employer] Apps Indication:Attention deficit disorder (ADD) in adult Start:18-May-2021 Instruction Type:Patient Education Patient Instructions Indication:BMI 22.0-22.9, adult Start:27-Mar-2021 Instruction Type:Provider Instructions for Treatment How to Access Health Informa tion Online using Patient Portal and [employer] Apps Indication:BMI 22.0-22.9, adult Start:27-Mar-2021 Instruction Type:Patient Education Patient Instructions Indication:Attention deficit disorder (ADD) in adult Start:22-Jan-2021 Instruction Type:Provider Instructions for Treatment How to Access Health Informa tion Online using Patient Portal and [employer] Apps Indication:Attention deficit disorder (ADD) in adult Start:22-Jan-2021 Instruction Type:Patient Education Patient Instructions Indication:Attention deficit disorder (ADD) in adult Start:07-Jan-2021 Instruction Type:Provider Instructions for Treatment How to Access Health Informa tion Online using Patient Portal and [employer]rd [employer] Apps Indication:Attention deficit disorder (ADD) in adult Start:07-Jan-2021 Instruction Type:Patient Education How to Access Health Informa tion Online using Patient Portal and [employer] Apps Indication:Non-smoker Start:01-Jan-2021 Instruction Type:Patient Education Patient Instructions Indication:Non-smoker Start:01-Jan-2021 Instruction Type:Provider Instructions for Treatment Patient Instructions Indication:Non-smoker Start:24-Dec-2020 Instruction Type:Provider Instructions for Treatment How to Access Health Informa tion Online using Patient Portal and [employer] Apps Indication:Non-smoker Start:24-Dec-2020 Instruction Type:Patient Education Patient Instructions Indication:Non-smoker Start:17-Dec-2020 Instruction Type:Provider Instructions for Treatment How to Access Health Informa tion Online using Patient Portal and [employer] Apps Indication:Non-smoker Start:17-Dec-2020 Instruction Type:Patient Education How to Access Health Informa tion Online using Patient Portal and [employer]rd [employer] Apps Indication:BMI 21.0-21.9, adult Start:03-Oct-2020 Instruction Type:Patient Education Patient Instructions Indication:BMI 21.0-21.9, adult Start:03-Oct-2020 Instruction Type:Provider Instructions for Treatment Patient Instructions Indication:Non-smoker Start:05-Sep-2020 Instruction Type:Provider Instructions for Treatment How to Access Health Informa tion Online using Patient Portal and [employer] Apps Indication:Non-smoker Start:05-Sep-2020 Instruction Type:Patient Education How to Access Health Informa tion Online using Patient Portal and [employer] Apps Indication:Non-smoker Start:08-Aug-2020 Instruction Type:Patient Education Patient Instructions Indication:Non-smoker Start:08-Aug-2020 Instruction Type:Provider Instructions for Treatment Patient Instructions Indication:BMI 21.0-21.9, adult Start:05-Aug-2020 Instruction Type:Provider Instructions for Treatment How to Access Health Informa tion Online using Patient Portal and [employer] Indication:BMI 21.0-21.9, adult Start:05-Aug-2020 Instruction Type:Patient Education How to access health informa tion online Indication:BMI 21.0-21.9, adult Start:24-Dec-2019 Instruction Type:Patient Education How to access health informa tion online - Detail Indication:BMI 21.0-21.9, adult Start:24-Dec-2019 Instruction Type:Patient Education Patient Instructions Indication:BMI 21.0-21.9, adult Start:24-Dec-2019 Instruction Type:Provider Instructions for Treatment How to access health informa tion online Indication:Urinary frequency Start:23-Aug-2018 Instruction Type:Patient Education How to access health informa tion online - Detail Indication:Urinary frequency Start:23-Aug-2018 Instruction Type:Patient Education Patient Instructions Indication:Urinary frequency Start:23-Aug-2018 Instruction Type:Provider Instructions for Treatment How to access health informa tion online Indication:Non-smoker Start:05-May-2018 Instruction Type:Patient Education How to access health informa tion online - Detail Indication:Non-smoker Start:05-May-2018 Instruction Type:Patient Education Patient Instructions Indication:Non-smoker Start:05-May-2018 Instruction Type:Provider Instructions for Treatment How to access health informa tion online Indication:Non-smoker Start:27-Feb-2018 Instruction Type:Patient Education How to access health informa tion online - Detail Indication:Non-smoker Start:27-Feb-2018 Instruction Type:Patient Education Patient Instructions Indication:Non-smoker Start:27-Feb-2018 Instruction Type:Provider Instructions for Treatment [facility]; [facility] Work Phone: Instructions* Name Dates Details Patient Instructions Indication:Flank pain Start:17-Jun-2022 Instruction Type:Provider Instructions for Treatment How to Access Health Informa tion Online using Patient Portal and [employer] Indication:Flank pain Start:17-Jun-2022 Instruction Type:Patient Education How to Access Health Informa tion Online using Patient Portal and [employer] Indication:Attention deficit disorder (ADD) in adult Start:01-Feb-2022 Instruction Type:Patient Education Patient Instructions Indication:Attention deficit disorder (ADD) in adult Start:01-Feb-2022 Instruction Type:Provider Instructions for Treatment Patient Instructions Indication:BMI 22.0-22.9, adult Start:14-Jan-2022 Instruction Type:Provider Instructions for Treatment How to Access Health Informa tion Online using Patient Portal and [employer] Indication:BMI 22.0-22.9, adult Start:14-Jan-2022 Instruction Type:Patient Education Patient Instructions Indication:BMI 22.0-22.9, adult Start:05-Oct-2021 Instruction Type:Provider Instructions for Treatment How to Access Health Informa tion Online using Patient Portal and [employer] Indication:BMI 22.0-22.9, adult Start:05-Oct-2021 Instruction Type:Patient Education Patient Instructions Indication:Attention deficit disorder (ADD) in adult Start:04-Aug-2021 Instruction Type:Provider Instructions for Treatment How to Access Health Informa tion Online using Patient Portal and [employer] Indication:Attention deficit disorder (ADD) in adult Start:04-Aug-2021 Instruction Type:Patient Education Patient Instructions Indication:Non-smoker Start:16-Jul-2021 Instruction Type:Provider Instructions for Treatment How to Access Health Informa tion Online using Patient Portal and [employer] Indication:Non-smoker Start:16-Jul-2021 Instruction Type:Patient Education Patient Instructions Indication:Attention deficit disorder (ADD) in adult Start:18-May-2021 Instruction Type:Provider Instructions for Treatment How to Access Health Informa tion Online using Patient Portal and [employer] Apps Indication:Attention deficit disorder (ADD) in adult Start:18-May-2021 Instruction Type:Patient Education Patient Instructions Indication:BMI 22.0-22.9, adult Start:27-Mar-2021 Instruction Type:Provider Instructions for Treatment How to Access Health Informa tion Online using Patient Portal and [employer] Indication:BMI 22.0-22.9, adult Start:27-Mar-2021 Instruction Type:Patient Education Patient Instructions Indication:Attention deficit disorder (ADD) in adult Start:22-Jan-2021 Instruction Type:Provider Instructions for Treatment How to Access Health Informa tion Online using Patient Portal and [employer] Indication:Attention deficit disorder (ADD) in adult Start:22-Jan-2021 Instruction Type:Patient Education Patient Instructions Indication:Attention deficit disorder (ADD) in adult Start:07-Jan-2021 Instruction Type:Provider Instructions for Treatment How to Access Health Informa tion Online using Patient Portal and [employer] Indication:Attention deficit disorder (ADD) in adult Start:07-Jan-2021 Instruction Type:Patient Education How to Access Health Informa tion Online using Patient Portal and [employer] Indication:Non-smoker Start:01-Jan-2021 Instruction Type:Patient Education Patient Instructions Indication:Non-smoker Start:01-Jan-2021 Instruction Type:Provider Instructions for Treatment Patient Instructions Indication:Non-smoker Start:24-Dec-2020 Instruction Type:Provider Instructions for Treatment How to Access Health Informa tion Online using Patient Portal and [employer] Indication:Non-smoker Start:24-Dec-2020 Instruction Type:Patient Education Patient Instructions Indication:Non-smoker Start:17-Dec-2020 Instruction Type:Provider Instructions for Treatment How to Access Health Informa tion Online using Patient Portal and [employer] Indication:Non-smoker Start:17-Dec-2020 Instruction Type:Patient Education How to Access Health Informa tion Online using Patient Portal and [employer] Indication:BMI 21.0-21.9, adult Start:03-Oct-2020 Instruction Type:Patient Education Patient Instructions Indication:BMI 21.0-21.9, adult Start:03-Oct-2020 Instruction Type:Provider Instructions for Treatment Patient Instructions Indication:Non-smoker Start:05-Sep-2020 Instruction Type:Provider Instructions for Treatment How to Access Health Informa tion Online using Patient Portal and [employer] Indication:Non-smoker Start:05-Sep-2020 Instruction Type:Patient Education How to Access Health Informa tion Online using Patient Portal and [employer] Indication:Non-smoker Start:08-Aug-2020 Instruction Type:Patient Education Patient Instructions Indication:Non-smoker Start:08-Aug-2020 Instruction Type:Provider Instructions for Treatment Patient Instructions Indication:BMI 21.0-21.9, adult Start:05-Aug-2020 Instruction Type:Provider Instructions for Treatment How to Access Health Informa tion Online using Patient Portal and [employer] Indication:BMI 21.0-21.9, adult Start:05-Aug-2020 Instruction Type:Patient Education How to access health informa tion online Indication:BMI 21.0-21.9, adult Start:24-Dec-2019 Instruction Type:Patient Education How to access health informa tion online - Detail Indication:BMI 21.0-21.9, adult Start:24-Dec-2019 Instruction Type:Patient Education Patient Instructions Indication:BMI 21.0-21.9, adult Start:24-Dec-2019 Instruction Type:Provider Instructions for Treatment How to access health informa tion online Indication:Urinary frequency Start:23-Aug-2018 Instruction Type:Patient Education How to access health informa tion online - Detail Indication:Urinary frequency Start:23-Aug-2018 Instruction Type:Patient Education Patient Instructions Indication:Urinary frequency Start:23-Aug-2018 Instruction Type:Provider Instructions for Treatment How to access health informa tion online Indication:Non-smoker Start:05-May-2018 Instruction Type:Patient Education How to access health informa tion online - Detail Indication:Non-smoker Start:05-May-2018 Instruction Type:Patient Education Patient Instructions Indication:Non-smoker Start:05-May-2018 Instruction Type:Provider Instructions for Treatment How to access health informa tion online Indication:Non-smoker Start:27-Feb-2018 Instruction Type:Patient Education How to access health informa tion online - Detail Indication:Non-smoker Start:27-Feb-2018 Instruction Type:Patient Education Patient Instructions Indication:Non-smoker Start:27-Feb-2018 Instruction Type:Provider Instructions for Treatment [facility]; [facility] Work Phone: Instructions* Name Dates Details Patient Instructions Indication:Flank pain Start:17-Jun-2022 Instruction Type:Provider Instructions for Treatment How to Access Health Informa tion Online using Patient Portal and [employer] Indication:Flank pain Start:17-Jun-2022 Instruction Type:Patient Education How to Access Health Informa tion Online using Patient Portal and [employer] Indication:Attention deficit disorder (ADD) in adult Start:01-Feb-2022 Instruction Type:Patient Education Patient Instructions Indication:Attention deficit disorder (ADD) in adult Start:01-Feb-2022 Instruction Type:Provider Instructions for Treatment Patient Instructions Indication:BMI 22.0-22.9, adult Start:14-Jan-2022 Instruction Type:Provider Instructions for Treatment How to Access Health Informa tion Online using Patient Portal and [employer] Apps Indication:BMI 22.0-22.9, adult Start:14-Jan-2022 Instruction Type:Patient Education Patient Instructions Indication:BMI 22.0-22.9, adult Start:05-Oct-2021 Instruction Type:Provider Instructions for Treatment How to Access Health Informa tion Online using Patient Portal and [employer] Indication:BMI 22.0-22.9, adult Start:05-Oct-2021 Instruction Type:Patient Education Patient Instructions Indication:Attention deficit disorder (ADD) in adult Start:04-Aug-2021 Instruction Type:Provider Instructions for Treatment How to Access Health Informa tion Online using Patient Portal and [employer] Indication:Attention deficit disorder (ADD) in adult Start:04-Aug-2021 Instruction Type:Patient Education Patient Instructions Indication:Non-smoker Start:16-Jul-2021 Instruction Type:Provider Instructions for Treatment How to Access Health Informa tion Online using Patient Portal and [employer] Indication:Non-smoker Start:16-Jul-2021 Instruction Type:Patient Education Patient Instructions Indication:Attention deficit disorder (ADD) in adult Start:18-May-2021 Instruction Type:Provider Instructions for Treatment How to Access Health Informa tion Online using Patient Portal and [employer] Indication:Attention deficit disorder (ADD) in adult Start:18-May-2021 Instruction Type:Patient Education Patient Instructions Indication:BMI 22.0-22.9, adult Start:27-Mar-2021 Instruction Type:Provider Instructions for Treatment How to Access Health Informa tion Online using Patient Portal and [employer] Apps Indication:BMI 22.0-22.9, adult Start:27-Mar-2021 Instruction Type:Patient Education Patient Instructions Indication:Attention deficit disorder (ADD) in adult Start:22-Jan-2021 Instruction Type:Provider Instructions for Treatment How to Access Health Informa tion Online using Patient Portal and [employer] Apps Indication:Attention deficit disorder (ADD) in adult Start:22-Jan-2021 Instruction Type:Patient Education Patient Instructions Indication:Attention deficit disorder (ADD) in adult Start:07-Jan-2021 Instruction Type:Provider Instructions for Treatment How to Access Health Informa tion Online using Patient Portal and [employer] Apps Indication:Attention deficit disorder (ADD) in adult Start:07-Jan-2021 Instruction Type:Patient Education How to Access Health Informa tion Online using Patient Portal and [employer] Indication:Non-smoker Start:01-Jan-2021 Instruction Type:Patient Education Patient Instructions Indication:Non-smoker Start:01-Jan-2021 Instruction Type:Provider Instructions for Treatment Patient Instructions Indication:Non-smoker Start:24-Dec-2020 Instruction Type:Provider Instructions for Treatment How to Access Health Informa tion Online using Patient Portal and [employer] Indication:Non-smoker Start:24-Dec-2020 Instruction Type:Patient Education Patient Instructions Indication:Non-smoker Start:17-Dec-2020 Instruction Type:Provider Instructions for Treatment How to Access Health Informa tion Online using Patient Portal and [employer] Apps Indication:Non-smoker Start:17-Dec-2020 Instruction Type:Patient Education How to Access Health Informa tion Online using Patient Portal and [employer] Indication:BMI 21.0-21.9, adult Start:03-Oct-2020 Instruction Type:Patient Education Patient Instructions Indication:BMI 21.0-21.9, adult Start:03-Oct-2020 Instruction Type:Provider Instructions for Treatment Patient Instructions Indication:Non-smoker Start:05-Sep-2020 Instruction Type:Provider Instructions for Treatment How to Access Health Informa tion Online using Patient Portal and [employer] Indication:Non-smoker Start:05-Sep-2020 Instruction Type:Patient Education How to Access Health Informa tion Online using Patient Portal and [employer] Indication:Non-smoker Start:08-Aug-2020 Instruction Type:Patient Education Patient Instructions Indication:Non-smoker Start:08-Aug-2020 Instruction Type:Provider Instructions for Treatment Patient Instructions Indication:BMI 21.0-21.9, adult Start:05-Aug-2020 Instruction Type:Provider Instructions for Treatment How to Access Health Informa tion Online using Patient Portal and [employer] Indication:BMI 21.0-21.9, adult Start:05-Aug-2020 Instruction Type:Patient Education How to access health informa tion online Indication:BMI 21.0-21.9, adult Start:24-Dec-2019 Instruction Type:Patient Education How to access health informa tion online - Detail Indication:BMI 21.0-21.9, adult Start:24-Dec-2019 Instruction Type:Patient Education Patient Instructions Indication:BMI 21.0-21.9, adult Start:24-Dec-2019 Instruction Type:Provider Instructions for Treatment How to access health informa tion online Indication:Urinary frequency Start:23-Aug-2018 Instruction Type:Patient Education How to access health informa tion online - Detail Indication:Urinary frequency Start:23-Aug-2018 Instruction Type:Patient Education Patient Instructions Indication:Urinary frequency Start:23-Aug-2018 Instruction Type:Provider Instructions for Treatment How to access health informa tion online Indication:Non-smoker Start:05-May-2018 Instruction Type:Patient Education How to access health informa tion online - Detail Indication:Non-smoker Start:05-May-2018 Instruction Type:Patient Education Patient Instructions Indication:Non-smoker Start:05-May-2018 Instruction Type:Provider Instructions for Treatment How to access health informa tion online Indication:Non-smoker Start:27-Feb-2018 Instruction Type:Patient Education How to access health informa tion online - Detail Indication:Non-smoker Start:27-Feb-2018 Instruction Type:Patient Education Patient Instructions Indication:Non-smoker Start:27-Feb-2018 Instruction Type:Provider Instructions for Treatment [facility]; [facility] Work Phone: Instructions* Name Dates Details Patient Instructions Indication:Flank pain Start:17-Jun-2022 Instruction Type:Provider Instructions for Treatment How to Access Health Informa tion Online using Patient Portal and [employer] Indication:Flank pain Start:17-Jun-2022 Instruction Type:Patient Education How to Access Health Informa tion Online using Patient Portal and [employer] Indication:Attention deficit disorder (ADD) in adult Start:01-Feb-2022 Instruction Type:Patient Education Patient Instructions Indication:Attention deficit disorder (ADD) in adult Start:01-Feb-2022 Instruction Type:Provider Instructions for Treatment Patient Instructions Indication:BMI 22.0-22.9, adult Start:14-Jan-2022 Instruction Type:Provider Instructions for Treatment How to Access Health Informa tion Online using Patient Portal and [employer] Indication:BMI 22.0-22.9, adult Start:14-Jan-2022 Instruction Type:Patient Education Patient Instructions Indication:BMI 22.0-22.9, adult Start:05-Oct-2021 Instruction Type:Provider Instructions for Treatment How to Access Health Informa tion Online using Patient Portal and [employer] Indication:BMI 22.0-22.9, adult Start:05-Oct-2021 Instruction Type:Patient Education Patient Instructions Indication:Attention deficit disorder (ADD) in adult Start:04-Aug-2021 Instruction Type:Provider Instructions for Treatment How to Access Health Informa tion Online using Patient Portal and [employer] Indication:Attention deficit disorder (ADD) in adult Start:04-Aug-2021 Instruction Type:Patient Education Patient Instructions Indication:Non-smoker Start:16-Jul-2021 Instruction Type:Provider Instructions for Treatment How to Access Health Informa tion Online using Patient Portal and [employer] Indication:Non-smoker Start:16-Jul-2021 Instruction Type:Patient Education Patient Instructions Indication:Attention deficit disorder (ADD) in adult Start:18-May-2021 Instruction Type:Provider Instructions for Treatment How to Access Health Informa tion Online using Patient Portal and [employer] Indication:Attention deficit disorder (ADD) in adult Start:18-May-2021 Instruction Type:Patient Education Patient Instructions Indication:BMI 22.0-22.9, adult Start:27-Mar-2021 Instruction Type:Provider Instructions for Treatment How to Access Health Informa tion Online using Patient Portal and [employer] Indication:BMI 22.0-22.9, adult Start:27-Mar-2021 Instruction Type:Patient Education Patient Instructions Indication:Attention deficit disorder (ADD) in adult Start:22-Jan-2021 Instruction Type:Provider Instructions for Treatment How to Access Health Informa tion Online using Patient Portal and [employer] Apps Indication:Attention deficit disorder (ADD) in adult Start:22-Jan-2021 Instruction Type:Patient Education Patient Instructions Indication:Attention deficit disorder (ADD) in adult Start:07-Jan-2021 Instruction Type:Provider Instructions for Treatment How to Access Health Informa tion Online using Patient Portal and [employer] Indication:Attention deficit disorder (ADD) in adult Start:07-Jan-2021 Instruction Type:Patient Education How to Access Health Informa tion Online using Patient Portal and [employer] Apps Indication:Non-smoker Start:01-Jan-2021 Instruction Type:Patient Education Patient Instructions Indication:Non-smoker Start:01-Jan-2021 Instruction Type:Provider Instructions for Treatment Patient Instructions Indication:Non-smoker Start:24-Dec-2020 Instruction Type:Provider Instructions for Treatment How to Access Health Informa tion Online using Patient Portal and [employer] Indication:Non-smoker Start:24-Dec-2020 Instruction Type:Patient Education Patient Instructions Indication:Non-smoker Start:17-Dec-2020 Instruction Type:Provider Instructions for Treatment How to Access Health Informa tion Online using Patient Portal and [employer] Indication:Non-smoker Start:17-Dec-2020 Instruction Type:Patient Education How to Access Health Informa tion Online using Patient Portal and [employer] Indication:BMI 21.0-21.9, adult Start:03-Oct-2020 Instruction Type:Patient Education Patient Instructions Indication:BMI 21.0-21.9, adult Start:03-Oct-2020 Instruction Type:Provider Instructions for Treatment Patient Instructions Indication:Non-smoker Start:05-Sep-2020 Instruction Type:Provider Instructions for Treatment How to Access Health Informa tion Online using Patient Portal and [employer] Indication:Non-smoker Start:05-Sep-2020 Instruction Type:Patient Education How to Access Health Informa tion Online using Patient Portal and [employer] Indication:Non-smoker Start:08-Aug-2020 Instruction Type:Patient Education Patient Instructions Indication:Non-smoker Start:08-Aug-2020 Instruction Type:Provider Instructions for Treatment Patient Instructions Indication:BMI 21.0-21.9, adult Start:05-Aug-2020 Instruction Type:Provider Instructions for Treatment How to Access Health Informa tion Online using Patient Portal and [employer] Indication:BMI 21.0-21.9, adult Start:05-Aug-2020 Instruction Type:Patient Education How to access health informa tion online Indication:BMI 21.0-21.9, adult Start:24-Dec-2019 Instruction Type:Patient Education How to access health informa tion online - Detail Indication:BMI 21.0-21.9, adult Start:24-Dec-2019 Instruction Type:Patient Education Patient Instructions Indication:BMI 21.0-21.9, adult Start:24-Dec-2019 Instruction Type:Provider Instructions for Treatment How to access health informa tion online Indication:Urinary frequency Start:23-Aug-2018 Instruction Type:Patient Education How to access health informa tion online - Detail Indication:Urinary frequency Start:23-Aug-2018 Instruction Type:Patient Education Patient Instructions Indication:Urinary frequency Start:23-Aug-2018 Instruction Type:Provider Instructions for Treatment How to access health informa tion online Indication:Non-smoker Start:05-May-2018 Instruction Type:Patient Education How to access health informa tion online - Detail Indication:Non-smoker Start:05-May-2018 Instruction Type:Patient Education Patient Instructions Indication:Non-smoker Start:05-May-2018 Instruction Type:Provider Instructions for Treatment How to access health informa tion online Indication:Non-smoker Start:27-Feb-2018 Instruction Type:Patient Education How to access health informa tion online - Detail Indication:Non-smoker Start:27-Feb-2018 Instruction Type:Patient Education Patient Instructions Indication:Non-smoker Start:27-Feb-2018 Instruction Type:Provider Instructions for Treatment [facility]; [facility] Work Phone: Instructions* Name Dates Details Patient Instructions Indication:Flank pain Start:17-Jun-2022 Instruction Type:Provider Instructions for Treatment How to Access Health Informa tion Online using Patient Portal and [employer] Indication:Flank pain Start:17-Jun-2022 Instruction Type:Patient Education How to Access Health Informa tion Online using Patient Portal and [employer] Indication:Attention deficit disorder (ADD) in adult Start:01-Feb-2022 Instruction Type:Patient Education Patient Instructions Indication:Attention deficit disorder (ADD) in adult Start:01-Feb-2022 Instruction Type:Provider Instructions for Treatment Patient Instructions Indication:BMI 22.0-22.9, adult Start:14-Jan-2022 Instruction Type:Provider Instructions for Treatment How to Access Health Informa tion Online using Patient Portal and [employer] Indication:BMI 22.0-22.9, adult Start:14-Jan-2022 Instruction Type:Patient Education Patient Instructions Indication:BMI 22.0-22.9, adult Start:05-Oct-2021 Instruction Type:Provider Instructions for Treatment How to Access Health Informa tion Online using Patient Portal and [employer] Indication:BMI 22.0-22.9, adult Start:05-Oct-2021 Instruction Type:Patient Education Patient Instructions Indication:Attention deficit disorder (ADD) in adult Start:04-Aug-2021 Instruction Type:Provider Instructions for Treatment How to Access Health Informa tion Online using Patient Portal and [employer] Indication:Attention deficit disorder (ADD) in adult Start:04-Aug-2021 Instruction Type:Patient Education Patient Instructions Indication:Non-smoker Start:16-Jul-2021 Instruction Type:Provider Instructions for Treatment How to Access Health Informa tion Online using Patient Portal and [employer] Indication:Non-smoker Start:16-Jul-2021 Instruction Type:Patient Education Patient Instructions Indication:Attention deficit disorder (ADD) in adult Start:18-May-2021 Instruction Type:Provider Instructions for Treatment How to Access Health Informa tion Online using Patient Portal and [employer] Indication:Attention deficit disorder (ADD) in adult Start:18-May-2021 Instruction Type:Patient Education Patient Instructions Indication:BMI 22.0-22.9, adult Start:27-Mar-2021 Instruction Type:Provider Instructions for Treatment How to Access Health Informa tion Online using Patient Portal and [employer]rd [employer] Indication:BMI 22.0-22.9, adult Start:27-Mar-2021 Instruction Type:Patient Education Patient Instructions Indication:Attention deficit disorder (ADD) in adult Start:22-Jan-2021 Instruction Type:Provider Instructions for Treatment How to Access Health Informa tion Online using Patient Portal and [employer]rd [employer] Apps Indication:Attention deficit disorder (ADD) in adult Start:22-Jan-2021 Instruction Type:Patient Education Patient Instructions Indication:Attention deficit disorder (ADD) in adult Start:07-Jan-2021 Instruction Type:Provider Instructions for Treatment How to Access Health Informa tion Online using Patient Portal and [employer]rd [employer] Apps Indication:Attention deficit disorder (ADD) in adult Start:07-Jan-2021 Instruction Type:Patient Education How to Access Health Informa tion Online using Patient Portal and [employer]rd [employer] Apps Indication:Non-smoker Start:01-Jan-2021 Instruction Type:Patient Education Patient Instructions Indication:Non-smoker Start:01-Jan-2021 Instruction Type:Provider Instructions for Treatment Patient Instructions Indication:Non-smoker Start:24-Dec-2020 Instruction Type:Provider Instructions for Treatment How to Access Health Informa tion Online using Patient Portal and [employer]rd [employer] Apps Indication:Non-smoker Start:24-Dec-2020 Instruction Type:Patient Education Patient Instructions Indication:Non-smoker Start:17-Dec-2020 Instruction Type:Provider Instructions for Treatment How to Access Health Informa tion Online using Patient Portal and [employer]rd [employer] Apps Indication:Non-smoker Start:17-Dec-2020 Instruction Type:Patient Education How to Access Health Informa tion Online using Patient Portal and [employer]rd [employer] Apps Indication:BMI 21.0-21.9, adult Start:03-Oct-2020 Instruction Type:Patient Education Patient Instructions Indication:BMI 21.0-21.9, adult Start:03-Oct-2020 Instruction Type:Provider Instructions for Treatment Patient Instructions Indication:Non-smoker Start:05-Sep-2020 Instruction Type:Provider Instructions for Treatment How to Access Health Informa tion Online using Patient Portal and [employer]rd [employer] Apps Indication:Non-smoker Start:05-Sep-2020 Instruction Type:Patient Education How to Access Health Informa tion Online using Patient Portal and [employer]rd [employer] Apps Indication:Non-smoker Start:08-Aug-2020 Instruction Type:Patient Education Patient Instructions Indication:Non-smoker Start:08-Aug-2020 Instruction Type:Provider Instructions for Treatment Patient Instructions Indication:BMI 21.0-21.9, adult Start:05-Aug-2020 Instruction Type:Provider Instructions for Treatment How to Access Health Informa tion Online using Patient Portal and [employer]rd [employer] Apps Indication:BMI 21.0-21.9, adult Start:05-Aug-2020 Instruction Type:Patient Education How to access health informa tion online Indication:BMI 21.0-21.9, adult Start:24-Dec-2019 Instruction Type:Patient Education How to access health informa tion online - Detail Indication:BMI 21.0-21.9, adult Start:24-Dec-2019 Instruction Type:Patient Education Patient Instructions Indication:BMI 21.0-21.9, adult Start:24-Dec-2019 Instruction Type:Provider Instructions for Treatment How to access health informa tion online Indication:Urinary frequency Start:23-Aug-2018 Instruction Type:Patient Education How to access health informa tion online - Detail Indication:Urinary frequency Start:23-Aug-2018 Instruction Type:Patient Education Patient Instructions Indication:Urinary frequency Start:23-Aug-2018 Instruction Type:Provider Instructions for Treatment How to access health informa tion online Indication:Non-smoker Start:05-May-2018 Instruction Type:Patient Education How to access health informa tion online - Detail Indication:Non-smoker Start:05-May-2018 Instruction Type:Patient Education Patient Instructions Indication:Non-smoker Start:05-May-2018 Instruction Type:Provider Instructions for Treatment How to access health informa tion online Indication:Non-smoker Start:27-Feb-2018 Instruction Type:Patient Education How to access health informa tion online - Detail Indication:Non-smoker Start:27-Feb-2018 Instruction Type:Patient Education Patient Instructions Indication:Non-smoker Start:27-Feb-2018 Instruction Type:Provider Instructions for Treatment [facility]; [facility] Work Phone: Instructions* Name Dates Details Patient Instructions Indication:Flank pain Start:17-Jun-2022 Instruction Type:Provider Instructions for Treatment How to Access Health Informa tion Online using Patient Portal and [employer]rd [employer] Apps Indication:Flank pain Start:17-Jun-2022 Instruction Type:Patient Education How to Access Health Informa tion Online using Patient Portal and [employer]rd [employer] Apps Indication:Attention deficit disorder (ADD) in adult Start:01-Feb-2022 Instruction Type:Patient Education Patient Instructions Indication:Attention deficit disorder (ADD) in adult Start:01-Feb-2022 Instruction Type:Provider Instructions for Treatment Patient Instructions Indication:BMI 22.0-22.9, adult Start:14-Jan-2022 Instruction Type:Provider Instructions for Treatment How to Access Health Informa tion Online using Patient Portal and [employer] Apps Indication:BMI 22.0-22.9, adult Start:14-Jan-2022 Instruction Type:Patient Education Patient Instructions Indication:BMI 22.0-22.9, adult Start:05-Oct-2021 Instruction Type:Provider Instructions for Treatment How to Access Health Informa tion Online using Patient Portal and [employer] Apps Indication:BMI 22.0-22.9, adult Start:05-Oct-2021 Instruction Type:Patient Education Patient Instructions Indication:Attention deficit disorder (ADD) in adult Start:04-Aug-2021 Instruction Type:Provider Instructions for Treatment How to Access Health Informa tion Online using Patient Portal and [employer] Apps Indication:Attention deficit disorder (ADD) in adult Start:04-Aug-2021 Instruction Type:Patient Education Patient Instructions Indication:Non-smoker Start:16-Jul-2021 Instruction Type:Provider Instructions for Treatment How to Access Health Informa tion Online using Patient Portal and [employer] Apps Indication:Non-smoker Start:16-Jul-2021 Instruction Type:Patient Education Patient Instructions Indication:Attention deficit disorder (ADD) in adult Start:18-May-2021 Instruction Type:Provider Instructions for Treatment How to Access Health Informa tion Online using Patient Portal and [employer] Apps Indication:Attention deficit disorder (ADD) in adult Start:18-May-2021 Instruction Type:Patient Education Patient Instructions Indication:BMI 22.0-22.9, adult Start:27-Mar-2021 Instruction Type:Provider Instructions for Treatment How to Access Health Informa tion Online using Patient Portal and [employer] Apps Indication:BMI 22.0-22.9, adult Start:27-Mar-2021 Instruction Type:Patient Education Patient Instructions Indication:Attention deficit disorder (ADD) in adult Start:22-Jan-2021 Instruction Type:Provider Instructions for Treatment How to Access Health Informa tion Online using Patient Portal and [employer] Apps Indication:Attention deficit disorder (ADD) in adult Start:22-Jan-2021 Instruction Type:Patient Education Patient Instructions Indication:Attention deficit disorder (ADD) in adult Start:07-Jan-2021 Instruction Type:Provider Instructions for Treatment How to Access Health Informa tion Online using Patient Portal and [employer] Apps Indication:Attention deficit disorder (ADD) in adult Start:07-Jan-2021 Instruction Type:Patient Education How to Access Health Informa tion Online using Patient Portal and [employer] Apps Indication:Non-smoker Start:01-Jan-2021 Instruction Type:Patient Education Patient Instructions Indication:Non-smoker Start:01-Jan-2021 Instruction Type:Provider Instructions for Treatment Patient Instructions Indication:Non-smoker Start:24-Dec-2020 Instruction Type:Provider Instructions for Treatment How to Access Health Informa tion Online using Patient Portal and [employer] Apps Indication:Non-smoker Start:24-Dec-2020 Instruction Type:Patient Education Patient Instructions Indication:Non-smoker Start:17-Dec-2020 Instruction Type:Provider Instructions for Treatment How to Access Health Informa tion Online using Patient Portal and [employer] Apps Indication:Non-smoker Start:17-Dec-2020 Instruction Type:Patient Education How to Access Health Informa tion Online using Patient Portal and [employer]rd [employer] Apps Indication:BMI 21.0-21.9, adult Start:03-Oct-2020 Instruction Type:Patient Education Patient Instructions Indication:BMI 21.0-21.9, adult Start:03-Oct-2020 Instruction Type:Provider Instructions for Treatment Patient Instructions Indication:Non-smoker Start:05-Sep-2020 Instruction Type:Provider Instructions for Treatment How to Access Health Informa tion Online using Patient Portal and [employer] Apps Indication:Non-smoker Start:05-Sep-2020 Instruction Type:Patient Education How to Access Health Informa tion Online using Patient Portal and [employer] Apps Indication:Non-smoker Start:08-Aug-2020 Instruction Type:Patient Education Patient Instructions Indication:Non-smoker Start:08-Aug-2020 Instruction Type:Provider Instructions for Treatment Patient Instructions Indication:BMI 21.0-21.9, adult Start:05-Aug-2020 Instruction Type:Provider Instructions for Treatment How to Access Health Informa tion Online using Patient Portal and [employer]rd [employer] Apps Indication:BMI 21.0-21.9, adult Start:05-Aug-2020 Instruction Type:Patient Education How to access health informa tion online Indication:BMI 21.0-21.9, adult Start:24-Dec-2019 Instruction Type:Patient Education How to access health informa tion online - Detail Indication:BMI 21.0-21.9, adult Start:24-Dec-2019 Instruction Type:Patient Education Patient Instructions Indication:BMI 21.0-21.9, adult Start:24-Dec-2019 Instruction Type:Provider Instructions for Treatment How to access health informa tion online Indication:Urinary frequency Start:23-Aug-2018 Instruction Type:Patient Education How to access health informa tion online - Detail Indication:Urinary frequency Start:23-Aug-2018 Instruction Type:Patient Education Patient Instructions Indication:Urinary frequency Start:23-Aug-2018 Instruction Type:Provider Instructions for Treatment How to access health informa tion online Indication:Non-smoker Start:05-May-2018 Instruction Type:Patient Education How to access health informa tion online - Detail Indication:Non-smoker Start:05-May-2018 Instruction Type:Patient Education Patient Instructions Indication:Non-smoker Start:05-May-2018 Instruction Type:Provider Instructions for Treatment How to access health informa tion online Indication:Non-smoker Start:27-Feb-2018 Instruction Type:Patient Education How to access health informa tion online - Detail Indication:Non-smoker Start:27-Feb-2018 Instruction Type:Patient Education Patient Instructions Indication:Non-smoker Start:27-Feb-2018 Instruction Type:Provider Instructions for Treatment [facility]; [facility] Work Phone: Instructions* Name Dates Details Patient Instructions Indication:BMI 21.0-21.9, adult Start:10-Jan-2023 Instruction Type:Provider Instructions for Treatment How to Access Health Informa tion Online using Patient Portal and [employer]rd [employer] Apps Indication:BMI 21.0-21.9, adult Start:10-Jan-2023 Instruction Type:Patient Education Patient Instructions Indication:Flank pain Start:17-Jun-2022 Instruction Type:Provider Instructions for Treatment How to Access Health Informa tion Online using Patient Portal and [employer]rd [employer] Apps Indication:Flank pain Start:17-Jun-2022 Instruction Type:Patient Education How to Access Health Informa tion Online using Patient Portal and [employer]rd [employer] Apps Indication:Attention deficit disorder (ADD) in adult Start:01-Feb-2022 Instruction Type:Patient Education Patient Instructions Indication:Attention deficit disorder (ADD) in adult Start:01-Feb-2022 Instruction Type:Provider Instructions for Treatment Patient Instructions Indication:BMI 22.0-22.9, adult Start:14-Jan-2022 Instruction Type:Provider Instructions for Treatment How to Access Health Informa tion Online using Patient Portal and [employer]rd [employer] Apps Indication:BMI 22.0-22.9, adult Start:14-Jan-2022 Instruction Type:Patient Education Patient Instructions Indication:BMI 22.0-22.9, adult Start:05-Oct-2021 Instruction Type:Provider Instructions for Treatment How to Access Health Informa tion Online using Patient Portal and [employer]rd [employer] Apps Indication:BMI 22.0-22.9, adult Start:05-Oct-2021 Instruction Type:Patient Education Patient Instructions Indication:Attention deficit disorder (ADD) in adult Start:04-Aug-2021 Instruction Type:Provider Instructions for Treatment How to Access Health Informa tion Online using Patient Portal and [employer]rd [employer] Apps Indication:Attention deficit disorder (ADD) in adult Start:04-Aug-2021 Instruction Type:Patient Education Patient Instructions Indication:Non-smoker Start:16-Jul-2021 Instruction Type:Provider Instructions for Treatment How to Access Health Informa tion Online using Patient Portal and [employer]rd [employer] Apps Indication:Non-smoker Start:16-Jul-2021 Instruction Type:Patient Education Patient Instructions Indication:Attention deficit disorder (ADD) in adult Start:18-May-2021 Instruction Type:Provider Instructions for Treatment How to Access Health Informa tion Online using Patient Portal and [employer] Apps Indication:Attention deficit disorder (ADD) in adult Start:18-May-2021 Instruction Type:Patient Education Patient Instructions Indication:BMI 22.0-22.9, adult Start:27-Mar-2021 Instruction Type:Provider Instructions for Treatment How to Access Health Informa tion Online using Patient Portal and [employer]rd [employer] Apps Indication:BMI 22.0-22.9, adult Start:27-Mar-2021 Instruction Type:Patient Education Patient Instructions Indication:Attention deficit disorder (ADD) in adult Start:22-Jan-2021 Instruction Type:Provider Instructions for Treatment How to Access Health Informa tion Online using Patient Portal and [employer]rd [employer] Apps Indication:Attention deficit disorder (ADD) in adult Start:22-Jan-2021 Instruction Type:Patient Education Patient Instructions Indication:Attention deficit disorder (ADD) in adult Start:07-Jan-2021 Instruction Type:Provider Instructions for Treatment How to Access Health Informa tion Online using Patient Portal and [employer] Apps Indication:Attention deficit disorder (ADD) in adult Start:07-Jan-2021 Instruction Type:Patient Education How to Access Health Informa tion Online using Patient Portal and [employer]rd [employer] Apps Indication:Non-smoker Start:01-Jan-2021 Instruction Type:Patient Education Patient Instructions Indication:Non-smoker Start:01-Jan-2021 Instruction Type:Provider Instructions for Treatment Patient Instructions Indication:Non-smoker Start:24-Dec-2020 Instruction Type:Provider Instructions for Treatment How to Access Health Informa tion Online using Patient Portal and [employer]rd [employer] Apps Indication:Non-smoker Start:24-Dec-2020 Instruction Type:Patient Education Patient Instructions Indication:Non-smoker Start:17-Dec-2020 Instruction Type:Provider Instructions for Treatment How to Access Health Informa tion Online using Patient Portal and [employer] Apps Indication:Non-smoker Start:17-Dec-2020 Instruction Type:Patient Education How to Access Health Informa tion Online using Patient Portal and [employer]rd [employer] Apps Indication:BMI 21.0-21.9, adult Start:03-Oct-2020 Instruction Type:Patient Education Patient Instructions Indication:BMI 21.0-21.9, adult Start:03-Oct-2020 Instruction Type:Provider Instructions for Treatment Patient Instructions Indication:Non-smoker Start:05-Sep-2020 Instruction Type:Provider Instructions for Treatment How to Access Health Informa tion Online using Patient Portal and [employer] Apps Indication:Non-smoker Start:05-Sep-2020 Instruction Type:Patient Education How to Access Health Informa tion Online using Patient Portal and [employer]rd [employer] Apps Indication:Non-smoker Start:08-Aug-2020 Instruction Type:Patient Education Patient Instructions Indication:Non-smoker Start:08-Aug-2020 Instruction Type:Provider Instructions for Treatment Patient Instructions Indication:BMI 21.0-21.9, adult Start:05-Aug-2020 Instruction Type:Provider Instructions for Treatment How to Access Health Informa tion Online using Patient Portal and [employer]rd [employer] Apps Indication:BMI 21.0-21.9, adult Start:05-Aug-2020 Instruction Type:Patient Education How to access health informa tion online Indication:BMI 21.0-21.9, adult Start:24-Dec-2019 Instruction Type:Patient Education How to access health informa tion online - Detail Indication:BMI 21.0-21.9, adult Start:24-Dec-2019 Instruction Type:Patient Education Patient Instructions Indication:BMI 21.0-21.9, adult Start:24-Dec-2019 Instruction Type:Provider Instructions for Treatment How to access health informa tion online Indication:Urinary frequency Start:23-Aug-2018 Instruction Type:Patient Education How to access health informa tion online - Detail Indication:Urinary frequency Start:23-Aug-2018 Instruction Type:Patient Education Patient Instructions Indication:Urinary frequency Start:23-Aug-2018 Instruction Type:Provider Instructions for Treatment How to access health informa tion online Indication:Non-smoker Start:05-May-2018 Instruction Type:Patient Education How to access health informa tion online - Detail Indication:Non-smoker Start:05-May-2018 Instruction Type:Patient Education Patient Instructions Indication:Non-smoker Start:05-May-2018 Instruction Type:Provider Instructions for Treatment How to access health informa tion online Indication:Non-smoker Start:27-Feb-2018 Instruction Type:Patient Education How to access health informa tion online - Detail Indication:Non-smoker Start:27-Feb-2018 Instruction Type:Patient Education Patient Instructions Indication:Non-smoker Start:27-Feb-2018 Instruction Type:Provider Instructions for Treatment [facility]; [facility] Work Phone: Instructions* Name Dates Details Patient Instructions Indication:BMI 21.0-21.9, adult Start:10-Jan-2023 Instruction Type:Provider Instructions for Treatment How to Access Health Informa tion Online using Patient Portal and [employer]rd [employer] Apps Indication:BMI 21.0-21.9, adult Start:10-Jan-2023 Instruction Type:Patient Education Patient Instructions Indication:Flank pain Start:17-Jun-2022 Instruction Type:Provider Instructions for Treatment How to Access Health Informa tion Online using Patient Portal and [employer]rd [employer] Apps Indication:Flank pain Start:17-Jun-2022 Instruction Type:Patient Education How to Access Health Informa tion Online using Patient Portal and [employer]rd [employer] Apps Indication:Attention deficit disorder (ADD) in adult Start:01-Feb-2022 Instruction Type:Patient Education Patient Instructions Indication:Attention deficit disorder (ADD) in adult Start:01-Feb-2022 Instruction Type:Provider Instructions for Treatment Patient Instructions Indication:BMI 22.0-22.9, adult Start:14-Jan-2022 Instruction Type:Provider Instructions for Treatment How to Access Health Informa tion Online using Patient Portal and [employer] Apps Indication:BMI 22.0-22.9, adult Start:14-Jan-2022 Instruction Type:Patient Education Patient Instructions Indication:BMI 22.0-22.9, adult Start:05-Oct-2021 Instruction Type:Provider Instructions for Treatment How to Access Health Informa tion Online using Patient Portal and [employer] Apps Indication:BMI 22.0-22.9, adult Start:05-Oct-2021 Instruction Type:Patient Education Patient Instructions Indication:Attention deficit disorder (ADD) in adult Start:04-Aug-2021 Instruction Type:Provider Instructions for Treatment How to Access Health Informa tion Online using Patient Portal and [employer] Apps Indication:Attention deficit disorder (ADD) in adult Start:04-Aug-2021 Instruction Type:Patient Education Patient Instructions Indication:Non-smoker Start:16-Jul-2021 Instruction Type:Provider Instructions for Treatment How to Access Health Informa tion Online using Patient Portal and [employer]rd [employer] Apps Indication:Non-smoker Start:16-Jul-2021 Instruction Type:Patient Education Patient Instructions Indication:Attention deficit disorder (ADD) in adult Start:18-May-2021 Instruction Type:Provider Instructions for Treatment How to Access Health Informa tion Online using Patient Portal and [employer]rd [employer] Apps Indication:Attention deficit disorder (ADD) in adult Start:18-May-2021 Instruction Type:Patient Education Patient Instructions Indication:BMI 22.0-22.9, adult Start:27-Mar-2021 Instruction Type:Provider Instructions for Treatment How to Access Health Informa tion Online using Patient Portal and [employer]rd [employer] Apps Indication:BMI 22.0-22.9, adult Start:27-Mar-2021 Instruction Type:Patient Education Patient Instructions Indication:Attention deficit disorder (ADD) in adult Start:22-Jan-2021 Instruction Type:Provider Instructions for Treatment How to Access Health Informa tion Online using Patient Portal and [employer] Apps Indication:Attention deficit disorder (ADD) in adult Start:22-Jan-2021 Instruction Type:Patient Education Patient Instructions Indication:Attention deficit disorder (ADD) in adult Start:07-Jan-2021 Instruction Type:Provider Instructions for Treatment How to Access Health Informa tion Online using Patient Portal and [employer] Apps Indication:Attention deficit disorder (ADD) in adult Start:07-Jan-2021 Instruction Type:Patient Education How to Access Health Informa tion Online using Patient Portal and [employer]rd [employer] Apps Indication:Non-smoker Start:01-Jan-2021 Instruction Type:Patient Education Patient Instructions Indication:Non-smoker Start:01-Jan-2021 Instruction Type:Provider Instructions for Treatment Patient Instructions Indication:Non-smoker Start:24-Dec-2020 Instruction Type:Provider Instructions for Treatment How to Access Health Informa tion Online using Patient Portal and [employer] Apps Indication:Non-smoker Start:24-Dec-2020 Instruction Type:Patient Education Patient Instructions Indication:Non-smoker Start:17-Dec-2020 Instruction Type:Provider Instructions for Treatment How to Access Health Informa tion Online using Patient Portal and [employer] Apps Indication:Non-smoker Start:17-Dec-2020 Instruction Type:Patient Education How to Access Health Informa tion Online using Patient Portal and [employer]rd [employer] Apps Indication:BMI 21.0-21.9, adult Start:03-Oct-2020 Instruction Type:Patient Education Patient Instructions Indication:BMI 21.0-21.9, adult Start:03-Oct-2020 Instruction Type:Provider Instructions for Treatment Patient Instructions Indication:Non-smoker Start:05-Sep-2020 Instruction Type:Provider Instructions for Treatment How to Access Health Informa tion Online using Patient Portal and [employer] Apps Indication:Non-smoker Start:05-Sep-2020 Instruction Type:Patient Education How to Access Health Informa tion Online using Patient Portal and [employer] Apps Indication:Non-smoker Start:08-Aug-2020 Instruction Type:Patient Education Patient Instructions Indication:Non-smoker Start:08-Aug-2020 Instruction Type:Provider Instructions for Treatment Patient Instructions Indication:BMI 21.0-21.9, adult Start:05-Aug-2020 Instruction Type:Provider Instructions for Treatment How to Access Health Informa tion Online using Patient Portal and [employer] Apps Indication:BMI 21.0-21.9, adult Start:05-Aug-2020 Instruction Type:Patient Education How to access health informa tion online Indication:BMI 21.0-21.9, adult Start:24-Dec-2019 Instruction Type:Patient Education How to access health informa tion online - Detail Indication:BMI 21.0-21.9, adult Start:24-Dec-2019 Instruction Type:Patient Education Patient Instructions Indication:BMI 21.0-21.9, adult Start:24-Dec-2019 Instruction Type:Provider Instructions for Treatment How to access health informa tion online Indication:Urinary frequency Start:23-Aug-2018 Instruction Type:Patient Education How to access health informa tion online - Detail Indication:Urinary frequency Start:23-Aug-2018 Instruction Type:Patient Education Patient Instructions Indication:Urinary frequency Start:23-Aug-2018 Instruction Type:Provider Instructions for Treatment How to access health informa tion online Indication:Non-smoker Start:05-May-2018 Instruction Type:Patient Education How to access health informa tion online - Detail Indication:Non-smoker Start:05-May-2018 Instruction Type:Patient Education Patient Instructions Indication:Non-smoker Start:05-May-2018 Instruction Type:Provider Instructions for Treatment How to access health informa tion online Indication:Non-smoker Start:27-Feb-2018 Instruction Type:Patient Education How to access health informa tion online - Detail Indication:Non-smoker Start:27-Feb-2018 Instruction Type:Patient Education Patient Instructions Indication:Non-smoker Start:27-Feb-2018 Instruction Type:Provider Instructions for Treatment [facility]; [facility] Work Phone: Instructions* Name Dates Details Patient Instructions Indication:BMI 21.0-21.9, adult Start:10-Jan-2023 Instruction Type:Provider Instructions for Treatment How to Access Health Informa tion Online using Patient Portal and [employer]rd [employer] Indication:BMI 21.0-21.9, adult Start:10-Jan-2023 Instruction Type:Patient Education Patient Instructions Indication:Flank pain Start:17-Jun-2022 Instruction Type:Provider Instructions for Treatment How to Access Health Informa tion Online using Patient Portal and [employer]rd [employer] Apps Indication:Flank pain Start:17-Jun-2022 Instruction Type:Patient Education How to Access Health Informa tion Online using Patient Portal and [employer] Apps Indication:Attention deficit disorder (ADD) in adult Start:01-Feb-2022 Instruction Type:Patient Education Patient Instructions Indication:Attention deficit disorder (ADD) in adult Start:01-Feb-2022 Instruction Type:Provider Instructions for Treatment Patient Instructions Indication:BMI 22.0-22.9, adult Start:14-Jan-2022 Instruction Type:Provider Instructions for Treatment How to Access Health Informa tion Online using Patient Portal and [employer] Apps Indication:BMI 22.0-22.9, adult Start:14-Jan-2022 Instruction Type:Patient Education Patient Instructions Indication:BMI 22.0-22.9, adult Start:05-Oct-2021 Instruction Type:Provider Instructions for Treatment How to Access Health Informa tion Online using Patient Portal and [employer] Apps Indication:BMI 22.0-22.9, adult Start:05-Oct-2021 Instruction Type:Patient Education Patient Instructions Indication:Attention deficit disorder (ADD) in adult Start:04-Aug-2021 Instruction Type:Provider Instructions for Treatment How to Access Health Informa tion Online using Patient Portal and [employer] Apps Indication:Attention deficit disorder (ADD) in adult Start:04-Aug-2021 Instruction Type:Patient Education Patient Instructions Indication:Non-smoker Start:16-Jul-2021 Instruction Type:Provider Instructions for Treatment How to Access Health Informa tion Online using Patient Portal and [employer] Apps Indication:Non-smoker Start:16-Jul-2021 Instruction Type:Patient Education Patient Instructions Indication:Attention deficit disorder (ADD) in adult Start:18-May-2021 Instruction Type:Provider Instructions for Treatment How to Access Health Informa tion Online using Patient Portal and [employer] Apps Indication:Attention deficit disorder (ADD) in adult Start:18-May-2021 Instruction Type:Patient Education Patient Instructions Indication:BMI 22.0-22.9, adult Start:27-Mar-2021 Instruction Type:Provider Instructions for Treatment How to Access Health Informa tion Online using Patient Portal and [employer] Apps Indication:BMI 22.0-22.9, adult Start:27-Mar-2021 Instruction Type:Patient Education Patient Instructions Indication:Attention deficit disorder (ADD) in adult Start:22-Jan-2021 Instruction Type:Provider Instructions for Treatment How to Access Health Informa tion Online using Patient Portal and [employer] Apps Indication:Attention deficit disorder (ADD) in adult Start:22-Jan-2021 Instruction Type:Patient Education Patient Instructions Indication:Attention deficit disorder (ADD) in adult Start:07-Jan-2021 Instruction Type:Provider Instructions for Treatment How to Access Health Informa tion Online using Patient Portal and [employer] Apps Indication:Attention deficit disorder (ADD) in adult Start:07-Jan-2021 Instruction Type:Patient Education How to Access Health Informa tion Online using Patient Portal and [employer] Apps Indication:Non-smoker Start:01-Jan-2021 Instruction Type:Patient Education Patient Instructions Indication:Non-smoker Start:01-Jan-2021 Instruction Type:Provider Instructions for Treatment Patient Instructions Indication:Non-smoker Start:24-Dec-2020 Instruction Type:Provider Instructions for Treatment How to Access Health Informa tion Online using Patient Portal and [employer] Apps Indication:Non-smoker Start:24-Dec-2020 Instruction Type:Patient Education Patient Instructions Indication:Non-smoker Start:17-Dec-2020 Instruction Type:Provider Instructions for Treatment How to Access Health Informa tion Online using Patient Portal and [employer] Apps Indication:Non-smoker Start:17-Dec-2020 Instruction Type:Patient Education How to Access Health Informa tion Online using Patient Portal and [employer] Apps Indication:BMI 21.0-21.9, adult Start:03-Oct-2020 Instruction Type:Patient Education Patient Instructions Indication:BMI 21.0-21.9, adult Start:03-Oct-2020 Instruction Type:Provider Instructions for Treatment Patient Instructions Indication:Non-smoker Start:05-Sep-2020 Instruction Type:Provider Instructions for Treatment How to Access Health Informa tion Online using Patient Portal and [employer] Apps Indication:Non-smoker Start:05-Sep-2020 Instruction Type:Patient Education How to Access Health Informa tion Online using Patient Portal and [employer] Apps Indication:Non-smoker Start:08-Aug-2020 Instruction Type:Patient Education Patient Instructions Indication:Non-smoker Start:08-Aug-2020 Instruction Type:Provider Instructions for Treatment Patient Instructions Indication:BMI 21.0-21.9, adult Start:05-Aug-2020 Instruction Type:Provider Instructions for Treatment How to Access Health Informa tion Online using Patient Portal and [employer] Apps Indication:BMI 21.0-21.9, adult Start:05-Aug-2020 Instruction Type:Patient Education How to access health informa tion online Indication:BMI 21.0-21.9, adult Start:24-Dec-2019 Instruction Type:Patient Education How to access health informa tion online - Detail Indication:BMI 21.0-21.9, adult Start:24-Dec-2019 Instruction Type:Patient Education Patient Instructions Indication:BMI 21.0-21.9, adult Start:24-Dec-2019 Instruction Type:Provider Instructions for Treatment How to access health informa tion online Indication:Urinary frequency Start:23-Aug-2018 Instruction Type:Patient Education How to access health informa tion online - Detail Indication:Urinary frequency Start:23-Aug-2018 Instruction Type:Patient Education Patient Instructions Indication:Urinary frequency Start:23-Aug-2018 Instruction Type:Provider Instructions for Treatment How to access health informa tion online Indication:Non-smoker Start:05-May-2018 Instruction Type:Patient Education How to access health informa tion online - Detail Indication:Non-smoker Start:05-May-2018 Instruction Type:Patient Education Patient Instructions Indication:Non-smoker Start:05-May-2018 Instruction Type:Provider Instructions for Treatment How to access health informa tion online Indication:Non-smoker Start:27-Feb-2018 Instruction Type:Patient Education How to access health informa tion online - Detail Indication:Non-smoker Start:27-Feb-2018 Instruction Type:Patient Education Patient Instructions Indication:Non-smoker Start:27-Feb-2018 Instruction Type:Provider Instructions for Treatment [facility]; [facility] Work Phone: Instructions* Name Dates Details Patient Instructions Indication:BMI 21.0-21.9, adult Start:10-Jan-2023 Instruction Type:Provider Instructions for Treatment How to Access Health Informa tion Online using Patient Portal and [employer] Apps Indication:BMI 21.0-21.9, adult Start:10-Jan-2023 Instruction Type:Patient Education Patient Instructions Indication:Flank pain Start:17-Jun-2022 Instruction Type:Provider Instructions for Treatment How to Access Health Informa tion Online using Patient Portal and [employer] Apps Indication:Flank pain Start:17-Jun-2022 Instruction Type:Patient Education How to Access Health Informa tion Online using Patient Portal and [employer] Apps Indication:Attention deficit disorder (ADD) in adult Start:01-Feb-2022 Instruction Type:Patient Education Patient Instructions Indication:Attention deficit disorder (ADD) in adult Start:01-Feb-2022 Instruction Type:Provider Instructions for Treatment Patient Instructions Indication:BMI 22.0-22.9, adult Start:14-Jan-2022 Instruction Type:Provider Instructions for Treatment How to Access Health Informa tion Online using Patient Portal and [employer] Apps Indication:BMI 22.0-22.9, adult Start:14-Jan-2022 Instruction Type:Patient Education Patient Instructions Indication:BMI 22.0-22.9, adult Start:05-Oct-2021 Instruction Type:Provider Instructions for Treatment How to Access Health Informa tion Online using Patient Portal and [employer] Apps Indication:BMI 22.0-22.9, adult Start:05-Oct-2021 Instruction Type:Patient Education Patient Instructions Indication:Attention deficit disorder (ADD) in adult Start:04-Aug-2021 Instruction Type:Provider Instructions for Treatment How to Access Health Informa tion Online using Patient Portal and [employer] Apps Indication:Attention deficit disorder (ADD) in adult Start:04-Aug-2021 Instruction Type:Patient Education Patient Instructions Indication:Non-smoker Start:16-Jul-2021 Instruction Type:Provider Instructions for Treatment How to Access Health Informa tion Online using Patient Portal and [employer] Apps Indication:Non-smoker Start:16-Jul-2021 Instruction Type:Patient Education Patient Instructions Indication:Attention deficit disorder (ADD) in adult Start:18-May-2021 Instruction Type:Provider Instructions for Treatment How to Access Health Informa tion Online using Patient Portal and [employer] Apps Indication:Attention deficit disorder (ADD) in adult Start:18-May-2021 Instruction Type:Patient Education Patient Instructions Indication:BMI 22.0-22.9, adult Start:27-Mar-2021 Instruction Type:Provider Instructions for Treatment How to Access Health Informa tion Online using Patient Portal and [employer] Apps Indication:BMI 22.0-22.9, adult Start:27-Mar-2021 Instruction Type:Patient Education Patient Instructions Indication:Attention deficit disorder (ADD) in adult Start:22-Jan-2021 Instruction Type:Provider Instructions for Treatment How to Access Health Informa tion Online using Patient Portal and [employer] Apps Indication:Attention deficit disorder (ADD) in adult Start:22-Jan-2021 Instruction Type:Patient Education Patient Instructions Indication:Attention deficit disorder (ADD) in adult Start:07-Jan-2021 Instruction Type:Provider Instructions for Treatment How to Access Health Informa tion Online using Patient Portal and [employer] Apps Indication:Attention deficit disorder (ADD) in adult Start:07-Jan-2021 Instruction Type:Patient Education How to Access Health Informa tion Online using Patient Portal and [employer] Apps Indication:Non-smoker Start:01-Jan-2021 Instruction Type:Patient Education Patient Instructions Indication:Non-smoker Start:01-Jan-2021 Instruction Type:Provider Instructions for Treatment Patient Instructions Indication:Non-smoker Start:24-Dec-2020 Instruction Type:Provider Instructions for Treatment How to Access Health Informa tion Online using Patient Portal and [employer] Apps Indication:Non-smoker Start:24-Dec-2020 Instruction Type:Patient Education Patient Instructions Indication:Non-smoker Start:17-Dec-2020 Instruction Type:Provider Instructions for Treatment How to Access Health Informa tion Online using Patient Portal and [employer] Apps Indication:Non-smoker Start:17-Dec-2020 Instruction Type:Patient Education How to Access Health Informa tion Online using Patient Portal and [employer] Apps Indication:BMI 21.0-21.9, adult Start:03-Oct-2020 Instruction Type:Patient Education Patient Instructions Indication:BMI 21.0-21.9, adult Start:03-Oct-2020 Instruction Type:Provider Instructions for Treatment Patient Instructions Indication:Non-smoker Start:05-Sep-2020 Instruction Type:Provider Instructions for Treatment How to Access Health Informa tion Online using Patient Portal and [employer] Apps Indication:Non-smoker Start:05-Sep-2020 Instruction Type:Patient Education How to Access Health Informa tion Online using Patient Portal and [employer] Apps Indication:Non-smoker Start:08-Aug-2020 Instruction Type:Patient Education Patient Instructions Indication:Non-smoker Start:08-Aug-2020 Instruction Type:Provider Instructions for Treatment Patient Instructions Indication:BMI 21.0-21.9, adult Start:05-Aug-2020 Instruction Type:Provider Instructions for Treatment How to Access Health Informa tion Online using Patient Portal and [employer] Apps Indication:BMI 21.0-21.9, adult Start:05-Aug-2020 Instruction Type:Patient Education How to access health informa tion online Indication:BMI 21.0-21.9, adult Start:24-Dec-2019 Instruction Type:Patient Education How to access health informa tion online - Detail Indication:BMI 21.0-21.9, adult Start:24-Dec-2019 Instruction Type:Patient Education Patient Instructions Indication:BMI 21.0-21.9, adult Start:24-Dec-2019 Instruction Type:Provider Instructions for Treatment How to access health informa tion online Indication:Urinary frequency Start:23-Aug-2018 Instruction Type:Patient Education How to access health informa tion online - Detail Indication:Urinary frequency Start:23-Aug-2018 Instruction Type:Patient Education Patient Instructions Indication:Urinary frequency Start:23-Aug-2018 Instruction Type:Provider Instructions for Treatment How to access health informa tion online Indication:Non-smoker Start:05-May-2018 Instruction Type:Patient Education How to access health informa tion online - Detail Indication:Non-smoker Start:05-May-2018 Instruction Type:Patient Education Patient Instructions Indication:Non-smoker Start:05-May-2018 Instruction Type:Provider Instructions for Treatment How to access health informa tion online Indication:Non-smoker Start:27-Feb-2018 Instruction Type:Patient Education How to access health informa tion online - Detail Indication:Non-smoker Start:27-Feb-2018 Instruction Type:Patient Education Patient Instructions Indication:Non-smoker Start:27-Feb-2018 Instruction Type:Provider Instructions for Treatment [facility]; [facility] Work Phone: Instructions* Name Dates Details Patient Instructions Indication:BMI 21.0-21.9, adult Start:10-Jan-2023 Instruction Type:Provider Instructions for Treatment How to Access Health Informa tion Online using Patient Portal and [employer]rd [employer] Apps Indication:BMI 21.0-21.9, adult Start:10-Jan-2023 Instruction Type:Patient Education Patient Instructions Indication:Flank pain Start:17-Jun-2022 Instruction Type:Provider Instructions for Treatment How to Access Health Informa tion Online using Patient Portal and [employer]rd [employer] Apps Indication:Flank pain Start:17-Jun-2022 Instruction Type:Patient Education How to Access Health Informa tion Online using Patient Portal and [employer] Apps Indication:Attention deficit disorder (ADD) in adult Start:01-Feb-2022 Instruction Type:Patient Education Patient Instructions Indication:Attention deficit disorder (ADD) in adult Start:01-Feb-2022 Instruction Type:Provider Instructions for Treatment Patient Instructions Indication:BMI 22.0-22.9, adult Start:14-Jan-2022 Instruction Type:Provider Instructions for Treatment How to Access Health Informa tion Online using Patient Portal and [employer] Apps Indication:BMI 22.0-22.9, adult Start:14-Jan-2022 Instruction Type:Patient Education Patient Instructions Indication:BMI 22.0-22.9, adult Start:05-Oct-2021 Instruction Type:Provider Instructions for Treatment How to Access Health Informa tion Online using Patient Portal and [employer] Apps Indication:BMI 22.0-22.9, adult Start:05-Oct-2021 Instruction Type:Patient Education Patient Instructions Indication:Attention deficit disorder (ADD) in adult Start:04-Aug-2021 Instruction Type:Provider Instructions for Treatment How to Access Health Informa tion Online using Patient Portal and [employer] Apps Indication:Attention deficit disorder (ADD) in adult Start:04-Aug-2021 Instruction Type:Patient Education Patient Instructions Indication:Non-smoker Start:16-Jul-2021 Instruction Type:Provider Instructions for Treatment How to Access Health Informa tion Online using Patient Portal and [employer] Apps Indication:Non-smoker Start:16-Jul-2021 Instruction Type:Patient Education Patient Instructions Indication:Attention deficit disorder (ADD) in adult Start:18-May-2021 Instruction Type:Provider Instructions for Treatment How to Access Health Informa tion Online using Patient Portal and [employer] Apps Indication:Attention deficit disorder (ADD) in adult Start:18-May-2021 Instruction Type:Patient Education Patient Instructions Indication:BMI 22.0-22.9, adult Start:27-Mar-2021 Instruction Type:Provider Instructions for Treatment How to Access Health Informa tion Online using Patient Portal and [employer]rd [employer] Apps Indication:BMI 22.0-22.9, adult Start:27-Mar-2021 Instruction Type:Patient Education Patient Instructions Indication:Attention deficit disorder (ADD) in adult Start:22-Jan-2021 Instruction Type:Provider Instructions for Treatment How to Access Health Informa tion Online using Patient Portal and [employer] Apps Indication:Attention deficit disorder (ADD) in adult Start:22-Jan-2021 Instruction Type:Patient Education Patient Instructions Indication:Attention deficit disorder (ADD) in adult Start:07-Jan-2021 Instruction Type:Provider Instructions for Treatment How to Access Health Informa tion Online using Patient Portal and [employer] Apps Indication:Attention deficit disorder (ADD) in adult Start:07-Jan-2021 Instruction Type:Patient Education How to Access Health Informa tion Online using Patient Portal and [employer] Apps Indication:Non-smoker Start:01-Jan-2021 Instruction Type:Patient Education Patient Instructions Indication:Non-smoker Start:01-Jan-2021 Instruction Type:Provider Instructions for Treatment Patient Instructions Indication:Non-smoker Start:24-Dec-2020 Instruction Type:Provider Instructions for Treatment How to Access Health Informa tion Online using Patient Portal and [employer] Apps Indication:Non-smoker Start:24-Dec-2020 Instruction Type:Patient Education Patient Instructions Indication:Non-smoker Start:17-Dec-2020 Instruction Type:Provider Instructions for Treatment How to Access Health Informa tion Online using Patient Portal and [employer] Apps Indication:Non-smoker Start:17-Dec-2020 Instruction Type:Patient Education How to Access Health Informa tion Online using Patient Portal and [employer]rd [employer] Apps Indication:BMI 21.0-21.9, adult Start:03-Oct-2020 Instruction Type:Patient Education Patient Instructions Indication:BMI 21.0-21.9, adult Start:03-Oct-2020 Instruction Type:Provider Instructions for Treatment Patient Instructions Indication:Non-smoker Start:05-Sep-2020 Instruction Type:Provider Instructions for Treatment How to Access Health Informa tion Online using Patient Portal and [employer] Apps Indication:Non-smoker Start:05-Sep-2020 Instruction Type:Patient Education How to Access Health Informa tion Online using Patient Portal and [employer]rd [employer] Apps Indication:Non-smoker Start:08-Aug-2020 Instruction Type:Patient Education Patient Instructions Indication:Non-smoker Start:08-Aug-2020 Instruction Type:Provider Instructions for Treatment Patient Instructions Indication:BMI 21.0-21.9, adult Start:05-Aug-2020 Instruction Type:Provider Instructions for Treatment How to Access Health Informa tion Online using Patient Portal and [employer] Apps Indication:BMI 21.0-21.9, adult Start:05-Aug-2020 Instruction Type:Patient Education How to access health informa tion online Indication:BMI 21.0-21.9, adult Start:24-Dec-2019 Instruction Type:Patient Education How to access health informa tion online - Detail Indication:BMI 21.0-21.9, adult Start:24-Dec-2019 Instruction Type:Patient Education Patient Instructions Indication:BMI 21.0-21.9, adult Start:24-Dec-2019 Instruction Type:Provider Instructions for Treatment How to access health informa tion online Indication:Urinary frequency Start:23-Aug-2018 Instruction Type:Patient Education How to access health informa tion online - Detail Indication:Urinary frequency Start:23-Aug-2018 Instruction Type:Patient Education Patient Instructions Indication:Urinary frequency Start:23-Aug-2018 Instruction Type:Provider Instructions for Treatment How to access health informa tion online Indication:Non-smoker Start:05-May-2018 Instruction Type:Patient Education How to access health informa tion online - Detail Indication:Non-smoker Start:05-May-2018 Instruction Type:Patient Education Patient Instructions Indication:Non-smoker Start:05-May-2018 Instruction Type:Provider Instructions for Treatment How to access health informa tion online Indication:Non-smoker Start:27-Feb-2018 Instruction Type:Patient Education How to access health informa tion online - Detail Indication:Non-smoker Start:27-Feb-2018 Instruction Type:Patient Education Patient Instructions Indication:Non-smoker Start:27-Feb-2018 Instruction Type:Provider Instructions for Treatment [facility]; [facility] Work Phone: Instructions* Name Dates Details Patient Instructions Indication:BMI 21.0-21.9, adult Start:10-Jan-2023 Instruction Type:Provider Instructions for Treatment How to Access Health Informa tion Online using Patient Portal and [employer] Indication:BMI 21.0-21.9, adult Start:10-Jan-2023 Instruction Type:Patient Education Patient Instructions Indication:Flank pain Start:17-Jun-2022 Instruction Type:Provider Instructions for Treatment How to Access Health Informa tion Online using Patient Portal and [employer] Indication:Flank pain Start:17-Jun-2022 Instruction Type:Patient Education How to Access Health Informa tion Online using Patient Portal and [employer] Indication:Attention deficit disorder (ADD) in adult Start:01-Feb-2022 Instruction Type:Patient Education Patient Instructions Indication:Attention deficit disorder (ADD) in adult Start:01-Feb-2022 Instruction Type:Provider Instructions for Treatment Patient Instructions Indication:BMI 22.0-22.9, adult Start:14-Jan-2022 Instruction Type:Provider Instructions for Treatment How to Access Health Informa tion Online using Patient Portal and [employer] Apps Indication:BMI 22.0-22.9, adult Start:14-Jan-2022 Instruction Type:Patient Education Patient Instructions Indication:BMI 22.0-22.9, adult Start:05-Oct-2021 Instruction Type:Provider Instructions for Treatment How to Access Health Informa tion Online using Patient Portal and [employer] Apps Indication:BMI 22.0-22.9, adult Start:05-Oct-2021 Instruction Type:Patient Education Patient Instructions Indication:Attention deficit disorder (ADD) in adult Start:04-Aug-2021 Instruction Type:Provider Instructions for Treatment How to Access Health Informa tion Online using Patient Portal and [employer] Indication:Attention deficit disorder (ADD) in adult Start:04-Aug-2021 Instruction Type:Patient Education Patient Instructions Indication:Non-smoker Start:16-Jul-2021 Instruction Type:Provider Instructions for Treatment How to Access Health Informa tion Online using Patient Portal and [employer]rd [employer] Apps Indication:Non-smoker Start:16-Jul-2021 Instruction Type:Patient Education Patient Instructions Indication:Attention deficit disorder (ADD) in adult Start:18-May-2021 Instruction Type:Provider Instructions for Treatment How to Access Health Informa tion Online using Patient Portal and [employer]rd [employer] Apps Indication:Attention deficit disorder (ADD) in adult Start:18-May-2021 Instruction Type:Patient Education Patient Instructions Indication:BMI 22.0-22.9, adult Start:27-Mar-2021 Instruction Type:Provider Instructions for Treatment How to Access Health Informa tion Online using Patient Portal and [employer]rd [employer] Apps Indication:BMI 22.0-22.9, adult Start:27-Mar-2021 Instruction Type:Patient Education Patient Instructions Indication:Attention deficit disorder (ADD) in adult Start:22-Jan-2021 Instruction Type:Provider Instructions for Treatment How to Access Health Informa tion Online using Patient Portal and [employer]rd [employer] Apps Indication:Attention deficit disorder (ADD) in adult Start:22-Jan-2021 Instruction Type:Patient Education Patient Instructions Indication:Attention deficit disorder (ADD) in adult Start:07-Jan-2021 Instruction Type:Provider Instructions for Treatment How to Access Health Informa tion Online using Patient Portal and [employer]rd [employer] Apps Indication:Attention deficit disorder (ADD) in adult Start:07-Jan-2021 Instruction Type:Patient Education How to Access Health Informa tion Online using Patient Portal and [employer]rd [employer] Apps Indication:Non-smoker Start:01-Jan-2021 Instruction Type:Patient Education Patient Instructions Indication:Non-smoker Start:01-Jan-2021 Instruction Type:Provider Instructions for Treatment Patient Instructions Indication:Non-smoker Start:24-Dec-2020 Instruction Type:Provider Instructions for Treatment How to Access Health Informa tion Online using Patient Portal and [employer]rd [employer] Apps Indication:Non-smoker Start:24-Dec-2020 Instruction Type:Patient Education Patient Instructions Indication:Non-smoker Start:17-Dec-2020 Instruction Type:Provider Instructions for Treatment How to Access Health Informa tion Online using Patient Portal and [employer]rd [employer] Apps Indication:Non-smoker Start:17-Dec-2020 Instruction Type:Patient Education How to Access Health Informa tion Online using Patient Portal and [employer]rd [employer] Apps Indication:BMI 21.0-21.9, adult Start:03-Oct-2020 Instruction Type:Patient Education Patient Instructions Indication:BMI 21.0-21.9, adult Start:03-Oct-2020 Instruction Type:Provider Instructions for Treatment Patient Instructions Indication:Non-smoker Start:05-Sep-2020 Instruction Type:Provider Instructions for Treatment How to Access Health Informa tion Online using Patient Portal and [employer]rd [employer] Apps Indication:Non-smoker Start:05-Sep-2020 Instruction Type:Patient Education How to Access Health Informa tion Online using Patient Portal and [employer]rd [employer] Apps Indication:Non-smoker Start:08-Aug-2020 Instruction Type:Patient Education Patient Instructions Indication:Non-smoker Start:08-Aug-2020 Instruction Type:Provider Instructions for Treatment Patient Instructions Indication:BMI 21.0-21.9, adult Start:05-Aug-2020 Instruction Type:Provider Instructions for Treatment How to Access Health Informa tion Online using Patient Portal and [employer]rd [employer] Apps Indication:BMI 21.0-21.9, adult Start:05-Aug-2020 Instruction Type:Patient Education How to access health informa tion online Indication:BMI 21.0-21.9, adult Start:24-Dec-2019 Instruction Type:Patient Education How to access health informa tion online - Detail Indication:BMI 21.0-21.9, adult Start:24-Dec-2019 Instruction Type:Patient Education Patient Instructions Indication:BMI 21.0-21.9, adult Start:24-Dec-2019 Instruction Type:Provider Instructions for Treatment How to access health informa tion online Indication:Urinary frequency Start:23-Aug-2018 Instruction Type:Patient Education How to access health informa tion online - Detail Indication:Urinary frequency Start:23-Aug-2018 Instruction Type:Patient Education Patient Instructions Indication:Urinary frequency Start:23-Aug-2018 Instruction Type:Provider Instructions for Treatment How to access health informa tion online Indication:Non-smoker Start:05-May-2018 Instruction Type:Patient Education How to access health informa tion online - Detail Indication:Non-smoker Start:05-May-2018 Instruction Type:Patient Education Patient Instructions Indication:Non-smoker Start:05-May-2018 Instruction Type:Provider Instructions for Treatment How to access health informa tion online Indication:Non-smoker Start:27-Feb-2018 Instruction Type:Patient Education How to access health informa tion online - Detail Indication:Non-smoker Start:27-Feb-2018 Instruction Type:Patient Education Patient Instructions Indication:Non-smoker Start:27-Feb-2018 Instruction Type:Provider Instructions for Treatment [facility]; [facility] Work Phone: Instructions* Name Dates Details Patient Instructions Indication:BMI 21.0-21.9, adult Start:10-Jan-2023 Instruction Type:Provider Instructions for Treatment How to Access Health Informa tion Online using Patient Portal and 3rd [employer] Apps Indication:BMI 21.0-21.9, adult Start:10-Jan-2023 Instruction Type:Patient Education Patient Instructions Indication:Flank pain Start:17-Jun-2022 Instruction Type:Provider Instructions for Treatment How to Access Health Informa tion Online using Patient Portal and 3rd [employer] Apps Indication:Flank pain Start:17-Jun-2022 Instruction Type:Patient Education How to Access Health Informa tion Online using Patient Portal and [employer]rd [employer] Apps Indication:Attention deficit disorder (ADD) in adult Start:01-Feb-2022 Instruction Type:Patient Education Patient Instructions Indication:Attention deficit disorder (ADD) in adult Start:01-Feb-2022 Instruction Type:Provider Instructions for Treatment Patient Instructions Indication:BMI 22.0-22.9, adult Start:14-Jan-2022 Instruction Type:Provider Instructions for Treatment How to Access Health Informa tion Online using Patient Portal and [employer]rd [employer] Apps Indication:BMI 22.0-22.9, adult Start:14-Jan-2022 Instruction Type:Patient Education Patient Instructions Indication:BMI 22.0-22.9, adult Start:05-Oct-2021 Instruction Type:Provider Instructions for Treatment How to Access Health Informa tion Online using Patient Portal and [employer]rd [employer] Apps Indication:BMI 22.0-22.9, adult Start:05-Oct-2021 Instruction Type:Patient Education Patient Instructions Indication:Attention deficit disorder (ADD) in adult Start:04-Aug-2021 Instruction Type:Provider Instructions for Treatment How to Access Health Informa tion Online using Patient Portal and [employer]rd [employer] Apps Indication:Attention deficit disorder (ADD) in adult Start:04-Aug-2021 Instruction Type:Patient Education Patient Instructions Indication:Non-smoker Start:16-Jul-2021 Instruction Type:Provider Instructions for Treatment How to Access Health Informa tion Online using Patient Portal and [employer]rd [employer] Apps Indication:Non-smoker Start:16-Jul-2021 Instruction Type:Patient Education Patient Instructions Indication:Attention deficit disorder (ADD) in adult Start:18-May-2021 Instruction Type:Provider Instructions for Treatment How to Access Health Informa tion Online using Patient Portal and [employer]rd [employer] Apps Indication:Attention deficit disorder (ADD) in adult Start:18-May-2021 Instruction Type:Patient Education Patient Instructions Indication:BMI 22.0-22.9, adult Start:27-Mar-2021 Instruction Type:Provider Instructions for Treatment How to Access Health Informa tion Online using Patient Portal and [employer]rd [employer] Apps Indication:BMI 22.0-22.9, adult Start:27-Mar-2021 Instruction Type:Patient Education Patient Instructions Indication:Attention deficit disorder (ADD) in adult Start:22-Jan-2021 Instruction Type:Provider Instructions for Treatment How to Access Health Informa tion Online using Patient Portal and [employer]rd [employer] Apps Indication:Attention deficit disorder (ADD) in adult Start:22-Jan-2021 Instruction Type:Patient Education Patient Instructions Indication:Attention deficit disorder (ADD) in adult Start:07-Jan-2021 Instruction Type:Provider Instructions for Treatment How to Access Health Informa tion Online using Patient Portal and [employer]rd [employer] Apps Indication:Attention deficit disorder (ADD) in adult Start:07-Jan-2021 Instruction Type:Patient Education How to Access Health Informa tion Online using Patient Portal and [employer]rd [employer] Apps Indication:Non-smoker Start:01-Jan-2021 Instruction Type:Patient Education Patient Instructions Indication:Non-smoker Start:01-Jan-2021 Instruction Type:Provider Instructions for Treatment Patient Instructions Indication:Non-smoker Start:24-Dec-2020 Instruction Type:Provider Instructions for Treatment How to Access Health Informa tion Online using Patient Portal and [employer]rd [employer] Apps Indication:Non-smoker Start:24-Dec-2020 Instruction Type:Patient Education Patient Instructions Indication:Non-smoker Start:17-Dec-2020 Instruction Type:Provider Instructions for Treatment How to Access Health Informa tion Online using Patient Portal and [employer]rd [employer] Apps Indication:Non-smoker Start:17-Dec-2020 Instruction Type:Patient Education How to Access Health Informa tion Online using Patient Portal and 3rd [employer] Apps Indication:BMI 21.0-21.9, adult Start:03-Oct-2020 Instruction Type:Patient Education Patient Instructions Indication:BMI 21.0-21.9, adult Start:03-Oct-2020 Instruction Type:Provider Instructions for Treatment Patient Instructions Indication:Non-smoker Start:05-Sep-2020 Instruction Type:Provider Instructions for Treatment How to Access Health Informa tion Online using Patient Portal and [employer]rd [employer] Apps Indication:Non-smoker Start:05-Sep-2020 Instruction Type:Patient Education How to Access Health Informa tion Online using Patient Portal and [employer]rd [employer] Apps Indication:Non-smoker Start:08-Aug-2020 Instruction Type:Patient Education Patient Instructions Indication:Non-smoker Start:08-Aug-2020 Instruction Type:Provider Instructions for Treatment Patient Instructions Indication:BMI 21.0-21.9, adult Start:05-Aug-2020 Instruction Type:Provider Instructions for Treatment How to Access Health Informa tion Online using Patient Portal and 3rd [employer] Apps Indication:BMI 21.0-21.9, adult Start:05-Aug-2020 Instruction Type:Patient Education How to access health informa tion online Indication:BMI 21.0-21.9, adult Start:24-Dec-2019 Instruction Type:Patient Education How to access health informa tion online - Detail Indication:BMI 21.0-21.9, adult Start:24-Dec-2019 Instruction Type:Patient Education Patient Instructions Indication:BMI 21.0-21.9, adult Start:24-Dec-2019 Instruction Type:Provider Instructions for Treatment How to access health informa tion online Indication:Urinary frequency Start:23-Aug-2018 Instruction Type:Patient Education How to access health informa tion online - Detail Indication:Urinary frequency Start:23-Aug-2018 Instruction Type:Patient Education Patient Instructions Indication:Urinary frequency Start:23-Aug-2018 Instruction Type:Provider Instructions for Treatment How to access health informa tion online Indication:Non-smoker Start:05-May-2018 Instruction Type:Patient Education How to access health informa tion online - Detail Indication:Non-smoker Start:05-May-2018 Instruction Type:Patient Education Patient Instructions Indication:Non-smoker Start:05-May-2018 Instruction Type:Provider Instructions for Treatment How to access health informa tion online Indication:Non-smoker Start:27-Feb-2018 Instruction Type:Patient Education How to access health informa tion online - Detail Indication:Non-smoker Start:27-Feb-2018 Instruction Type:Patient Education Patient Instructions Indication:Non-smoker Start:27-Feb-2018 Instruction Type:Provider Instructions for Treatment [facility]; [facility] Work Phone: Instructions* Name Dates Details Patient Instructions Indication:BMI 21.0-21.9, adult Start:10-Jan-2023 Instruction Type:Provider Instructions for Treatment How to Access Health Informa tion Online using Patient Portal and 3rd [employer] Apps Indication:BMI 21.0-21.9, adult Start:10-Jan-2023 Instruction Type:Patient Education Patient Instructions Indication:Flank pain Start:17-Jun-2022 Instruction Type:Provider Instructions for Treatment How to Access Health Informa tion Online using Patient Portal and 3rd [employer] Apps Indication:Flank pain Start:17-Jun-2022 Instruction Type:Patient Education How to Access Health Informa tion Online using Patient Portal and [employer] Apps Indication:Attention deficit disorder (ADD) in adult Start:01-Feb-2022 Instruction Type:Patient Education Patient Instructions Indication:Attention deficit disorder (ADD) in adult Start:01-Feb-2022 Instruction Type:Provider Instructions for Treatment Patient Instructions Indication:BMI 22.0-22.9, adult Start:14-Jan-2022 Instruction Type:Provider Instructions for Treatment How to Access Health Informa tion Online using Patient Portal and 3rd [employer] Apps Indication:BMI 22.0-22.9, adult Start:14-Jan-2022 Instruction Type:Patient Education Patient Instructions Indication:BMI 22.0-22.9, adult Start:05-Oct-2021 Instruction Type:Provider Instructions for Treatment How to Access Health Informa tion Online using Patient Portal and 3rd [employer] Apps Indication:BMI 22.0-22.9, adult Start:05-Oct-2021 Instruction Type:Patient Education Patient Instructions Indication:Attention deficit disorder (ADD) in adult Start:04-Aug-2021 Instruction Type:Provider Instructions for Treatment How to Access Health Informa tion Online using Patient Portal and [employer]rd [employer] Apps Indication:Attention deficit disorder (ADD) in adult Start:04-Aug-2021 Instruction Type:Patient Education Patient Instructions Indication:Non-smoker Start:16-Jul-2021 Instruction Type:Provider Instructions for Treatment How to Access Health Informa tion Online using Patient Portal and 3rd [employer] Apps Indication:Non-smoker Start:16-Jul-2021 Instruction Type:Patient Education Patient Instructions Indication:Attention deficit disorder (ADD) in adult Start:18-May-2021 Instruction Type:Provider Instructions for Treatment How to Access Health Informa tion Online using Patient Portal and 3rd [employer] Apps Indication:Attention deficit disorder (ADD) in adult Start:18-May-2021 Instruction Type:Patient Education Patient Instructions Indication:BMI 22.0-22.9, adult Start:27-Mar-2021 Instruction Type:Provider Instructions for Treatment How to Access Health Informa tion Online using Patient Portal and 3rd [employer] Apps Indication:BMI 22.0-22.9, adult Start:27-Mar-2021 Instruction Type:Patient Education Patient Instructions Indication:Attention deficit disorder (ADD) in adult Start:22-Jan-2021 Instruction Type:Provider Instructions for Treatment How to Access Health Informa tion Online using Patient Portal and [employer]rd [employer] Apps Indication:Attention deficit disorder (ADD) in adult Start:22-Jan-2021 Instruction Type:Patient Education Patient Instructions Indication:Attention deficit disorder (ADD) in adult Start:07-Jan-2021 Instruction Type:Provider Instructions for Treatment How to Access Health Informa tion Online using Patient Portal and 3rd [employer] Apps Indication:Attention deficit disorder (ADD) in adult Start:07-Jan-2021 Instruction Type:Patient Education How to Access Health Informa tion Online using Patient Portal and [employer]rd [employer] Apps Indication:Non-smoker Start:01-Jan-2021 Instruction Type:Patient Education Patient Instructions Indication:Non-smoker Start:01-Jan-2021 Instruction Type:Provider Instructions for Treatment Patient Instructions Indication:Non-smoker Start:24-Dec-2020 Instruction Type:Provider Instructions for Treatment How to Access Health Informa tion Online using Patient Portal and [employer]rd [employer] Apps Indication:Non-smoker Start:24-Dec-2020 Instruction Type:Patient Education Patient Instructions Indication:Non-smoker Start:17-Dec-2020 Instruction Type:Provider Instructions for Treatment How to Access Health Informa tion Online using Patient Portal and [employer]rd [employer] Apps Indication:Non-smoker Start:17-Dec-2020 Instruction Type:Patient Education How to Access Health Informa tion Online using Patient Portal and 3rd [employer] Apps Indication:BMI 21.0-21.9, adult Start:03-Oct-2020 Instruction Type:Patient Education Patient Instructions Indication:BMI 21.0-21.9, adult Start:03-Oct-2020 Instruction Type:Provider Instructions for Treatment Patient Instructions Indication:Non-smoker Start:05-Sep-2020 Instruction Type:Provider Instructions for Treatment How to Access Health Informa tion Online using Patient Portal and [employer]rd [employer] Apps Indication:Non-smoker Start:05-Sep-2020 Instruction Type:Patient Education How to Access Health Informa tion Online using Patient Portal and [employer]rd [employer] Apps Indication:Non-smoker Start:08-Aug-2020 Instruction Type:Patient Education Patient Instructions Indication:Non-smoker Start:08-Aug-2020 Instruction Type:Provider Instructions for Treatment Patient Instructions Indication:BMI 21.0-21.9, adult Start:05-Aug-2020 Instruction Type:Provider Instructions for Treatment How to Access Health Informa tion Online using Patient Portal and [employer]rd [employer] Apps Indication:BMI 21.0-21.9, adult Start:05-Aug-2020 Instruction Type:Patient Education How to access health informa tion online Indication:BMI 21.0-21.9, adult Start:24-Dec-2019 Instruction Type:Patient Education How to access health informa tion online - Detail Indication:BMI 21.0-21.9, adult Start:24-Dec-2019 Instruction Type:Patient Education Patient Instructions Indication:BMI 21.0-21.9, adult Start:24-Dec-2019 Instruction Type:Provider Instructions for Treatment How to access health informa tion online Indication:Urinary frequency Start:23-Aug-2018 Instruction Type:Patient Education How to access health informa tion online - Detail Indication:Urinary frequency Start:23-Aug-2018 Instruction Type:Patient Education Patient Instructions Indication:Urinary frequency Start:23-Aug-2018 Instruction Type:Provider Instructions for Treatment How to access health informa tion online Indication:Non-smoker Start:05-May-2018 Instruction Type:Patient Education How to access health informa tion online - Detail Indication:Non-smoker Start:05-May-2018 Instruction Type:Patient Education Patient Instructions Indication:Non-smoker Start:05-May-2018 Instruction Type:Provider Instructions for Treatment How to access health informa tion online Indication:Non-smoker Start:27-Feb-2018 Instruction Type:Patient Education How to access health informa tion online - Detail Indication:Non-smoker Start:27-Feb-2018 Instruction Type:Patient Education Patient Instructions Indication:Non-smoker Start:27-Feb-2018 Instruction Type:Provider Instructions for Treatment [facility]; [facility] Work Phone: Instructions Name Dates Details Non-smoker : How to access h ealth information online Indication:Non-smoker Non-smoker : How to access h ealth information online - Detail Indication:Non-smoker Non-smoker : Patient Instruc tions Indication:Non-smoker Name Dates Details Urinary frequency : How to a ccess health information online Indication:Urinary frequency Urinary frequency : How to a ccess health information online - Detail Indication:Urinary frequency Urinary frequency : Patient Instructions Indication:Urinary frequency Non-smoker : How to access h ealth information online Indication:Non-smoker Non-smoker : How to access h ealth information online - Detail Indication:Non-smoker Non-smoker : Patient Instruc tions Indication:Non-smoker Name Dates Details How to access health informa tion online Indication:BMI 21.0-21.9, adult Start:24-Dec-2019 Instruction Type:Patient Education How to access health informa tion online - Detail Indication:BMI 21.0-21.9, adult Start:24-Dec-2019 Instruction Type:Patient Education Patient Instructions Indication:BMI 21.0-21.9, adult Start:24-Dec-2019 Instruction Type:Provider Instructions for Treatment How to access health informa tion online Indication:Urinary frequency Start:23-Aug-2018 Instruction Type:Patient Education How to access health informa tion online - Detail Indication:Urinary frequency Start:23-Aug-2018 Instruction Type:Patient Education Patient Instructions Indication:Urinary frequency Start:23-Aug-2018 Instruction Type:Provider Instructions for Treatment How to access health informa tion online Indication:Non-smoker Start:05-May-2018 Instruction Type:Patient Education How to access health informa tion online - Detail Indication:Non-smoker Start:05-May-2018 Instruction Type:Patient Education Patient Instructions Indication:Non-smoker Start:05-May-2018 Instruction Type:Provider Instructions for Treatment How to access health informa tion online Indication:Non-smoker Start:27-Feb-2018 Instruction Type:Patient Education How to access health informa tion online - Detail Indication:Non-smoker Start:27-Feb-2018 Instruction Type:Patient Education Patient Instructions Indication:Non-smoker Start:27-Feb-2018 Instruction Type:Provider Instructions for Treatment Name Dates Details How to access health informa tion online Indication:BMI 21.0-21.9, adult Start:24-Dec-2019 Instruction Type:Patient Education How to access health informa tion online - Detail Indication:BMI 21.0-21.9, adult Start:24-Dec-2019 Instruction Type:Patient Education Patient Instructions Indication:BMI 21.0-21.9, adult Start:24-Dec-2019 Instruction Type:Provider Instructions for Treatment How to access health informa tion online Indication:Urinary frequency Start:23-Aug-2018 Instruction Type:Patient Education How to access health informa tion online - Detail Indication:Urinary frequency Start:23-Aug-2018 Instruction Type:Patient Education Patient Instructions Indication:Urinary frequency Start:23-Aug-2018 Instruction Type:Provider Instructions for Treatment How to access health informa tion online Indication:Non-smoker Start:05-May-2018 Instruction Type:Patient Education How to access health informa tion online - Detail Indication:Non-smoker Start:05-May-2018 Instruction Type:Patient Education Patient Instructions Indication:Non-smoker Start:05-May-2018 Instruction Type:Provider Instructions for Treatment How to access health informa tion online Indication:Non-smoker Start:27-Feb-2018 Instruction Type:Patient Education How to access health informa tion online - Detail Indication:Non-smoker Start:27-Feb-2018 Instruction Type:Patient Education Patient Instructions Indication:Non-smoker Start:27-Feb-2018 Instruction Type:Provider Instructions for Treatment Name Dates Details Patient Instructions Indication:Non-smoker Start:05-Sep-2020 Instruction Type:Provider Instructions for Treatment How to Access Health Informa tion Online using Patient Portal and [employer] Apps Indication:Non-smoker Start:05-Sep-2020 Instruction Type:Patient Education How to Access Health Informa tion Online using Patient Portal and [employer] Apps Indication:Non-smoker Start:08-Aug-2020 Instruction Type:Patient Education Patient Instructions Indication:Non-smoker Start:08-Aug-2020 Instruction Type:Provider Instructions for Treatment Patient Instructions Indication:BMI 21.0-21.9, adult Start:05-Aug-2020 Instruction Type:Provider Instructions for Treatment How to Access Health Informa tion Online using Patient Portal and [employer] Apps Indication:BMI 21.0-21.9, adult Start:05-Aug-2020 Instruction Type:Patient Education How to access health informa tion online Indication:BMI 21.0-21.9, adult Start:24-Dec-2019 Instruction Type:Patient Education How to access health informa tion online - Detail Indication:BMI 21.0-21.9, adult Start:24-Dec-2019 Instruction Type:Patient Education Patient Instructions Indication:BMI 21.0-21.9, adult Start:24-Dec-2019 Instruction Type:Provider Instructions for Treatment How to access health informa tion online Indication:Urinary frequency Start:23-Aug-2018 Instruction Type:Patient Education How to access health informa tion online - Detail Indication:Urinary frequency Start:23-Aug-2018 Instruction Type:Patient Education Patient Instructions Indication:Urinary frequency Start:23-Aug-2018 Instruction Type:Provider Instructions for Treatment How to access health informa tion online Indication:Non-smoker Start:05-May-2018 Instruction Type:Patient Education How to access health informa tion online - Detail Indication:Non-smoker Start:05-May-2018 Instruction Type:Patient Education Patient Instructions Indication:Non-smoker Start:05-May-2018 Instruction Type:Provider Instructions for Treatment How to access health informa tion online Indication:Non-smoker Start:27-Feb-2018 Instruction Type:Patient Education How to access health informa tion online - Detail Indication:Non-smoker Start:27-Feb-2018 Instruction Type:Patient Education Patient Instructions Indication:Non-smoker Start:27-Feb-2018 Instruction Type:Provider Instructions for Treatment Name Dates Details Patient Instructions Indication:Non-smoker Start:05-Sep-2020 Instruction Type:Provider Instructions for Treatment How to Access Health Informa tion Online using Patient Portal and 3rd [employer] Apps Indication:Non-smoker Start:05-Sep-2020 Instruction Type:Patient Education How to Access Health Informa tion Online using Patient Portal and 3rd [employer] Apps Indication:Non-smoker Start:08-Aug-2020 Instruction Type:Patient Education Patient Instructions Indication:Non-smoker Start:08-Aug-2020 Instruction Type:Provider Instructions for Treatment Patient Instructions Indication:BMI 21.0-21.9, adult Start:05-Aug-2020 Instruction Type:Provider Instructions for Treatment How to Access Health Informa tion Online using Patient Portal and 3rd [employer] Apps Indication:BMI 21.0-21.9, adult Start:05-Aug-2020 Instruction Type:Patient Education How to access health informa tion online Indication:BMI 21.0-21.9, adult Start:24-Dec-2019 Instruction Type:Patient Education How to access health informa tion online - Detail Indication:BMI 21.0-21.9, adult Start:24-Dec-2019 Instruction Type:Patient Education Patient Instructions Indication:BMI 21.0-21.9, adult Start:24-Dec-2019 Instruction Type:Provider Instructions for Treatment How to access health informa tion online Indication:Urinary frequency Start:23-Aug-2018 Instruction Type:Patient Education How to access health informa tion online - Detail Indication:Urinary frequency Start:23-Aug-2018 Instruction Type:Patient Education Patient Instructions Indication:Urinary frequency Start:23-Aug-2018 Instruction Type:Provider Instructions for Treatment How to access health informa tion online Indication:Non-smoker Start:05-May-2018 Instruction Type:Patient Education How to access health informa tion online - Detail Indication:Non-smoker Start:05-May-2018 Instruction Type:Patient Education Patient Instructions Indication:Non-smoker Start:05-May-2018 Instruction Type:Provider Instructions for Treatment How to access health informa tion online Indication:Non-smoker Start:27-Feb-2018 Instruction Type:Patient Education How to access health informa tion online - Detail Indication:Non-smoker Start:27-Feb-2018 Instruction Type:Patient Education Patient Instructions Indication:Non-smoker Start:27-Feb-2018 Instruction Type:Provider Instructions for Treatment Name Dates Details Urinary frequency : How to a ccess health information online Indication:Urinary frequency Urinary frequency : How to a ccess health information online - Detail Indication:Urinary frequency Urinary frequency : Patient Instructions Indication:Urinary frequency Non-smoker : How to access h ealth information online Indication:Non-smoker Non-smoker : How to access h ealth information online - Detail Indication:Non-smoker Non-smoker : Patient Instruc tions Indication:Non-smoker Name Dates Details How to Access Health Informa tion Online using Patient Portal and 3rd [employer] Apps Indication:BMI 21.0-21.9, adult Start:03-Oct-2020 Instruction Type:Patient Education Patient Instructions Indication:BMI 21.0-21.9, adult Start:03-Oct-2020 Instruction Type:Provider Instructions for Treatment Patient Instructions Indication:Non-smoker Start:05-Sep-2020 Instruction Type:Provider Instructions for Treatment How to Access Health Informa tion Online using Patient Portal and 3rd [employer] Apps Indication:Non-smoker Start:05-Sep-2020 Instruction Type:Patient Education How to Access Health Informa tion Online using Patient Portal and [employer] Apps Indication:Non-smoker Start:08-Aug-2020 Instruction Type:Patient Education Patient Instructions Indication:Non-smoker Start:08-Aug-2020 Instruction Type:Provider Instructions for Treatment Patient Instructions Indication:BMI 21.0-21.9, adult Start:05-Aug-2020 Instruction Type:Provider Instructions for Treatment How to Access Health Informa tion Online using Patient Portal and 3rd [employer] Apps Indication:BMI 21.0-21.9, adult Start:05-Aug-2020 Instruction Type:Patient Education How to access health informa tion online Indication:BMI 21.0-21.9, adult Start:24-Dec-2019 Instruction Type:Patient Education How to access health informa tion online - Detail Indication:BMI 21.0-21.9, adult Start:24-Dec-2019 Instruction Type:Patient Education Patient Instructions Indication:BMI 21.0-21.9, adult Start:24-Dec-2019 Instruction Type:Provider Instructions for Treatment How to access health informa tion online Indication:Urinary frequency Start:23-Aug-2018 Instruction Type:Patient Education How to access health informa tion online - Detail Indication:Urinary frequency Start:23-Aug-2018 Instruction Type:Patient Education Patient Instructions Indication:Urinary frequency Start:23-Aug-2018 Instruction Type:Provider Instructions for Treatment How to access health informa tion online Indication:Non-smoker Start:05-May-2018 Instruction Type:Patient Education How to access health informa tion online - Detail Indication:Non-smoker Start:05-May-2018 Instruction Type:Patient Education Patient Instructions Indication:Non-smoker Start:05-May-2018 Instruction Type:Provider Instructions for Treatment How to access health informa tion online Indication:Non-smoker Start:27-Feb-2018 Instruction Type:Patient Education How to access health informa tion online - Detail Indication:Non-smoker Start:27-Feb-2018 Instruction Type:Patient Education Patient Instructions Indication:Non-smoker Start:27-Feb-2018 Instruction Type:Provider Instructions for Treatment Name Dates Details How to Access Health Informa tion Online using Patient Portal and 3rd [employer] Apps Indication:BMI 21.0-21.9, adult Start:03-Oct-2020 Instruction Type:Patient Education Patient Instructions Indication:BMI 21.0-21.9, adult Start:03-Oct-2020 Instruction Type:Provider Instructions for Treatment Patient Instructions Indication:Non-smoker Start:05-Sep-2020 Instruction Type:Provider Instructions for Treatment How to Access Health Informa tion Online using Patient Portal and 3rd Libert[employer] Apps Indication:Non-smoker Start:05-Sep-2020 Instruction Type:Patient Education How to Access Health Informa tion Online using Patient Portal and 3rd Libert[employer] Apps Indication:Non-smoker Start:08-Aug-2020 Instruction Type:Patient Education Patient Instructions Indication:Non-smoker Start:08-Aug-2020 Instruction Type:Provider Instructions for Treatment Patient Instructions Indication:BMI 21.0-21.9, adult Start:05-Aug-2020 Instruction Type:Provider Instructions for Treatment How to Access Health Informa tion Online using Patient Portal and 3rd [employer] Apps Indication:BMI 21.0-21.9, adult Start:05-Aug-2020 Instruction Type:Patient Education How to access health informa tion online Indication:BMI 21.0-21.9, adult Start:24-Dec-2019 Instruction Type:Patient Education How to access health informa tion online - Detail Indication:BMI 21.0-21.9, adult Start:24-Dec-2019 Instruction Type:Patient Education Patient Instructions Indication:BMI 21.0-21.9, adult Start:24-Dec-2019 Instruction Type:Provider Instructions for Treatment How to access health informa tion online Indication:Urinary frequency Start:23-Aug-2018 Instruction Type:Patient Education How to access health informa tion online - Detail Indication:Urinary frequency Start:23-Aug-2018 Instruction Type:Patient Education Patient Instructions Indication:Urinary frequency Start:23-Aug-2018 Instruction Type:Provider Instructions for Treatment How to access health informa tion online Indication:Non-smoker Start:05-May-2018 Instruction Type:Patient Education How to access health informa tion online - Detail Indication:Non-smoker Start:05-May-2018 Instruction Type:Patient Education Patient Instructions Indication:Non-smoker Start:05-May-2018 Instruction Type:Provider Instructions for Treatment How to access health informa tion online Indication:Non-smoker Start:27-Feb-2018 Instruction Type:Patient Education How to access health informa tion online - Detail Indication:Non-smoker Start:27-Feb-2018 Instruction Type:Patient Education Patient Instructions Indication:Non-smoker Start:27-Feb-2018 Instruction Type:Provider Instructions for Treatment Summary Purpose Family History No Family History Records FoundNo Family History Records FoundNo Family History Records FoundNo Family History Records Found Advance Directives Name Dates Details Immunization Registry [place] - Effective on 10/09/2020. Expiration date unspecified Effective:09-Oct-2020 Name Dates Details Immunization Registry [place] - Effective on 10/09/2020. Expiration date unspecified Effective:09-Oct-2020 Name Dates Details Immunization Registry [place] - Effective on 10/09/2020. Expiration date unspecified Effective:09-Oct-2020 Name Dates Details Immunization Registry [place] - Effective on 10/09/2020. Expiration date unspecified Effective:09-Oct-2020 Name Dates Details Immunization Registry [place] - Effective on 10/09/2020. Expiration date unspecified Effective:09-Oct-2020 Name Dates Details Immunization Registry [place] - Effective on 10/09/2020. Expiration date unspecified Effective:09-Oct-2020 Name Dates Details Immunization Registry [place] - Effective on 10/09/2020. Expiration date unspecified Effective:09-Oct-2020 Name Dates Details Immunization Registry [place] - Effective on 10/09/2020. Expiration date unspecified Effective:09-Oct-2020 Name Dates Details Immunization Registry [place] - Effective on 10/09/2020. Expiration date unspecified Effective:09-Oct-2020 Name Dates Details Immunization Registry [place] - Effective on 10/09/2020. Expiration date unspecified Effective:09-Oct-2020 Name Dates Details Immunization Registry [place] - Effective on 10/09/2020. Expiration date unspecified Effective:09-Oct-2020 Name Dates Details Immunization Registry [place] - Effective on 10/09/2020. Expiration date unspecified Effective:09-Oct-2020 Name Dates Details Immunization Registry [place] - Effective on 10/09/2020. Expiration date unspecified Effective:09-Oct-2020 Name Dates Details Immunization Registry [place] - Effective on 10/09/2020. Expiration date unspecified Effective:09-Oct-2020 Name Dates Details Immunization Registry [place] - Effective on 10/09/2020. Expiration date unspecified Effective:09-Oct-2020 Name Dates Details Immunization Registry [place] - Effective on 10/09/2020. Expiration date unspecified Effective:09-Oct-2020 Name Dates Details Immunization Registry [place] - Effective on 10/09/2020. Expiration date unspecified Effective:09-Oct-2020 Name Dates Details Immunization Registry [place] - Effective on 10/09/2020. Expiration date unspecified Effective:09-Oct-2020 Name Dates Details Immunization Registry [place] - Effective on 10/09/2020. Expiration date unspecified Effective:09-Oct-2020 Name Dates Details Immunization Registry [place] - Effective on 10/09/2020. Expiration date unspecified Effective:09-Oct-2020 Name Dates Details Immunization Registry [place] - Effective on 10/09/2020. Expiration date unspecified Effective:09-Oct-2020 Name Dates Details Immunization Registry [place] - Effective on 10/09/2020. Expiration date unspecified Effective:09-Oct-2020 Name Dates Details Immunization Registry [place] - Effective on 10/09/2020. Expiration date unspecified Effective:09-Oct-2020 Name Dates Details Immunization Registry [place] - Effective on 10/09/2020. Expiration date unspecified Effective:09-Oct-2020 Name Dates Details Immunization Registry [place] - Effective on 10/09/2020. Expiration date unspecified Effective:09-Oct-2020 Name Dates Details Immunization Registry [place] - Effective on 10/09/2020. Expiration date unspecified Effective:09-Oct-2020 Name Dates Details Immunization Registry [place] - Effective on 10/09/2020. Expiration date unspecified Effective:09-Oct-2020 Name Dates Details Immunization Registry [place] - Effective on 10/09/2020. Expiration date unspecified Effective:09-Oct-2020 Name Dates Details Immunization Registry [place] - Effective on 10/09/2020. Expiration date unspecified Effective:09-Oct-2020 Name Dates Details Immunization Registry [place] - Effective on 10/09/2020. Expiration date unspecified Effective:09-Oct-2020 Name Dates Details Immunization Registry [place] - Effective on 10/09/2020. Expiration date unspecified Effective:09-Oct-2020 Name Dates Details Immunization Registry [place] - Effective on 10/09/2020. Expiration date unspecified Effective:09-Oct-2020 Name Dates Details Immunization Registry [place] - Effective on 10/09/2020. Expiration date unspecified Effective:09-Oct-2020 Name Dates Details Immunization Registry [place] - Effective on 10/09/2020. Expiration date unspecified Effective:09-Oct-2020 Name Dates Details Immunization Registry [place] - Effective on 10/09/2020. Expiration date unspecified Effective:09-Oct-2020 Name Dates Details Immunization Registry [place] - Effective on 10/09/2020. Expiration date unspecified Effective:09-Oct-2020 Name Dates Details Immunization Registry [place] - Effective on 10/09/2020. Expiration date unspecified Effective:09-Oct-2020 Name Dates Details Immunization Registry [place] - Effective on 10/09/2020. Expiration date unspecified Effective:09-Oct-2020 Additional Source Comments INFORMATION SOURCE (unrecogn ized section and content) DATE CREATED AUTHOR AUTHOR'S ORGANIZ ATION 02/12/2022 [facility] DATE CREATED AUTHOR AUTHOR'S ORGANIZ ATION 09/23/2022 [facility] DATE CREATED AUTHOR AUTHOR'S ORGANIZ ATION 11/23/2022 [facility] Source Comments (unrecognize d section and content) In the event this informatio n is protected by the Federal Confidentiality of Alcohol and Drug Abuse Patient Records regulations: The Federal rules restrict any use of the information to criminally investigate or prosecute any alcohol or drug abuse patient[facility] the event this information is protected by the Federal Confidentiality of Alcohol and Drug Abuse Patient Records regulations: The Federal rules restrict any use of the information to criminally investigate or prosecute any alcohol or drug abuse patient[facility] Reason for Visit (unrecogniz ed section and content) Reason Comments Patient Question REQUESTING MEDICAL V ACCINE RECORDS FROM FORMERLY [facility] FOR RECORDS PERTAINING TO PATIENTS WHO ARE OR HAVE BEEN ENROLLED IN A CHEMICAL DEPENDENCY/SUBSTANCEABUSE PROGRAM, SOME INFORMATION MAY BE OMITTED. This clinical summary was aggregated from multiple sources. Caution should be exercised in using it in the provision of clinical care. This summary normalizes information from multiple sources, and as a consequence, information in this document may materially change the coding, format and clinical context of patient data. In addition, data may be omitted in some cases. CLINICAL DECISIONS SHOULD BE BASED ON THE PRIMARY CLINICAL RECORDS. [facility] [employer] [facility]. provides no warranty or guarantee of the accuracy or completeness of information in this document.
== END 2023-07-10 10:34 | disposition home or self-care (01) ==
LOC: ED 10:27
PROVIDERS: Emergency Provider Emergency Medicine; PCP Internal Medicine; Visit Provider Emergency Medicine
DX: S61.452A Open bite of left hand, initial encounter (principal); W55.01XA Bitten by cat, initial encounter; F98.8 Other specified behavioral and emotional disorders with onset usually occurring in childhood and adolescence; Z79.899 Other long term (current) drug therapy; F41.9 Anxiety disorder, unspecified
CPT/HCPCS: 99283

== ENCOUNTER → 2023-10-15 | Outpatient (CLI) | payer OTHER, SELFPAY ==
[2023-10-18 22:06] LABS: QNTFERON TB Mitogen Value > 10.00 IU/mL (.); QNTFERON TB Nil Value 0.01 IU/mL (.); QNTFERON TB1+ Ag Value 0.02 IU/mL (.); QNTFERON TB2+ Ag Value 0.01 IU/mL (.); QNTIFERON TB Positive Criteria Negative (Negative)
== END | disposition home or self-care (01) ==
LOC: LAB 10:15
PROVIDERS: PCP Internal Medicine; Referring Provider Internal Medicine; Visit Provider Internal Medicine
DX: Z11.1 Encounter for screening for respiratory tuberculosis (principal)
CPT/HCPCS: 36415; 86480

== ENCOUNTER → 2023-12-16 | Outpatient (CLI) | payer OTHER, SELFPAY | END | disposition home or self-care (01) | LOC: EMPH 12-24 07:50 | PROVIDERS: PCP Internal Medicine; Visit Provider Family Medicine Geriatric Medicine | DX: Z03.818 Encounter for observation for suspected exposure to other biological agents ruled out (principal) | CPT/HCPCS: 87811 ==

== ENCOUNTER → 2024-02-24 | Outpatient (CLI) | payer OTHER, SELFPAY ==
--- NOTE | 2024-02-24 14:20 | US_ITS ---
INDICATION: IUD placement EXAMINATION: Ultrasound US Pelvis Non OB Complete With Transvaginal Imaging TECHNIQUE: Transabdominal and transvaginal pelvic ultrasound was performed. Grayscale, spectral waveform, and color flow Doppler evaluation of the adnexa. COMPARISON: FINDINGS: UTERUS: Anteverted. The uterus measures 10.0 x 4.0 cm. There is no uterine mass. The endometrial stripe measures 3.5 to 4.6 mm in AP diameter with an IUD in place. Nabothian cysts. RIGHT OVARY: 3.1 x 3.2 x 1.6 cm. Non-enlarged, normal echogenicity. There is normal arterial inflow and venous outflow present in the right ovary. LEFT OVARY: 3.0 x 2.2 x 1.7 cm. Non-enlarged, normal echogenicity. There is normal arterial inflow and venous outflow present in the left ovary. Left adnexal prominent vascularity. FREE FLUID: None. US/Pelvic w/ Transvaginal IMPRESSION: Nabothian cysts. IUD in place. Electronically Signed: Jaspreet Rivas DO at 21:52 EDT Reading Location ID and State: [facility] / [place] Tel [phone], Service support ,
== END | disposition home or self-care (01) ==
LOC: OPUS 14:19
PROVIDERS: PCP Internal Medicine; Referring Provider Nurse Practitioner Women's Health; Visit Provider Nurse Practitioner Women's Health
DX: N92.1 Excessive and frequent menstruation with irregular cycle (principal); Z97.5 Presence of (intrauterine) contraceptive device
CPT/HCPCS: 76830; 76856

== ENCOUNTER → 2024-07-20 | Outpatient (CLI) | payer OTHER, SELFPAY ==
--- NOTE | 2024-07-20 12:34 | RAD_ITS ---
STUDY: X-RAY CHEST REASON FOR EXAM: Female, 28 years old. Persistent cough with fever TECHNIQUE: PA and lateral views of the chest. COMPARISON: None. FINDINGS: Right lower lobe infiltration. There is no demonstrated pleural abnormality. Normal size heart. Normal mediastinum and isabell. Normal visualized pulmonary arteries. Normal visualized aortic arch and descending thoracic aorta. Normal visualized thoracic spine. Normal visualized ribs, clavicles, and shoulders. There is no demonstrated abnormality of the visualized soft tissue structures of the upper abdomen. RAD/Chest PA and Lateral IMPRESSION: Right lower lobe infiltration. Follow-up recommended. Electronically Signed: Rod Mina MD at 13:11 EST ,
== END | disposition home or self-care (01) ==
PROVIDERS: PCP Internal Medicine; Referring Provider Physician Assistant Surgical; Visit Provider Physician Assistant Surgical
DX: J20.9 Acute bronchitis, unspecified (principal)
CPT/HCPCS: 71046

== ENCOUNTER 2024-12-21 16:43 | Emergency (ER) | payer OTHER, SELFPAY ==
[2024-12-21 16:44] VITALS: BP 126/78; PULSE 54; RESP 14; TEMP 36.4; O2SAT 100; BMI 21.8
--- NOTE | 2024-12-21 16:53 | EX.ED.DYSGE1 ---
HPI History of Present Illness Chief Complaint: Flank Pain Informant: patient Onset/Context/Timing Onset: Today Context: Sudden Onset Timing: Continuous Quality: Sharp, stabbing Location: Left lower abdomen Worsened by: Nothing Relieved by: Tylenol Narrative Narrative: Patient presents with left-sided abdominal pain that began today. Patient states it began rather suddenly. Patient states it feels similar to prior kidney stone. Patient describes it as sharp and stabbing. Patient states she took Tylenol which helped for approximately 1 hour. Patient states that it came back shortly after that. Patient states nothing makes it worse. Patient admits to some nausea and vomiting. Patient also admits to some subjective chills and sweats. Patient admits to some neck pain but denies any back pain. Prior similar symptoms: Yes (Prior kidney stone) PFSH PFSH Medical History ADD (attention deficit disorder) Anxiety Home Medications ?Medication ?Instructions ?Recorded ?Last Taken ?Type citalopram 20 mg tablet (Celexa) 30 mg PO DAILY 06/24/21 Unknown History lisdexamfetamine 30 mg capsule 30 mg PO DAILY 06/24/21 Unknown History (Vyvanse) levonorgestrel 20.4 mcg/24 hr (up 1 device intrauterine ONCE 11/18/21 Unknown History to 8 yrs) 52 mg intrauterine device (Liletta) azithromycin 250 mg tablet See Rx Instructions PO .COMPLEX #6 07/20/24 Unknown Rx tabs hydrocodone-acetaminophen 5-325mg 1 tab PO Q6H PRN PRN Pain 3 days 12/21/24 Unknown Rx 5mg-325mg #10 TABLETS Allergy/AdvReac Type Severity Reaction Status Date / Time No Known Allergies Allergy Verified 12/21/24 16:46 Family History Mother Diabetes Congestive heart failure Renal failure Father Narcolepsy Grandmother Kidney disease Grandfather Heart disease Alzheimer disease Surgical History labioplasty Social History current occupational status: student current occupation: [employer] Smoking Status: Never smoker alcohol intake: never substance use type: does not use caffeine: Yes what type of physical activity do you participate in: walking and aerobics frequency: 5-6 times per week seatbelt use: always do you feel safe at home: Yes additional social history: - [employer] and [employer] ROS ROS ED Constitutional Constitutional ED: Reports chills, subjective and sweats; Denies fever(s) Eyes Eyes: Denies blurry vision or change in vision ENT ENT ED: Denies rhinorrhea or sore throat Cardiovascular Cardiovascular: Denies chest pain or palpitations Respiratory/Chest Respiratory/Chest: Denies cough or dyspnea Gastrointestinal Gastrointestinal: Reports nausea and vomiting Genitourinary Genitourinary ED: Denies dysuria or hematuria Musculoskeletal Musculoskeletal: Reports neck pain; Denies back pain Integumentary Denies abscess or rash Neurologic Neurologic: Denies headache(s) or weakness Allergic/Immunologic Allergic/Immunologic ED: Denies mouth swelling or urticaria EXAM Physical Exam Const Vital Signs: 12/21/24 16:44 Temperature 97.5 F L Temperature Source Oral Pulse Rate 54 L Respiratory Rate 14 Blood Pressure 126/78 H Blood Pressure Mean 94 Pulse Ox 100 Oxygen Delivery Method Room Air Positive well nourished and well developed General Appearance ED: well developed and NAD HEENT Reports moist mucous membranes Neck supple and no JVD Resp normal respiratory effort and clear to auscultation bilaterally Cardio regular rate and regular rhythm GI non-distended Palpation: soft and tender LLQ, LUQ and suprapubic; Negative for guarding or rebound tenderness present Extremity General Extremety ED: Negative for edema or tenderness General Extremity: Negative for edema Neuro oriented x3, CN's II-XII intact bilaterally and no sensory deficits noted Sensorium / Orientation: alert Motor Exam: strength 5/5 throughout Psych mental status grossly normal MDM MDM MDM Narrative Medical decision making narrative: Differential diagnosis includes ureteral calculus, urinary tract infection, pyelonephritis, diverticulitis, bowel obstruction, and perforation. CBC will be obtained to assess for leukocytosis and anemia. Basic metabolic profile will be obtained to assess for electrolyte abnormality and renal function. Urinalysis will be obtained to assess for urinary tract infection and hematuria. Serum hCG will be obtained to assess for . CT scan of the abdomen and pelvis will be obtained to assess for ureteral calculus, diverticulitis, and pyelonephritis. History & Record Review Additional record(s) reviewed:: Prior outpatient record, Prior ED visit and Prior labs Lab Data Attestation: I reviewed the patient's lab results. Lab results narrative: CBC was reviewed. There is a mild leukocytosis of 12.6. The remainder is within normal limits. Basic metabolic profile was reviewed and was within normal limits. Serum hCG was reviewed and was negative. Urinalysis was reviewed. Occult blood was 250 with greater than 100 red blood cells. There is no evidence of urinary tract infection. Labs: Laboratory Results - last 24 hr 12/21/24 12/21/24 17:00 17:30 WBC 12.6 H RBC 4.67 Hgb 13.9 Hct 40.8 MCV 87.4 MCH 29.8 MCHC 34.1 RDW Std Deviation 38.8 RDW Coeff of [place] 12.0 Plt Count 267 MPV 10.5 Immature Gran % (Auto) 0.500 Neut % (Auto) 88.7 H Lymph % (Auto) 7.1 L [place] % (Auto) 3.2 Eos % (Auto) 0.3 Baso % (Auto) 0.2 Absolute Neuts (auto) 11.2 H Absolute Lymphs (auto) 0.90 Nucleated RBC % 0 Sodium 138 Potassium 3.9 Chloride 102 Carbon Dioxide 22.9 Anion Gap 13 BUN 14 Creatinine 0.84 Estim Creat Clear Calc 85.33 Est GFR (MDRD) Non-Af 97 BUN/Creatinine Ratio 16.2 Glucose 119 H Calcium 9.4 Serum , Qual NEGATIVE Urine Color Yellow Urine Clarity Cloudy Urine pH 6.0 Ur Specific [place] 1.020 Urine Protein 30 H Urine Glucose (UA) Normal Urine Ketones 50 H Urine Occult Blood 250 H Urine Nitrite Negative Urine Bilirubin Negative Urine Urobilinogen Normal Ur Leukocyte Esterase Negative Urine RBC > 100 SEEN Urine WBC 0-5 SEEN Ur Squamous Epith Cells 5-10 SEEN Urine Bacteria RARE Urine Mucus 0 SEEN Radiography Diagnostic Testing: Clinical Impression(s) from Imaging Studies Abdomen/Pelvis CT 12/21/24 17:09 IMPRESSION: 1. Obstructing stone within the left ureterovesical junction. 2. Mild hepatomegaly. Reading Location: [facility] CT scan of the abdomen and pelvis was obtained. There is a 5 mm ureteral calculus at the left ureterovesicular junction with moderate hydronephrosis and hydroureter. This was interpreted by the radiologist and was also independently reviewed by myself. Treatment and Re-Evaluation :: Patient was given IV fluids, morphine, and Zofran. Patient was given a dose of Toradol. Patient was advised of her findings. Patient was instructed to drink plenty of fluids. Patient is given a prescription for [place] to take as needed for pain. Patient was instructed to follow-up with her primary care physician and urologist in 3 to 5 days. Patient was instructed to return if worse in any way. Patient understood and was agreeable with the plan. All questions were answered. Discharge Plan Triage Chief Complaint: Flank Pain ED Provider: Darrick Ford Dx/Rx/DC Orders Clinical Impression: Calculus of distal left ureter, Left lower quadrant abdominal pain Instructions: ED Kidney Stone with Pain Prescriptions: New hydrocodone-acetaminophen 5-325 mg tablet 1 tab PO Q6H PRN PRN (Reason: Pain) 3 Days Qty: 10 0RF No Action citalopram [Celexa] 20 mg tablet 30 mg PO DAILY Vyvanse 30 mg capsule 30 mg PO DAILY Liletta 20.1 mcg/24 hrs (6 yrs) 52 mg intrauterine device 1 device intrauterine ONCE Rx Instructions: as a single dose azithromycin 250 mg tablet See Rx Instructions PO .COMPLEX Qty: 6 0RF Rx Instructions: take 500 mg today (day 1), then 250 mg for 4 days (days 2-5) PO Primary Care Provider: Zeinab William Referrals: Gena Izaguirre MD [Med Staff - Active Staff] - 3-5 Days Zeinab William DO [Primary Care Provider] - 3-5 Days Print Language: Sami Disposition Disposition: Home, Self Care
--- NOTE | 2024-12-21 17:09 | CT_ITS ---
PROCEDURE: ABDOMEN/PELVIS WITHOUT CONT 12/21/2024 REASON FOR EXAM: LEFT FLANK PAIN TECHNIQUE: ABDOMEN/PELVIS WITHOUT CONT Noncontrast technique limits evaluation of the abdominal and pelvic viscera. Coronal and Sagittal reconstruction series were provided. One or more dose reduction techniques were used (e.g., Automated exposure control, adjustment of the mA and/or kV according to patient size, use of iterative reconstruction technique). ORAL CONTRAST TYPE: None. COMPARISON: CT abdomen pelvis 07/01/2022. FINDINGS: Lung bases: Unremarkable. Liver: Mild hepatomegaly. No biliary ductal dilation. Gallbladder: No radiopaque stones within the gallbladder. Spleen: Normal in size. Pancreas: The unopacified pancreas is unremarkable. Adrenals: No adrenal mass. Kidneys: Persistent punctate bilateral renal calculi. Obstructing stone within the left ureterovesical junction measuring approximately 0.5 cm (series 2, image 148). Moderate left hydroureteronephrosis. No right hydronephrosis. Bladder: Decompressed. Reproductive Organs: An IUD is present. Adnexal regions are unremarkable. Bowel: The bowel loops are nondilated. No ascites or pneumoperitoneum. Normal appendix. Lymph nodes: Visualization is limited without the use of IV contrast. No lymphadenopathy. Vasculature: The abdominal aorta and IVC contours are normal. Noncontrast technique limits evaluation. Bones: Unremarkable. CT/Abdomen/Pelvis without Cont IMPRESSION: 1. Obstructing stone within the left ureterovesical junction. 2. Mild hepatomegaly. Reading Location: [id number]
[2024-12-21] MEDS: Ondansetron 4 MG/2 ML Vial IV (17:15)
[2024-12-21] MEDS: Morphine 4 MG/ML Syringe IV (17:15)
[2024-12-21] MEDS: 0.9% Normal Saline (1000mL) 1,000 ML 1000 ML IV (17:16)
[2024-12-21 17:38] LABS: Mucous, Urine 0 SEEN /hpf (<or=2+)
[2024-12-21 17:44] LABS: Absolute Neutrophil Count 11.2 X10^3/uL (2.0-7.7); Basophil# 0.03 X10^3/uL; Basophil% 0.2 % (0-1); Eosinophil# 0.04 X10^3/uL; Eosinophils% 0.3 % (0-5); Hematocrit 40.8 % (37-47); Hemoglobin 13.9 g/dL (12.0-15.0); Lymphocyte % 7.1 % (19-41); Mean Corp Hgb Conc 34.1 g/dL (32-36); Mean Corpuscular Hgb 29.8 pg (27.0-32.0); Mean Corpuscular Volume 87.4 fL (81-99); Mean Platelet Vol. 10.5 fl (6.2-12.0); Monocyte% 3.2 % (0-10); NRBC Flagged by Analyzer 0 % (0-5); Neutrophil % 88.7 % (47-70); Platelet Count 267 K/mm3 (150-450); RBC Distribution Width SD 38.8 fl (35.1-43.9); Red Blood Count 4.67 M/mm3 (4.2-5.4); White Blood Count 12.6 K/mm3 (4.4-11.0)
[2024-12-21 17:46] LABS: Anion Gap 13 (5-15); BUN 14 mg/dL (4-19); BUN/Creat Ratio 16.2 RATIO (10-20); Calcium,Total 9.4 mg/dL (7.6-11.0); Carbon Dioxide 22.9 mmol/L (21.0-32.0); Chloride 102 mmol/L (98-108); Creatinine, Serum 0.84 mg/dL (0.70-1.20); EST Glomerular Filtration Rate 97 (>60); Estimated Creatinine Clearance 85.33 ml/min (50-250); Glucose 119 mg/dL (70-99); Potassium 3.9 mmol/L (3.3-5.1); Sodium Level 138 mmol/L (133-145)
[2024-12-21 18:07] LABS: Color, Urine Yellow (Yellow); Glucose, Dipstick Normal (Normal); Ketone-Dipstick 50 mg/dl (Negative); Leukocyte Esterase-Dipstick Negative /ul (Negative); Nitrite-Dipstick Negative (Negative); Occult Blood-Urine 250 /ul (Negative); Protein-Dipstick 30 mg/dl (Negative); Urine Bilirubin Dipstick Negative (Negative); Urine Clarity Cloudy (Clear); Urine Urobilinogen Normal (Normal)
[2024-12-21 18:21] LABS: Internal QC Validated? YES +Cl - CLEAR BKGD; Pregnancy, Serum, hCG Quali. NEGATIVE Negative; Record Kit Lot#, Serum Preg. 947241
[2024-12-21 18:43] VITALS: BP 114/80; PULSE 55; RESP 15; O2SAT 100
[2024-12-21 18:54] LABS: Red Blood Cells-Urine > 100 SEEN /hpf (0-5)
[2024-12-21 18:55] LABS: Squamous Epithelial Cells - UA 5-10 SEEN /hpf (5-10)
[2024-12-21 18:56] LABS: Bacteria RARE /hpf (None Seen); White Blood Cells 0-5 SEEN /hpf (0-5)
[2024-12-21] MEDS: Ketorolac 30 MG/ML Syringe IV (19:01)
[2024-12-21 20:14] VITALS: BP 120/81; PULSE 70; RESP 16; TEMP 36.6; O2SAT 100
== END 2024-12-21 20:35 | disposition home or self-care (01) ==
PROVIDERS: Emergency Provider Emergency Medicine; PCP Internal Medicine; Visit Provider Emergency Medicine
DX: N20.1 Calculus of ureter (principal); R11.2 Nausea with vomiting, unspecified; R10.32 Left lower quadrant pain; M54.2 Cervicalgia; F98.8 Other specified behavioral and emotional disorders with onset usually occurring in childhood and adolescence
CPT/HCPCS: 74176; 80048; 81001; 84703; 85025; 96361; 96374; 96375; 99283; A4216; J2405

== ENCOUNTER → 2025-04-30 | Outpatient (CLI) | payer OTHER, SELFPAY ==
--- OUTSIDE RECORDS SUMMARY | 2025-04-30 07:10 | XMS RPT_ITS | CCD ---
Author Organization [facility] Care Team Providers Care Commercial Door Installer Name Role Phone Zeinab William Unavailable Amira Owen Unavailable Gravius, Apryl Unavailable Unavailable Unavailable Unavailable Zeinab William Unavailable Amira Owen Unavailable [phone] Diamante Guerrero Unavailable Unavailable Gravius, Apryl Unavailable Unavailable Unavailable Unavailable Gena Izaguirre Unavailable Gravius, Apryl Unavailable Unavailable Amira Owen Unavailable [phone] Ilda Echavarria Unavailable Unavailable Oscar Heredia Unavailable Unavailable Danica Olguin Unavailable Unavailable Oscar Pereira Unavailable Unavailable Zeinab William DO Unavailable Amira Owen Unavailable Gena Izaguirre Unavailable Ilda Echavarria LPN Unavailable Unavailable Oscar Heredia LPN Unavailable Unavailable Ciesa MOTORCOACH DRIVER, Marely Unavailable Gravius ENTRY LEVEL FINANCE, Apryl Unavailable Unavailable Unavailable Unavailable Diandra Manley Unavailable SILVANA Walters LPN Unavailable Unavailable Odell HUBBARD, Tessa Yip Unavailable [phone] Manchak ENTRY LEVEL FINANCE, Sommer Unavailable Unavailable Unavailable Unavailable Slanai ALEJANDRA, Bernadette Unavailable Unavailable Stewart DO, Zeinab Unavailable Clau BALLOON DESIGN PRINTER, Danica Unavailable Unavailable Betsy Herring Unavailable DeysiaBetsy Unavailable Jennifer Wright MA Unavailable Unavailable Tessa Bain MD Unavailable Mohan EID, Víctor Unavailable Unavailable Unavailable Primary Care Provider UnavailDr. Zeinab Penn Primary Care Provider [phone] Dr. Zeinab William Referring Provider Ignacia AIRCRAFT MAINTENANCE MANAGER, AIRCRAFT MAINTENANCE MANAGER-C Yenifer Attending Provider Unavailable Unavailable Zeinab William DO Attending Unavailable Zeinab William DO Referring Unavailable Zeinab William DO Consulting Unavailable Geovanni BALLOON DESIGN PRINTER, Vidal Unavailable Unavailable Gabriel DAO Kymberly Unavailable Unavailable Unavailable Unavailable Dr. Zeinab William Primary Care Provider [phone] Dr. Zeinab William Referring Provider EDGARDO Vasquez Attending Provider Dr. Zeinab William DO Primary Care Provider Dr. Darrick Ford DO Emergency Provider Dr. Tessa Bain MD Other Provider Dr. Darrick Ford DO Attending Provider Dr. Gena Izaguirre MD Attending Provider Nino HUBBARD, Gerber Sandoval Attending Provider Unavailable Gerber Oneill MD, Chi Referring Provider Unavailable Dr. Zeinab William DO Primary Care Physician Dr. Darrick Ford DO Attending Physician Dr. Darrick Ford DO Emergency Department Physi sabiha Dr. Tessa Bain MD Nurse Practitioner Dr. Gena Izaguirre MD Attending Physician Nino HUBBARD, Gerber Sandoval Attending Physician Unavailable Dr. Zeinab William DO Referring Provider Dr. Leticia Patel DO Attending Physician Stewart, Zeinab Referring Unavailable Venkat Vasquez Attending Unavailable Stewart, Zeinab Primary Care Unavailable Stewart, Zeinab Primary Care Unavailable Nino OLS, Gerber Chi Attending Unavailable Nino OLS, Gerber Chi Referring Unavailable Stewart, Zeinab Primary Care Unavailable Nino OLS, Gerber Chi Attending Unavailable Stewart, Zeinab Primary Care Unavailable Assessment, Health Risk Attending Unavaila ble Assessment, Health Risk Referring Unavaila ble Nino OLS, Gerber Chi Referring Unavailable Nino OLS, Gerber Chi Attending Unavailable Stewart, Zeinab Primary Care Unavailable Stewart, Zeinab Primary Care Unavailable Vishnu REYNOSO, Venkat Attending Unavailable Venkat Vasquez Referring Unavailable Stewart, Zeinab Primary Care Unavailable Darrick Ford Attending Unavailable Tessa Bain Consulting Unavailable Nino OLS, Gerber Chi Referring Unavailable Nino OLS, Gerber Chi Attending Unavailable Stewart, Zeinab Primary Care Unavailable Nino OLS, Gerber Chi Attending Unavailable Stewart, Zeinab Primary Care Unavailable Nino OLS, Gerber Chi Referring Unavailable Stewart, Zeinab Referring Unavailable Luis Gardner Attending Unavailable Stewart, Zeinab Primary Care Unavailable Stewart, Zeinab Primary Care Unavailable Leticia Patel Attending Unavailabl e Stewart, Zeinab Referring Unavailable Medications Current Medications Medication Drug Class(es) Dates Sig (Normalized) Sig (Original) levonorgestrel 0.842449 mg/hr intrauterine system (9 sources) Progestin, Progestin-containi ng Intrauterine Device Start: 11-18-2021 Levonorgestrel (Liletta) 20.1 mcg/24 hrs (6 yrs) 52 mg intrauterine device Active 1 NMA INTRA-UTER ONCE November 18, 2021 12:00am as a single dose Complies with drug therapy Start: 11-18-2021 Levonorgestrel (Liletta) 20.1 mcg/24 hrs (6 yrs) 52 mg intrauterine device Active 1 DEVICE INTRA-UTER ONCE November 18, 2021 12:00am as a single dose Completed/Discontinued Medications Medication Drug Class(es) Dates Sig (Normalized) Sig (Original) acetaminophen 325 mg / HYDROcodone bitartrate 5 mg oral tablet (12 sources) Opioid Agonist Start: 12-21-2024 End: 04-01-2025 Hydrocodone-Acetami nophen 5-325 mg tablet Discontinued 1 {tbl} PO EVERY 6 HOURS NEEDED as needed for Pain 10 3 0 December 21, 2024 April 01, 2025 9:26am Calculus of distal left ureter Calculus of ureter Start: 10-05-2018 End: 10-08-2018 Hydrocodone-Acetaminophen 1 TABLET tablet Discontinued 1 {tbl} PO EVERY 6 HOURS NEEDED as needed for Pain 10 3 0 October 05, 2018 12:00am October 07, 2018 12:00am October 08, 2018 12:09am 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 Crohn's disease of small intestine without complications Start: 10-05-2018 End: 10-08-2018 take 1 tablet by mouth every six hours as needed Hydrocodone-Acetaminophen Discontinued 1 TABLET PO EVERY 6 HOURS NEEDED 10 3 October 05, 2018 12:00am October 08, 2018 12:09am acetaminophen 325 mg / oxyCODONE hydrochloride 5 mg oral tablet (9 sources) Opioid Agonist Start: 04-13-2018 End: 04-13-2018 Oxycodone-Acetaminophen (Percocet) 5-325 mg tablet Discontinued 1 {tbl} PO ONCE as needed for pain 15 0 April 13, 2018 April 13, 2018 11:13am Start: 04-13-2018 End: 04-13-2018 Oxycodone-Acetaminophen (Per cocet) 5-325 mg tablet Discontinued 1 {tbl} PO ONCE as needed for pain 15 0 April 13, 2018 April 13, 2018 11:13am Start: 04-13-2018 End: 04-13-2018 Oxycodone-Acetaminophen (Per cocet) 5-325 mg tablet Discontinued 1 {tbl} PO ONCE as needed for pain April 13, 2018 April 13, 2018 11:13am Start: 04-13-2018 End: 04-13-2018 take 1 tablet by mouth once Oxycodone-Acetaminophen (Percocet) 5-325 mg tablet Discontinued 1 TABLET PO ONCE April 13, 2018 April 13, 2018 11:13am Start: 04-13-2018 End: 04-13-2018 take 1 tablet by mouth once Oxycodone-Acetaminophen (Percocet) 5-325 mg tablet Discontinued 1 TABLET PO ONCE April 13, 2018 April 13, 2018 10:13am Start: 04-13-2018 End: 04-13-2018 take 1 tablet by mouth once Oxycodone-Acetaminophen (Percocet) 5-325 mg tablet Discontinued 1 TABLET PO ONCE April 13, 2018 April 13, 2018 10:13am Start: 04-13-2018 End: 04-13-2018 take 1 tablet by mouth once Oxycodone-Acetaminophen (Percocet) 5-325 mg tablet Discontinued 1 TABLET PO ONCE April 13, 2018 April 13, 2018 11:13am Start: 04-13-2018 End: 04-13-2018 take 1 tablet by mouth once Oxycodone-Acetaminophen (Percocet) 5-325 mg tablet Discontinued 1 TABLET PO ONCE April 13, 2018 April 13, 2018 10:13am Start: 04-13-2018 End: 04-13-2018 take 1 tablet by mouth once Oxycodone-Acetaminophen (Percocet) 5-325 mg tablet Discontinued 1 TABLET PO ONCE April 13, 2018 April 13, 2018 10:13am amoxicillin 875 mg / clavulanate 125 mg oral tablet (9 sources) Penicillin-class Antibacterial Start: 07-10-2023 End: 07-30-2024 Amoxicillin-Pot Clavulanate 875-125 mg tablet Discontinued 1 {tbl} PO Q12H 20 10 0 July 20, 2024 1:00am July 29, 2024 1:00am July 30, 2024 1:10am Acute sinusitis, unspecified ascorbic acid 60 mg / beta carotene 5000 unt / copper sulfate 40 mg / dl-alpha tocopheryl acetate 30 unt / sodium selenite 0.04 mg / zinc oxide 40 mg oral tablet (14 sources) Vitamin C Multivitamin Ramsey lt Oral Tablet daily Active azithromycin 250 mg oral tablet (3 sources) Macrolide Antimicrobial Start: 07-20-2024 End: 04-01-2025 take 2-5 tablets by mouth once daily Azithromycin 250 mg tablet Discontinued 0 PO .COMPLEX 6 0 July 20, 2024 1:00am April 01, 2025 9:26am take 500 mg today (day 1), then 250 mg for 4 days (days 2-5) PO busPIRone hydrochloride 15 mg oral tablet (20 sources) Start: 2020 End: 09-05-2020 take 2 tablets by mouth at bedtime busPIRone HCl 15 MG Oral Tablet 2 (two) Tablet at bedtime for 90 days Quantity: 90 {Tablet} Refills: 3 Ordered: 05-Sep-2020 Danica Olguin LPN Start : 08-Aug-2020 End : 05-Sep-2020 Inactive Start: 03-31-2020 take 1 tablet by gloria th twice daily busPIRone HCl 15 MG Oral Tablet 1 (one) Tablet bid for 90 days Quantity: 90 {Tablet} Refills: 3 Ordered: 31-Mar-2020 Zeinab William DO, DO, Kathleen Start : 31-Mar-2020 Active Start: 11-23-2019 End: 09-08-2020 take 1 tablet by mouth once daily Buspirone 15 MG tablet Discontinued 15 mg PO DAILY November 23, 2019 12:00am September 08, 2020 5:08pm Start: 11-22-2019 take 1 tablet by gloria th twice daily busPIRone HCl 15 MG Oral Tablet 1 (one) Tablet bid for 0 days Quantity: 60 {Tablet} Refills: 3 Ordered: 22-Nov-2019 Zeinab William DO, DO, Kathleen Start : 22-Nov-2019 Active cephalexin 500 mg oral capsule (9 sources) Cephalosporin Antibacterial Start: 05-09-2019 End: 07-26-2019 take 1 capsule by mouth every six hours Cephalexin 500 MG capsule Discontinued 500 mg PO EVERY 6 HOURS 40 May 09, 2019 12:00am July 26, 2019 2:18pm Cholecalciferol (20 sources) Vitamin D Vitamin D daily Inactive Comments: 4000u Vitamin D daily Active Comments: 4000u Comment on above: 4000u ciprofloxacin 500 mg oral tablet (20 sources) Quinolone Antimicrobial Start: 06-21-20 End: 07-01-20 take 1 tablet by mouth twice daily ciprofloxacin HCl 500 mg oral tablet 1 (one) tablet bid for 10 days Quantity: 20 {Tablet} Refills: 0 Ordered: 21-Jun-2022 Bernadette Verma LPN Start : 21-Jun-2022 End : 01-Jul-2022 Inactive Start: 10-05-2018 End: 02-13-2019 take 1 tablet by mouth twice daily Ciprofloxacin Hcl 500 MG tablet Discontinued 500 mg PO TWICE A DAY 14 0 October 05, 2018 12:00am February 13, 2019 11:43am citalopram 40 mg oral tablet (20 sources) Serotonin Reuptake Inhibitor Start: 03-21-2023 take 1 tablet by mouth once daily CeleXA 40 mg oral tablet 1 (one) Tablet daily for 0 days Quantity: 90 {Tablet} Refills: 3 Ordered: 21-Mar-2023 Stewart BUI Zeinab StewartDania hebert DOeen Start : 21-Mar-2023 Active Start: 02-18-2023 take 1 tablet by gloria th once daily CeleXA 40 mg oral tablet 1 (one) Tablet daily for 0 days Quantity: 90 {Tablet} Refills: 3 Ordered: 18-Feb-2023 Stewart BUI Zeinab StewartDania hebert DOeen Start : 18-Feb-2023 Active Start: 03-29-2022 take 1 tablet by gloria th once daily CeleXA 40 mg oral tablet 1 (one) Tablet daily for 0 days Quantity: 90 {Tablet} Refills: 3 Ordered: 18-Jun-2022 StewartZeinab hebert DO, DO, Kathleen Start : 18-Jun-2022 Active Start: 10-05-2021 take 1 tablet by gloria th once daily CeleXA 40 MG Oral Tablet 1 (one) Tablet daily for 0 days Quantity: 90 {Tablet} Refills: 0 Ordered: 05-Oct-2021 Sommer Peguero CMA Start : 05-Oct-2021 Active Start: 07-22-2021 End: 10-05-2021 take 1.5 tablets by mouth once daily CeleXA 20 MG Oral Tablet 1.5 Tablet qd for 30 days Quantity: 45 {Tablet} Refills: 3 Ordered: 05-Oct-2021 Betsy Herring Start : 22-Jul-2021 End : 05-Oct-2021 Inactive Start: 07-13-2021 take 1.5 tablets by mouth once daily CeleXA 20 MG Oral Tablet 1.5 Tablet qd for 30 days Quantity: 45 {Tablet} Refills: 3 Ordered: 13-Jul-2021 Stewart BUIZeinab StewartZeinab hebert DO Start : 13-Jul-2021 Active Start: 06-24-2021 Citalopram (Ce teresa) 20 mg tablet Active 30 mg PO DAILY June 24, 2021 2:37pm Complies with drug therapy Start: 09-05-2020 take 1.5 tablets by mouth once daily CeleXA 20 MG Oral Tablet 1.5 Tablet qd for 30 days Quantity: 45 {Tablet} Refills: 3 Ordered: 05-Sep-2020 Zeinab William DO Stewart Zeinab BUI Start : 05-Sep-2020 Active Start: 02-19-2019 End: 06-24-2021 take 1 tablet by mouth once daily Citalopram (Celexa) 20 mg tablet Discontinued 20 mg PO DAILY 90 1 February 26, 2020 11:35am June 24, 2021 2:37pm doxycycline monohydrate 100 mg oral capsule (8 sources) Tetracycline-class Drug Start: 06-28-2022 End: 07-05-2022 take 1 capsule by mouth twice daily Doxycycline Monohydrate 100 mg capsule Discontinued 100 mg PO TWICE A DAY 14 7 0 June 28, 2022 1:00am July 04, 2022 1:00am July 05, 2022 1:04am estradiol 0.5 mg oral tablet (9 sources) Estrogen Start: 11-27-2021 End: 06-28-2022 take 1 tablet by mouth once daily Estradiol 0.5 mg tablet Discontinued 0.5 mg PO DAILY 7 7 3 November 27, 2021 12:00am June 28, 2022 8:25am off 5 days; repeat cycle Norethindrone-E.E stradiol-Iron (20 sources) Estrogen Start: 12-13-2019 End: 05-12-2020 Norethindrone-E.E stradiol-Iron (07/30 ()) 1 mg-20 mcg (21)/75 mg (7) tablet Discontinued 1 {tbl} PO DAILY 84 3 December 13, 2019 2:47pm May 12, 2020 8:41am Start: 12-13-2019 End: 05-12-2020 Norethindrone-E.Estradiol-Ir on (07/30 ()) 1 mg-20 mcg (21)/75 mg (7) tablet Discontinued 1 {tbl} PO DAILY 84 December 13, 2019 2:47pm May 12, 2020 8:41am Start: 12-13-2019 End: 05-12-2020 Norethindrone-E.Estradiol-Ir on (07/30 ()) 1 mg-20 mcg (21)/75 mg (7) tablet Discontinued 1 TABLET PO DAILY December 13, 2019 2:47pm May 12, 2020 8:41am Start: 12-13-2019 End: 05-12-2020 Norethindrone-E.Estradiol-Ir on (07/30 ()) 1 mg-20 mcg (21)/75 mg (7) tablet Discontinued 1 TABLET PO DAILY December 13, 2019 1:47pm May 12, 2020 7:41am Start: 04-13-2019 End: 07-26-2019 Norethindrone-E.Estradiol-Ir on (07/30 ()) 1 mg-20 mcg (21)/75 mg (7) tablet Discontinued 1 {tbl} PO DAILY 07 07April 13, 2019 12:00am July 26, 2019 2:18pm Start: 04-13-2019 End: 07-26-2019 Norethindrone-E.Estradiol-Ir on (07/30 ()) 1 mg-20 mcg (21)/75 mg (7) tablet Discontinued 1 {tbl} PO DAILY April 13, 2019 12:00am July 26, 2019 2:18pm Start: 04-13-2019 End: 07-26-2019 Norethindrone-E.Estradiol-Ir on (07/30 ()) 1 mg-20 mcg (21)/75 mg (7) tablet Discontinued 1 TABLET PO DAILY April 13, 2019 12:00am July 26, 2019 2:18pm Start: 04-13-2019 End: 07-26-2019 Norethindrone-E.Estradiol-Ir on (07/30 ()) 1 mg-20 mcg (21)/75 mg (7) tablet Discontinued 1 TABLET PO DAILY April 12, 2019 11:00pm July 26, 2019 1:18pm take 1 tablet by gloria th once daily Loestrin Fe 1/20 1-20 MG-MCG Oral Tablet 1 daily (1-20 MG-MCG) Inactive Comments: take 1 tablet by gloria th once daily Loestrin Fe 1/20 1-20 MG-MCG Oral Tablet 1 daily (1-20 MG-MCG) Active Comments: Comment on above: Levonorgestrel-Ethin yl Estrad (9 sources) Progestin, Estrogen, Progestin-containing Intrauterine Device Start: 05-12-2020 End: 09-08-2020 Levonorgestrel-Ethinyl Estrad 0.15-0.03 mg tablet Discontinued 1 {tbl} PO DAILY 84 May 12, 2020 1:00am September 08, 2020 5:09pm Start: 05-12-2020 End: 09-08-2020 Levonorgestrel-Ethinyl Estra d 0.15-0.03 mg tablet Discontinued 1 {tbl} PO DAILY 84 May 12, 2020 1:00am September 08, 2020 5:09pm Start: 05-12-2020 End: 09-08-2020 take 1 tablet by mouth once daily Levonorgestrel-Ethinyl Estrad Discontinued 1 TABLET PO DAILY May 12, 2020 1:00am September 08, 2020 5:09pm Start: 05-12-2020 End: 09-08-2020 take 1 tablet by mouth once daily Levonorgestrel-Ethinyl Estrad Discontinued 1 TABLET PO DAILY May 12, 2020 12:00am September 08, 2020 4:09pm Norgestimate-Ethinyl Estradiol (20 sources) Progestin, Estrogen Start: 04-13-2021 End: 06-24-2021 take 1 tablet by mouth once daily Norgestimate-Ethinyl Estradiol (Sprintec (28)) 0.25-35 mg-mcg tablet Discontinued 1 {tbl} PO DAILY 84 April 13, 2021 12:00am June 24, 2021 2:37pm take active pills only Start: 04-13-2021 End: 06-24-2021 take 1 tablet by mouth once daily Norgestimate-Ethinyl Estradiol (Sprintec (28)) 0.25-35 mg-mcg tablet Discontinued 1 {tbl} PO DAILY April 13, 2021 12:00am June 24, 2021 2:37pm take active pills only Start: 04-13-2021 End: 06-24-2021 take 1 tablet by mouth once daily Norgestimate-Ethinyl Estradiol (Sprintec (28)) 0.25-35 mg-mcg tablet Discontinued 1 TABLET PO DAILY April 13, 2021 12:00am June 24, 2021 2:37pm take active pills only Start: 04-13-2021 End: 06-24-2021 take 1 tablet by mouth once daily Norgestimate-Ethinyl Estradiol (Sprintec (28)) 0.25-35 mg-mcg tablet Discontinued 1 TABLET PO DAILY April 12, 2021 11:00pm June 24, 2021 1:37pm take active pills only Norgestimate-Eth Estradiol 0.25-35 MG-MCG Oral Tablet qd (0.25-35 MG-MCG) Inactive Comments: Dr. Owen Norgestimate-Eth Estradiol 0.25-35 MG-MCG Oral Tablet qd (0.25-35 MG-MCG) Active Comments: Dr. Owen take 1 tablet by gloria th once daily TriNessa (28) 0.18/0.215/0.25 MG-35 MCG Oral Tablet daily (0.18/0.215/0.25 MG-35 MCG) Inactive take 1 tablet by gloria th once daily TriNessa (28) 0.18/0.215/0.25 MG-35 MCG Oral Tablet daily (0.18/0.215/0.25 MG-35 MCG) Active End: 08-23-2018 take 1 tablet by mouth once daily MonoNessa 0.25-35 MG-MCG Oral Tablet 1 qd (0.25-35 MG-MCG) End : 23-Aug-2018 Discontinued Comment on above: Dr. Owen etonogestrel 68 mg drug implant (20 sources) Progestin Start: 06-24-2021 End: 10-07-2021 Etonogestrel (Nexplanon) 68 mg implant Discontinued 1 NMA subdermal ONCE June 24, 2021 1:00am October 07, 2021 3:27pm as a single dose Nexplanon 68 MG Subcutaneous Implant (68 MG) Inactive hydrOXYzine pamoate 25 mg oral capsule (20 sources) Antihistamine Start: 11-22-2019 End: 12-17-2020 take 1 capsule by mouth once daily at bedtime as needed for sleep hydrOXYzine Pamoate 25 MG Oral Capsule 1 (one) Capsule qhs prn for sleep for 30 days Quantity: 30 {Capsule} Refills: 3 Ordered: 17-Dec-2020 Yan ALEJANDRA Oscar Start : 22-Nov-2019 End : 17-Dec-2020 Inactive Start: 02-19-2019 End: 07-26-2019 take 1 capsule by mouth every six hours Hydroxyzine Pamoate (Vistaril) 25 mg capsule Discontinued 25 mg PO EVERY 6 HOURS 60 3 February 19, 2019 12:00am July 26, 2019 2:18pm Iron Carbonyl (20 sources) Iron daily Inact anika Iron daily Activ e lisdexamfetamine dimesylate 50 mg oral capsule (20 sources) Central Nervous System Stimulant Start: 04-25-2023 take 1 capsule by mouth in the morning Vyvanse 50 mg oral capsule 1 (one) Capsule in am for 0 days Quantity: 30 {Capsule} Refills: 0 Ordered: 25-Apr-2023 Tessa Bain MD Start : 25-Apr-2023 Active Comments: fill Start: 03-24-2023 take 1 capsule by mo uth in the morning Vyvanse 50 mg oral capsule 1 (one) Capsule in am for 0 days Quantity: 30 {Capsule} Refills: 0 Ordered: 24-Mar-2023 Tessa Bain MD Start : 24-Mar-2023 Active Comments: thirtyfill Start: 02-28-2023 take 1 capsule by mo uth in the morning Vyvanse 50 mg oral capsule 1 (one) Capsule in am for 0 days Quantity: 30 {Capsule} Refills: 0 Ordered: 28-Feb-2023 Tessa Bain MD Start : 28-Feb-2023 Active Comments: thirtyfill 05-18-23 Start: 02-21-2023 take 1 capsule by mo uth in the morning Vyvanse 50 mg oral capsule 1 (one) Capsule in am for 0 days Quantity: 30 {Capsule} Refills: 0 Ordered: 21-Feb-2023 Tessa Bain MD Start : 21-Feb-2023 Active Comments: thirty Start: 11-19-2022 take 1 capsule by mo uth in the morning Vyvanse 50 mg oral capsule 1 (one) Capsule in am for 0 days Quantity: 90 {Capsule} Refills: 0 Ordered: 19-Nov-2022 Tessa Bain MD Start : 19-Nov-2022 Active Comments: ninety daysninety capsules Start: 08-20-2022 take 1 capsule by mo uth in the morning Vyvanse 50 mg oral capsule 1 (one) Capsule in am for 0 days Quantity: 90 {Capsule} Refills: 0 Ordered: 20-Aug-2022 Tessa Bain MD Start : 20-Aug-2022 Active Comments: ninety daysninety capsules Start: 06-17-2021 take 1 capsule by mo uth once daily Lisdexamfetamine (Vyvanse) 30 mg capsule Active 30 mg PO DAILY 0 June 24, 2021 1:00am Complies with drug therapy Comment on above: thirty thirtyfill for ninety daysninety ca psules ninety daysninety ca psulesfill for April 26, 2022 ninety daysninety ca psulesfill for 04-26-22 ninety daysninety ca psulesfill for 04-16-22 thirtyfill 05-18-23 thirtyfill meloxicam 15 mg oral tablet (20 sources) Nonsteroidal Anti-inflammatory Drug Start: 01-02-20 End: 03-27-20 take 1 tablet by mouth once daily Meloxicam 15 MG Oral Tablet 1 (one) Tablet qd wiht food for 0 days Quantity: 30 {Tablet} Refills: 0 Ordered: 27-Mar-2021 Betsy Herring Start : 01-Jan-2021 End : 27-Mar-2021 Discontinued 50/50 release 24 hr methylphenidate hydrochloride 10 mg extended release oral capsule (20 sources) Central Nervous System Stimulant Start: 05-18-20 End: 05-18-20 21 take 1 capsule by mouth twice daily Ritalin LA 10 MG Oral Capsule Extended Release 24 Hour 1 (one) Capsule bid for 90 days Quantity: 180 {Capsule} Refills: 0 Ordered: 18-May-2021 Tessa Bain MD Start : 18-May-2021 End : 18-May-2021 Discontinued Comments: Dx: F98.8Disp: One hundred and eighty Start: 01-22-2021 take 1 capsule by mo uth twice daily Ritalin LA 10 MG Oral Capsule Extended Release 24 Hour 1 (one) Capsule bid for 0 days Quantity: 60 {Capsule} Refills: 0 Ordered: 22-Jan-2021 SILVANA Walters LPN Start : 22-Jan-2021 Active Comments: Dx: F98.8Disp: Sixty Start: 01-07-2021 take 1 capsule by mo [facility] every twenty-four hours in the morning Ritalin LA 10 MG Oral Capsule Extended Release 24 Hour 1 (one) Capsule in am for 0 days Quantity: 14 {Capsule} Refills: 0 Ordered: 07-Jan-2021 Tessa Bain MD Start : 07-Jan-2021 Active Comments: fourteen Comment on above: fourteen Dx: F98.8Disp: Sixty Dx: F98.8Disp: One h undred and eighty metroNIDAZOLE 500 mg oral tablet (9 sources) Nitroimidazole Antimicrobial Start: 10-06-19 End: 02-14-20 19 take 1 tablet by mouth every eight hours Metronidazole 500 MG tablet Discontinued 500 mg PO EVERY 8 HOURS 21 0 October 05, 2018 12:00am February 13, 2019 11:43am MonoNessa 0.25-35 MG-MCG Oral Tablet (1 source) take 1 tablet by mouth once daily MonoNessa 0.25-35 MG-MCG Oral Tablet 1 qd (0.25-35 MG-MCG) Active Multivitamin Adult Oral Tablet (20 sources) Multivitamin Ramsey lt Oral Tablet daily Inactive Multivitamin Ramsey lt Oral Tablet daily Active naproxen 500 mg oral tablet (9 sources) Nonsteroidal Anti-inflammatory Drug Start: 04-07-2020 End: 09-08-2020 take 1 tablet by mouth every twelve hours at mealtime Naproxen 500 mg tablet Discontinued 500 mg PO Q12H 30 April 07, 2020 12:00am September 08, 2020 5:09pm administer with food or milk Paisley 3 (20 sources) Paisley 3 daily Active ondansetron 4 mg disintegrating oral tablet (9 sources) Serotonin-3 Receptor Antagonist Start: 05-09-2019 End: 07-26-2019 take 1 tablet by mouth every eight hours as needed for nausea Ondansetron 4 MG tablet Discontinued 4 mg PO EVERY 8 HOURS NEEDED as needed for Nausea May 09, 2019 12:00am July 26, 2019 2:18pm predniSONE 20 mg oral tablet (20 sources) Start: 12-19-2019 End: 08-05-2020 predniSONE 20 MG Oral Tablet 1 (one) Tablet one bid x 3 days then one qd x 4 days then 1/2 tab qd x 4 days. for 0 days Quantity: 1 {QS} Refills: 0 Ordered: 05-Aug-2020 Oscar Heredia LPN Start : 19-Dec-2019 End : 05-Aug-2020 Inactive Comments: Take with food Comment on above: Take with food selenium sulfide 25 mg/ml medicated shampoo (20 sources) Start: 10-03-2020 End: 10-10-2020 Selenium Sulfide 2.5 % External Lotion 1 (one) Application on lesion and let dry for 15min then rinse bid for 7 days Quantity: 1 {Bottle} Refills: 0 Ordered: 03-Oct-2020 Zeinab William DO, DO, Kathleen Start : 03-Oct-2020 End : 10-Oct-[address] Richards Wort 300 MG Oral Capsule (20 sources) Start: 05-05-2018 End: 11-22-2019 take 2 capsules by mouth once daily [place] Wort 300 MG Oral Capsule 2 (two) Capsule Capsule qd for 0 days Quantity: 60 {Capsule} Refills: 0 Ordered: 22-Nov-2019 Lexi Alvarez RN Start : 05-May-2018 End : 22-Nov-2019 Inactive blu's wort extract 300 mg oral capsule (20 sources) Start: 05-05-2018 End: 11-22-2019 take 2 capsules by mouth once daily [facility] Richards Wort 300 MG Oral Capsule 2 (two) Capsule Capsule qd for 0 days Quantity: 60 {Capsule} Refills: 0 Ordered: 22-Nov-2019 Lexi Alvarez RN Start : 05-May-2018 End : 22-Nov-2019 Inactive Start: 04-05-2018 End: 02-13-2019 take 1 capsule by mouth once daily Sequim's Wort 300 MG capsule Discontinued 600 mg PO DAILY April 05, 2018 12:00am February 13, 2019 11:43am anxiety Start: 04-05-2018 End: 02-13-2019 take 1 capsule by mouth once daily Blu's Wort 300 MG capsule Discontinued 600 mg PO DAILY April 05, 2018 12:00am February 13, 2019 11:43am Start: 04-05-2018 End: 02-13-2019 take 600 mg by mouth once daily Blu's Wort Discon tinued 600 MG PO DAILY April 05, 2018 12:00am February 13, 2019 11:43am Start: 04-05-2018 End: 02-13-2019 take 600 mg by mouth once daily Sequim's Wort Discon tinued 600 MG PO DAILY April 04, 2018 11:00pm February 13, 2019 10:43am sulfamethoxazole 800 mg / trimethoprim 160 mg oral tablet (9 sources) Dihydrofolate Reductase Inhibitor Antibacterial, Sulfonamide Antimicrobial Start: 11-30-2019 End: 09-08-2020 Sulfamethoxazole-Trimethopri m (Bactrim Ds) 800-160 mg tablet Discontinued 1 {tbl} PO TWICE A DAY 6 0 November 30, 2019 12:00am September 08, 2020 5:09pm Vitamin K2-Vitamin D3 45-2000 MCG-UNIT Oral Capsule (10 sources) Start: 12-24-2020 take 45-2000 capsules by mouth once daily Vitamin K2-Vitamin D3 45-2000 MCG-UNIT Oral Capsule 1 (one) Capsule daily for 0 days Quantity: 30 {Capsule} Refills: 0 Ordered: 01-Jan-2021 Ilda Echavarria LPN Start : 24-Dec-2020 Active Start: 12-24-2020 take 45-2000 capsule s by mouth once daily Vitamin K2-Vitamin D3 45-2000 MCG-UNIT Oral Capsule 1 (one) Capsule daily for 0 days Quantity: 30 {Capsule} Refills: 0 Ordered: 24-Dec-2020 Nevaeh GARCIABetsy E Start : 24-Dec-2020 Active Vitamin K2-Vitamin D3 45-2000 MCG-UNIT Oral Capsule (20 sources) Start: 12-24-2020 take 45-2000 capsules by mouth once daily Vitamin K2-Vitamin D3 45-2000 MCG-UNIT Oral Capsule 1 (one) Capsule daily for 0 days Quantity: 30 {Capsule} Refills: 0 Ordered: 01-Jan-2021 Ilda Echavarria LPN Start : 24-Dec-2020 Active Problems Active Problems Problem Classification Problem Date Documented Date Episodic/Chronic Administrative/social admission (1 source) Encounter for pre-employment examination; Translations: [Health examination of defined subpopulations] 03-02-2023 Episodic Anxiety disorders (20 sources) Anxiety; Translations: [Acute stress disorder] 12-24-2019 Chronic Comment on above: mini mental 29/30 , ADD handout complete to Dr. Whatley on celexa working we ll celexa Bacterial infection; unspecified site (9 sources) Chlamydial infection; Translations: [Chlamydial infection, unspecified] 02-13-2019 Episodic Calculus of urinary tract (20 sources) Kidney stone; Translations: [Kidney stone on left side] Resolved: 01-10-2023 06-18-2022 Episodic Cardiac dysrhythmias (20 sources) Tachycardia; Translations: [Tachycardia] 08-13-2020 Episodic Coagulation and hemorrhagic disorders (20 sources) Easy bruising; Translations: [Easy bruisability] Resolved: 07-30-2022 06-17-2022 Episodic Contraceptive and procreative management (1 source) Encounter for removal of intrauterine contraceptive device; Translations: [Encounter for removal of intrauterine contraceptive device] Onset: 04-01-2025 Episodic Disorders of lipid metabolism (20 sources) Hyperlipidemia; Translations: [Hyperlipidemia] 09-05-2020 Chronic Disorders usually diagnosed in infancy, childhood, or adolescence (20 sources) Adult attention deficit hyperactivity disorder ; Translations: [Attention deficit disorder (ADD) in adult] 01-07-2021 Chronic Comment on above: meets criteria but f oggy on having in primary schoool. has alot on plate ? why come out nnow has family history of ADD. family ritalin work willt ry low dose. clint mildly [id number] [place] reviewed, controlled substance agreement signed, drug screen completed today meets criteria but f oggy on having in primary school. has alot on plate ? why come out nnow has family history of ADD. family Ritalin work will try ow dose. clint mildly [id number] patient states the Ritalin LA is helping but notice fall off in 3-4 hours increase to bid if not work then will do 20 mg LA in amd and immediate [id number] OARRS reviewed, controlled substance agreement signed, drug screen completed today meets criteria but f oggy on having in primary school. has alot on plate ? why come out nnow has family history of ADD. likes vyvanse better then ritalin not have fall off and sleep at night. interact better with [id number] OARRS reviewed meets criteria but f oggy on having in primary school. has alot on plate ? why come out nnow has family history of ADD. likes vyvanse better then ritalin not have fall off and sleep at night. 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 selam as student11-30 OARRS reviewed January 29 did drug screen good and CSS contract done Genitourinary symptoms and ill-defined conditions (20 sources) Urinary frequency; Translations: [Increased frequency of urination] Resolved: 01-07-2021 08-23-2018 Episodic Immunizations and screening for infectious disease (20 sources) Patient encounter status; Translations: [Encounter for screening for other viral diseases] Onset: 03-11-2025 Resolved: 01-07-2021 10-03-2020 Episodic Malaise and fatigue (20 sources) Fatigue; Translations: [Fatigue] 06-17-2022 Episodic Comment on above: admits to alot of st ress Menstrual disorders (20 sources) Break-through bleeding; Translations: [Excessive and frequent menstruation with irregular cycle] 11-24-2019 Chronic Mood disorders (20 sources) Depression; Translations: [Depressive disorder] 09-05-2020 Chronic Comment on above: after miscarriage -- leans on God and intellectual property counsel but doesnt go often bc not coveredd nad 100$ /hr Mycoses (20 sources) Pityriasis versicolor; Translations: [Tinea versicolor] 10-03-2020 Episodic Nausea and vomiting (20 sources) Nausea; Translations: [Nausea] Resolved: 07-30-2022 08-23-2018 Episodic Nonmalignant breast conditions (9 sources) Breast lump; Translations: [Unspecified lump in the right breast, unspecified quadrant] 06-28-2022 Episodic Comment on above: imaging 3 lymph node s. nl Normal and/or delivery (20 sources) History of past delivery; Translations: [Vaginal delivery] 05-05-2018 Episodic Comment on above: 2017 Nutritional deficiencies (20 sources) Vitamin D deficiency; Translations: [Vitamin D insufficiency] 12-24-2020 Chronic Comment on above: 4-5 K daily Nutritional deficiencies (20 sources) Cobalamin deficiency; Translations: [Vitamin B12 deficiency] 07-30-2022 Episodic Open wounds of extremities (6 sources) Cat bite - wound; Translations: [Open bite of left hand, initial encounter] 07-10-2023 Episodic Other circulatory disease (20 sources) Nasal discharge; Translations: [Runny nose] Resolved: 09-28-2021 07-16-2021 Episodic Other complications of ; puerperium affecting management of mother (20 sources) Vaginal tear resulting from childbirth; Translations: [Vaginal tear resulting from childbirth] 05-05-2018 Episodic Other complications of (9 sources) Missed miscarriage; Translations: [Missed ] 07-26-2019 Episodic Other connective tissue disease (20 sources) Pain in left foot; Translations: [Foot pain, left] Resolved: 01-10-2023 01-01-2021 Episodic Other female genital disorders (9 sources) Postcoital bleeding; Translations: [Postcoital and contact bleeding] 06-28-2022 Chronic Comment on above: friable cervix:GCC a nd pap pendingRx doxy Other female genital disorders (9 sources) Dyspareunia; Translations: [Dyspareunia] 07-26-2019 Chronic Other female genital disorders (1 source) Postcoital and contact bleeding; Translations: [Postcoital bleeding] Chronic Other nervous system disorders (20 sources) Impaired cognition; Translations: [Brain fog] 05-18-2021 Episodic Comment on above: mini mental 29/30 , ADD handout complete to giuseppe Werner DB on ritalin this is helpful mini mental 29/30 , since doing vitamin B12 help. 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 did w/u but pt doesnt know what ??-- will readdress at here nursing aide visit in couole weeks Other upper respiratory disease (20 sources) Nasal congestion; Translations: [Nasal congestion] Resolved: 09-05-2020 09-05-2020 Episodic Pneumonia (except that caused by tuberculosis or sexually transmitted disease) (3 sources) Right lower zone pneumonia; Translations: [Pneumonia, unspecified organism] 07-20-2024 Episodic Regional enteritis and ulcerative colitis (9 sources) Terminal ileitis; Translations: [Crohn's disease of small intestine without complications] 10-06-2018 Chronic Residual codes; unclassified (20 sources) Body mass index (BMI) 20.0-20.9, adult; Translations: [Body mass index 20-24 - normal] Resolved: 07-16-2021 08-23-2018 Episodic Residual codes; unclassified (20 sources) Influenza vaccination declined; Translations: [Influenza vaccination declined (Renamed from Refused influenza vaccine)] Resolved: 01-07-2021 10-03-2020 Episodic Residual codes; unclassified (20 sources) Memory impairment; Translations: [Memory change] 12-17-2020 Episodic Comment on above: Has tried recent sle ep patern more sleep, has been exercise, has goal Residual codes; unclassified (20 sources) Non-smoker; Translations: [Non-smoker] 10-03-2020 Episodic Residual codes; unclassified (20 sources) Generalized aches and pains; Translations: [Body aches] Resolved: 09-28-2021 07-16-2021 Episodic Respiratory failure; insufficiency; arrest (adult) (20 sources) Respiratory failure; insufficiency; arrest (adult) Unclassified (20 sources) Body mass index less than 20; Translations: [Body mass index (BMI) 20.0-20.9, adult] Resolved: 01-07-2021 05-05-2018 Episodic Unclassified (20 sources) Unclassified (20 sources) Non-smoker Unclassified (20 sources) BMI 21.0-21.9, adult; Translations: [Body mass index 20-24 - normal] 12-24-2019 Unclassified (20 sources) Stress reaction Unclassified (20 sources) BMI 22.0-22.9, adult Unclassified (20 sources) Brain fog Unclassified (20 sources) Attention deficit disorder (ADD) in adult Unclassified (13 sources) Encounter for pre-employment examination (Renamed from Encounter for pre-employment health screening examination) Viral infection (20 sources) Severe acute respiratory syndrome; Translations: [SARS (severe acute respiratory syndrome)] 07-16-2021 Episodic Past or Other Problems Problem Classification Problem Date Documented Da te Episodic/Chronic Abdominal pain (20 sources) Flank pain; Translations: [Flank pain] Onset: 12-26-2024 Resolved: 01-10-2023 06-17-2022 Episodic Comment on above: r/o stone /hydro/ in fection/pyleo?? Acute bronchitis (4 sources) Acute bronchitis; Translations: [Acute bronchitis, unspecified] Onset: 08-16-2024 07-20-2024 Episodic Chronic kidney disease (16 sources) Chronic kidney disease Conditions associated with dizziness or vertigo (20 sources) Conditions associated with dizziness or vertigo Unclassified (20 sources) Physical exam; Translations: [Patient encounter status] 05-05-2018 Unclassified (10 sources) Pregnancies (); Translations: [Pregnancies ()] 05-05-2018 Comment on above: 1. Unclassified (20 sources) Non-smoker; Translations: [Non-smoker] 05-05-2018 Unclassified (20 sources) BMI 20.0-20.9, adult Unclassified (20 sources) Influenza vaccination declined (Renamed from Refused influenza vaccine) Unclassified (20 sources) BMI less than 19,adult Unclassified (13 sources) Patient encounter status; Translations: [Physical exam] 08-23-2018 Unclassified (9 sources) Influenza vaccination declined; Translations: [Influenza vaccination declined (Renamed from Refused influenza vaccine)] 08-23-2018 Unclassified (20 sources) Unspecified Diagnosis Resolved: 01-07-2021 12-24-2019 Unclassified (8 sources) Body mass index 20-24 - normal; Translations: [BMI 20.0-20.9, adult] 12-24-2019 Unclassified (20 sources) Encounter for screening for other viral diseases Unclassified (20 sources) Tinea versicolor Unclassified (20 sources) Pregnancies (); Translations: [Pregnancies ()] 12-17-2020 Comment on above: 1. Unclassified (20 sources) Memory change Unclassified (20 sources) Foot pain, left Unclassified (20 sources) Immunity status testing Unclassified (20 sources) Runny nose Unclassified (19 sources) Body aches Unclassified (7 sources) Encounter for general adult medical examination without abnormal findings Unclassified (9 sources) labioplasty 02-08-2022 Urinary tract infections (20 sources) Urinary tract infections Viral infection (20 sources) Disease caused by 2018-nCoV Results Test Name Value Interpretation Reference Range Facility CBC, Employeeon 04-29-2025 Absolute Lymph 1.49 X10 3/uL Normal 0.83-4.51 [facility] Comment on above: Performed By: #### L 500.2900, L100.0200, L400.0100 #### [facility] [address] [place], [address] Absolute Neut 2.6 X10 3/uL Normal 2.0-7.7 [facility] Comment on above: Performed By: #### L 500.2900, L100.0200, L400.0100 #### [facility] [address] [place], [address] Basophils/100 WBC (Bld) 0.4 % Normal 0-1 [facility] Comment on above: Performed By: #### L 500.2900, L100.0200, L400.0100 #### [facility] [address] [place], [address] Eosinophils/100 WBC (Bld) 2.3 % Normal 0-5 [facility] Comment on above: Performed By: #### L 500.2900, L100.0200, L400.0100 #### [facility] [address] [place], [address] Erythrocyte distribution width (RBC) [Ratio] 12.0 % Normal 11.6-14.6 [facility] Comment on above: Performed By: #### L 500.2900, L100.0200, L400.0100 #### [facility] [address] [place], [address] Hematocrit (Bld) [Volume fraction] 41.6 % Normal 37-47 [facility] Comment on above: Performed By: #### L 500.2900, L100.0200, L400.0100 #### [facility] [address] [place], [address] Hemoglobin (Bld) [Mass/Vol] 14.5 g/dL Normal 12.0-15.0 [facility] Comment on above: Performed By: #### L 500.2900, L100.0200, L400.0100 #### [facility] [address] [place], [address] Lymphocytes/100 WBC (Bld) 31.7 % Normal 19-41 [facility] Comment on above: Performed By: #### L 500.2900, L100.0200, L400.0100 #### [facility] [address] [place], [address] MCH (RBC) [Entitic mass] 30.3 pg Normal 27.0-32.0 [facility] Comment on above: Performed By: #### L 500.2900, L100.0200, L400.0100 #### [facility] [address] [place], [address] MCHC (RBC) [Mass/Vol] 34.9 g/dL Normal 32-36 [facility] Comment on above: Performed By: #### L 500.2900, L100.0200, L400.0100 #### [facility] [address] [place], [address] MCV (RBC) [Entitic vol] 86.8 fL Normal 81-99 [facility] Comment on above: Performed By: #### L 500.2900, L100.0200, L400.0100 #### [facility] [address] [place], [address] Monocytes/100 WBC (Bld) 9.4 % Normal 0-10 [facility] Comment on above: Performed By: #### L 500.2900, L100.0200, L400.0100 #### [facility] [address] [place], [address] Neutrophils/100 WBC (Bld) 56.0 % Normal 47-70 [facility] Comment on above: Performed By: #### L 500.2900, L100.0200, L400.0100 #### [facility] [address] [place], [address] NRBC # 0.00 10 3/uL Normal 0-5 [facility] Comment on above: Performed By: #### L 500.2900, L100.0200, L400.0100 #### [facility] [address] [place], [address] Nucleated RBC (Bld) [#/Vol] 0 10*3/uL Normal 0-5 [facility] Comment on above: Performed By: #### L 500.2900, L100.0200, L400.0100 #### [facility] [address] [place], [address] Platelet mean volume (Bld) [Entitic vol] 11.3 fL Normal 6.2-12.0 [facility] Comment on above: Performed By: #### L 500.2900, L100.0200, L400.0100 #### [facility] [address] [place], [address] Platelets (Bld) [#/Vol] 176 10*3/uL Normal 150-450 [facility] Comment on above: Performed By: #### L 500.2900, L100.0200, L400.0100 #### [facility] [address] [place], [address] RBC (Bld) [#/Vol] 4.79 10*6/uL Normal 4.2-5.4 [facility] Comment on above: Performed By: #### L 500.2900, L100.0200, L400.0100 #### [facility] [address] [place], [address] RDW SD 38.4 fl Normal 35.1-43.9 [facility] Comment on above: Performed By: #### L 500.2900, L100.0200, L400.0100 #### [facility] [address] [place], [address] WBC (Bld) [#/Vol] 4.7 10*3/uL Normal 4.4-11.0 [facility] Comment on above: Performed By: #### L 500.2900, L100.0200, L400.0100 #### [facility] [address] [place], [address] Employee Profile[employer] 5 CHOL:HDL 2.[address] [facility] Comment on above: Performed By: #### M 100.505 #### [facility] [address] [place], [address] Cholesterol [Mass/Vol] 170 mg/dL Normal <=200 [facility] Comment on above: Result Comment: Chol esterol level, Desirable <200 mg/dL Borderline high cholesterol 200-239 mg/dL High cholesterol >=240 mg/dL Recommendations of the NCEP Adult Treatment Panel for the following risk-cutoff thresholds for the [place] population. Performed By: #### M 100.505 #### [facility] [address] [place], [address] Cholesterol in HDL [Mass/Vol] 63 mg/dL Normal [facility] Comment on above: Result Comment: Yulisa onal Cholesterol Education Program (NCEP) guidelines: <40 mg/dL: Low HDL-cholesterol (major risk factor for CHD) >= 60 mg/dL: High HDL-cholesterol (negative risk factor for CHD) HDL-cholesterol is affected by a number of factors, e.g. smoking, exercise, hormones, sex and age. Performed By: #### M 100.505 #### [facility] [address] [place], [address] Cholesterol in LDL [Mass/Vol] 95 mg/dL Normal [facility] Comment on above: Result Comment: Bord isetll=112-565 mg/dL Higher Jxud=466 mg/dL or greater Alvarado Equation 2020 for LDL-C Performed By: #### M 100.505 #### [facility] [address] [place], [address] Cholesterol in VLDL [Mass/Vol] 12 mg/dL Normal 5-40 [facility] Comment on above: Performed By: #### M 100.505 #### [facility] [address] [place], [address] LDH 168 U/L Normal 84-246 [facility] Comment on above: Performed By: #### M 100.505 #### [facility] [address] [place], [address] Phosphate [Mass/Vol] 3.1 mg/dL Normal 2.7-4.5 [facility] Comment on above: Performed By: #### M 100.505 #### [facility] [address] [place], [address] Triglyceride [Mass/Vol] 62 mg/dL Normal [facility] Comment on above: Result Comment: The drugs N-Acetylcysteine and Metamizole may falsely depress this assay. Normal range: <150 mg/dL Borderline High: 150-199 mg/dL High: 200-499 mg/dL Very High: >500 mg/dL Performed By: #### M 100.505 #### [facility] [address] [place], [address] URIC 4.7 mg/dL Normal 2.6-6.0 [facility] Comment on above: Result Comment: The drugs N-Acetylcysteine and Metamizole may falsely depress this assay. Performed By: #### M 100.505 #### [facility] [address] [place], [address] Urinalysis, Employeeon 04-29 BILIRUBIN URINE Normal Negative [facility] Comment on above: Order Comment: Urine , Random Result Comment: NOT WANTED Performed By: #### L 500.2900, L100.0200, L400.0100 #### [facility] [address] [place], [address] Clarity (U) Normal Clear [facility] Comment on above: Order Comment: Urine , Random Result Comment: NOT WANTED Performed By: #### L 500.2900, L100.0200, L400.0100 #### [facility] [address] [place], [address] Color (U) Normal Yellow [facility] Comment on above: Order Comment: Urine , Random Result Comment: NOT WANTED Performed By: #### L 500.2900, L100.0200, L400.0100 #### [facility] [address] [place], [address] GLUCOSE, UR Normal Normal [facility] Comment on above: Order Comment: Urine , Random Result Comment: NOT WANTED Performed By: #### L 500.2900, L100.0200, L400.0100 #### [facility] [address] [place], [address] KETONE UR Normal Negative [facility] Comment on above: Order Comment: Urine , Random Result Comment: NOT WANTED Performed By: #### L 500.2900, L100.0200, L400.0100 #### [facility] [address] [place], [address] LEUK ESTERASE Normal Negative [facility] Comment on above: Order Comment: Urine , Random Result Comment: NOT WANTED Performed By: #### L 500.2900, L100.0200, L400.0100 #### [facility] [address] [place], [address] Nitrite Ql (U) Normal Negative [facility] Comment on above: Order Comment: Urine , Random Result Comment: NOT WANTED Performed By: #### L 500.2900, L100.0200, L400.0100 #### [facility] [address] [place], [address] OCCULT BLOOD-UR Normal Negative [facility] Comment on above: Order Comment: Urine , Random Result Comment: NOT WANTED Performed By: #### L 500.2900, L100.0200, L400.0100 #### [facility] [address] [place], [address] pH UR Normal 5.0 - 8.0 [facility] Comment on above: Order Comment: Urine , Random Result Comment: NOT WANTED Performed By: #### L 500.2900, L100.0200, L400.0100 #### [facility] [address] [place], [address] PROT DIPSTX Normal Negative [facility] Comment on above: Order Comment: Urine , Random Result Comment: NOT WANTED Performed By: #### L 500.2900, L100.0200, L400.0100 #### [facility] [address] [place], [address] SP.GR. DIPSTX Normal 1.002-1.[address] [facility] Comment on above: Order Comment: Urine , Random Result Comment: NOT WANTED Performed By: #### L 500.2900, L100.0200, L400.0100 #### [facility] [address] [place], [address] [facility] Comment on above: Order Comment: Urine , Random Result Comment: NOT WANTED Performed By: #### L 500.2900, L100.0200, L400.0100 #### [facility] [address] [place], [address] Normal Normal [facility] Comment on above: Order Comment: Urine , Random Result Comment: NOT WANTED Performed By: #### L 500.2900, L100.0200, L400.0100 #### [facility] [address] [place], [place], [address] COVID 19 AG RAPID (RN COLLEC T)on 04-23-2025 SARS-CoV-2 (COVID-19) RNA KENJI+probe Ql (Unsp spec) *Negative results from patients with symptom onset beyond five days should be treated as presumptive and confirmed by a molecular assay if clinically necessary. Negative results should not be used as the sole basis for treatment or for patient management. SARS-CoV-2 Ag Resp Ql IA.rapid *Positive results do not differentiate between SARS-CoV and SARS-CoV-2. If differentiation of the specific SARS virus is desired an additional sample and an additional order is required. SARS-CoV-2 Ag Resp Ql IA.rapid * This test has not been FDA cleared or approved; the test has been authorized by FDA under an Emergency Use Authorization (EAU) for use by laboratories certified under CLIA that meet the requirements to perform moderate, high, or waived complexity tests. SARS-CoV-2 Ag Resp Ql IA.rapid Normal Reference Range: Negative SARS-CoV-2 (COVID 19) Negative RAPID METHOD [employer]Now COVID19 Ag Card Normal [facility] Comment on above: Performed By: #### M 100.505 #### [facility] [address] [facility] [place], [place], [address] COVID 19 AG RAPID (RN COLLEC T)on 04-15-2025 SARS-CoV-2 (COVID-19) RNA KENJI+probe Ql (Unsp spec) SARS-CoV-2 Ag Resp Ql IA.rapid *Negative results from patients with symptom onset beyond five days should be treated as presumptive and confirmed by a molecular assay if clinically necessary. Negative results should not be used as the sole basis for treatment or for patient management. SARS-CoV-2 Ag Resp Ql IA.rapid * This test has not been FDA cleared or approved; the test has been authorized by FDA under an Emergency Use Authorization (EAU) for use by laboratories certified under CLIA that meet the requirements to perform moderate, high, or waived complexity tests. SARS-CoV-2 Ag Resp Ql IA.rapid Normal Reference Range: Negative SARS-CoV-2 (COVID 19) Negative RAPID METHOD BinaxNow COVID[address] [facility] Comment on above: Performed By: #### M 100.505 #### [facility] [address] [place], [place], [address] COVID 19 AG RAPID (PAOLA Lou)on 04-11-2025 SARS-CoV-2 (COVID-19) RNA KENJI+probe Ql (Unsp spec) *Negative results from patients with symptom onset beyond five days should be treated as presumptive and confirmed by a molecular assay if clinically necessary. Negative results should not be used as the sole basis for treatment or for patient management. SARS-CoV-2 Ag Resp Ql IA.rapid * This test has not been FDA cleared or approved; the test has been authorized by FDA under an Emergency Use Authorization (EAU) for use by laboratories certified under CLIA that meet the requirements to perform moderate, high, or waived complexity tests. SARS-CoV-2 Ag Resp Ql IA.rapid Normal Reference Range: Negative SARS-CoV-2 (COVID 19) Negative RAPID METHOD BinaxNow COVID[address] [facility] Comment on above: Performed By: #### M 100.505 #### [facility] [address] [place], [place], [address] Adult Specialist Office Visit Reporton 04-01-2025 Adult Specialist Office Visit Report [facility] [address], [address] [place] [address] OFFICE VISIT Date of Service: 04/01/25 MR#: [id number] Acct: [id number] Name: STEFANO ESPINOZA Rep #: [id number] : 1995 Provider: Dr. Leticia Teixeira DO Age/Sex: 29/F [place] 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 Is patient in pain?: No Allergies No Known Allergies Allergy (Verified 12/21/24 16:46) Medications ???Medication ???Instructions ???Recorded ???Confirmed ???Type citalopram 20 mg tablet (Celexa) 30 mg PO DAILY 06/24/21 04/01/25 H istory lisdexamfetamine 30 mg capsule 30 mg PO DAILY 06/24/21 04/01/25 H istory (Vyvanse) levonorgestrel 20.4 mcg/24 hr (up 1 device intrauterine ONCE 04/01/25 History to 8 yrs) 52 mg intrauterine device (Liletta) Post menopausal: No Control Method: liletta [facility] Medical History ADD (attention deficit disorder) Anxiety Surgical History labioplasty Family History Mother Diabetes Congestive heart failure Renal failure Father Narcolepsy Grandmother Kidney disease Grandfather Heart disease Alzheimer disease Social History current occupational status: student current occupation: [employer] Smoking Status: Never smoker alcohol intake: never substance use type: does not use caffeine: Yes what type of physical activity do you participate in: walking and aerobics frequency: 5-6 times per week seatbelt use: always do you feel safe at home: Yes additional social history: - Rogelio- [employer] History 2 Elective abortions Hx Para 1 Spontaneous abortions 1 Hx # Term Pregnancies Ectopic pregnancies Hx # Pregnancies Multiple births # of living children Past Pregnancies Del. Date Name GA/Weeks Outcome Route Bth Weight Gen Labor Lgth Anesthesia Del Locatn Provider FOB 10/02/16 Roxane 39 live - full term 7lbs 4oz Female 12 hours none [facility] Mercado Delivery Date: 10/02/16 Last Updated by: Yahaira Tate Borderline HELP HPI IUD REMOVAL Details: STEFANO ESPINOZA is a 29 year old who presents for IUD removal. She wants to get . She plans on weaning off vyvanse. 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 pt to stop Vyvanse and start vitamins Orders: Orders IUD Removal Today Z30.432 - Encounter for removal of intrauterine contraceptive device 04/01/25 1001 Date Leticia Hoang Signature: Date (if applicable) CC: Normal [facility] COVID 19 AG RAPID (PAOLA Lou)on 02-27-2025 SARS-CoV-2 (COVID-19) RNA KENJI+probe Ql (Unsp spec) *Negative results from patients with symptom onset beyond five days should be treated as presumptive and confirmed by a molecular assay if clinically necessary. Negative results should not be used as the sole basis for treatment or for patient management. SARS-CoV-2 Ag Resp Ql IA.rapid *Positive results do not differentiate between SARS-CoV and SARS-CoV-2. If differentiation of the specific SARS virus is desired an additional sample and an additional order is required. SARS-CoV-2 Ag Resp Ql IA.rapid * This test has not been FDA cleared or approved; the test has been authorized by FDA under an Emergency Use Authorization (EAU) for use by laboratories certified under CLIA that meet the requirements to perform moderate, high, or waived complexity tests. SARS-CoV-2 Ag Resp Ql IA.rapid Normal Reference Range: Negative SARS-CoV-2 (COVID 19) Negative RAPID METHOD BinaxNow COVID19 [address] [facility] Comment on above: Performed By: #### M 100.505 #### [facility] [address] [place], [address] COVID-19 virus antigen assay Ordered By: Gerber Oneill on 02-27-2025 SARS-CoV-2 (COVID-19) Ag IA.rapid Ql (Resp) [facility] Abdomen/Pelvis without Conto n 12-21-2024 Abdomen/Pelvis without Cont [facility] [address] [place] [address] Abdomen/Pelvis without Cont MR#: [id number] Acct: [id number] Name: STEFANO ESPINOZA Rep #: [id number] : 1995 F 29 From: Christine Toussaint nd, MD PCP: Dr. Zeinab William DO Status: REG ER Study: Abdomen/Pelvis without Cont Date of Exam: 12/09 10/02 Exam# [id number] Ordering Dr: Darrick Ford DO PROCEDURE: ABDOMEN/PELVIS WITHOUT CONT 12/21/2024 REASON FOR EXAM: LEFT FLANK PAIN TECHNIQUE: ABDOMEN/PELVIS WITHOUT CONT Noncontrast technique limits evaluation of the abdominal and pelvic viscera. Coronal and Sagittal reconstruction series were provided. One or more dose reduction techniques were used (e.g., Automated exposure control, adjustment of the mA and/or kV according to patient size, use of iterative reconstruction technique). ORAL CONTRAST TYPE: None. COMPARISON: CT abdomen pelvis 07/01/2022. FINDINGS: Lung bases: Unremarkable. Liver: Mild hepatomegaly. No biliary ductal dilation. Gallbladder: No radiopaque stones within the gallbladder. Spleen: Normal in size. Pancreas: The unopacified pancreas is unremarkable. Adrenals: No adrenal mass. Kidneys: Persistent punctate bilateral renal calculi. Obstructing stone within the left ureterovesical junction measuring approximately 0.5 cm (series 2, image 148). Moderate left hydroureteronephrosis. No right hydronephrosis. Bladder: Decompressed. Reproductive Organs: An IUD is present. Adnexal regions are unremarkable. Bowel: The bowel loops are nondilated. No ascites or pneumoperitoneum. Normal appendix. Lymph nodes: Visualization is limited without the use of IV contrast. No lymphadenopathy. Vasculature: The abdominal aorta and IVC contours are normal. Noncontrast technique limits evaluation. Bones: Unremarkable. CT/Abdomen/Pelvis without Cont IMPRESSION: 1. Obstructing stone within the left ureterovesical junction. 2. Mild hepatomegaly. Reading Location: [id number] CC: Dr. Darrick Ford, DO; Dr. Zeinab William, DO Astronomy Professor: Signed Normal [facility] Absolute lymphocyte countOrd ered By: Darrick Ford on 12-21-2024 Lymphocytes Auto (Unsp spec) [#/Vol] 0.90 10*3/uL 0.83-4.51 [facility] Absolute neutrophil countOrd ered By: Darrick Ford on 12-21-2024 Neutrophils (Bld) [#/Vol] 11.2 10*3/uL High 2.0-7.7 [facility] Anion gap in Serum or Plasma Ordered By: Darrick Ford on 12-21-2024 Anion gap [Moles/Vol] 13 mmol/L 5-15 [facility] Automated blood erythrocyte countOrdered By: Darrick Ford on 12-21-2024 RBC (Bld) [#/Vol] 4.67 10*6/uL Normal 4.2-5.4 [facility] Comment on above: Performed By: #### M 100.505 #### [facility] [address] [facility] [place], [place], [id number] Automated blood hematocrit ( percentage)Ordered By: Darrick Ford on 12-21-2024 Hematocrit (Bld) [Volume fraction] 40.8 % Normal 37-47 [facility] Comment on above: Performed By: #### M 100.505 #### [facility] [address] [place], [place], [id number] Automated lymphocyte count a s percentage of total leukocytesOrdered By: Darrick Ford on 12-21-2024 Lymphocytes/100 WBC Auto (Unsp spec) 7.1 % Low 19-41 [facility] BUN/creatinine ratioOrdered By: Darrick Ford on 12-21-2024 Urea nitrogen/Creatinine [Mass ratio] 16.2 mg/mg 10- [facility] Basic Metabolic Profile (BMP )on 12-21-2024 BUN/CRE 16.2 RATIO Normal 10-20 [facility] Comment on above: Performed By: #### M 100.505 #### [facility] [address] [place], [address] ECRCL 85.33 ml/min Normal 50-250 [facility] Comment on above: Performed By: #### M 100.505 #### [facility] [address] [place], [address] GAP 13 Normal 5-15 [facility] Comment on above: Performed By: #### M 100.505 #### [facility] [address] [place], [address] Potassium [Moles/Vol] 3.9 mmol/L Normal 3.3-5.1 [facility] Comment on above: Performed By: #### M 100.505 #### [facility] [address] [place], [address] Basophil percentageOrdered B y: Darrick Ford on 12-21-2024 Basophils/100 WBC (Bld) 0.2 % Normal 0-1 [facility] Comment on above: Performed By: #### M 100.505 #### [facility] [address] [place], [address] Bilirubin Test strip Ql (U)O rdered By: Darrick Ford on 12-21-2024 Bilirubin Ql (U) Negative Negative [facility] CBC W/Diff, Automatedon 12-09 Absolute Lymph 0.90 X10 3/uL Normal 0.83-4.51 [facility] Comment on above: Performed By: #### M 100.505 #### [facility] [address] [place] [facility] [place], [address] Absolute Neut 11.2 X10 3/uL High 2.0-7.7 [facility] Comment on above: Performed By: #### M 100.505 #### [facility] [address] [place], [address] IG% 0.500 Normal 0.0-0.9 [facility] Comment on above: Result Comment: IG% - Immature Granulocytes (promyelocytes, myelocytes and metamyelocytes) > 1% indicates that a LEFT SHIFT is Present. Performed By: #### M 100.505 #### [facility] [address] [place], [address] Lymphocytes/100 WBC (Bld) 7.1 % Low 19-41 [facility] Comment on above: Performed By: #### M 100.505 #### [facility] [address] [place], [address] Nucleated RBC (Bld) [#/Vol] 0 10*3/uL Normal 0-5 [facility] Comment on above: Performed By: #### M 100.505 #### [facility] [address] [place], [address] RDW SD 38.8 fl Normal 35.1-43.9 [facility] Comment on above: Performed By: #### M 100.505 #### [facility] [address] [place], [address] Carbon dioxide, total [Moles /volume] in Central venous bloodOrdered By: Darrick Ford on 12-21-2024 CO2 [Moles/Vol] 22.9 mmol/L Normal 21.0-32.0 [facility] Comment on above: Performed By: #### M 100.505 #### [facility] [address] [place], [address] Chloride assayOrdered By: Renato Ford on 12-21-2024 Chloride [Moles/Vol] 102 mmol/L Normal 98-108 [facility] Comment on above: Performed By: #### M 100.505 #### [facility] [address] [place], [address] Emergency Department Summary on 12-21-2024 Emergency Department Summary [facility] Medical Records Department [address] [place] [address] Emergency Department Summary 12/21/24 MR#: [id number] Acct: [id number] Name: STEFANO ESPINOZA Rep #: [id number] : 1995 29 From: Darrick Ford DO PCP: Dr. Zeinab William DO Status:DEP ER Location: ED HPI History of Present Illness Chief Complaint: Flank Pain Informant: patient Onset/Context/Timing Onset: Today Context: Sudden Onset Timing: Continuous Quality: Sharp, stabbing Location: Left lower abdomen Worsened by: Nothing Relieved by: Tylenol Narrative Narrative: Patient presents with left-sided abdominal pain that began today. Patient states it began rather suddenly. Patient states it feels similar to prior kidney stone. Patient describes it as sharp and stabbing. Patient states she took Tylenol which helped for approximately 1 hour. Patient states that it came back shortly after that. Patient states nothing makes it worse. Patient admits to some nausea and vomiting. Patient also admits to some subjective chills and sweats. Patient admits to some neck pain but denies any back pain. Prior similar symptoms: Yes (Prior kidney stone) PFSH PFS Medical History ADD (attention deficit disorder) Anxiety Home Medications ???Medication ???Instructions ???Recorded ???Last Taken ???Type citalopram 20 mg tablet (Celexa) 30 mg PO DAILY 06/24/21 Unknown Hi story lisdexamfetamine 30 mg capsule 30 mg PO DAILY 06/24/21 Unknown Hi story (Vyvanse) levonorgestrel 20.4 mcg/24 hr (up 1 device intrauterine ONCE Unknown History to 8 yrs) 52 mg intrauterine device (Liletta) azithromycin 250 mg tablet See Rx Instructions PO .COMPLEX #6 07/20/24 Unknown Rx tabs hydrocodone-acetaminophen 5-325mg 1 tab PO Q6H PRN PRN Pain 3 days 12/21/24 Unknown Rx 5mg-325mg #10 TABLETS Allergy/AdvReac Type Severity Reaction Status Date / Time No Known Allergies Allergy Verified 12/21/24 16:46 Family History Mother Diabetes Congestive heart failure Renal failure Father Narcolepsy Grandmother Kidney disease Grandfather Heart disease Alzheimer disease Surgical History labioplasty Social History current occupational status: student current occupation: [employer] Smoking Status: Never smoker alcohol intake: never substance use type: does not use caffeine: Yes what type of physical activity do you participate in: walking and aerobics frequency: 5-6 times per week seatbelt use: always do you feel safe at home: Yes additional social history: - [employer] ROS ROS ED Constitutional Constitutional ED: Reports chills, subjective and sweats; Denies fever(s) Eyes Eyes: Denies blurry vision or change in vision ENT ENT ED: Denies rhinorrhea or sore throat Cardiovascular Cardiovascular: Denies chest pain or palpitations Respiratory/Chest Respiratory/Chest: Denies cough or dyspnea Gastrointestinal Gastrointestinal: Reports nausea and vomiting Genitourinary Genitourinary ED: Denies dysuria or hematuria Musculoskeletal Musculoskeletal: Reports neck pain; Denies back pain Integumentary Denies abscess or rash Neurologic Neurologic: Denies headache(s) or weakness Allergic/Immunologic Allergic/Immunologic ED: Denies mouth swelling or urticaria EXAM Physical Exam Const Vital Signs: 12/21/24 16:44 Temperature 97.5 F L Temperature Source Oral Pulse Rate 54 L Respiratory Rate 14 Blood Pressure 126/78 H Blood Pressure Mean 94 Pulse Ox 100 Oxygen Delivery Method Room Air Positive well nourished and well developed General Appearance ED: well developed and NAD HEENT Reports moist mucous membranes Neck supple and no JVD Resp normal respiratory effort and clear to auscultation bilaterally Cardio regular rate and regular rhythm GI non-distended Palpation: soft and tender LLQ, LUQ and suprapubic; Negative for guarding or rebound tenderness present Extremity General Extremety ED: Negative for edema or tenderness General Extremity: Negative for edema Neuro oriented x3, CN's II-XII intact bilaterally and no sensory deficits noted Sensorium / Orientation: alert Motor Exam: strength 5/5 throughout Psych mental status grossly normal MDM MDM MDM Narrative Medical decision making narrative: Differential diagnosis includes ureteral calculus, urinary tract infection, pyelonephritis, diverticulitis, bowel obstruction, and perforation. CBC will be obtained to assess for leukocytosis and anemia. Basic metabolic profile will be obtained to (more content not included)... Normal [facility] Eosinophil percentageOrdered By: Darrick Ford on 12-21-2024 Eosinophils/100 WBC (Bld) 0.3 % Normal 0-5 [facility] Comment on above: Performed By: #### M 100.505 #### [facility] [address] [place], [place], [id number] Erythrocyte distribution wid th ratioOrdered By: Darrick Ford on 12-21-2024 Erythrocyte distribution width (RBC) [Ratio] 12.0 % Normal 11.6-14.6 [facility] Comment on above: Performed By: #### M 100.505 #### [facility] [address] [place], [place], [address] (021) Erythrocyte distribution wid th standard deviationOrdered By: Darrick Ford on 12-21-2024 Erythrocyte distribution width (RBC) [Ratio] 38.8 fl 35.1-43.9 [facility] Glomerular filtration rate ( GFR) estimation/1.73 sq m using serum, plasma, or whole bOrdered By: Darrick Ford on 12-21-2024 GFR/1.73 sq M.predicted among non-blacks MDRD (S/P/Bld) [Vol rate/Area] 97 mL/min/{1.73_m2} Normal >60 [facility] Comment on above: mL/min/1.73m2 CKD-EP I Creatinine Equation (2020) Result Comment: mL/m in/1.73m2 CKD-EPI Creatinine Equation (2020) Performed By: #### M 100.505 #### [facility] [address] [place], [place], [id number] Hemoglobin measurementOrdere d By: Darrick Ford on 12-21-2024 Hemoglobin (Bld) [Mass/Vol] 13.9 g/dL Normal 12.0-15.0 [facility] Comment on above: Performed By: #### M 100.505 #### [facility] [address] [place], [address] Immature granulocytes/100 WB C Auto (Bld)Ordered By: Darrick Ford on 12-21-2024 Immature granulocytes/100 WBC (Bld) 0.500 % 0.0-0.9 [facility] Comment on above: IG% - Immature Granu locytes (promyelocytes, myelocytes and metamyelocytes) > 1% indicates that a LEFT SHIFT is Present. Ketones Test strip Ql (U)Ord ered By: Darrick Ford on 12-21-2024 Ketones Ql (U) 50 mg/dl High Negative [facility] MCV (mean corpuscular volume ) determinationOrdered By: Darrick Ford on 12-21-2024 MCV (RBC) [Entitic vol] 87.4 fL Normal 81-99 [facility] Comment on above: Performed By: #### M 100.505 #### [facility] [address] [place], [place], [phone] Mean corpuscular hemoglobin (MCH) determinationOrdered By: Darrick Ford on 12-21-2024 MCH (RBC) [Entitic mass] 29.8 pg Normal 27.0-32.0 [facility] Comment on above: Performed By: #### M 100.505 #### [facility] [address] [facility] [place], [address] Mean corpuscular hemoglobin concentration (MCHC) determinationOrdered By: Darrick Ford on 12-21-2024 MCHC (RBC) [Mass/Vol] 34.1 g/dL Normal 32-36 [facility] Comment on above: Performed By: #### M 100.505 #### [facility] [address] [place], [address] Mean platelet volume determi nationOrdered By: Darrick Ford on 12-21-2024 Platelet mean volume (Bld) [Entitic vol] 10.5 fL Normal 6.2-12.0 [facility] Comment on above: Performed By: #### M 100.505 #### [facility] [address] [place], [address] Microscopic analysis of urin e for red blood cells (RBC)Ordered By: Darrick Ford on 12-21-2024 Microscopic analysis of urine for red blood cells (RBC) > 100 SEEN /hpf 0-5 [facility] Monocyte percentageOrdered B y: Darrick Ford on 12-21-2024 Monocytes/100 WBC (Bld) 3.2 % Normal 0-10 [facility] Comment on above: Performed By: #### M 100.505 #### [facility] [address] [facility] [place], [place], [id number] Mucus LM Ql (Urine sed)Order ed By: Darrick Ford on 12-21-2024 Mucus Ql (Urine sed) 0 SEEN /hpf [facility] Neutrophil percentageOrdered By: Darrick Ford on 12-21-2024 Neutrophils/100 WBC (Bld) 88.7 % High 47-70 [facility] Comment on above: Performed By: #### M 100.505 #### [facility] [address] [place], [place], [id number] Nitrite Test strip Ql (U)Ord ered By: Darrick Ford on 12-21-2024 Nitrite Ql (U) Negative Negative [facility] Nucleated red blood cell per centageOrdered By: Darrick Ford on 12-21-2024 Nucleated RBC/100 WBC (Bld) [Ratio] 0 % 0-5 [facility] Platelet countOrdered By: Renato Ford on 12-21-2024 Platelets (Bld) [#/Vol] 267 10*3/uL Normal 150-450 [facility] Comment on above: Performed By: #### M 100.505 #### [facility] [address] [place], [address] Potassium measurement (mass/ volume)Ordered By: Darrick Ford on 12-21-2024 Potassium (Unsp spec) [Mass/Vol] 3.9 mmol/L 3.3-5.1 [facility] ,Serum,hCG Quali.on 12-21-2024 HCG, SERUM QUAL Negative Normal [facility] Comment on above: Performed By: #### M 100.505 #### [facility] [address] [place], [address] Protein Test strip Ql (U)Ord ered By: Darrick Ford on 12-21-2024 Protein Ql (U) 30 mg/dl High Negative [facility] Serum beta-hCG test, qualita tiveOrdered By: Darrick Ford on 12-21-2024 Beta HCG ( test) Ql Negative [facility] Serum creatinine measurement (mass/volume)Ordered By: Darrick Ford on 12-21-2024 Creatinine [Mass/Vol] 0.84 mg/dL Normal 0.70-1.20 [facility] Comment on above: Performed By: #### M 100.505 #### [facility] [address] [place], [address] Serum glucose measurement (m ass/volume)Ordered By: Darrick Ford on 12-21-2024 Glucose [Mass/Vol] 119 mg/dL High 70-99 [facility] Comment on above: Performed By: #### M 100.505 #### [facility] [address] [place], [address] Serum or plasma calcium rosalia urement (mass/volume)Ordered By: Darrick Ford on 12-21-2024 Calcium [Mass/Vol] 9.4 mg/dL Normal 7.6-11.0 [facility] Comment on above: Performed By: #### M 100.505 #### [facility] [address] [place], [address] Serum or plasma urea nitroge n measurement (mass/volume)Ordered By: Darrick Ford on 12-21-2024 Urea nitrogen [Mass/Vol] 14 mg/dL Normal 4-19 [facility] Comment on above: Performed By: #### M 100.505 #### [facility] [address] [place], [address] Sodium levelOrdered By: Darrick Ford on 12-21-2024 Sodium [Moles/Vol] 138 mmol/L Normal 133-145 [facility] Comment on above: Performed By: #### M 100.505 #### [facility] [address] [place], [address] Squamous epithelial cells de tection in urine sediment by light microscopyOrdered By: Darrick Ford on 12-21-2024 Epithelial cells.squamous LM Ql (Urine sed) 5-10 SEEN /hpf 5-10 [facility] Urinalysis, Completeon 12-21 BACTERIA RARE Normal None Seen [facility] Comment on above: Order Comment: CLEAN CATCH Performed By: #### L 400.0001 #### [facility] [address] [place], [address] WBC 0-5 SEEN Normal 0-5 [facility] Comment on above: Order Comment: CLEAN CATCH Performed By: #### L 400.0001 #### [facility] [address] [place], [address] EPI,SQUAMOUS 5-10 SEEN Normal 5-10 [facility] Comment on above: Order Comment: CLEAN CATCH Performed By: #### L 400.0001 #### [facility] [address] [place], [address] RBC > 100 SEEN Normal 0-5 [facility] Comment on above: Order Comment: CLEAN CATCH Performed By: #### L 400.0001 #### [facility] [address] [place], [address] Mucus Ql (Urine sed) 0 SEEN Normal [facility] Comment on above: Order Comment: CLEAN CATCH Performed By: #### L 400.0001 #### [facility] [address] [place], [address] Urine clarityOrdered By: Jeannine Ford on 12-21-2024 Clarity (U) Cloudy Clear [facility] Urine color determinationOrd ered By: Darrick Ford on 12-21-2024 Color (U) Yellow Yellow [facility] Urine glucose detectionOrder ed By: Darrick Ford on 12-21-2024 Glucose Ql (U) Normal mg/dl Normal [facility] Urine leukocyte esterase det ection by dipstickOrdered By: Darrick Ford on 12-21-2024 Leukocyte esterase Test strip Ql (U) Negative Negative [facility] Urine pHOrdered By: Darrick staples on 12-21-2024 pH (U) 6.0 [pH] 5.0 - 8.0 [facility] Urine sediment bacteria coun t by microscopy (number/high power field)Ordered By: Darrick Ford on 12-21-2024 Bacteria LM.HPF (Urine sed) [#/Area] RARE /hpf None Seen [facility] Urine specific gravity measu rementOrdered By: Darrick Ford on 12-21-2024 Specific gravity (U) [Rel density] 1.020 1.002-1.[address] [facility] Urine urobilinogen measureme ntOrdered By: Darrick Ford on 12-21-2024 Urobilinogen Ql (U) Normal mg/dl Normal [facility] White blood cell (WBC) count Ordered By: Darrick Ford on 12-21-2024 WBC (Bld) [#/Vol] 12.6 10*3/uL High 4.4-11.0 [facility] Comment on above: Performed By: #### M 100.505 #### [facility] [address] [place], [address] White blood cell countOrdere d By: Darrick Ford on 12-21-2024 White blood cell count 0-5 SEEN /hpf 0-5 [facility] Chest PA and Lateralon 07-20 Chest PA and Lateral [facility] [address] [place], [place] [address] Chest PA and Lateral MR#: [id number] Acct: [id number] Name: STEFANO ESPINOZA Rep #: [id number] : 1995 F 28 From: Rod ferro MD PCP: Dr. Zeinab William DO Status: REG CLI Study: Chest PA and Lateral Date of Exam: 07/20/24 Exam# [id number] Ordering Dr: Venkat Mares [id number] STUDY: X-RAY CHEST REASON FOR EXAM: Female, 28 years old. Persistent cough with fever TECHNIQUE: PA and lateral views of the chest. COMPARISON: None. FINDINGS: Right lower lobe infiltration. There is no demonstrated pleural abnormality. Normal size heart. Normal mediastinum and isabell. Normal visualized pulmonary arteries. Normal visualized aortic arch and descending thoracic aorta. Normal visualized thoracic spine. Normal visualized ribs, clavicles, and shoulders. There is no demonstrated abnormality of the visualized soft tissue structures of the upper abdomen. RAD/Chest PA and Lateral IMPRESSION: Right lower lobe infiltration. Follow-up recommended. Electronically Signed: Rod Mina MD at 13:11 EST , CC: EDGARDO Borges; Dr. Zeinab William DO Astronomy Professor: Signed Normal [facility] Urgent Care Visit Reporton 0 07-20-2024 Urgent Care Visit Report [facility] [address], [address] [place] [address] OFFICE VISIT Date of Service: 07/20/24 MR#: [id number] Acct: [id number] Name: STEFANO ESPINOZA Rep #: [id number] : 1995 Provider: EDGARDO Borges Age/Sex: 28/F Location: [facility] Status: Signed Intake Vital Signs 07/10/23 09:51 07/20/24 12:19 Height 5 ft 4 in BP 96/56 L Blood Pressure Location Lt brachial Position Sitting Respiration 14 Pulse 102 H Pulse Source NIBP Temp 98.2 F Temp Source Oral Pulse Oximetry (%) 98 Oxygen Delivery Method room air Intake Visit Reasons: cough, sore throat, fever Chief Complaint: cough, ST, fever, IBRAHIM, BA, mucus Senior 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 Engineer 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: No Is patient in pain?: No Allergies No Known Allergies Allergy (Verified 07/20/24 12:19) Medications ???Medication ???Instructions ???Recorded ???Confirmed ???Type citalopram 20 mg tablet (Celexa) 30 mg PO DAILY 06/24/21 06/28/22 History lisdexamfetamine 30 mg capsule 30 mg PO DAILY 06/24/21 06/28/22 History (Vyvanse) levonorgestrel 20.4 mcg/24 hr (up 1 device intrauterine ONCE 11/18/21 06/28/22 History to 8 yrs) 52 mg intrauterine device (Liletta) amoxicillin 875 mg-potassium 1 tab PO Q12H 10 days #20 tabs 07/20/24 07/20/24 Rx clavulanate 125 mg tablet azithromycin 250 mg tablet See Rx Instructions PO .COMPLEX #6 07/20/24 07/20/24 Rx tabs Is last menstrual period known: No Post menopausal: No Patient : No Have you fallen in the past year?: No Nurse's Note: cough, ST, fever, IBRAHIM, BA, mucus x 1 week. was here for [facility] employee test earlier in the week but was not seen. testing negative but pt has not improved. denies lung hx PFSH Medical History ADD (attention deficit disorder) Anxiety Surgical History labioplasty Family History Mother Diabetes Congestive heart failure Renal failure Father Narcolepsy Grandmother Kidney disease Grandfather Heart disease Alzheimer disease Social History (Updated 06/28/22 @ 09:28 by Yahaira Tate) current occupational status: student current occupation: [employer] Smoking Status: Never smoker alcohol intake: never substance use type: does not use caffeine: Yes what type of physical activity do you participate in: walking and aerobics frequency: 5-6 times per week seatbelt use: always do you feel safe at home: Yes additional social history: - [employer] Female Reproductive History Menstrual Ab spontaneous: 1 HPI HPI Chief Complaint: cough, ST, fever, IBRAHIM, BA, mucus Details: STEFANO ESPINOZA, is a 28 F who presents to the office today for complaint of cough, sore throat, fever, headache and bodyaches for the past week. Patient reports a fever Tmax of 103 ???F. Patient states that her last fever was yesterday. No hemoptysis, shortness of breath or difficulty breathing. No nausea, vomiting or diarrhea. No loss of taste or smell. Patient did have a test earlier in the week which was negative for COVID, flu and RSV. No other associated symptoms or alleviating/aggravating factors. ROS Const Constitutional: No other (6 system ROS completed with pertinent findings in the HPI otherwise normal.) Exam Const General: cooperative and well developed [facility] Head: normal to inspection and atraumatic Ears: hearing grossly normal bilaterally Nose: nasal discharge clear Face and sinus: normal facial exam Mouth: oral mucosae normal Throat: abnormal tonsil bilaterally hypertrophy 1+ Resp Effort Inspection: normal respiratory effort and no audible wheezes Auscultation: Bilateral: Clear to Auscultation Cardio Palpation: normal PMI Rate: regular rate Rhythm: regular rhythm Neuro General: patient alert and CN's II-XI intact bilaterally Psych Appearance: grossly normal Mental Status: mental status grossly normal Coding Level of Care Code Off vis,new,level 4 Diagnoses Acute bronchitis J20.9 Right lower lobe pneumonia J18.9 Assessment and Plan Assessment and Plan (1) Acute bronchitis: Status: Acute (2) Right lower lobe pneumonia: Status: Acute Orders: Orders Chest PA and Lateral Today J20.9 - Acute bronchitis, unspecified Medications: New azithromycin take 500 mg today (day 1), then 250 mg for 4 days (days 2-5) PO 6 tabs 0RF amoxicillin-pot clavulanate 875-125 mg 1 TAB PO Q12H 10 days 20 tabs 0RF J01.90 - Acute sinusitis, unspecified Plan PA and lateral views of the chest x-ray read and interpreted by myself finding pneumonia right lower lobe. Awaiting radiology interpretation at time of patient discharge. Encourage (more content not included)... Normal [facility] Office Visit Reporton 2024 Office Visit Report [facility] [address] [place] [address] OFFICE VISIT Date of Service: 07/16/24 MR#: [id number] Acct: [id number] Patient: STEFANO ESPINOZA Rep #: [id number] : 1995 Provider: EDGARDO Elise Age/Sex: 28/F Location: [facility] Status: Signed Intake Vital Signs 07/10/23 09:51 Height 5 ft 4 in Intake Visit Reasons: COVID-19 Allergies No Known Allergies Allergy (Verified 07/10/23 09:53) Nurse's Note: Patient here for a Cepheid test. Results POC CEPH COV,FluAB,RSV PCR CEPHEID COVID PCR Not DETECTED Last Edit by Hazel Mendenhall MA on 07/16/24 11:28 CEPHEID FLU AB PCR NOT DETECTED FLU A B Last Edit by Hazel Mendenhall MA on 07/16/24 11:28 CEPHEID RSV PCR NOT DETECTED Last Edit by Hazel Mendenhall MA on 07/16/24 11:28 Assessment and Plan Assessment and Plan Orders: Orders POC Cepheid Covid, FluAB, RSV Today 07/16/24 1131 Date Luis Fung Signature: Date (if applicable) CC: Normal [facility] COVID 19 AG RAPID (PAOLA Lou)on 06-14-2024 SARS-CoV-2 (COVID-19) RNA KENJI+probe Ql (Unsp spec) *Negative results from patients with symptom onset beyond five days should be treated as presumptive and confirmed by a molecular assay if clinically necessary. Negative results should not be used as the sole basis for treatment or for patient management. SARS-CoV-2 Ag Resp Ql IA.rapid *Positive results do not differentiate between SARS-CoV and SARS-CoV-2. If differentiation of the specific SARS virus is desired an additional sample and an additional order is required. SARS-CoV-2 Ag Resp Ql IA.rapid * This test has not been FDA cleared or approved; the test has been authorized by FDA under an Emergency Use Authorization (EAU) for use by laboratories certified under CLIA that meet the requirements to perform moderate, high, or waived complexity tests. SARS-CoV-2 Ag Resp Ql IA.rapid Normal Reference Range: Negative SARS-CoV-2 (COVID 19) Negative RAPID METHOD [employer] COVID[address] [facility] Comment on above: Performed By: #### M 100.505 #### [facility] [place], [address] Qualitative QuantiFERON-TB g old in tube testOrdered By: Zeinab William on 10-15-2023 M. tuberculosis tuberculin stim IFN-g Ql (Bld) 0.02 IU/mL . [facility] Thin prep Papanicolaou smear with manual screeningOrdered By: Zeinab William on 10-15-2023 Thin prep Papanicolaou smear with manual screening Comment . [facility] Comment on above: QuantiFERON-TB Gold Plus is a qualitative indirect test forM tuberculosis infection (including disease) and isintended for use in conjunction with risk assessment,radiography, and other medical and diagnostic evaluations.The QuantiFERON-TB Gold Plus result is determined bysubtracting the Nil value from either TB antigen (Ag)value. The Mitogen tube serves as a control for the test. Thin prep Papanicolaou smear with manual screening 0.01 IU/mL . [facility] Thin prep Papanicolaou smear with manual screening > 10.00 IU/mL . [facility] Thin prep Papanicolaou smear with manual screening Negative Negative [facility] Comment on above: No response to M tub erculosis antigens detected.Infection with M tuberculosis is unlikely, but high riskindividuals should be considered for additional testing(ATS/IDSA/CDC Clinical Practice Guidelines, 2017). Thereference range is an Antigen minus Nil result of <0.35IU/mL.The specimen received for QuantiFERON testing was incubatedby the ordering institution. Specific procedures outlinedin our Directory of Services and in the package insert forthe QuantiFERON Gold (In Tube) test must be followed toenable for proper stimulation of cells for the productionof interferon gamma. Chemiluminescence immunoassaymethodologyPerformed at: [place] [id number] Director: Johnny Gallardo PhD, Phone: [phone] COVID-19 virus antigen assay Ordered By: Gerber Oneill on 08-17-2023 SARS-CoV-2 (COVID-19) Ag IA.rapid Ql (Resp) [facility] COVID-19 virus antigen assay Ordered By: Gerber Oneill on 08-10-2023 SARS-CoV-2 (COVID-19) Ag IA.rapid Ql (Resp) [facility] SARS-CoV-2 (COVID-19) Ag IA.rapid Ql (Resp) [facility] COVID-19 virus antigen assay Ordered By: Gerber Oneill on 07-08-2023 SARS-CoV-2 (COVID-19) Ag IA.rapid Ql (Resp) [facility] COVID-19 virus antigen assay Ordered By: Gerber Oneill on 05-06-2023 SARS-CoV-2 (COVID-19) Ag IA.rapid Ql (Resp) [facility] 2019 Novel Coronavirus (COVI D-19), KENJI ([id number])Ordered By: Senior Cyber Security Analyst on [id number] Novel Coronavirus (COVID-19), KENJI ([id number]) Not detected Normal [facility]; [facility] Work Phone: Comment on above: This nucleic acid am plification test was developed and its performancecharacteristics determined by [employer]. Nucleic acidamplification tests include RT-PCR and TMA. This test has not beenFDA cleared or approved. This test has been authorized by FDA underan Emergency Use Authorization (EUA). This test is only authorizedfor the duration of time the declaration that circumstances existjustifying the authorization of the emergency use of in vitrodiagnostic tests for detection of SARS-CoV-2 virus and/or diagnosisof COVID-19 infection under section 564(b)(1) of the Act, 21 U.S.C.360bbb-3(b) (1), unless the authorization is terminated or revokedsooner.When diagnostic testing is negative, the possibility of a falsenegative result should be considered in the context of a patient'srecent exposures and the presence of clinical signs and symptomsconsistent with COVID-19. An individual without symptoms of COVID-19and who is not shedding SARS-CoV-2 virus would expect to have anegative (not detected) result in this assay. PERFORMED BY: [facility] [address] [id number] SARS-CoV-2 (COVID-19) Ag IA. rapid Ql (Resp)Ordered By: Gerber Oneill on 04-01-2023 SARS-CoV-2 Antigen (Rapid) SARS-CoV-2 (COVID 19) [facility] SARS-CoV-2 Antigen (Rapid) SARS-CoV-2 (COVID 19) [facility] Urine Drug Screen -Medicare (Office - Urine Drug Screen 9 Panel) (15429)Ordered By: Kymberly Rios on 02-02-2023 Barbiturates Ql (S/P/Bld) Negative Normal [facility]; [facility] Work Phone: Benzodiazepines Ql (U) Negative Normal [facility]; [facility] Work Phone: Benzoylecgonine Confirm Ql Negative Normal [facility]; [facility] Work Phone: Cannabinoids Confirm Ql (U) Negative Normal [facility]; [facility] Work Phone: Methadone [Mass/Vol] Negative Normal Comp re[facility]; [facility] Work Phone: Methamphetamine Ql Positive Normal Compre hens[facility]; [facility] Work Phone: Opiates Ql (U) Negative Normal Comprehens an[facility]; [facility] Work Phone: GLUCOSE ([id number])Ordered By: S ystem Distributor Of Directories on 01-21-2023 Glucose [Mass/Vol] 80 mg/dL Normal 70-99 [facility]pre [facility]; [facility] Work Phone: Comment on above: PATIENT WAS FASTINGP ERFORMED BY: ANDERSON Labcorajinder [id number] [address] BTCJamDuin [place] [id number] LIPID PANEL ([id number])Ordered B y: Senior Cyber Security Analyst on 01-21-2023 Cholesterol [Mass/Vol] 144 mg/dL Normal 100-199 [facility]; [facility] Work Phone: Comment on above: PATIENT WAS FASTINGP ERFORMED BY: ANDERSON Labcorajinder [id number] [address] BTCJamFormerly [facility]in [place] [id number] Cholesterol in HDL [Mass/Vol] 66 mg/dL Normal [facility]; [facility] Work Phone: Comment on above: PATIENT WAS FASTINGP ERFORMED BY: ANDERSON [employer] [id number] [address] BTCJamblin [place] [id number] Triglyceride [Mass/Vol] 48 mg/dL Normal 0-149 [facility]; [facility] Work Phone: Comment on above: PATIENT WAS FASTINGP ERFORMED BY: ANDERSON [facility] [id number] [address] [facility] [place] [id number] LIPID PANEL (65221) 11 mg/dL Normal 5-40 Compr [facility]; [facility] Work Phone: Comment on above: PATIENT WAS FASTINGP ERFORMED BY: ANDERSON [facility] [id number] Garcia RoadDublin [place] [id number] LIPID PANEL (76157) 67 mg/dL Normal 0-99 Compr [facility]; [facility] Work Phone: Comment on above: PATIENT WAS FASTINGP ERFORMED BY: CB [facility] [id number] MediaV [facility] [id number] LIPID PANEL (24804) 1.0 {ratio} Normal 0.0-3.2 Comp rehens[facility]; [facility] Work Phone: Comment on above: LDL/HDL Ratio Men Wo men 1/2 Avg.Risk 1.0 1.5 Avg.Risk 3.6 3.2 2X Avg.Risk 6.2 5.0 3X Avg.Risk 8.0 6.1 PATIENT WAS FASTINGP ERFORMED BY: [id number] [employer] [facility] [id number] QuantiFERON-TB Gold Plus (QF T-Plus) (39328)Ordered By: Senior Cyber Security Analyst on 12-30-2022 Gamma interferon background IA Qn (Bld) 0.43 {IU/mL} Normal [facility]; [facility] Work Phone: Comment on above: PERFORMED BY: [employer]70 [facility]outOmaticC[facility] [id number] M. tuberculosis stim IFN-g by CD4+ CD8+ T-cells corrected for background Qn (Bld) 0.00 {IU/mL} Normal Comprehens[facility] e [facility]; [facility] Work Phone: Comment on above: PERFORMED BY: [employer]70 [facility] [id number] M. tuberculosis stim IFN-g by CD4+ T-cells corrected for background Qn (Bld) 0.00 [IU]/mL Normal [facility]; [facility] Work Phone: Comment on above: PERFORMED BY: [employer]6370 [facility]Path[facility] [id number] M. tuberculosis stim IFN-g Ql (Bld) [Interp] Negative Normal [facility]; [facility] Work Phone: Comment on above: No response to M tub erculosis antigens detected.Infection with M tuberculosis is unlikely, but high riskindividuals should be considered for additional testing(ATS/IDSA/CDC Clinical Practice Guidelines, 2017). Thereference range is an Antigen minus Nil result of <0.35 IU/mL.Chemiluminescence immunoassay methodology PERFORMED BY: [facility] [id number] [facility] [id number] Mitogen stimulated gamma interferon Qn (Bld) >10.00 Normal [facility]; [facility] Work Phone: Comment on above: PERFORMED BY: [facility] [id number] [facility] [id number] Service comment (Unsp spec) [Interp] SPRCS Normal [facility]; [facility] Work Phone: Comment on above: QuantiFERON-TB Gold Plus is a qualitative indirect test forM tuberculosis infection (including disease) and is intended for usein conjunction with risk assessment, radiography, and other medicaland diagnostic evaluations. The QuantiFERON-TB Gold Plus result isdetermined by subtracting the Nil value from either TB antigen (Ag)value. The Mitogen tube serves as a control for the test. PERFORMED BY: [id number] [facility] [id number] QuantiFERON-TB Gold Plus (QFT-Plus) (56194) Incubation performed. Normal [facility]; [facility] Work Phone: Comment on above: PERFORMED BY: [facility]6370 [facility] [id number] RUBEOon 09-22-2022 Rubeola IgG Ab Positive Normal [facility] ([place]) Comment on above: Result Comment: INTE RPRETATION OF RUBEOLA (MEASLES) IgG BY EIA: Negative: No detectable Measles IgG antibody. Presumed non-immune to measles virus. Positive: Measles IgG antibody Detected. Presumed immune to measles virus. If clinically indicated, order Measles IgM to rule out active infection. Equivocal: Equivocal for antibodies to Measles. Suggest repeat testing 10-14 days. Performed By: #### H BSAB, RUBAYAN HUMPHRIESS RUBIS #### [facility] [address] [place] [address] RUBISon 09-22-[address] Positive Normal Positive [facility] [place] Comment on above: Result Comment: This immune status assay detects IgM and/or IgG antibody to Rubella. Interpret results in conjunction with clinical history. POS: Antibody detected; exposure at undetermined recent or distant time. If clinically indicated, order Rubella IGM to rule out recent infection. NEG: No antibody detected. Performed By: #### H SIGIFREDO CROOKS VARIS, RUBIS #### [address] [address] VARISon 09-22-[address] Positive Normal [facility] ([place]) Comment on above: Result Comment: INTE RPRETATION OF VARICELLA IMMUNE STATUS IgG BY EIA: Negative: No detectable VZV IgG antibody. Positive: VZV IgG antibody Detected. If clinically indicated, order Varicella IgM to rule out recent infection. Equivocal: Equivocal for antibodies to VZV. Suggest repeat testing in 10-14 days. Performed By: #### H SIGIFREDO CROOKS VARIS, RUBIS #### [address] [address] HBSABon 09-21-2022 Hep B Surf Ab 102.6 mIU/mL Normal >=10.0 [facility] ([place]) Comment on above: Result Comment: 0 to < 10.0 mIU/mL Nonreactive Patient is considered not to have protective immunity to HBV infection >/= 10.0 mIU/mL Reactive Patient is considered to have protective immunity to HBV infection. This assay is traceable to the World Health Organization (WHO) Hepatitis B Immunoglobulin 1st International Reference Preparation (1976). The accepted criteria for immunity to HBV is anti-HBs activity >/= 10.0 mIU/mL, as defined by the WHO International Reference Preparation. Performed By: #### H SIGIFREDO CROOKS VARIS, RUBIS #### [address] [address] LEE ANN (ANTINUCLEAR ANTIBODY) ( [id number])Ordered By: Senior Cyber Security Analyst on 06-17-2022 Nuclear Ab Ql (S) Negative Normal Compreh ens[facility]; [facility] Work Phone: Comment on above: PATIENT NOT FASTINGP ERFORMED BY: [facility] [id number] [facility] [id number] C-REACTIVE PROTEIN ([id number])Or dered By: Senior Cyber Security Analyst on 06-17-2022 CRP [Mass/Vol] mg/L Normal 0-10 Comprehens [facility]; [facility] Work Phone: Comment on above: PATIENT NOT FASTINGP ERFORMED BY: ANDERSON Moya Okruga [id number] [employer] [id number] CALCIFIDIOL (94255) VIT D 25 Ordered By: Senior Cyber Security Analyst on 06-17-2022 25-hydroxyvitamin D [Mass/Vol] 33.5 ng/mL Normal 30.0-100.0 [facility]; [facility] Work Phone: Comment on above: Vitamin D deficiency has been defined by the [place] ofMedicine and an Endocrine Society practice guideline as alevel of serum 25-OH vitamin D less than 20 ng/mL (1,2).The Endocrine Society went on to further define vitamin Dinsufficiency as a level between 21 and 29 ng/mL (2).1. IOM ([place] of Medicine). 2010. Dietary reference intakes for calcium and D. [place]: The National Academies Press.2. Cassy MF, Jhonatan LEDEZMA, Krys IBRAHIM, et al. Evaluation, treatment, and prevention of vitamin D deficiency: an Endocrine Society clinical practice guideline. JCEM. 2010; 96(7):1911-30. PATIENT NOT FASTINGP ERFORMED BY: ANDERSON Moya Okruga [id number] ShoutOmaticblin [place] [id number] CBC WITH MANUAL DIFF ([id number]) Ordered By: Senior Cyber Security Analyst on 06-17-2022 Basophils (Bld) [#/Vol] 0.0 10*3/uL Normal 0.0-0.2 [facility]; [facility] Work Phone: Comment on above: PATIENT NOT FASTINGP ERFORMED BY: ANDERSON [facility] [id number] [address] BTCJamDublin [place] [id number] Basophils/100 WBC (Bld) 1 % Normal [facility]; [facility] Work Phone: Comment on above: PATIENT NOT FASTINGP ERFORMED BY: AB Tasty Ahybnp9825 Garcia RoadDublin [place] [id number] Eosinophils (Bld) [#/Vol] 0.1 10*3/uL Normal 0.0-0.4 [facility]; [facility] Work Phone: Comment on above: PATIENT NOT FASTINGP ERFORMED BY: CB [facility] Alajij8946 Garcia RoadDublin [place] [id number] Eosinophils/100 WBC (Bld) 1 % Normal [facility]; [facility] Work Phone: Comment on above: PATIENT NOT FASTINGP ERFORMED BY: CB [facility] Yykwzl8074 [address] RoadDublin [place] [id number] Erythrocyte distribution width (RBC) [Ratio] 13.3 % Normal 11.7-15.4 [facility]; [facility] Work Phone: Comment on above: PATIENT NOT FASTINGP ERFORMED BY: CB [facility] Fdfyti6987 [address] RoadDublin [place] [id number] Hematocrit (Bld) [Volume fraction] 40.7 % Normal 34.0-46.6 [facility]; [facility] Work Phone: Comment on above: PATIENT NOT FASTINGP ERFORMED BY: CB [facility] Ijukmf3176 [address] RoadDublin [place] [id number] Hemoglobin (Bld) [Mass/Vol] 13.0 g/dL Normal 11.1-15.9 [facility]; [facility] Work Phone: Comment on above: PATIENT NOT FASTINGP ERFORMED BY: CB [facility] Qufimj6288 [address] RoadDublin [place] [id number] Immature granulocytes (Bld) [#/Vol] 0.0 10*3/uL Normal 0.0-0.1 [facility]; [facility] Work Phone: Comment on above: PATIENT NOT FASTINGP ERFORMED BY: CB [facility] Btjysm1260 [address] RoadDublin [place] [id number] Immature granulocytes/100 WBC (Bld) 0 % Normal [facility]; [facility] Work Phone: Comment on above: PATIENT NOT FASTINGP ERFORMED BY: CB [facility] Yeqcnz9986 [address] RoadDublin [place] [id number] Lymphocytes (Bld) [#/Vol] 1.0 10*3/uL Normal 0.7-3.1 [facility]; [facility] Work Phone: Comment on above: PATIENT NOT FASTINGP ERFORMED BY: ANDERSON Labcorajinder BraggTjuiaa6310 [address] RoadDublin [place] [id number] Lymphocytes/100 WBC (Bld) 24 % Normal [facility]; [facility] Work Phone: Comment on above: PATIENT NOT FASTINGP ERFORMED BY: CB [facility] Exlqoq5272 [address] RoadDublin [place] [id number] MCH (RBC) [Entitic mass] 28.4 pg Normal 26.6-33.0 [facility]; [facility] Work Phone: Comment on above: PATIENT NOT FASTINGP ERFORMED BY: CB [facility] Ccracj8387 [address] RoadDublin [place] [id number] MCHC (RBC) [Mass/Vol] 31.9 g/dL Normal 31.5-35.7 [facility] prehensive Internal Medicine; [facility] Work Phone: Comment on above: PATIENT NOT FASTINGP ERFORMED BY: ANDERSON Labcorajinder ReardonWzgdyx8704 [address] RoadDublin [place] [id number] MCV (RBC) [Entitic vol] 89 fL Normal 79-97 [facility]; [facility] Work Phone: Comment on above: PATIENT NOT FASTINGP ERFORMED BY: CB [facility] Kjggpt8177 [address] RoadDublin [place] [id number] Monocytes (Bld) [#/Vol] 0.3 10*3/uL Normal 0.1-0.9 [facility]; [facility] Work Phone: Comment on above: PATIENT NOT FASTINGP ERFORMED BY: CB [facility] Pdhunw8350 [address] RoadDublin [place] [id number] Monocytes/100 WBC (Bld) 8 % Normal [facility]; [facility] Work Phone: Comment on above: PATIENT NOT FASTINGP ERFORMED BY: CB [facility] Ggmdzb8807 [address] RoadDublin [place] [id number] Neutrophils (Bld) [#/Vol] 2.8 10*3/uL Normal 1.4-7.0 [facility]; [facility] Work Phone: Comment on above: PATIENT NOT FASTINGP ERFORMED BY: ANDERSON Bragg[address] [facility] [id number] Neutrophils/100 WBC (Bld) 66 % Normal [facility]; [facility] Work Phone: Comment on above: PATIENT NOT FASTINGP ERFORMED BY: ANDERSON Reardonlin6[address] [facility] [id number] Platelets (Bld) [#/Vol] 155 10*3/uL Normal 150-450 [facility]; [facility] Work Phone: Comment on above: PATIENT NOT FASTINGP ERFORMED BY: ANDERSON Thacker Ijgccj3286 [facility] [id number] RBC (Bld) [#/Vol] 4.57 10*6/uL Normal 3.77-5.28 [facility]; [facility] Work Phone: Comment on above: PATIENT NOT FASTINGP ERFORMED BY: ANDERSON Thacker Gomgsm9146 [facility] [id number] WBC (Bld) [#/Vol] 4.2 10*3/uL Normal 3.4-10.8 [facility]; [facility] Work Phone: Comment on above: PATIENT NOT FASTINGP ERFORMED BY: ANDERSON Thacker Pnyzja4762 [facility] [id number] ESR-F (SED RATE ERYTHROCYTE - FEMALE) ([id number])Ordered By: Senior Cyber Security Analyst on 06-17-2022 ESR (Bld) [Velocity] 11 mm/h Normal 0-32 [facility]; [facility] Work Phone: Comment on above: PATIENT NOT FASTINGP ERFORMED BY: ANDERSON Thacker Aicvdb0457 [facility] [id number] LDH (LD) (LACTATE DEHYDROGEN ASE) ([id number])Ordered By: Senior Cyber Security Analyst on 06-17-2022 LDH [Catalytic activity/Vol] 152 U/L Normal 119-226 [facility]; [facility] Work Phone: Comment on above: PATIENT NOT FASTINGP ERFORMED BY: ANDERSON Labecho Bragg6370 [address] RoadDublin [place] [id number] METABOLIC PANEL, COMPREHENSI VE ([id number])Ordered By: Senior Cyber Security Analyst on 06-17-2022 Albumin [Mass/Vol] 4.9 g/dL Normal 3.9-5.0 [facility]; [facility] Work Phone: Comment on above: PATIENT NOT FASTINGP ERFORMED BY: ANDERSON [facility] Jboano8631 [address] RoadDublin [place] [id number] Albumin/Globulin [Mass ratio] 2.0 {ratio} Normal 1.2-2.2 [facility]; [facility] Work Phone: Comment on above: PATIENT NOT FASTINGP ERFORMED BY: ANDERSON Reardonlin6370 [address] RoadDublin [place] [id number] ALP [Catalytic activity/Vol] 69 U/L Normal 44-121 [facility]; [facility] Work Phone: Comment on above: PATIENT NOT FASTINGP ERFORMED BY: ANDERSON Labecho ReardonFrhbqa1108 [address] RoadDublin [place] [id number] ALT [Catalytic activity/Vol] 8 U/L Normal 0-32 [facility]; [facility] Work Phone: Comment on above: PATIENT NOT FASTINGP ERFORMED BY: ANDERSON [facility] Xgtkwk8659 [address] RoadDublin [place] [id number] AST [Catalytic activity/Vol] 12 U/L Normal 0-40 [facility]; [facility] Work Phone: Comment on above: PATIENT NOT FASTINGP ERFORMED BY: ANDERSON [facility] Hlhydp4871 [address] RoadDublin [place] [id number] Bilirubin [Mass/Vol] 0.9 mg/dL Normal 0.0-1.2 Comp [facility] Internal [facility]; [facility] Work Phone: Comment on above: PATIENT NOT FASTINGP ERFORMED BY: CB [facility] Pnntex9571 [address] RoadDublin [place] [id number] Calcium [Mass/Vol] 9.4 mg/dL Normal 8.7-10.2 [facility]; [facility] Work Phone: Comment on above: PATIENT NOT FASTINGP ERFORMED BY: ANDERSON [facility] Vfaprl5853 [address] RoadDublin [place] [id number] Chloride [Moles/Vol] 102 mmol/L Normal 96-106 [facility]erens[facility]; [facility] Work Phone: Comment on above: PATIENT NOT FASTINGP ERFORMED BY: ANDERSON [facility] Bzptps3075 [address] RoadDublin [place] [id number] CO2 [Moles/Vol] 22 mmol/L Normal 20-29 [facility] Internal [facility]; [facility] Work Phone: Comment on above: PATIENT NOT FASTINGP ERFORMED BY: ANDERSON Lab[facility] Sshkka9506 [address] RoadDublin [place] [id number] Creatinine [Mass/Vol] 0.80 mg/dL Normal 0.57-1.00 [facility] Internal Medicine; [facility] Work Phone: Comment on above: PATIENT NOT FASTINGP ERFORMED BY: ANDERSON [facility] Afanog6846 [address] RoadDublin [place] [id number] GFR/1.73 sq M.predicted among non-blacks MDRD (S/P/Bld) [Vol rate/Area] 104 mL/min/{1.73_m2} Normal [email or web address]] Internal Medicine; [facility] Work Phone: Comment on above: PATIENT NOT FASTINGP ERFORMED BY: ANDERSNO [facility] Cxcfkq5320 [address] RoadDublin [place] [id number] Globulin (S) [Mass/Vol] 2.4 g/dL Normal 1.5-4.5 [facility] Internal [facility]; [facility] Work Phone: Comment on above: PATIENT NOT FASTINGP ERFORMED BY: ANDERSON [facility] Dfuavb9001 [address] RoadDublin [place] [id number] Glucose [Mass/Vol] 87 mg/dL Normal 70-99 [facility] Internal Medicine; [facility] Work Phone: Comment on above: PATIENT NOT FASTINGP ERFORMED BY: ANDERSON [facility] Mwviay0823 [address] RoadDublin [place] [id number] Potassium [Moles/Vol] 4.1 mmol/L Normal 3.5-5.2 [facility] Internal Medicine; [facility] Work Phone: Comment on above: PATIENT NOT FASTINGP ERFORMED BY: CB [facility] Fznzek1355 [address] RoadDublin [place] [id number] Protein [Mass/Vol] 7.3 g/dL Normal 6.0-8.5 [facility] Internal [facility]; [facility] Work Phone: Comment on above: PATIENT NOT FASTINGP ERFORMED BY: CB [facility] Hvtdjp7367 [address] RoadDublin [place] [id number] Sodium [Moles/Vol] 138 mmol/L Normal 134-144 [facility] Internal [facility]; [facility] Work Phone: Comment on above: PATIENT NOT FASTINGP ERFORMED BY: CB [facility] Cgsoln5875 [address] RoadDublin [place] [id number] Urea nitrogen [Mass/Vol] 11 mg/dL Normal 6-20 [facility] Internal [facility]; [facility] Work Phone: Comment on above: PATIENT NOT FASTINGP ERFORMED BY: CB [facility] Btvaqk5722 [address] RoadDublin [place] [id number] Urea nitrogen/Creatinine [Mass ratio] 14 mg/mg Normal 9-23 [facility] Internal [facility]; [facility] Work Phone: Comment on above: PATIENT NOT FASTINGP ERFORMED BY: CB [facility] Ghhlvc2174 [address] RoadDublin [place] [id number] PT (Prothrobim Time) ([id number]) Ordered By: Senior Cyber Security Analyst on 06-17-2022 INR Coag (PPP) [Relative time] 1.0 {INR} Normal 0.9-1.2 [facility] Internal [facility]; [facility] Work Phone: Comment on above: Reference interval i s for non-anticoagulated patients. . Suggested INR therapeutic range for Vitamin K antagonist therapy: Standard Dose (moderate intensity therapeutic range): 2.0 - 3.0 Higher intensity therapeutic range 2.5 - 3.5 PATIENT NOT FASTINGP ERFORMED BY: [facility]6370 [facility] [id number] PT Coag (PPP) [Time] 10.7 s Normal 9.1-12.0 Comp rehensive Internal Medicine; [facility] Work Phone: Comment on above: PATIENT NOT FASTINGP ERFORMED BY: [facility]6370 [facility] [id number] PTT (Activated Partial Throm boplastin Time) ([id number])Ordered By: Senior Cyber Security Analyst on 06-17-2022 aPTT Coag (PPP) [Time] 29 s Normal 24-33 [facility]; [facility] Work Phone: Comment on above: This test has not be en validated for monitoring unfractionated heparintherapy. aPTT-based therapeutic ranges for unfractionated heparintherapy have not been established. For general guidelines onHeparin monitoring, refer to the [facility] Directory of Services. PATIENT NOT FASTINGP ERFORMED BY: [facility]6370 [facility] [id number] TSH ([id number])Ordered By: Josué m Distributor Of [employer] on 06-17-2022 TSH Qn 1.120 {uIU/mL} Normal 0.450-4.50 0 [facility]; [facility] Work Phone: Comment on above: PATIENT NOT FASTINGP ERFORMED BY: [facility]6370 [facility] [id number] URINE NATHANIEL CULTURE-IDENTIFICA [place] ([id number])Ordered By: Senior Cyber Security Analyst on 06-17-2022 Bacteria identified Cx Nom (U) Final report Abnormal [facility]; [facility] Work Phone: Comment on above: PATIENT NOT FASTINGP ERFORMED BY: [facility]6370 [facility] [id number] Information: SRC:UC Bacteria identified Cx Nom (U) Enterococcus faecalis Abnormal Comprehens anika Internal [facility]; [facility] Work Phone: Comment on above: For Enterococcus spe cies, aminoglycosides (except for high-levelresistance screening), cephalosporins, clindamycin, andtrimethoprim-sulfamethoxazole are not effective clinically.(CLSI, L831-P28, 2016)8,000 Colonies/mLNote: this isolate is vancomycin-susceptible.This information is provided for epidemiologic purposes only:vancomycin is not among the antibiotics recommended for therapyof urinary tract infections caused by Enterococcus. PATIENT NOT FASTINGP ERFORMED BY: SpotRight6370 [facility] [id number] Information: SRC:TAMMY Other Antibiotic [Susc] MIHEAD Normal [facility]; [facility] Work Phone: Comment on above: S = Susceptible; I = Intermediate; R = Resistant P = Positive; N = Negative MICS are expressed in micrograms per mL Antibiotic RSLT#1 RSLT#2 RSLT#3 RSLT#4Ciprofloxacin SLevofloxacin SNitrofurantoin SPenicillin STetracycline SVancomycin S PATIENT NOT FASTINGP ERFORMED BY: Playsino6370 [facility]HopN[facility] [id number] Information: SRC:TAMMY Urinalysis, Office ([id number])Or dered By: Oscar Heredia on 06-17-2022 Bilirubin Ql (U) Negative Normal Comprehe nsive Internal Medicine; [facility] Work Phone: Glucose Test strip (U) [Mass/Vol] Negative Normal [facility]; [facility] Work Phone: Hemoglobin Ql (U) Negative Normal Compreh ensive Internal Medicine; [facility] Work Phone: Ketones Ql (U) Negative Normal Comprehens anika [facility]; [facility] Work Phone: Leukocyte esterase Test strip Ql (U) Negative Normal [facility]; [facility] Work Phone: Nitrite Ql (U) Negative Normal Comprehens anika [facility]; [facility] Work Phone: pH (U) 6 [pH] Abnormal [facility]; [facility] Work Phone: Protein Ql (U) Negative Normal Comprehens anika [facility]; [facility] Work Phone: Specific gravity (U) [Rel density] 1.020 1 Normal [facility]; [facility] Work Phone: Urobilinogen (24H U) [Mass/Time] Normal Normal [facility]; [facility] Work Phone: Urine Test, Office ([id number])Ordered By: Oscar Heredia on 06-17-2022 Beta HCG ( test) Ql (U) Negative Normal [facility]; [facility] Work Phone: VITAMIN B-12 (CYANOCOBALAMIN ) ([id number])Ordered By: Senior Cyber Security Analyst on 06-17-2022 Cobalamin (Vitamin B12) [Mass/Vol] 350 pg/mL Normal 232-1245 [facility]; [facility] Work Phone: Comment on above: PATIENT NOT FASTINGP ERFORMED BY: [facility]6370 [facility] [id number] [facility] 02-11-2022 CNPN Telephone (FPDOYL) ----- STEFANO ESPINOZA ([id number]) 1995 F Date Time Provider Department 02/11/22 NO PCP FPDOYL During your visit today, we recorded the following information about you: Teddy Delgado 02/11/2022 10:24 AM Signed PHONED STEFANO EXPLAINED WE DO NOT HAVE HER VACCINE RECORDS. SHE STATED SHE WAS ABLE TO OBTAIN THESE FROM THE CORRECT PROVIDER WHO HAD THEM. Allergies As of Date: 02/11/2022 (No Known Allergies) Date Reviewed: 05/09/2019 Reviewed by: [place] Iqbal LPN - Fully Assessed Reason for Visit: Patient Update [1234] Prescriptions as of 02/11/2022 - citalopram (CELEXA) 20 mg tablet Problem List As Of Date: 02/11/2022 (None) Encounter Status:Closed by TEDDY DELGADO on 02/11/22 Normal [facility] Urine Drug Screen -Medicare (Office - Urine Drug Screen 9 Panel) (11137)Ordered By: Sommer Peguero on 02-01-2022 Barbiturates Ql (S/P/Bld) n Normal [facility]; [facility] Work Phone: Benzodiazepines Ql (U) n Normal [facility]; [facility] Work Phone: Benzoylecgonine Confirm Ql n Normal [facility]; [facility] Work Phone: Cannabinoids Confirm Ql (U) n Normal [facility]; [facility] Work Phone: Methadone [Mass/Vol] n Normal Comp rehensive Internal Medicine; [facility] Work Phone: Methamphetamine Ql Positive Normal Compre hensive Internal Medicine; [facility] Work Phone: Opiates Ql (U) n Normal Comprehens anika [facility]; [facility] Work Phone: CNPDelia 01-14-2022 CNPN Telephone (FPDOYL) ----- STEFANO ESPINOZA ([id number]) 1995 F Date Time Provider Department 01/14/22 NOPCP (HISTORICAL) FPDOYL During your visit today, we recorded the following information about you: Teddy Delgado 01/14/2022 4:06 PM Signed PATIENT REQUESTING MEDICAL VACCINE RECORDS FOR PAOLA SALGADO NAME-VOLODYMYR PATIENT #[phone] Allergies As of Date: 01/14/2022 (No Known Allergies) Date Reviewed: 05/09/2019 Reviewed by: India Besancon [employer]ON DESIGN PRINTER - Fully Assessed Reason for Visit: Patient Question [7597] Cmt: REQUESTING MEDICAL VACCINE RECORDS FROM [facility]... Prescriptions as of 02/11/2022 - citalopram (CELEXA) 20 mg tablet Problem List As Of Date: 01/14/2022 (None) Encounter Status:Closed by TEDDY DELGADO on 02/11/22 Normal [facility] QuantiFERON-TB Gold Plus (QF T-Plus) (01490)Ordered By: Senior Cyber Security Analyst on 01-14-2022 Gamma interferon background IA Qn (Bld) 0.00 {IU/mL} Normal [facility]; [facility] Work Phone: Comment on above: PATIENT NOT FASTINGP ERFORMED BY: ANDERSON Reardonlin6370 [facility] [id number] M. tuberculosis stim IFN-g by CD4+ CD8+ T-cells corrected for background Qn (Bld) 0.00 {IU/mL} Normal Comprehensiv e Internal [facility]; [facility] Work Phone: Comment on above: PATIENT NOT FASTINGP ERFORMED BY: ANDERSON LabSharesVaultrajinder ReardonLpefdn5968 [facility] [id number] M. tuberculosis stim IFN-g by CD4+ T-cells corrected for background Qn (Bld) 0.00 [IU]/mL Normal Comprehensiv e [facility]; [facility] Work Phone: Comment on above: PATIENT NOT FASTINGP ERFORMED BY: ANDERSON Labcorajinder ReardonCnyyju3881 [facility] [id number] M. tuberculosis stim IFN-g Ql (Bld) [Interp] Negative Normal [facility]; [facility] Work Phone: Comment on above: Chemiluminescence im munoassay methodology PATIENT NOT FASTINGP ERFORMED BY: ANDERSON Labecho ReardonInqiki0168 [facility] [id number] Mitogen stimulated gamma interferon Qn (Bld) >10.00 Normal [facility]; [facility] Work Phone: Comment on above: PATIENT NOT FASTINGP ERFORMED BY: Gorb Ccaxit1198 ShoutOmaticC[facility] [id number] Service comment (Unsp spec) [Interp] SPRCS Normal [facility]; [facility] Work Phone: Comment on above: The QuantiFERON-TB G old Plus result is determined by subtractingthe Nil value from either TB antigen (Ag) tube. The mitogen tubeserves as a control for the test. PATIENT NOT FASTINGP ERFORMED BY: SpotRight6370 ShoutOmaticC[facility] [id number] QuantiFERON-TB Gold Plus (QFT-Plus) (93811) Incubation performed. Normal Comprehens anika [facility] Medicine; [facility] Work Phone: Comment on above: PATIENT NOT FASTINGP ERFORMED BY: SpotRight6370 ShoutOmaticin [place] [id number] CALCIFEDIOL ([id number])Ordered B y: Senior Cyber Security Analyst on 09-28-2021 25-hydroxyvitamin D [Mass/Vol] 28.6 ng/mL Abnormal 30.0-100.0 [facility]; [facility] Work Phone: Comment on above: Vitamin D deficiency has been defined by the [place] ofMedicine and an Endocrine Society practice guideline as alevel of serum 25-OH vitamin D less than 20 ng/mL (1,2).The Endocrine Society went on to further define vitamin Dinsufficiency as a level between 21 and 29 ng/mL (2).1. IOM ([place] of Medicine). 2010. Dietary reference intakes for calcium and D. [place]: The National Academies Press.2. Cassy MF, Jhonatan NC, Krys IBRAHIM, et al. Evaluation, treatment, and prevention of vitamin D deficiency: an Endocrine Society clinical practice guideline. JCEM. 2010; 96(7):1911-30. PATIENT NOT FASTINGP ERFORMED BY: AB Tasty Zltdbd0737 [address] [facility] SystemVen[facility] [place] [id number] CBC & PLATELETS (AUTO) ([id number])Ordered By: Senior Cyber Security Analyst on 09-28-2021 Erythrocyte distribution width (RBC) [Ratio] 12.6 % Normal 11.7-15.4 [facility]; [facility] Work Phone: Comment on above: PATIENT NOT FASTINGP ERFORMED BY: CB [facility] Gfohem6524 [address] RoadDublin [place] [id number] Hematocrit (Bld) [Volume fraction] 38.8 % Normal 34.0-46.6 [facility]; [facility] Work Phone: Comment on above: PATIENT NOT FASTINGP ERFORMED BY: CB [facility] Nuzkzi7899 [address] RoadDublin [place] [id number] Hemoglobin (Bld) [Mass/Vol] 12.4 g/dL Normal 11.1-15.9 [facility]; [facility] Work Phone: Comment on above: PATIENT NOT FASTINGP ERFORMED BY: CB [facility] Bbmfca1092 [address] RoadDublin [place] [id number] MCH (RBC) [Entitic mass] 27.7 pg Normal 26.6-33.0 [facility]; [facility] Work Phone: Comment on above: PATIENT NOT FASTINGP ERFORMED BY: CB [facility] Jgjfjf2314 [address] RoadDublin [place] [id number] MCHC (RBC) [Mass/Vol] 32.0 g/dL Normal 31.5-35.7 [facility] Internal Medicine; [facility] Work Phone: Comment on above: PATIENT NOT FASTINGP ERFORMED BY: CB [facility] Ohfjnb1647 [address] RoadDublin [place] [id number] MCV (RBC) [Entitic vol] 87 fL Normal 79-97 [facility]; [facility] Work Phone: Comment on above: PATIENT NOT FASTINGP ERFORMED BY: CB [facility] Hkfyhi8262 [address] RoadDublin [place] [id number] Platelets (Bld) [#/Vol] 177 10*3/uL Normal 150-450 [facility]; [facility] Work Phone: Comment on above: PATIENT NOT FASTINGP ERFORMED BY: CB [facility] Ixdnwb4730 [address] RoadDublin [place] [id number] RBC (Bld) [#/Vol] 4.48 10*6/uL Normal 3.77-5.28 [facility]; [facility] Work Phone: Comment on above: PATIENT NOT FASTINGP ERFORMED BY: ANDERSON Bragg6370 [facility] [id number] WBC (Bld) [#/Vol] 4.0 10*3/uL Normal 3.4-10.8 [facility] Internal Medicine; [facility] Work Phone: Comment on above: PATIENT NOT FASTINGP ERFORMED BY: ANDERSON Thacker Yihlas2656 [facility] [id number] HEPATITIS B SURFACE ANTIBODY ([id number])Ordered By: Senior Cyber Security Analyst on 09-28-2021 HBV surface Ab Ql (S) Reactive Normal [facility] Internal Medicine; [facility] Work Phone: Comment on above: Non Reactive: Incons istent with immunity, less than 10 mIU/mL Reactive: Consistent with immunity, greater than 9.9 mIU/mL PATIENT NOT FASTINGP ERFORMED BY: ANDERSON Thacker Cadyrf2806 [facility] [id number] MUMPS ANTIBODY, IgG 31045 ([id number])Ordered By: Senior Cyber Security Analyst on 09-28-2021 MuV IgG IA Qn (S) 167.0 AU/mL Normal [facility] Internal Medicine; [facility] Work Phone: Comment on above: Negative <9.0 Equivo emily 9.0 - 10.9 Positive >10.9 A positive result generally indicates past exposure to Mumps virus or previous vaccination. PATIENT NOT FASTINGP ERFORMED BY: ANDERSON BurgosSharesVault Sghmrz0969 [facility] [id number] Metabolic Panel, Basic (4664 [id number])Ordered By: Senior Cyber Security Analyst on 09-28-2021 Calcium [Mass/Vol] 9.4 mg/dL Normal 8.7-10.2 [facility] Internal Medicine; [facility] Work Phone: Comment on above: PATIENT NOT FASTINGP ERFORMED BY: ANDERSON BurgosSharesVault Eidhgp5330 [facility] [id number] Chloride [Moles/Vol] 102 mmol/L Normal 96-106 Comp rehensive Internal Medicine; [facility] Work Phone: Comment on above: PATIENT NOT FASTINGP ERFORMED BY: ANDERSON Bragg6370 [facility] [id number] CO2 [Moles/Vol] 21 mmol/L Normal 20-29 Comprehen sive Internal Medicine; [facility] Work Phone: Comment on above: PATIENT NOT FASTINGP ERFORMED BY: ANDERSON Reardonlin6370 [facility] [id number] Creatinine [Mass/Vol] 0.74 mg/dL Normal 0.57-1.00 Com prehensive Internal Medicine; [facility] Work Phone: Comment on above: PATIENT NOT FASTINGP ERFORMED BY: ANDERSON Reardonlin6370 [facility] [id number] GFR/1.73 sq M.predicted among non-blacks MDRD (S/P/Bld) [Vol rate/Area] 114 mL/min/{1.73_m2} Normal Comprehensi ve Internal Medicine; [facility] Work Phone: Comment on above: PATIENT NOT FASTINGP ERFORMED BY: ANDERSON Reardonlin6370 [facility] [id number] Glucose [Mass/Vol] 77 mg/dL Normal 65-99 [facility]; [facility] Work Phone: Comment on above: PATIENT NOT FASTINGP ERFORMED BY: ANDERSON Labmychal Iaxmcr0310 [facility] [id number] Potassium [Moles/Vol] 4.5 mmol/L Normal 3.5-5.2 [facility] prehensive Internal Medicine; [facility] Work Phone: Comment on above: PATIENT NOT FASTINGP ERFORMED BY: ANDERSON Labecho ReardonCcnkvq4464 [facility] [id number] Sodium [Moles/Vol] 138 mmol/L Normal 134-144 Compre hensive Internal Medicine; [facility] Work Phone: Comment on above: PATIENT NOT FASTINGP ERFORMED BY: ANDERSON eGifter Skoniw8257 [address] BTCJamCrawley Memorial Hospital [id number] Urea nitrogen [Mass/Vol] 10 mg/dL Normal 6-20 [facility]; [facility] Work Phone: Comment on above: PATIENT NOT FASTINGP ERFORMED BY: eGifterSaint Clare's Hospital at DenvilleHqizny4358 [facility] [id number] Urea nitrogen/Creatinine [Mass ratio] 14 mg/mg Normal 9-23 [facility]; [facility] Work Phone: Comment on above: PATIENT NOT FASTINGP ERFORMED BY: RetentionGridSelect Specialty Hospital6370 [facility] [id number] RUBELLA IgG ([id number])Ordered B y: Senior Cyber Security Analyst on 09-28-2021 Rubella virus IgG Qn (S) 5.82 {index} Normal [facility]; [facility] Work Phone: Comment on above: Non-immune <0.90 Equ ivocal 0.90 - 0.99 Immune >0.99 PATIENT NOT FASTINGP ERFORMED BY: eGifter Dtzhcx6197 [facility] [id number] RUBEOLA IgG ([id number])Ordered B y: Senior Cyber Security Analyst on 09-28-2021 MeV IgG IA Qn (S) 117.0 AU/mL Normal [facility] Internal Medicine; [facility] Work Phone: Comment on above: Negative <13.5 Equiv ocal 13.5 - 16.4 Positive >16.4 Presence of antibodies to Rubeola is presumptive evidence of immunity except when acute infection is suspected. PATIENT NOT FASTINGP ERFORMED BY: eGifterSaint Clare's Hospital at DenvilleDfjetq3134 [facility] [id number] TSH (THYROID STIMULATING HOR ÓSCAR) ([id number])Ordered By: Senior Cyber Security Analyst on 09-28-2021 TSH Qn 1.920 {uIU/mL} Normal 0.450-4.50 0 [facility]; [facility] Work Phone: Comment on above: PATIENT NOT FASTINGP ERFORMED BY: RetentionGridJoshua Ville 8246870 [facility] [id number] VARICELLA-ZOSTER ANTBODY ([id number])Ordered By: Senior Cyber Security Analyst on 09-28-2021 VZV IgG IA Qn (S) 186 {index} Normal Compre [facility] Internal Medicine; [facility] Work Phone: Comment on above: Negative <135 Equivo emily 135 - 165 Positive >165 A positive result generally indicates exposure to the pathogen or administration of specific immunoglobulins, but it is not indication of active infection or stage of disease. PATIENT NOT FASTINGP ERFORMED BY: blueKiwi Softwarelin6370 [facility] [id number] INHOUSE COVID 19 (ONLY) RAPI D ([id number])Ordered By: Bernadette Verma on 07-16-2021 SARS-CoV-2 (COVID-19) RNA KENJI+probe Ql (Unsp spec) Positive Normal [facility]; [facility] Work Phone: CALCIFEDIOL ([id number])Ordered B y: Senior Cyber Security Analyst on 12-17-2020 25-hydroxyvitamin D [Mass/Vol] 31.6 ng/mL Normal 30.0-100.0 [facility]; [facility] Work Phone: Comment on above: Vitamin D deficiency has been defined by the [place] ofMedicine and an Endocrine Society practice guideline as alevel of serum 25-OH vitamin D less than 20 ng/mL (1,2).The Endocrine Society went on to further define vitamin Dinsufficiency as a level between 21 and 29 ng/mL (2).1. IOM ([place] of Medicine). 2010. Dietary reference intakes for calcium and D. [place]: The National Academies Press.2. Cassy MF, Jhonatan NC, Krys IBRAHIM, et al. Evaluation, treatment, and prevention of vitamin D deficiency: an Endocrine Society clinical practice guideline. JCEM. 2010; 96(7):1911-30. PATIENT NOT FASTINGP ERFORMED BY: Easiaidlin6370 [facility] [id number] VITAMIN B12 AND FOLATES ([id number])Ordered By: Senior Cyber Security Analyst on 12-17-2020 Cobalamin (Vitamin B12) [Mass/Vol] 431 pg/mL Normal 232-1245 [facility]; [facility] Work Phone: Comment on above: PATIENT NOT FASTINGP ERFORMED BY: ANDERSON Thacker Ujeacd8945 [facility] [id number] Folate [Mass/Vol] 9.5 ng/mL Normal Compreh ensive Internal Medicine; [facility] Work Phone: Comment on above: A serum folate ivaney ntration of less than 3.1 ng/mL isconsidered to represent clinical deficiency. PATIENT NOT FASTINGP ERFORMED BY: LabLafayette [facility] Llervw7682 [facility] [id number] CBC W/AUTO DIFF WBC ([id number])O rdered By: Senior Cyber Security Analyst on 09-05-2020 Basophils (Bld) [#/Vol] 0.0 {x10E3/uL} Normal 0.0-0.2 [facility]; [facility] Work Phone: Comment on above: PATIENT WAS FASTINGP ERFORMED BY: LorettaLafayette Regional Health Center Jurhjf6584 [facility] [id number] Basophils (Bld) [#/Vol] 0.0 10*3/uL Normal 0.0-0.2 [facility]; [facility] Work Phone: Comment on above: PATIENT WAS FASTINGP ERFORMED BY: LorettaLafayette Regional [facility] Center Dsovwd8833 [facility] [id number] Basophils/100 WBC (Bld) 1 % Normal [facility]; [facility] Work Phone: Comment on above: PATIENT WAS FASTINGP ERFORMED BY: LabHenry Ford [facility]and[facility] Hospital6370 [facility] [id number] Eosinophils (Bld) [#/Vol] 0.1 {x10E3/uL} Normal 0.0-0.4 [facility]; [facility] Work Phone: Comment on above: PATIENT WAS FASTINGP ERFORMED BY: LabHenry [facility]and[facility]6370 [facility] [id number] Eosinophils (Bld) [#/Vol] 0.1 10*3/uL Normal 0.0-0.4 [facility]; [facility] Work Phone: Comment on above: PATIENT WAS FASTINGP ERFORMED BY: ANDERSON LabCorajinder BraggGuhmqv6150 Garcia Roadblin [place] [id number] Eosinophils/100 WBC (Bld) 2 % Normal [facility]; [facility] Work Phone: Comment on above: PATIENT WAS FASTINGP ERFORMED BY: ANDERSON [facility] Hhyoeb5634 Garcia RoadCrawley Memorial Hospital [id number] Erythrocyte distribution width (RBC) [Ratio] 13.0 % Normal 11.7-15.4 [facility]; [facility] Work Phone: Comment on above: PATIENT WAS FASTINGP ERFORMED BY: ANDERSON Bragg6370 [facility] [id number] Hematocrit (Bld) [Volume fraction] 39.9 % Normal 34.0-46.6 [facility]; [facility] Work Phone: Comment on above: PATIENT WAS FASTINGP ERFORMED BY: ANDERSON LabCo Taulpv7736 Garcia RoadQuinnesec [place] [id number] Hemoglobin (Bld) [Mass/Vol] 13.0 g/dL Normal 11.1-15.9 [facility]; [facility] Work Phone: Comment on above: PATIENT WAS FASTINGP ERFORMED BY: ANDERSON LabCo Gkivdq2736 [address] RoadFormerly Hoots Memorial Hospitalin [place] [id number] Immature granulocytes (Bld) [#/Vol] 0.0 {x10E3/uL} Normal 0.0-0.1 [facility]; [facility] Work Phone: Comment on above: PATIENT WAS FASTINGP ERFORMED BY: ANDERSON [facility] Dhjijw2749 Garcia Roadblin [place] [id number] Immature granulocytes (Bld) [#/Vol] 0.0 10*3/uL Normal 0.0-0.1 [facility]; [facility] Work Phone: Comment on above: PATIENT WAS FASTINGP ERFORMED BY: CB [facility] Cjdnax6120 Garcia RoadQuinnesec [place] [id number] Immature granulocytes/100 WBC (Bld) 1 % Normal [facility]; [facility] Work Phone: Comment on above: PATIENT WAS FASTINGP ERFORMED BY: ANDERSON LorettaEcho Cdjkpw8158 [facility] [id number] Lymphocytes (Bld) [#/Vol] 1.0 {x10E3/uL} Normal 0.7-3.1 [facility]; [facility] Work Phone: Comment on above: PATIENT WAS FASTINGP ERFORMED BY: ANDERSON Thacker Bisvfq7786 [facility] [id number] Lymphocytes (Bld) [#/Vol] 1.0 10*3/uL Normal 0.7-3.1 [facility]; [facility] Work Phone: Comment on above: PATIENT WAS FASTINGP ERFORMED BY: ANDERSON Reardonlin6370 [facility] [id number] Lymphocytes/100 WBC (Bld) 27 % Normal [facility]; [facility] Work Phone: Comment on above: PATIENT WAS FASTINGP ERFORMED BY: ANDERSON Reardonlin6370 [facility] [id number] MCH (RBC) [Entitic mass] 29.1 pg Normal 26.6-33.0 [facility]; [facility] Work Phone: Comment on above: PATIENT WAS FASTINGP ERFORMED BY: ANDERSON BurgosLafayette Regional Health Center Ivblml6897 [facility] [id number] MCHC (RBC) [Mass/Vol] 32.6 g/dL Normal 31.5-35.7 [facility] prehensive Internal Medicine; [facility] Work Phone: Comment on above: PATIENT WAS FASTINGP ERFORMED BY: ANDERSON Reardonlin6370 [facility] [id number] MCV (RBC) [Entitic vol] 90 fL Normal 79-97 [facility]; [facility] Work Phone: Comment on above: PATIENT WAS FASTINGP ERFORMED BY: ANDERSON Reardonlin6370 [address] RoadDublin [place] [id number] Monocytes (Bld) [#/Vol] 0.3 {x10E3/uL} Normal 0.1-0.9 [facility]; [facility] Work Phone: Comment on above: PATIENT WAS FASTINGP ERFORMED BY: ANDERSON LabEcho ReardonXccywl0992 Garcia RoadDublin [place] [id number] Monocytes (Bld) [#/Vol] 0.3 10*3/uL Normal 0.1-0.9 [facility]; [facility] Work Phone: Comment on above: PATIENT WAS FASTINGP ERFORMED BY: ANDERSON LabEcho Bragg6370 [address] RoadDublin [place] [id number] Monocytes/100 WBC (Bld) 9 % Normal [facility]; [facility] Work Phone: Comment on above: PATIENT WAS FASTINGP ERFORMED BY: Mynor Cboihc1819 [address] RoadDublin [place] [id number] Neutrophils (Bld) [#/Vol] 2.2 {x10E3/uL} Normal 1.4-7.0 [facility]; [facility] Work Phone: Comment on above: PATIENT WAS FASTINGP ERFORMED BY: Timothy Bragg6370 [address] RoadDublin [place] [id number] Neutrophils (Bld) [#/Vol] 2.2 10*3/uL Normal 1.4-7.0 [facility]; [facility] Work Phone: Comment on above: PATIENT WAS FASTINGP ERFORMED BY: LabCo Lrwjwa0531 Garcia RoadDublin [place] [id number] Neutrophils/100 WBC (Bld) 60 % Normal [facility]; [facility] Work Phone: Comment on above: PATIENT WAS FASTINGP ERFORMED BY: LabCo Yxbhkl8978 [address] RoadDublin [place] [id number] Platelets (Bld) [#/Vol] 163 {x10E3/uL} Normal 150-450 [facility]; [facility] Work Phone: Comment on above: PATIENT WAS FASTINGP ERFORMED BY: ANDERSON [facility] Oshzlj1228 [address] RoadDublin [place] [id number] Platelets (Bld) [#/Vol] 163 10*3/uL Normal 150-450 [facility]; [facility] Work Phone: Comment on above: PATIENT WAS FASTINGP ERFORMED BY: CB [facility] Aiswrx5174 [address] RoadDublin [place] [id number] RBC (Bld) [#/Vol] 4.46 {x10E6/uL} Normal 3.77-5.28 [facility] Internal Medicine; [facility] Work Phone: Comment on above: PATIENT WAS FASTINGP ERFORMED BY: CB [facility] Otwiot9677 [address] RoadDublin [place] [id number] RBC (Bld) [#/Vol] 4.46 10*6/uL Normal 3.77-5.28 [facility]; [facility] Work Phone: Comment on above: PATIENT WAS FASTINGP ERFORMED BY: ANDERSON [facility] Jsjjcu2339 [address] RoadDublin [place] [id number] WBC (Bld) [#/Vol] 3.5 {x10E3/uL} Normal 3.4-10.8 [facility]; [facility] Work Phone: Comment on above: PATIENT WAS FASTINGP ERFORMED BY: CB [facility] Bqhnws6497 [address] RoadDublin [place] [id number] WBC (Bld) [#/Vol] 3.5 10*3/uL Normal 3.4-10.8 [facility] Internal Medicine; [facility] Work Phone: Comment on above: PATIENT WAS FASTINGP ERFORMED BY: CB [facility] Mvekbj2692 [address] RoadDublin [place] [id number] LIPID PANEL ([id number])Ordered B y: Senior Cyber Security Analyst on 09-05-2020 Cholesterol [Mass/Vol] 176 mg/dL Normal 100-199 [facility]; [facility] Work Phone: Comment on above: PATIENT WAS FASTINGP ERFORMED BY: CB [facility] Llrplv0092 [address] RoadDublin [place] [id number]; ov 3/ Cholesterol in HDL [Mass/Vol] 62 mg/dL Normal [facility]; [facility] Work Phone: Comment on above: PATIENT WAS FASTINGP ERFORMED BY: CB [facility] Brrnuv2104 [address] RoadDublin [place] [id number]; ov 3/ Cholesterol in LDL/Cholesterol in HDL [Mass ratio] 1.7 {ratio} Normal 0.0-3.2 [facility]; [facility] Work Phone: Comment on above: LDL/HDL Ratio Men Wo men 1/2 Avg.Risk 1.0 1.5 Avg.Risk 3.6 3.2 2X Avg.Risk 6.2 5.0 3X Avg.Risk 8.0 6.1 PATIENT WAS FASTINGP ERFORMED BY: CB [facility] Xxklnx3385 [address] Roadblin [place] [id number]; ov 3/ Triglyceride [Mass/Vol] 58 mg/dL Normal 0-149 [facility]; [facility] Work Phone: Comment on above: PATIENT WAS FASTINGP ERFORMED BY: CB [facility] Tzcnpe2513 [address] RoadDublin [place] [id number]; ov 3/26 LIPID PANEL ([id number]) 103 mg/dL Abnormal 0-99 Compr ensive Internal Medicine; [facility] Work Phone: Comment on above: PATIENT WAS FASTINGP ERFORMED BY: CB [facility] Cukeir1064 [address] RoadDublin [place] [id number]; ov 3/26 LIPID PANEL (40907) 11 mg/dL Normal 5-40 Compr ensive Internal Medicine; [facility] Work Phone: Comment on above: PATIENT WAS FASTINGP ERFORMED BY: CB [facility] Nmiyvp2839 [address] RoadDublin [place] [id number]; ov 3/26 LIPID PANEL (39913) 1.7 {ratio} Normal 0.0-3.2 [facility]; [facility] Work Phone: Comment on above: LDL/HDL Ratio Men Wo men 1/2 Avg.Risk 1.0 1.5 Avg.Risk 3.6 3.2 2X Avg.Risk 6.2 5.0 3X Avg.Risk 8.0 6.1 PATIENT WAS FASTINGP ERFORMED BY: CB [facility] Qozxfl7093 [address] RoadDublin [place] [id number]; ov 10/03 METABOLIC PANEL, COMPREHENSI VE (46213)Ordered By: Senior Cyber Security Analyst on 09-05-2020 Albumin [Mass/Vol] 4.6 g/dL Normal 3.9-5.0 [facility] Internal Medicine; [facility] Work Phone: Comment on above: PATIENT WAS FASTINGP ERFORMED BY: CB [facility] Ghnioq6618 [address] RoadDublin [place] [id number] Albumin/Globulin [Mass ratio] 1.8 {ratio} Normal 1.2-2.2 [facility]; [facility] Work Phone: Comment on above: PATIENT WAS FASTINGP ERFORMED BY: CB [facility] Yjcslw4067 [address] RoadDublin [place] [id number] ALP [Catalytic activity/Vol] 67 [iU]/L Normal 39-117 [facility]; [facility] Work Phone: Comment on above: PATIENT WAS FASTINGP ERFORMED BY: CB [facility] Aywpyv5175 [address] RoadDublin [place] [id number] ALP [Catalytic activity/Vol] 67 U/L Normal 39-117 [facility]; [facility] Work Phone: Comment on above: PATIENT WAS FASTINGP ERFORMED BY: CB [facility] Udmwsc0420 [address] RoadDublin [place] [id number] ALT [Catalytic activity/Vol] 10 [iU]/L Normal 0-32 [facility]; [facility] Work Phone: Comment on above: PATIENT WAS FASTINGP ERFORMED BY: CB [facility] Yysqjr4927 [address] RoadDublin [place] [id number] ALT [Catalytic activity/Vol] 10 U/L Normal 0-32 [facility]; [facility] Work Phone: Comment on above: PATIENT WAS FASTINGP ERFORMED BY: CB [facility] Hfxiek2586 [address] RoadDublin [place] [id number] AST [Catalytic activity/Vol] 15 [iU]/L Normal 0-40 [facility]; [facility] Work Phone: Comment on above: PATIENT WAS FASTINGP ERFORMED BY: CB [facility] Tipcny6239 [address] RoadDublin [place] [id number] AST [Catalytic activity/Vol] 15 U/L Normal 0-40 [facility]; [facility] Work Phone: Comment on above: PATIENT WAS FASTINGP ERFORMED BY: CB [facility] Nouxxi9003 [address] RoadDublin [place] [id number] Bilirubin [Mass/Vol] 0.7 mg/dL Normal 0.0-1.2 Comp rehensive Internal Medicine; [facility] Work Phone: Comment on above: PATIENT WAS FASTINGP ERFORMED BY: CB [facility] Msqrck3730 [address] RoadDublin [place] [id number] Calcium [Mass/Vol] 9.2 mg/dL Normal 8.7-10.2 [facility] Internal Medicine; [facility] Work Phone: Comment on above: PATIENT WAS FASTINGP ERFORMED BY: CB [facility] Xsasjh5439 [address] RoadDublin [place] [id number] Chloride [Moles/Vol] 104 mmol/L Normal 96-106 Comp rehensive Internal Medicine; [facility] Work Phone: Comment on above: PATIENT WAS FASTINGP ERFORMED BY: CB [facility] Hneonm9401 [address] RoadDublin [place] [id number] CO2 [Moles/Vol] 22 mmol/L Normal 20-29 Comprehen [facility] Internal [facility]; [facility] Work Phone: Comment on above: PATIENT WAS FASTINGP ERFORMED BY: CB [facility] Hcipaf6322 [address] RoadDublin [place] [id number] Creatinine [Mass/Vol] 0.75 mg/dL Normal 0.57-1.00 Com prehensive Internal Medicine; [facility] Work Phone: Comment on above: PATIENT WAS FASTINGP ERFORMED BY: ANDERSON [facility] Iiggsv1169 [address] RoadDublin [place] [id number] GFR/1.73 sq M predicted among blacks CKD-EPI (S/P/Bld) [Vol rate/Area] 128 mL/min/1.73 Normal [facility]; [facility] Work Phone: Comment on above: PATIENT WAS FASTINGP ERFORMED BY: CB [facility] Ubzjls9548 [address] RoadDublin [place] [id number] GFR/1.73 sq M predicted among non-blacks CKD-EPI (S/P/Bld) [Vol rate/Area] 111 mL/min/1.73 Normal [facility]; [facility] Work Phone: Comment on above: PATIENT WAS FASTINGP ERFORMED BY: ANDERSON [facility] Mpfjpm5872 [address] RoadDublin [place] [id number] Globulin (S) [Mass/Vol] 2.5 g/dL Normal 1.5-4.5 [facility]; [facility] Work Phone: Comment on above: PATIENT WAS FASTINGP ERFORMED BY: ANDERSON [facility] Jujutg2337 [address] RoadDublin [place] [id number] Glucose [Mass/Vol] 80 mg/dL Normal 65-99 [facility] Internal Medicine; [facility] Work Phone: Comment on above: PATIENT WAS FASTINGP ERFORMED BY: CB [facility] Gbjjir3877 Garcia RoadDuin [place] [id number] Potassium [Moles/Vol] 4.6 mmol/L Normal 3.5-5.2 [facility] prehensive Internal Medicine; [facility] Work Phone: Comment on above: PATIENT WAS FASTINGP ERFORMED BY: CB [facility] Tsqwal3727 [address] RoadDublin [place] [id number] Protein [Mass/Vol] 7.1 g/dL Normal 6.0-8.5 [facility] Internal Medicine; [facility] Work Phone: Comment on above: PATIENT WAS FASTINGP ERFORMED BY: [facility] Hospitallin6370 [facility] [id number] Sodium [Moles/Vol] 136 mmol/L Normal 134-144 [facility] Internal Medicine; [facility] Work Phone: Comment on above: PATIENT WAS FASTINGP ERFORMED BY: [facility]6370 [facility] [id number] Urea nitrogen [Mass/Vol] 10 mg/dL Normal 6-20 [facility]; [facility] Work Phone: Comment on above: PATIENT WAS FASTINGP ERFORMED BY: [facility]6370 [facility] [id number] Urea nitrogen/Creatinine [Mass ratio] 13 mg/mg Normal 9-23 [facility]; [facility] Work Phone: Comment on above: PATIENT WAS FASTINGP ERFORMED BY: [facility]6370 [facility] [id number] TSH ([id number])Ordered By: [employer] m [employer] on 09-05-2020 TSH Qn 1.460 {uIU/mL} Normal 0.450-4.50 0 [facility]; [facility] Work Phone: Comment on above: PATIENT WAS FASTINGP ERFORMED BY: [facility]6370 [facility] [id number] 2018 Novel Coronavirus (COVI D-19), KENJI ([id number])Ordered By: Senior Cyber Security Analyst on 08-05-20202018 Novel Coronavirus (COVID-19), KENJI ([id number]) Not Detected Normal [facility]; [facility] Work Phone: Comment on above: This nucleic acid am plification test was developed and its performancecharacteristics determined by [employer]. Nucleic acidamplification tests include RT-PCR and TMA. This test has not beenFDA cleared or approved. This test has been authorized by FDA underan Emergency Use Authorization (EUA). This test is only authorizedfor the duration of time the declaration that circumstances existjustifying the authorization of the emergency use of in vitrodiagnostic tests for detection of SARS-CoV-2 virus and/or diagnosisof COVID-19 infection under section 564(b)(1) of the Act, 21 U.S.C.360bbb-3(b) (1), unless the authorization is terminated or revokedsooner.When diagnostic testing is negative, the possibility of a falsenegative result should be considered in the context of a patient'srecent exposures and the presence of clinical signs and symptomsconsistent with COVID-19. An individual without symptoms of COVID-19and who is not shedding SARS-CoV-2 virus would expect to have anegative (not detected) result in this assay. PATIENT NOT FASTINGP ERFORMED BY: ANDERSON GRID [id number] [facility] [id number] 2018 Novel Coronavirus (COVID-19), KENJI ([id number]) Not detected Normal [facility]; [facility] Work Phone: Comment on above: This nucleic acid am plification test was developed and its performancecharacteristics determined by [employer]. Nucleic acidamplification tests include RT-PCR and TMA. This test has not beenFDA cleared or approved. This test has been authorized by FDA underan Emergency Use Authorization (EUA). This test is only authorizedfor the duration of time the declaration that circumstances existjustifying the authorization of the emergency use of in vitrodiagnostic tests for detection of SARS-CoV-2 virus and/or diagnosisof COVID-19 infection under section 564(b)(1) of the Act, 21 U.S.C.360bbb-3(b) (1), unless the authorization is terminated or revokedsooner.When diagnostic testing is negative, the possibility of a falsenegative result should be considered in the context of a patient'srecent exposures and the presence of clinical signs and symptomsconsistent with COVID-19. An individual without symptoms of COVID-19and who is not shedding SARS-CoV-2 virus would expect to have anegative (not detected) result in this assay. PATIENT NOT FASTINGP ERFORMED BY: ANDERSON GRID [id number] [facility] [id number] CNOVon 05-09-2019 [facility] Office Visit ([facility] ) ----- STEFANO ESPINOZA ([id number]) 1995 F Date Time Provider Department 05/09/19 12:45 PM DIANDRA AMIN) [facility] During your visit today, we recorded the following information about you: Temperature Pulse Respiration Blood pressure 98.9 degrees 106/minute 18/minute 98/64 Weight 54 kg Diandra Amin PA-C 05/09/2019 1:31 PM Signed Subjective HPI Stefano Espinoza is a 23 year old female who presents with right flank pain intermittently for 2-3 days. She denies any dysuria but has increased pain in the right flank area when she urinates. She has not had any fever but has had chills. She has not noticed any blood in her urine. She has had nausea and vomiting due to pain. She has no personal history of kidney stones but mom and dad both have history of them. She is having no difficulty urinating but seems to be urinating more frequently. She has not really taken anything for the pain. No past medical history on file. Current Outpatient Medications on File Prior to Visit: citalopram (CELEXA) 20 mg tablet No current facility-administered medications on file prior to visit. ALLERGIES No Known Allergies Review of Systems Constitutional: Negative for chills, fever and malaise/fatigue. Respiratory: Negative for shortness of breath. Cardiovascular: Negative for chest pain. Gastrointestinal: Positive for nausea and vomiting. Negative for abdominal pain, constipation and diarrhea. Genitourinary: Positive for flank pain. Negative for dysuria, frequency, hematuria and urgency. Musculoskeletal: Negative for myalgias. Skin: Negative for rash. Neurological: Negative for dizziness and headaches. BP 98/64 Pulse 106 Temp 37.2 ?C (98.9 ?F) (Tympanic) Resp 18 Wt 54 kg (119 lb) Objective Physical Exam Constitutional: She is oriented to person, place, and time and well-developed, well-nourished, and in no distress. No distress. HENT: Head: Normocephalic and atraumatic. Eyes: Pupils are equal, round, and reactive to light. EOM are normal. Neck: Neck supple. Cardiovascular: Normal rate and regular rhythm. Pulmonary/Chest: Effort normal and breath sounds normal. Abdominal: Soft. She exhibits no distension. There is tenderness in the right lower quadrant and suprapubic area. There is CVA tenderness. There is no rebound and no guarding. Neurological: She is alert and oriented to person, place, and time. Skin: Skin is warm and dry. Psychiatric: Affect normal. Nursing note and vitals reviewed. ASSESSMENT/PLAN: 1. Right flank pain - ICD9: 789.09, ICD10: R10.9 - Likely kidney stone. UA negative for leuks but has moderate blood. Sent to [place] [facility] for further evaluation. - UA DIP, URINE (POC) - URINE CULTURE Diandra Amin PA-C Referring Provider: SELF [[id number]] Allergies As of Date: 05/09/2019 (No Known Allergies) Date Reviewed: 05/09/2019 Reviewed by: [place] Iqbal LPN - Fully Assessed Reason for Visit: burning with urination [Other] Cmt: burning with urination, right flank pain and vomiting x 2 days Primary Visit Diagnosis:Right flank pain [R10.9] Order(s):UA DIP, URINE (POC) [2855792] Order #: [id number]. #:[id number] 8-LAB URINE CULTURE [SQURCUL] Order #: [id number] Prescriptions as of 05/09/2019 Sig: CITALOPRAM 20 MG TABLET Problem List As Of Date: 05/09/2019 (None) Encounter Status:Closed by DIANDRA AMIN PA-C on 05/09/19 [facility] PROGRESSon 05-09-2019 PROGRESS HNO ID: [id number] Author: Diandra Amin (Pa) Service: ? Author Type: Physician Vessel Scrapper Type: Progress Notes Filed: 05/09/2019 1:31 PM Note Text: Subjective HPI Stefano Espinoza is a 23 year old female who presents with right flank pain intermittently for 2-3 days. She denies any dysuria but has increased pain in the right flank area when she urinates. She has not had any fever but has had chills. She has not noticed any blood in her urine. She has had nausea and vomiting due to pain. She has no personal history of kidney stones but mom and dad both have history of them. She is having no difficulty urinating but seems to be urinating more frequently. She has not really taken anything for the pain. No past medical history on file. Current Outpatient Medications on File Prior to Visit: citalopram (CELEXA) 20 mg tablet No current facility-administered medications on file prior to visit. ALLERGIES No Known Allergies Review of Systems Constitutional: Negative for chills, fever and malaise/fatigue. Respiratory: Negative for shortness of breath. Cardiovascular: Negative for chest pain. Gastrointestinal: Positive for nausea and vomiting. Negative for abdominal pain, constipation and diarrhea. Genitourinary: Positive for flank pain. Negative for dysuria, frequency, hematuria and urgency. Musculoskeletal: Negative for myalgias. Skin: Negative for rash. Neurological: Negative for dizziness and headaches. BP 98/64 Pulse 106 Temp 37.2 ?C (98.9 ?F) (Tympanic) Resp 18 Wt 54 kg (119 lb) Objective Physical Exam Constitutional: She is oriented to person, place, and time and well-developed, well-nourished, and in no distress. No distress. HENT: Head: Normocephalic and atraumatic. Eyes: Pupils are equal, round, and reactive to light. EOM are normal. Neck: Neck supple. Cardiovascular: Normal rate and regular rhythm. Pulmonary/Chest: Effort normal and breath sounds normal. Abdominal: Soft. She exhibits no distension. There is tenderness in the right lower quadrant and suprapubic area. There is CVA tenderness. There is no rebound and no guarding. Neurological: She is alert and oriented to person, place, and time. Skin: Skin is warm and dry. Psychiatric: Affect normal. Nursing note and vitals reviewed. ASSESSMENT/PLAN: 1. Right flank pain - ICD9: 789.09, ICD10: R10.9 - Likely kidney stone. UA negative for leuks but has moderate blood. Sent to [place] [facility] for further evaluation. - UA DIP, URINE (POC) - URINE CULTURE Diandra Amin PA-C Normal [facility] Urine Cultureon 05-09-2019 Bacteria identified Cx Nom (U) Sp. Request/Comment: - Specimen received in preservative Culture Result - <10,000 CFU/ml Normal urogenital sravani Normal [facility] Comment on above: Performed By: #### U RCUL #### [facility] [address], [place] [address] Culture, Urineon 08-23-2018 Bacteria identified Cx Nom (U) See Note Normal [facility] Work Phone: Comment on above: Urine CultureCulture exhibits no growth. [facility] [address] [place], [place], [phone] Hemoglobin A1con 08-23-2018 HbA1c (Bld) [Mass fraction] 4.9 % Normal 4.2-6.3 [facility] Work Phone: Comment on above: [facility] [address] [place], [place], [phone] Urinalysis, Office ([id number])Or dered By: Diamante Gurerero on 08-23-2018 Bilirubin Ql (U) Negative Normal [facility] Work Phone: Bilirubin Ql (U) Negative Normal [facility]; [facility] Work Phone: Glucose Test strip (U) [Mass/Vol] Negative Normal [facility]; [facility] Work Phone: Glucose Test strip mass conc (U) Negative Normal [facility] Work Phone: Hemoglobin Ql (U) Negative Normal [facility] Work Phone: Hemoglobin Ql (U) Negative Normal [facility]; [facility] Work Phone: Ketones Ql (U) Negative Normal Comprehens [facility] Work Phone: Ketones Ql (U) Negative Normal [facility]prehens [facility]; [facility] Work Phone: Leukocyte esterase Test strip Ql (U) Negative Normal [facility] Work Phone: Leukocyte esterase Test strip Ql (U) Negative Normal [facility]; [facility] Work Phone: Nitrite Ql (U) Negative Normal [facility] Work Phone: Nitrite Ql (U) Negative Normal [facility]; [facility] Work Phone: pH (U) 6 [pH] Abnormal [facility] Work Phone: Protein Ql (U) Negative Normal [facility] Work Phone: Protein Ql (U) Negative Normal [facility]; [facility] Work Phone: Specific gravity Relative Density (U) 1.015 1 Normal Comprehensi ve [facility] Work Phone: Urobilinogen mass/time (24H U) Normal Normal [facility] Work Phone: Urine Test, Office ([id number])Ordered By: Diamante Guerrero on 08-23-2018 Beta HCG ( test) Ql (U) Negative Normal [facility]; [facility] Work Phone: HCG.beta subunit ( test) Ql (U) Negative Normal [facility] Work Phone: GLUCOSE ([id number])on 06-12-2018 Glucose mass conc 80 mg/dL Normal 65-99 Com[facility] Work Phone: Comment on above: PATIENT WAS FASTINGP ERFORMED BY: [id number] [facility] [id number] LIPID PANEL ([id number])on 2017 Cholesterol in HDL mass conc 63 mg/dL Normal [facility] Work Phone: Comment on above: PATIENT WAS FASTINGP ERFORMED BY: [id number] [facility] [id number] Cholesterol in LDL mass conc 170 mg/dL Abnormal 0-99 [facility] Work Phone: Comment on above: PATIENT WAS FASTINGP ERFORMED BY: CB [facility] [id number] [facility] [id number] Cholesterol in LDL/Cholesterol in HDL mass ratio 2.7 {ratio} Normal 0.0-3.2 [facility] Work Phone: Comment on above: LDL/HDL Ratio Men Wo men 1/2 Avg.Risk 1.0 1.5 Avg.Risk 3.6 3.2 2X Avg.Risk 6.2 5.0 3X Avg.Risk 8.0 6.1 PATIENT WAS FASTINGP ERFORMED BY: [facility] [id number] [facility] [id number] Cholesterol in VLDL mass conc 31 mg/dL Normal 5-40 [facility] Work Phone: Comment on above: PATIENT WAS FASTINGP ERFORMED BY: [facility] [id number] [facility] [id number] Cholesterol mass conc 264 mg/dL Abnormal 100-199 Com prehensive [facility] Work Phone: Comment on above: PATIENT WAS FASTINGP ERFORMED BY: [facility] [id number] [facility] [id number] Triglyceride mass conc 154 mg/dL Abnormal 0-149 [facility] Work Phone: Comment on above: PATIENT WAS FASTINGP ERFORMED BY: [facility] [id number] [facility] [id number] CBC W/Diff, Automatedon 10-0 Absolute Lymph 1.29 {X10_3/ul} Normal 0.83-4.51 Compr ehens[facility] Work Phone: Absolute Neut 2.1 {X10_3/uL} Normal 2.0-7.7 Compreh ens[facility] Work Phone: Comment on above: [facility] [address] [place], [place], [address] Basophils/100 WBC (Bld) 0.3 % Normal 0-1 [facility] Work Phone: Comment on above: [facility] [address] [place], [address] Basophils/100 WBC Auto (Bld) 0.3 % Normal 0-1 [facility] Work Phone: Eosinophils/100 WBC (Bld) 2.8 % Normal 0-5 [facility] Work Phone: Comment on above: [facility] [address] [place], [address] Eosinophils/100 WBC Auto (Bld) 2.8 % Normal 0-5 [facility] Work Phone: Erythrocyte distribution width Auto Ratio (RBC) 13.2 % Normal 11.6-14.6 [facility] Work Phone: Erythrocyte distribution width Ratio (RBC) 13.2 % Normal 11.6-14.6 [facility] Work Phone: Comment on above: [place] [address] [place], [address] Hematocrit Auto Volume Fraction (Bld) 43.8 % Normal 37-47 Comprehens [facility] Work Phone: Hematocrit Volume Fraction (Bld) 43.8 % Normal 37-47 [facility] Work Phone: Comment on above: [facility] [address] [place], [place], [phone] Hemoglobin mass conc (Bld) 14.4 g/dL Normal 12.0-15.0 [facility] Work Phone: Comment on above: [facility] [address] [place], [address] IM GRAN % 0.300 % Normal 0.0-0.9 [facility] Work Phone: Comment on above: IG% - Immature Granu locytes (promyelocytes, myelocytes andmetamyelocytes) > 1% indicates that a LEFT SHIFT is Present. [facility] [address] [place], [place], [phone] Lymphocytes #/vol (Bld) 1.29 {X10_3/ul} Normal 0.83-4.51 [facility] Work Phone: Comment on above: [facility] [address] [place], [address] Lymphocytes/100 WBC (Bld) 33.4 % Normal 19-41 [facility] Work Phone: Comment on above: [facility] [address] [place], [address] Lymphocytes/100 WBC Auto (Bld) 33.4 % Normal 19-41 [facility] Work Phone: MCH Auto Entitic mass (RBC) 29.7 pg Normal 27.0-32.0 [facility] Work Phone: MCH Entitic mass (RBC) 29.7 pg Normal 27.0-32.0 [facility] Work Phone: Comment on above: [facility] [address] [place], [address] MCHC Auto mass conc (RBC) 32.9 {g/gl} Normal 32-36 [facility] Work Phone: MCHC mass conc (RBC) 32.9 {g/gl} Normal 32-36 [facility] prehensive [facility] Work Phone: Comment on above: [facility] [address] [place], [address] MCV Auto Entitic volume (RBC) 90.3 fL Normal 81-99 [facility] Work Phone: MCV Entitic volume (RBC) 90.3 fL Normal 81-99 [facility] Work Phone: Comment on above: [facility] [address] [place], [address] Monocytes/100 WBC Auto (Bld) 9.1 % Normal 0-10 [facility] Work Phone: Comment on above: [facility] [address] [place], [address] Neutrophils/100 WBC (Bld) 54.1 % Normal 47-70 [facility] Work Phone: Comment on above: [facility] [address] [place], [address] Neutrophils/100 WBC Auto (Bld) 54.1 % Normal 47-70 [facility] Work Phone: Platelet mean volume Auto Entitic volume (Bld) 11.3 fL Normal 6.2-12.0 [facility] Work Phone: Platelet mean volume Entitic volume (Bld) 11.3 fL Normal 6.2-12.0 Comprehensi [facility] Work Phone: Comment on above: [facility] [address] [place], [address] Platelets #/vol (Bld) 151 10*3/uL Normal 150-450 [facility] Work Phone: Comment on above: [facility] [address] [place], [address] Platelets Auto #/vol (Bld) 151 10*3/uL Normal 150-450 [facility] Work Phone: RBC #/vol (Bld) 4.85 {M/mm3} Normal 4.2-5.4 Compreh ens[facility] Work Phone: Comment on above: [facility] [address] [place], [address] RBC Auto #/vol (Bld) 4.85 {M/mm3} Normal 4.2-5.4 [facility] Work Phone: RDW SD 43.4 fL Normal 35.1-43.9 [facility] Work Phone: Comment on above: [facility] [address] [place], [place], [phone] WBC #/vol (Bld) 3.9 10*3/uL Abnormal 4.4-11.0 Comprehe nsive [facility] Work Phone: Comment on above: [facility] [address] [place], [place], [phone] WBC Auto #/vol (Bld) 3.9 10*3/uL Abnormal 4.4-11.0 Com prehensive [facility] Work Phone: ,Urineon 04-12-2018 HCG.beta subunit ( test) Ql (U) Negative Normal [facility] Work Phone: Comment on above: Very dilute urine sp ecimens, as indicated by a low specificgravity, may not contain it sales representative levels of hCG.If is still suspected, a first morning urinespecimen should be collected 48 hours later and tested. [facility] [address] [place], [place], [phone] HCGUQUAL Negative Normal [facility] Work Phone: Comment on above: Very dilute urine sp ecimens, as indicated by a low specificgravity, may not contain it sales representative levels of hCG.If is still suspected, a first morning urinespecimen should be collected 48 hours later and tested. Type AND Screenon 04-12-2018 ABO and Rh group Nom (Bld) A POSITIVE Normal [facility] Work Phone: Comment on above: Reason for Type AND Screen/Red Cells: [facility] [address] [place], [place], [phone] Antibody Screen Negative Normal Comprehen sive [facility] Work Phone: BLOOD TYPE GEL Positive Normal Comprehens [facility] Work Phone: Vital Signs Date Time Vital Sign Value Performing Clinician Facility 04-01-2025 09:21-0400 Body height 162.[address] Zeinab William DO Work Phone: [facility] 04-01-2025 09:21-0400 Body mass index (BMI) [Ratio] 21.2 kg/m2 Dr. Zeinab William DO Work Phone: [facility] 04-01-2025 09:21-0400 Body weight 56.[address] Zeinab William DO Work Phone: [facility] 04-01-2025 09:21-0400 Diastolic blood pressure 77 mm[Hg] Dr. Zeinab William DO Work Phone: [facility] 04-01-2025 09:21-0400 Systolic blood pressure 111 mm[Hg] Dr. Zeinab William DO Work Phone: [facility] 12-21-2024 20:14-0400 Body temperature 97.9 [degF] Dr. Zeinab William DO Work Phone: [facility] 12-21-2024 20:14-0400 Diastolic blood pressure 81 mm[Hg] Dr. Zeinab William DO Work Phone: [facility] 12-21-2024 20:14-0400 Heart rate 70 /min Dr. Zeinab William DO Work Phone: [facility] 12-21-2024 20:14-0400 Respiratory rate 16 /min Dr. Zeinab William DO Work Phone: [facility] 12-21-2024 20:14-0400 SaO2% (BldA) [Mass fraction] 100 % Dr. Zeinab William DO Work Phone: [facility] 12-21-2024 20:14-0400 Systolic blood pressure 120 mm[Hg] Dr. Zeinab William DO Work Phone: [facility] 12-21-2024 16:44-0400 Body height 162.[address] Zeinab William DO Work Phone: [facility] 12-21-2024 16:44-0400 Body mass index (BMI) [Ratio] 21.8 kg/m2 Dr. Zeinab William DO Work Phone: [facility] 12-21-2024 16:44-0400 Body weight 57.[address] Zeinab William DO Work Phone: [facility] 07-10-2023 09:51-0500 Body height 162.56 cm [facility] 07-10-2023 09:51-0500 Body mass index (BMI) [Ratio] 20.7 kg/m2 [facility] 07-10-2023 09:51-0500 Body temperature 97.7 [degF] [facility] 07-10-2023 09:51-0500 Body weight 54.62 kg [facility] 07-10-2023 09:51-0500 Diastolic blood pressure 84 mm[Hg] [facility] 07-10-2023 09:51-0500 Heart rate 97 /min [facility] 07-10-2023 09:51-0500 Respiratory rate 14 /min [facility] 07-10-2023 09:51-0500 SaO2% (BldA) [Mass fraction] 99 % [facility] 07-10-2023 09:51-0500 Systolic blood pressure 121 mm[Hg] [facility] 03-01-2023 11:02-0400 Body height 162.[address] Zeinab William Work Phone: [facility] 01-10-2023 12:37-0400 Body height 162.56 cm [facility] Work Phone: 01-10-2023 12:37-0400 Body mass index (BMI) [Ratio] 20.28 kg/m2 [facility]; [facility] Work Phone: 01-10-2023 12:37-0400 Body surface area Derived from formula 1.56 m2 [facility] Work Phone: 01-10-2023 12:37-0400 Body temperature 97.7 [degF] [facility]; [facility] Work Phone: 01-10-2023 12:37-0400 Body weight 53.58 kg [facility]; [facility] Work Phone: 01-10-2023 12:37-0400 Diastolic blood pressure 70 mm[Hg] [facility]; [facility] Work Phone: Comment on above: Patient Position: Sitting; Cuff Location : Left Arm; Cuff Size: Standard 01-10-2023 12:37-0400 Heart rate 73 /min [facility]; [facility] Work Phone: Comment on above: Pattern: Regular 01-10-2023 12:37-0400 SaO2% (BldA) [Mass fraction] 98 % [facility]; [facility] Work Phone: Comment on above: Room air 01-10-2023 12:37-0400 Systolic blood pressure 120 mm[Hg] [facility]; [facility] Work Phone: Comment on above: Patient Position: Sitting; Cuff Location : Left Arm; Cuff Size: Standard 08-20-2022 10:27-0500 Body weight 56.25 kg Tessa Bain MD Work Phone: [facility]; [facility] Work Phone: 06-28-2022 09:24-0500 Body height 162.[address] Zeinab William Work Phone: [facility] Work Phone: 06-28-2022 09:24-0500 Body mass index (BMI) [Ratio] 21.1 kg/m2 Dr. Zeinab William Work Phone: [facility] Work Phone: 06-28-2022 09:24-0500 Body weight 55.[address] Zeinab William Work Phone: [facility] Work Phone: 06-28-2022 09:24-0500 Diastolic blood pressure 76 mm[Hg] Dr. Zeinab William Work Phone: [facility] Work Phone: 06-28-2022 09:24-0500 Systolic blood pressure 112 mm[Hg] Dr. Zeinab William Work Phone: [facility] Work Phone: 06-17-2022 09:05-0500 Body height 162.56 cm Oscar Heredia LPN [facility]; [facility] Work Phone: 06-17-2022 09:05-0500 Body mass index (BMI) [Ratio] 21.46 kg/m2 Oscar Heredia LPN [facility]; [facility] Work Phone: 06-17-2022 09:05-0500 Body surface area Derived from formula 1.6 m2 Oscar Heredia LPN [facility] Work Phone: 06-17-2022 09:05-0500 Body weight 56.7 kg Oscar Heredia LPN [facility]; [facility] Work Phone: 06-17-2022 09:05-0500 Diastolic blood pressure 58 mm[Hg] Oscar Heredia LPN [facility]; [facility] Work Phone: Comment on above: Patient Position: Sitting; Cuff Location : Left Arm; Cuff Size: Standard 06-17-2022 09:05-0500 Heart rate 84 /min Oscar Heredia LPN [facility]; [facility] Work Phone: Comment on above: Pattern: Regular 06-17-2022 09:05-0500 Respiratory rate 16 /min Oscar Heredia LPN [facility]; [facility] Work Phone: Comment on above: Pattern: Unlabored 06-17-2022 09:05-0500 SaO2% (BldA) [Mass fraction] 99 % Oscar Heredia LPN [facility]; [facility] Work Phone: Comment on above: Room air 06-17-2022 09:05-0500 Systolic blood pressure 100 mm[Hg] Oscar Heredia LPN [facility]; [facility] Work Phone: Comment on above: Patient Position: Sitting; Cuff Location : Left Arm; Cuff Size: Standard 02-01-2022 09:51-0400 Body height 162.56 cm Sommer Peguero [facility]; [facility] Work Phone: 02-01-2022 09:51-0400 Body mass index (BMI) [Ratio] 22.31 kg/m2 Sommer Peguero [facility]; [facility] Work Phone: 02-01-2022 09:51-0400 Body surface area Derived from formula 1.63 m2 Sommer Peguero [facility]; [facility] Work Phone: 02-01-2022 09:51-0400 Body temperature 96.8 [degF] Sommer Peguero [facility]; [facility] Work Phone: Comment on above: Method: Thermal Scan 02-01-2022 09:51-0400 Body weight 58.97 kg Sommer Peguero [facility]; [facility] Work Phone: 02-01-2022 09:51-0400 Diastolic blood pressure 62 mm[Hg] Sommer Peguero [facility]; [facility] Work Phone: Comment on above: Patient Position: Sitting; Cuff Location : Left Arm; Cuff Size: Standard 02-01-2022 09:51-0400 Heart rate 70 /min Sommer Peguero [facility]; [facility] Work Phone: Comment on above: Pattern: Regular 02-01-2022 09:51-0400 Respiratory rate 16 /min Sommer Peguero [facility]; [facility] Work Phone: Comment on above: Pattern: Unlabored 02-01-2022 09:51-0400 Systolic blood pressure 98 mm[Hg] Sommer Peguero [facility]; [facility] Work Phone: Comment on above: Patient Position: Sitting; Cuff Location : Left Arm; Cuff Size: Standard 01-14-2022 13:29-0400 Body height 162.56 cm Jennifer Wright MA [facility]; [facility] Work Phone: 01-14-2022 13:29-0400 Body mass index (BMI) [Ratio] 22.31 kg/m2 Jennifer Wright MA [facility]; [facility] Work Phone: 01-14-2022 13:29-040 Body surface area Derived from formula 1.63 m2 Jennifer Wright MA [facility]; [facility] Work Phone: 01-14-2022 13:29-040 Body temperature 97.1 [degF] Jennifer Wright MA [facility]; [facility] Work Phone: Comment on above: Method: Infrared 01-14-2022 13:29-0400 Body weight 58.97 kg Jennifer rWight MA [facility]; [facility] Work Phone: 01-14-2022 13:29-0400 Diastolic blood pressure 72 mm[Hg] Jennifer Wright MA [facility]; [facility] Work Phone: Comment on above: Patient Position: Sitting; Cuff Location : Left Arm; Cuff Size: Standard 01-14-2022 13:29-0400 Heart rate 64 /min Jennifer Wright MA [facility]; [facility] Work Phone: Comment on above: Pattern: Regular 01-14-2022 13:29-0400 Respiratory rate 16 /min Jennifer Wright MA [facility]; [facility] Work Phone: Comment on above: Pattern: Unlabored 01-14-2022 13:29-0400 SaO2% (BldA) [Mass fraction] 98 % Jennifer Wright MA [facility]; [facility] Work Phone: Comment on above: Room air 01-14-2022 13:29-0400 Systolic blood pressure 116 mm[Hg] Jennifer Wright MA [facility]; [facility] Work Phone: Comment on above: Patient Position: Sitting; Cuff Location : Left Arm; Cuff Size: Standard 10-05-2021 09:41-0400 Body height 162.56 cm Danicadanny Olguin [employer] [facility]; [facility] Work Phone: Comment on above: reported by pt 10-05-2021 09:41-0400 Body mass index (BMI) [Ratio] 22.31 kg/m2 Danica Clau [employer] [facility]; [facility] Work Phone: Comment on above: reported by pt 10-05-2021 09:41-0400 Body surface area Derived from formula 1.63 m2 Danica Clau [employer] [facility]; [facility] Work Phone: Comment on above: reported by pt 10-05-2021 09:41-0400 Body temperature 97.5 [degF] Danica Clau [employer] [facility]; [facility] Work Phone: Comment on above: reported by pt 10-05-2021 09:41-0400 Body weight 58.97 kg Danica Clau [employer] [facility]; [facility] Work Phone: Comment on above: reported by pt 09-28-2021 08:47-0400 Body height 162.56 cm Danica Clau [employer] [facility]; [facility] Work Phone: 09-28-2021 08:47-0400 Body mass index (BMI) [Ratio] 21.82 kg/m2 Danica Clau [employer] [facility]; [facility] Work Phone: 09-28-2021 08:47-0400 Body surface area Derived from formula 1.61 m2 Danica Clau [employer] [facility]; [facility] Work Phone: 09-28-2021 08:47-0400 Body temperature 97.1 [degF] Danica Clau [employer] [facility]; [facility] Work Phone: 09-28-2021 08:47-0400 Body weight 57.66 kg Danica Clau [employer] [facility]; [facility] Work Phone: 09-28-2021 08:47-0400 Diastolic blood pressure 78 mm[Hg] Danica Olguin LPN [facility]; [facility] Work Phone: Comment on above: Patient Position: Sitting; Cuff Location : Left Arm; Cuff Size: Standard 09-28-2021 08:47-0400 Heart rate 86 /min Danica Olguin LPN [facility]; [facility] Work Phone: Comment on above: Pattern: Regular 09-28-2021 08:47-0400 Respiratory rate 16 /min Danica Olguin LPN [facility]; [facility] Work Phone: Comment on above: Pattern: Unlabored 09-28-2021 08:47-0400 SaO2% (BldA) [Mass fraction] 98 % Danica Olguin LPN [facility]; [facility] Work Phone: Comment on above: Room air 09-28-2021 08:47-0400 Systolic blood pressure 110 mm[Hg] Danica Olguin LPN [facility]; [facility] Work Phone: Comment on above: Patient Position: Sitting; Cuff Location : Left Arm; Cuff Size: Standard 08-04-2021 08:07-0500 Body height 162.56 cm SILVANA Walters LPN [facility]; [facility] Work Phone: Comment on above: Vitals were reported by patient from [facility] 08-04-2021 08:07-0500 Body mass index (BMI) [Ratio] 21.46 kg/m2 SILVANA Walters LPN [facility]; [facility] Work Phone: Comment on above: Vitals were reported by patient from [facility] 08-04-2021 08:07-0500 Body surface area Derived from formula 1.6 m2 SILVANA Walters LPN [facility]; [facility] Work Phone: Comment on above: Vitals were reported by patient from [facility] 08-04-2021 08:07-0500 Body temperature 97.7 [degF] SILVANA Walters LPN [facility]; [facility] Work Phone: Comment on above: Method: Temporal Vitals were reported by patient from [place] 08-04-2021 08:07-0500 Body weight 56.7 kg SILVANA Walters [facility]; [facility] Work Phone: Comment on above: Vitals were reported by patient from [facility] 07-16-2021 13:08-0500 Body height 162.56 cm Bernadette Slarb [employer] [facility]; [facility] Work Phone: Comment on above: Pt reported 07-16-2021 13:08-0500 Body mass index (BMI) [Ratio] 21.8 kg/m2 Bernadette Slarb [facility]; [facility] Work Phone: Comment on above: Pt reported 07-16-2021 13:08-0500 Body surface area Derived from formula 1.61 m2 Bernadette Slarb [facility]; [facility] Work Phone: Comment on above: Pt reported 07-16-2021 13:08-0500 Body temperature 98.4 [degF] Bernadette Slarb [facility]; [facility] Work Phone: Comment on above: Pt reported 07-16-2021 13:08-0500 Body weight 57.61 kg Bernadette Slarb [facility]; [facility] Work Phone: Comment on above: Pt reported 05-18-2021 09:04-0500 Body height 162.56 cm Sommer Marielena [facility]; [facility] Work Phone: 05-18-2021 09:04-0500 Body mass index (BMI) [Ratio] 21.8 kg/m2 Sommer Marielena [facility]; [facility] Work Phone: 05-18-2021 09:04-0500 Body surface area Derived from formula 1.61 m2 Sommer Susannak [facility]; [facility] Work Phone: 05-18-2021 09:04-0500 Body temperature 97 [degF] Sommer Manchak [facility]; [facility] Work Phone: Comment on above: Method: Thermal Scan 05-18-2021 09:04-0500 Body weight 57.61 kg Sommer Peguero [facility]; [facility] Work Phone: 05-18-2021 09:04-0500 Diastolic blood pressure 74 mm[Hg] Sommer Peguero [employer] [facility]; [facility] Work Phone: Comment on above: Patient Position: Sitting; Cuff Location : Left Arm; Cuff Size: Standard 05-18-2021 09:04-0500 Heart rate 76 /min Sommer Peguero [facility]; [facility] Work Phone: Comment on above: Pattern: Regular 05-18-2021 09:04-0500 Respiratory rate 16 /min Sommer Peguero [facility]; [facility] Work Phone: Comment on above: Pattern: Unlabored 05-18-2021 09:04-0500 Systolic blood pressure 112 mm[Hg] Sommer Peguero [facility]; [facility] Work Phone: Comment on above: Patient Position: Sitting; Cuff Location : Left Arm; Cuff Size: Standard 03-27-2021 10:14-0400 Body height 162.56 cm Danica Clau LPN [facility]; [facility] Work Phone: 03-27-2021 10:14-0400 Body mass index (BMI) [Ratio] 21.8 kg/m2 Danica Olguin LPN [facility]; [facility] Work Phone: 03-27-2021 10:14-0400 Body surface area Derived from formula 1.61 m2 Danica Olguin LPN [facility]; [facility] Work Phone: 03-27-2021 10:14-0400 Body temperature 97.1 [degF] Danica Olguin LPN [facility]; [facility] Work Phone: Comment on above: Method: Temporal 03-27-2021 10:14-0400 Body weight 57.61 kg Danica Olguin LPN [facility]; [facility] Work Phone: 03-27-2021 10:14-0400 Diastolic blood pressure 78 mm[Hg] Danica Olguin LPN [facility]; [facility] Work Phone: Comment on above: Patient Position: Sitting; Cuff Location : Left Arm; Cuff Size: Standard 03-27-2021 10:14-0400 Heart rate 81 /min Danica Olguin LPN [facility]; [facility] Work Phone: Comment on above: Pattern: Regular 03-27-2021 10:14-0400 Respiratory rate 16 /min Danica Olguin LPN [facility]; [facility] Work Phone: Comment on above: Pattern: Unlabored 03-27-2021 10:14-0400 SaO2% (BldA) [Mass fraction] 96 % Danica Olguin LPN [facility]; [facility] Work Phone: Comment on above: Room air 03-27-2021 10:14-0400 Systolic blood pressure 100 mm[Hg] Danica Olguin LPN [facility]; [facility] Work Phone: Comment on above: Patient Position: Sitting; Cuff Location : Left Arm; Cuff Size: Standard 01-07-2021 14:16-0400 Body height 162.56 cm SILVANA Walters LPN [facility]; [facility] Work Phone: 01-07-2021 14:16-0400 Body mass index (BMI) [Ratio] 22.14 kg/m2 SILVANA Walters LPN [facility]; [facility] Work Phone: 01-07-2021 14:16-0400 Body surface area Derived from formula 1.62 m2 SILVANA Walters LPN [facility]; [facility] Work Phone: 01-07-2021 14:16-0400 Body temperature 97.9 [degF] SILVANA Walters LPN [facility]; [facility] Work Phone: Comment on above: Method: Temporal 01-07-2021 14:16-0400 Body weight 58.51 kg SILVANA Walters LPN [facility]; [facility] Work Phone: 01-07-2021 14:16-0400 Diastolic blood pressure 58 mm[Hg] SILVANA Walters [employer] [facility]; [facility] Work Phone: Comment on above: Patient Position: Sitting; Cuff Location : Left Arm; Cuff Size: Standard 01-07-2021 14:16-0400 Heart rate 70 /min SILVANABRENNEN Walters [employer] [facility]; [facility] Work Phone: Comment on above: Pattern: Regular 01-07-2021 14:16-0400 Respiratory rate 20 /min SILVANA Walters [employer] [facility]; [facility] Work Phone: Comment on above: Pattern: Unlabored 01-07-2021 14:16-0400 SaO2% (BldA) [Mass fraction] 98 % SILVANA Romeo [employer] [facility]; [facility] Work Phone: Comment on above: Room air 01-07-2021 14:16-0400 Systolic blood pressure 90 mm[Hg] SILVANA Walters [employer] [facility]; [facility] Work Phone: Comment on above: Patient Position: Sitting; Cuff Location : Left Arm; Cuff Size: Standard 01-01-2021 13:110400 Body height 162.56 cm [facility]; [facility] Work Phone: 01-01-2021 13:11-0400 Body mass index (BMI) [Ratio] 22.14 kg/m2 [facility]; [facility] Work Phone: 01-01-2021 13:11-0400 Body surface area Derived from formula 1.62 m2 [facility]; [facility] Work Phone: 01-01-2021 13:11-0400 Body temperature 96.9 [degF] [facility]; [facility] Work Phone: Comment on above: Method: Thermal Scan 01-01-2021 13:11-0400 Body weight 58.51 kg Ilda Cross [employer] [facility]; [facility] Work Phone: 01-01-2021 13:11-0400 Diastolic blood pressure 70 mm[Hg] [facility]; [facility] Work Phone: Comment on above: Patient Position: Sitting; Cuff Location : Left Arm; Cuff Size: Standard 01-01-2021 13:11-0400 Heart rate 65 /min [facility]; [facility] Work Phone: Comment on above: Pattern: Regular 01-01-2021 13:11-0400 Respiratory rate 16 /min [facility]; [facility] Work Phone: Comment on above: Pattern: Unlabored 01-01-2021 13:11-0400 SaO2% (BldA) [Mass fraction] 98 % [facility]; [facility] Work Phone: Comment on above: Room air 01-01-2021 13:11-0400 Systolic blood pressure 118 mm[Hg] [facility]; [facility] Work Phone: Comment on above: Patient Position: Sitting; Cuff Location : Left Arm; Cuff Size: Standard 12-24-2020 09:04-0400 Body height 162.56 cm Oscar Heredia [facility]; [facility] Work Phone: 12-24-2020 09:04-0400 Body mass index (BMI) [Ratio] 22.14 kg/m2 Oscar Heredia [facility]; [facility] Work Phone: 12-24-2020 09:04-0400 Body surface area Derived from formula 1.62 m2 Oscar Heredia [facility]; [facility] Work Phone: 12-24-2020 09:04-0400 Body weight 58.51 kg Oscar Heredia [facility]; [facility] Work Phone: 12-17-2020 10:43-0400 Body height 162.56 cm Oscar Heredia [facility]; [facility] Work Phone: 12-17-2020 10:43-0400 Body mass index (BMI) [Ratio] 22.14 kg/m2 Oscar Heredia LPN [facility]; [facility] Work Phone: 12-17-2020 10:43-0400 Body surface area Derived from formula 1.62 m2 Oscar Heredia LPN [facility]; [facility] Work Phone: 12-17-2020 10:43-0400 Body temperature 97.1 [degF] Oscar Heredia LPN [facility]; [facility] Work Phone: Comment on above: Method: Infrared 12-17-2020 10:43-0400 Body weight 58.51 kg Oscar Heredia LPN [facility]; [facility] Work Phone: 12-17-2020 10:43-0400 Diastolic blood pressure 70 mm[Hg] Oscar Heredia LPN [facility]; [facility] Work Phone: Comment on above: Patient Position: Sitting; Cuff Location : Left Arm; Cuff Size: Standard 12-17-2020 10:43-0400 Heart rate 72 /min Oscar Heredia LPN [facility]; [facility] Work Phone: Comment on above: Pattern: Regular 12-17-2020 10:43-0400 Respiratory rate 16 /min Oscar Heredia LPN [facility]; [facility] Work Phone: Comment on above: Pattern: Unlabored 12-17-2020 10:43-0400 SaO2% (BldA) [Mass fraction] 98 % Oscar Heredia LPN [facility]; [facility] Work Phone: Comment on above: Room air 12-17-2020 10:43-0400 Systolic blood pressure 106 mm[Hg] Oscar Heredia LPN [facility]; [facility] Work Phone: Comment on above: Patient Position: Sitting; Cuff Location : Left Arm; Cuff Size: Standard 10-03-2020 09:29-0400 BMI (Body Mass Index) 21.99 kg/m2 [facility]; [facility] Work Phone: 10-03-2020 09:29-0400 Body Temperature 96.9 [degF] Apryl Jones CMA [facility]; [facility] Work Phone: Comment on above: Method: Infrared 10-03-2020 09:29-0400 Body weight 58.12 kg Apryl Jones CMA [facility]; [facility] Work Phone: 10-03-2020 09:29-0400 BP Diastolic 68 mm[Hg] Apryl Jones [employer] [facility]; [facility] Work Phone: Comment on above: Patient Position: Sitting; Cuff Location : Left Arm; Cuff Size: Standard 10-03-2020 09:29-0400 BP Systolic 118 mm[Hg] Apryl Jones CMA [facility]; [facility] Work Phone: Comment on above: Patient Position: Sitting; Cuff Location : Left Arm; Cuff Size: Standard 10-03-2020 09:29-0400 BSA (Body Surface Area) 1.62 m2 Apryl Jones [facility]; [facility] Work Phone: 10-03-2020 09:290400 Height 162.56 cm Apryl Jones [facility]; [facility] Work Phone: 10-03-2020 09:29-0400 Pulse (Heart Rate) 78 /min Apryl Jones [employer] [facility]; [facility] Work Phone: Comment on above: Pattern: Regular 10-03-2020 09:29-0400 Pulse Oximetry 99 % Zeinab William [facility]; [facility] Work Phone: Comment on above: Room air 10-03-2020 09:29-0400 Respiratory Rate 16 /min Apryl Jones [employer] [facility]; [facility] Work Phone: Comment on above: Pattern: Unlabored 10-03-2020 09:29-0400 SaO2% (BldA) [Mass fraction] 99 % Apryl Jones [facility]; [facility] Work Phone: Comment on above: Room air 09-05-2020 10:23-0500 BMI (Body Mass Index) 22.16 kg/m2 Danica Olguin LPN [facility]; [facility] Work Phone: 09-05-2020 10:23-0500 Body Temperature 97.3 [degF] Danica Olguin LPN [facility]; [facility] Work Phone: Comment on above: Method: Infrared 09-05-2020 10:23-0500 Body weight 58.57 kg Danica Clau ALEJANDRA [facility]; [facility] Work Phone: 09-05-2020 10:23-0500 BP Diastolic 78 mm[Hg] Danica Olguin LPN [facility]; [facility] Work Phone: Comment on above: Patient Position: Sitting; Cuff Location : Left Arm; Cuff Size: Standard 09-05-2020 10:23-0500 BP Systolic 102 mm[Hg] Danica Olguin LPN [facility]; [facility] Work Phone: Comment on above: Patient Position: Sitting; Cuff Location : Left Arm; Cuff Size: Standard 09-05-2020 10:23-0500 BSA (Body Surface Area) 1.62 m2 Danica Clau LPN [facility]; [facility] Work Phone: 09-05-2020 10:23-0500 Height 162.56 cm Danica Olguin LPN [facility]; [facility] Work Phone: 09-05-2020 10:23-0500 Pulse (Heart Rate) 70 /min Danica Clau [place] [facility]; [facility] Work Phone: Comment on above: Pattern: Regular 09-05-2020 10:23-0500 Pulse Oximetry 99 % Zeinab William [facility]; [facility] Work Phone: Comment on above: Room air 09-05-2020 10:23-0500 Respiratory Rate 16 /min Danica Olguin LPN [facility]; [facility] Work Phone: Comment on above: Pattern: Unlabored 09-05-2020 10:23-0500 SaO2% (BldA) [Mass fraction] 99 % Danica Olguin [facility]; [facility] Work Phone: Comment on above: Room air 2020 09:35-0500 BMI (Body Mass Index) 21.2 kg/m2 [facility] Internal Medicine; [facility] Work Phone: 2020 09:35-0500 Body weight 56.02 kg [facility] Medicine; [facility] Work Phone: 2020 09:35-0500 BSA (Body Surface Area) 1.59 m2 [facility]; [facility] Work Phone: 2020 09:35-0500 Height 162.56 cm [facility]; [facility] Work Phone: 2020 09:35-0500 Pulse (Heart Rate) 114 /min [facility] Comprehensiv e Internal Medicine; [facility] Work Phone: Comment on above: Pattern: Regular 08-05-2020 12:32-0500 BMI (Body Mass Index) 21.2 kg/m2 Betsy Herring [employer] Work Phone: [facility]; [facility] Work Phone: Comment on above: will check what vitals she can at home a nd report to [facility] 08-05-2020 12:32-0500 Body Temperature 96.8 [degF] Betsy Herring [employer] Work Phone: [facility]; [facility] Work Phone: Comment on above: will check what vitals she can at home a nd report to [facility] 08-05-2020 12:32-0500 Body weight 56.02 kg Betsy Herring [employer] Work Phone: [facility]; [facility] Work Phone: Comment on above: will check what vitals she can at home a nd report to [facility] 08-05-2020 12:32-0500 BSA (Body Surface Area) 1.59 m2 Betsy Herring [employer] Work Phone: [facility]; [facility] Work Phone: Comment on above: will check what vitals she can at home a nd report to [facility] 08-05-2020 12:32-0500 Height 162.56 cm Betsy Herring [employer] Work Phone: [facility]; [facility] Work Phone: Comment on above: will check what vitals she can at home a nd report to [facility] 08-05-2020 12:32-0500 Pulse (Heart Rate) 115 /min Betsy Herring [employer] Work Phone: [facility]; [facility] Work Phone: Comment on above: Pattern: Regular will check what tristian ls she can at home and report to [facility] 12-24-2019 11:20-0400 BMI (Body Mass Index) 21.2 kg/m2 Apryl Jones [facility] Comprehensive Internal Medicine Work Phone: Comment on above: pt reported wt and temp today no other v s taken 12-24-2019 11:20-0400 Body Temperature 98.1 [degF] Apryl Jones [facility] Compreh Internal Medicine Work Phone: Comment on above: pt reported wt and temp today no other v s taken 12-24-2019 11:20-0400 Body weight 56.02 kg Apryl Jones [facility] Comprehensive Internal Medicine Work Phone: Comment on above: pt reported wt and temp today no other v s taken 12-24-2019 11:20-0400 BSA (Body Surface Area) 1.59 m2 Apryl Jones [facility] Comprehensive Internal Medicine Work Phone: Comment on above: pt reported wt and temp today no other v s taken 12-24-2019 11:20-0400 Height 162.56 cm Apryl Jones [facility] Comprehensive Internal Medicine Work Phone: Comment on above: pt reported wt and temp today no other v s taken 11-22-2019 09:25-0400 BMI (Body Mass Index) 20.17 kg/m2 Lexi Florence Antonio GUEVARA [facility] Work Phone: 11-22-2019 09:25-0400 Body weight 53.3 kg Lexi Alvarez RN [facility] Work Phone: 11-22-2019 09:25-0400 BSA (Body Surface Area) 1.56 m2 Lexi Florence Antonio RN [facility] Work Phone: 11-22-2019 09:25-0400 Height 162.56 cm Lexi Florence Antonio RN [facility] Work Phone: 08-23-2018 15:50-0500 BMI (Body Mass Index) 20.17 kg/m2 Diamante Cesar [facility] Internal Medicine Work Phone: 08-23-2018 15:50-0500 Body Temperature 98.1 [degF] Diamante Honglear [facility] Internal Medicine Work Phone: Comment on above: Method: Temporal 08-23-2018 15:50-0500 Body weight 53.3 kg Diamante Honglear [facility] Internal Medicine Work Phone: 08-23-2018 15:50-0500 BP Diastolic 60 mm[Hg] Diamante Honglear [facility] Internal Medicine Work Phone: Comment on above: Patient Position: Sitting; Cuff Location : Left Arm; Cuff Size: Standard 08-23-2018 15:50-0500 BP Systolic 96 mm[Hg] Diamante Honglear [facility] Internal Medicine Work Phone: Comment on above: Patient Position: Sitting; Cuff Location : Left Arm; Cuff Size: Standard 08-23-2018 15:50-0500 BSA (Body Surface Area) 1.56 m2 Diamante Honglear [facility] Internal Medicine Work Phone: 08-23-2018 15:50-0500 Height 162.56 cm Diamante Cesar [facility] Internal Medicine Work Phone: 08-23-2018 15:50-0500 Pulse (Heart Rate) 75 /min Diamante Honglear [facility] Internal Medicine Work Phone: Comment on above: Pattern: Regular 08-23-2018 15:50-0500 Pulse Oximetry 97 % Zeinab William [facility] Internal Medicine Work Phone: Comment on above: Room air 08-23-2018 15:50-0500 Respiratory Rate 16 /min Diamante Guerrero [facility] Internal Medicine Work Phone: Comment on above: Pattern: Unlabored 08-23-2018 15:50-0500 SaO2% (BldA) [Mass fraction] 97 % Diamante Guerrero [facility] Internal Medicine; [facility] Work Phone: Comment on above: Room air 08-23-2018 15:50-0500 Weight 53.3 kg Zeinab William [facility] Internal Medicine Work Phone: 05-05-2018 13:50-0400 BMI (Body Mass Index) 20.17 kg/m2 Apryl Jones [facility] Comprehensive Internal Medicine Work Phone: 05-05-2018 13:50-0400 Body Temperature 98.6 [degF] Apryl Jones [facility] Comprehens e Internal Medicine Work Phone: Comment on above: Method: Temporal 05-05-2018 13:50-0400 Body weight 53.3 kg Apryl Jones [facility] Comprehensive Internal Medicine Work Phone: 05-05-2018 13:50-0400 BP Diastolic 68 mm[Hg] Apryl Jones [facility] Comprehensive Internal Medicine Work Phone: Comment on above: Patient Position: Sitting; Cuff Location : Left Arm; Cuff Size: Standard 05-05-2018 13:50-0400 BP Systolic 95 mm[Hg] Apryl Jones [facility] Comprehensive [facility] Medicine Work Phone: Comment on above: Patient Position: Sitting; Cuff Location : Left Arm; Cuff Size: Standard 05-05-2018 13:50-0400 BSA (Body Surface Area) 1.56 m2 Apryl Jones [facility] Comprehensive Internal Medicine Work Phone: 05-05-2018 13:50-0400 Height 162.56 cm Apryl Jones [facility] Comprehensive [facility] Medicine Work Phone: 05-05-2018 13:50-0400 Pulse (Heart Rate) 90 /min Apryl Jones CMA Comprehens anika Internal Medicine Work Phone: Comment on above: Pattern: Regular 05-05-2018 13:50-0400 Pulse Oximetry 98 % Zeinab William [facility] Work Phone: Comment on above: Room air 05-05-2018 13:50-0400 Respiratory Rate 16 /min Apryl Jones CMA Comprehensiv e Internal Medicine Work Phone: Comment on above: Pattern: Unlabored 05-05-2018 13:50-0400 SaO2% (BldA) [Mass fraction] 98 % Apryl Jones [employer] [facility]; [facility] Work Phone: Comment on above: Room air 05-05-2018 13:50-0400 Weight 53.3 kg Zeinab William [facility] Work Phone: 02-27-2018 09:47-0400 BMI (Body Mass Index) 18.8 kg/m2 Angela Bryan RN [facility] Work Phone: 02-27-2018 09:47-0400 Body Temperature 97.3 [degF] Angela Bryan RN Comprehensiv e Internal Medicine Work Phone: Comment on above: Method: Temporal 02-27-2018 09:47-0400 Body weight 49.67 kg Angela Bryan RN [facility] Work Phone: 02-27-2018 09:47-0400 BP Diastolic 82 mm[Hg] Angela Bryan RN [facility] Work Phone: Comment on above: Patient Position: Sitting; Cuff Location : Left Arm; Cuff Size: Standard 02-27-2018 09:47-0400 BP Systolic 104 mm[Hg] Angela Bryan RN [facility] Work Phone: Comment on above: Patient Position: Sitting; Cuff Location : Left Arm; Cuff Size: Standard 02-27-2018 09:47-0400 BSA (Body Surface Area) 1.51 m2 Angela Bryan RN [facility] Work Phone: 02-27-2018 09:47-0400 Height 162.56 cm Angela Bryan RN [facility] Work Phone: 02-27-2018 09:47-0400 Pulse (Heart Rate) 60 /min Angela Bryan RN Comprehens anika Internal Medicine Work Phone: Comment on above: Pattern: Regular 02-27-2018 09:47-0400 Pulse Oximetry 98 % Zeinab William [facility] Work Phone: Comment on above: Room air 02-27-2018 09:47-0400 Respiratory Rate 18 /min Angela Bryan RN Comprehensiv e Internal Medicine Work Phone: Comment on above: Pattern: Unlabored 02-27-2018 09:47-0400 SaO2% (BldA) [Mass fraction] 98 % Angela Bryan RN [facility]; [facility] Work Phone: Comment on above: Room air 02-27-2018 09:47-0400 Weight 49.67 kg Zeinab William [facility] Work Phone: Encounters Encounter Date Encounter Type Care Provider Facility Start: 04-29-2025 ambulatory Zeinab William Facilit y:[facility] Start: 04-22-2025 ambulatory Zeinab William Facilit y:[facility] Start: 04-01-2025 End: 04-01-[address] Leticia Patel DO -[facility] Work Phone: Start: 04-01-2025 End: 04-01-[address] Zeinab William DO Work Phone: -[facility] Start: 03-21-2025 ambulatory Gerber BECERRA Facili ty:[facility] Start: 02-27-2025 End: 03-10-2025 Discharged Recurring Gerber Oneill MD -[facility] Start: 02-27-2025 End: 03-10-[address] Zeinab William DO Work Phone: -Employee [facility] Start: 01-08-2025 Non-patient / Non-visit Dr. Gena nuñez MD -[facility] Work Phone: Start: 12-21-2024 End: 12-21-2024 Emergency department patient visit Dr. Zeinab William DO Work Phone: -Emergency Department Work Phone: Start: 07-21-2024 ambulatory Gerber BECERRA Facili ty:[facility] Start: 07-20-2024 End: 07-20-2024 ambulatory Zeinabkeith William Facility:[facility] Start: 07-20-2024 End: 07-20-2024 ambulatory Zeinab William Facility:[facility] Start: 07-16-2024 End: 07-16-2024 ambulatory Zeinab William Facility:[facility] Start: 06-14-2024 End: 07-10-2024 ambulatory Gerber BECERRA Facility:[facility] Start: 10-15-2023 End: 10-15-[address] [facility] Work Phone: Start: 10-15-2023 End: 10-15-[address] [facility] Work Phone: Start: 08-17-2023 End: 09-08-[address] [facility] Work Phone: Start: 08-17-2023 End: 09-08-[address] [facility] Start: 08-10-2023 End: 08-10-2023 [facility] Start: 07-10-2023 End: 07-10-2023 Emergency department patient visit [facility] Work Phone: Start: 07-08-2023 End: 07-10-[address] [facility] Work Phone: Start: 07-08-2023 End: 07-10-[address] [facility] Start: 05-06-2023 End: 05-10-[address] [facility] Start: 04-01-2023 End: 04-01-2023 Office outpatient visit 5 minutes Zeinab William DO Work Phone: [facility] Start: 04-01-2023 End: 04-01-2023 Lab Order Zeinab William DO Work Phone: [facility] Start: 04-01-2023 End: 04-09-[address] Zeinab William Work Phone: [facility] Work Phone: Start: 04-01-2023 End: 04-09-[address] [facility] Start: 03-23-[address] Lalo William Work Phone: [facility] Start: 03-02-2023 End: 03-02-[address] Zeinab William Work Phone: [facility] Work Phone: Start: 03-02-[address] Dania William Work Phone: [facility] Start: 02-28-2023 End: 02-28-2023 Office outpatient visit 10 minutes Zeinab William DO Work Phone: [facility] Start: 02-02-2023 Review Zeinab Macyo n DO Work Phone: [facility] Start: 02-02-2023 End: 02-24-2023 Patient encounter procedure Zeinab Cavazoson DO Work Phone: [facility] Start: 01-10-2023 End: 01-10-2023 Patient encounter status Zeinab Stewart DO Work Phone: [facility] Start: 01-10-2023 End: 01-10-2023 Periodic preventive med est patient 18-39 yrs Zeinab Stewart DO Work Phone: [facility] Start: 12-20-2022 End: 12-20-2022 Lab Order Zeinab Cavazoson DO Work Phone: [facility] Start: 11-22-2022 ambulatory Zeinab Stewart DO Comp rehensive Internal Med Start: 11-19-2022 End: 11-19-2022 Office outpatient visit 10 minutes Zeinab William DO Work Phone: [facility] Start: 08-20-2022 End: 08-20-2022 Office outpatient visit 10 minutes Zeinab Stewart DO Work Phone: [facility] Start: 07-30-2022 End: 07-30-2022 Patient encounter procedure Zeinab William DO Work Phone: [facility] Start: 07-30-2022 End: 07-30-2022 Office outpatient visit 15 minutes Zeinab William DO Work Phone: [facility] Start: 07-01-2022 End: 07-01-[address] Zeinab William Work Phone: [facility] Work Phone: Start: 07-01-2022 End: 07-01-[address] Zeinab William Work Phone: [facility] Start: 06-28-2022 End: 06-28-[address] Zeinab William Work Phone: [facility]-Laboratory, Specimen Start: 06-28-2022 End: 06-28-[address] Zeinab William Work Phone: [facility] Start: 06-21-2022 End: 06-21-2022 Annotation/Addendum Zeinab William DO Work Phone: [facility] Start: 06-18-2022 End: 06-18-2022 Annotation/Addendum Zeinab William DO Work Phone: [facility] Start: 06-17-2022 End: 06-17-[address] [facility] Work Phone: Start: 06-17-2022 End: 06-17-[address] [facility] Start: 06-17-2022 End: 06-17-2022 Office outpatient visit 40 minutes Zeinab Stewart DO Work Phone: [facility] Start: 06-17-2022 Review Zeinab Fearo n DO Work Phone: [facility] Start: 02-11-2022 Telephone encounter No Pcp [facility] Comment on above: Patient Update Start: 02-01-2022 Review Zeinab Fearo n DO Work Phone: [facility] Start: 02-01-2022 Review Zeinab Fearo n DO Work Phone: [facility] Start: 02-01-2022 End: 02-01-2022 Office outpatient visit 10 minutes Zeinab Stewart DO Work Phone: [facility] Start: 01-14-2022 Telephone encounter Nopcp (Gennaro stinson) [facility] Comment on above: Patient Question (RE QUESTING MEDICAL VACCINE RECORDS FROM [facility]...) Start: 01-14-2022 End: 01-14-2022 Patient encounter status Zeinab Stewart DO Work Phone: [facility] Start: 01-14-2022 End: 01-14-2022 Periodic preventive med est patient 18-39 yrs Zeinab Stewart DO Work Phone: [facility] Start: 01-14-2022 Review Zeinab Fearo n DO Work Phone: [facility] Start: 12-29-2021 End: 12-29-2021 Annotation/Addendum Zeinab Stewart DO Work Phone: [facility] Start: 10-05-2021 End: 10-05-2021 Office outpatient visit 10 minutes Zeinab Stewart DO Work Phone: [facility] Start: 09-28-2021 End: 09-28-2021 Office outpatient visit 25 minutes Zeinab Stewart DO Work Phone: [facility] Start: 08-04-2021 End: 08-04-2021 Office outpatient visit 40 minutes Zeinab Stewart DO Work Phone: [facility] Start: 08-04-2021 Review Zeinab Fearo n DO Work Phone: [facility] Start: 07-16-2021 End: 07-16-2021 Office outpatient visit 10 minutes Zeinab Stewart DO Work Phone: [facility] Start: 07-16-2021 Review Zeinab Fearo n DO Work Phone: [facility] Start: 05-20-2021 End: 05-25-2021 Patient encounter status Zeniab Stewart DO Work Phone: [facility] Start: 05-20-2021 End: 05-25-2021 Phone Encounter Zeinab Stewart DO Work Phone: [facility] Start: 05-18-2021 End: 05-27-2021 Office outpatient visit 40 minutes Zeinab Stewart DO Work Phone: [facility] Start: 03-27-2021 End: 03-27-2021 Office outpatient visit 15 minutes Zeinab Stewart DO Work Phone: [facility] Start: 01-22-2021 End: 01-22-2021 Office outpatient visit 15 minutes Zeinab Stewart DO Work Phone: [facility] Start: 01-07-2021 End: 01-07-2021 Office outpatient visit 10 minutes Zeinab Stewart DO Work Phone: [facility] Start: 01-01-2021 End: 01-01-2021 Office outpatient visit 10 minutes Zeinab Stewart DO Work Phone: [facility] Start: 12-24-2020 End: 12-24-2020 Office outpatient visit 10 minutes Zeinab Stewart DO Work Phone: [facility] Start: 12-17-2020 End: 12-17-2020 Office outpatient visit 25 minutes Zeinab Stewart DO Work Phone: [facility] Start: 12-17-2020 Review Zeinab Fearo n DO Work Phone: [facility] Start: 10-03-2020 End: 10-03-2020 Office outpatient visit 10 minutes Zeinab Stewart [facility] Start: 09-05-2020 End: 09-05-2020 Office outpatient visit 15 minutes Zeinab Stewart [facility] Start: 09-05-2020 Review Zeinab Stewart Compreh ensive Internal Medicine Start: 08-13-2020 End: 08-13-2020 Annotation/Addendum Zeinab Stewart [facility] Start: 2020 End: 2020 Office outpatient visit 15 minutes Zeinab Stewart [facility] Start: 08-05-2020 End: 08-05-2020 Office outpatient visit 10 minutes Zeinab Stewart [facility] Start: 12-24-2019 End: 12-24-2019 Office outpatient visit 10 minutes Zeinab Stewart [facility] Start: 12-19-2019 End: 12-19-2019 Annotation/Addendum Zeinab Stewart [facility] Start: 11-22-2019 End: 11-22-2019 Office outpatient visit 15 minutes Zeinab Stewart [facility] Start: 08-25-2018 End: 08-25-2018 Annotation/Addendum Zeinab Stewart [facility] Start: 08-23-2018 End: 08-23-2018 Office outpatient visit 15 minutes Zeinab Stewart [facility] Start: 05-05-2018 End: 05-05-2018 Periodic preventive med est patient 18-39 yrs Zeinab William [facility] Start: 05-05-2018 End: 05-05-2018 Physical examination Zeinabcatherine William DO Work Phone: [facility] Start: 02-27-2018 End: 02-27-2018 Office outpatient new 20 minutes Zeinab William [facility] Patient encounter status Sommer Marielena EID [facility]; [facility] Work Phone: End: 08-04-2021 Patient encounter status SILVANA Romeo ALEJANDRA [facility]; [facility] Work Phone: Patient encounter status Zeinab William DO Work Phone: [facility]; [facility] Work Phone: Patient encounter status Víctor [facility]; [facility] Work Phone: Patient encounter status Víctor [facility]; [facility] Work Phone: Patient encounter status Víctor [facility]; [facility] Work Phone: Patient encounter status Tessa Bain MD Work Phone: [facility]; [facility] Work Phone: Patient encounter status Zeinab William DO Work Phone: [facility]; [facility] Work Phone: Patient encounter status Tessa Bain MD Work Phone: [facility]; [facility] Work Phone: Physical examination [facility] prehensive Internal Medicine; [facility] Work Phone: Physical examination [facility] prehensive Internal Medicine; [facility] Work Phone: Physical examination [facility] prehensive Internal Medicine; [facility] Work Phone: Physical examination [facility] prehensive Internal Medicine; [facility] Work Phone: End: 01-07-2021 Physical examination [facility] Inter nal Medicine; [facility] Work Phone: Procedures Date Procedure Procedure Detail Performing Clinician Start: 02-27-[address] Zeinab William DO Work Phone: Start: 12-21-2024 Urnls dip stick/tablet reagent auto microscopy Dr. Zeinab William DO Work Phone: Start: 12-21-2024 CT of abdomen and pelvis without contrast Dr. Zeinab William DO Work Phone: Start: 12-21-[address] Zeinab William DO Work Phone: Start: 08-17-2023 Viral antigen assay Start: 08-10-2023 Viral antigen assay Start: 07-08-2023 Viral antigen assay Start: 05-06-2023 Viral antigen assay Start: 04-01-[address] Zeinab William Work Phone: Start: 03-23-[address] Zeinab William Work Phone: Start: 03-02-2023 End: 03-02-2023 Urgent Care Visit Report Procedure Note: See Note; NOTES: [facility] [address] [place] [address] OFFICE VISIT Date of Service: 03/02/23 MR#: [id number] Acct: [id number] Name: STEFANO ESPINOZA Rep #: [id number] : 1995 Provider: EDGARDO Borges Age/Sex: 27/F Location: [facility] Status: Signed Intake Vital Signs 06/28/22 09:24 [...] Tate) current occupational status: student current occupation: [employer] Smoking Status: Never smoker alcohol intake: never [...] <Electronically signed by Venkat REYNOSO> Date Venkat REYNOSO Cosigner Signature: Date (if applicable) CC: Zeinab William DO Work Phone: Start: 07-01-2022 End: 07-01-2022 Abdomen/Pelvis without Cont Procedure Note: See Note; NOTES: [facility] Imaging Services [address] [place] [id number] Abdomen/Pelvis without Cont MR#: [id number] Acct: [id number] Name: STEFANO ESPINOZA Rep #: [id number] : 1995 F 26 From: Rod ferro MD PCP: Dr. Zeinab William, DO Status: REG CLI Study: Abdomen/Pelvis without Cont Date of Exam: 06/11 09/01 Exam# [id number] Ordering Dr: Gena Izaguirre MD STUDY: CT [...] Electronically Signed: Rod Mina MD at 13:23 [facility] , CC: Dr. Gena Izaguirre MD; Dr. Zeinab William, Astronomy Professor: Signed Gena Izaguirre Work Phone: Start: 07-01-2022 CT of abdomen and pelvis without contrast Dr. Zeinab William Work Phone: Start: 06-28-2022 End: 06-28-2022 Adult Specialist Office Visit Report Procedure Note: See Note; NOTES: [facility] [address] [place] [address] OFFICE VISIT Date of Service: 06/28/22 MR#: [id number] Acct: [id number] Name: STEFANO ESPINOZA Rep #: [id number] : 1995 Provider: BRUNILDA fritz Age/Sex: 26/F [place] 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 Date Name GA/Weeks Outcome Route Bth Weight Gen Labor Lgth Anesthesia Del Locatn Provider FOB 10/02/16 Roxane 39 live - full term 7lbs 4oz Female 12 hours none [facility] Delivery Date: 10/02/16 Last Updated [...] oriented to person and oriented to place HENAZ Head: normal to inspection Neck Neck: normal [...] 1 year, prn with problems Yenifer Beth [facility] 06/28/22 0953 <Electronically signed by Yenifer Beth NP AIRCRAFT MAINTENANCE MANAGER-C> Date Yenifer Beth NP AIRCRAFT MAINTENANCE MANAGER-C Cosigner Signature: Date (if applicable) CC: Zeinab William DO Work Phone: Start: 06-17-2022 End: 06-17-2022 Kidney and Bladder Procedure Note: See Note; NOTES: [facility] Imaging Services [address] [place] [address] Kidney and Bladder MR#: [id number] Acct: [id number] Name: STEFANO ESPINOZA Rep #: [id number] : 1995 F 26 From: Erik Craig PCP: Dr. Zeinab William, Status: REG CLI Study: Kidney and Bladder Date of Exam: 06/17/22 Exam# [id number] Ordering Dr: Zeinab William DO STUDY: RENAL [...] EST , CC: Dr. Zeinab William DO Astronomy Professor: Signed Zeinab William DO Work Phone: Start: 06-17-2022 US urinary tract Start: 11-18-2021 End: 11-18-2021 Adult Specialist Office Visit Report Comments: See Note; NOTES: [facility] [address] [place] [address] OFFICE VISIT Date of Service: 11/18/21 MR#: [id number] Acct: [id number] Name: STEFANO ESPINOZA Rep #: [id number] : 1995 Provider: Dr. Leticia Teixeira DO Age/Sex: 26/F [place] [facility] [place]: Signed Intake Vital Signs 11/18/21 11:04 Height 5 ft 4 in Weight: 126 lb 6 oz BMI 21.7 BP 92/62 Intake Visit Reasons: STRING CHECK Senior Network Engineer Required: No Is patient in pain?: No [...] menopausal: No Patient : No : No [facility] Medical History ADD (attention deficit disorder) Anxiety [...] additional social history: - Rogelio- Ayana and [employer] HPI STRING CHECK Details: STEFANO [...] term 7lbs 4oz Female 12 hours none [facility] Delivery Date: 10/02/16 Borderline HELP [...] needed for IUD. Plan - Dr. Leticia Patel, DO: IUD appears correctly placed. pt will call if bleeding continues. will try estrogen 11/18/21 1140 <Electronically signed by Leticia Patel DO> Date Leticia Patel DO Cosigner Signature: Date (if applicable) CC: Zeinab William DO Work Phone: Start: 10-07-2021 End: 10-07-2021 Adult Specialist Office Visit Report Comments: See Note; NOTES: [facility] [address] [place] [address]. [address] [place] [address] OFFICE VISIT Date of Service: 10/07/21 MR#: [id number] Acct: [id number] Name: BECKIEGAYLESTEFANO DUENAS Rep #: [id number] : 1995 Provider: Dr. Leticia Teixeira DO Age/Sex: 26/F [place] [facility] [place]: Signed Intake Vital Signs 09/23/21 14:50 10/07/21 15:27 Height 5 ft 4 in 5 ft 4 in Weight: 129 lb BMI 22.1 BP 100/70 Intake Visit Reasons: nexplanon removal and IUD insertion Senior Network Engineer Required: No Is patient in pain?: No [...] History current occupational status: student current occupation: [employer] Smoking Status: Never smoker alcohol intake: never substance use type: does not use caffeine: Yes what type of physical activity do you participate in: walking frequency: 3-4 times per week seatbelt use: always do you feel safe at home: Yes additional social history: - Rogelio- Krystas and Verjamaicaon Pregancy History 2 Elective abortions Hx Para 1 Spontaneous abortions 1 Hx # Term Pregnancies Ectopic pregnancies Hx # Pregnancies Multiple births # of living children Past Pregnancies Del. Date Name GA/Weeks Outcome Route Bth Weight [facility] 10/02/16 Roxane 39 live - full term 7lbs 4oz Female 12 hours none [facility] Delivery Date: 10/02/16 Borderline HELP [...] Route Admin Location Lot Number Expiration Date [facility] Manufactu rer 1 insert intrauterine Coding Level of Care Code Attention Key Entry Operator Diagnoses Contraceptive management Z30.9 CPT Codes IUD (28961) Nexplanon Removal (14223) Assessment and Plan Assessment and Plan (1) Contraceptive management: Status: Acute Comment: No PA needed for IUD. Plan - Dr. Leticia Patel, DO: successful removal of nexplanon and insertion [...] Breast Limited Unilateral Comments: See Note; NOTES: [facility] Imaging Services [address] [place] [address] Breast Limited Unilateral MR#: [id number] Acct: [id number] Name: STEFANO ESPINOZA Rep #: [id number] : 1995 F 26 From: Rod ferro MD PCP: Dr. Zeinab William, Status: REG CLI Study: Breast Limited Unilateral Date of Exam: Exam# [id number] Ordering Dr: Yenifer Beth AIRCRAFT MAINTENANCE MANAGER AIRCRAFT MAINTENANCE MANAGER -C STUDY: ULTRASOUND BREAST - RIGHT REASON [...] Signed: Rod Mina MD at 12:28 EST Reading Location ID and State: [address] [place] [address] , Service support , CC: TIMI-Law Beth; Dr. Zeinab William DO Astronomy Professor: Signed Zeinab William DO Work Phone: Start: 09-01-2021 End: 09-01-2021 DIAG MAMM W/CAD, BILAT Comments: See Note; NOTES: [facility] Imaging Services [address] [place] [address] DIAG MAMM W/CAD, BILAT MR#: [id number] Acct: [id number] Name: STEFANO ESPINOZA Rep #: [id number] : 1995 F 26 From: Rod ferro MD PCP: Dr. Zeinab William DO Status: REG CLI Study: DIAG MAMM W/CAD, BILAT Date of Exam: 09/01/21 Exam# [id number] Ordering Dr: Yenifer Beth NP AIRCRAFT MAINTENANCE MANAGER -C MAMMOGRAPHY - BILATERAL DIAGNOSTIC REASON FOR EXAM: [...] 9:57 EST Reading Location ID and State: [address] [place] [address] , Service support , CC: BRUNILDA Beth; Dr. Zeinab William DO Astronomy Professor: Signed Zeinab William DO Work Phone: Start: 08-26-2021 End: 08-26-2021 Adult Specialist Office Visit Report Comments: See Note; NOTES: [facility] [address] [place] [address] OFFICE VISIT Date of Service: 08/26/21 MR#: [id number] Acct: [id number] Name: STEFANO ESPINOZA Rep #: [id number] : 1995 Provider: BRUNILDA fritz Age/Sex: 26/F [place] [facility] [place]: Signed Intake Vital Signs 08/26/21 10:28 [...] History current occupational status: student current occupation: [employer] Smoking Status: Never smoker alcohol intake: never substance use type: does not use caffeine: Yes what type of physical activity do you participate in: walking frequency: 3-4 times per week seatbelt use: always do you feel safe at home: Yes additional social history: - Rogelio- [employer] and [employer] HPI Rt side breast lump Details: STEFANO [...] term 7lbs 4oz Female 12 hours none [facility] Delivery Date: 10/02/16 Borderline HELP [...] Today N63.10 Plan - Yenifer Beth NP, AIRCRAFT MAINTENANCE MANAGER-C: Bilateral diagnositic mammogram with right breast ultrasound-call results UPT negative Plan Details Other Orders: Orders: POC Urine Today N92.6 08/26/21 1046 <Electronically signed by Yenifer Beth NP AIRCRAFT MAINTENANCE MANAGER-C> Date Yenifer Beth NP AIRCRAFT MAINTENANCE MANAGER-C Cosigner Signature: Date (if applicable) CC: Zeinab William DO Work Phone: Start: 06-24-2021 End: 06-24-2021 Adult Specialist Office Visit Report Comments: See Note; NOTES: [facility] 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) Allergies No Known Allergies Allergy (Verified 06/24/21 [...] (Updated 06/24/21 @ 13:55 by Yenifer Beth NP, BRUNILDA) ADD (attention deficit disorder) Anxiety Surgical History labioplasty Family History (Updated 06/24/21 @ 13:39 by Mini Molina) Mother Diabetes Congestive heart failure Renal failure Father Narcolepsy Grandmother Kidney disease Grandfather Heart disease Alzheimer disease Social History (Updated 06/24/21 @ 13:40 by Mini Molina) current occupational status: student current occupation: [employer] Smoking Status: Never smoker alcohol intake: never substance use type: does not use caffeine: Yes what type of physical activity do you participate in: walking frequency: 3-4 times per week seatbelt use: always do you feel safe at home: Yes additional social history: - Rogelio- Ayana and Nelda Pregancy History 1 Elective abortions Hx Para 1 Spontaneous abortions 1 Hx # Term Pregnancies Ectopic pregnancies Hx # Pregnancies Multiple births # of living children Past Pregnancies Del. Date Name GA/Weeks Outcome Route Bth Weight Infant Gen Labor Lgth Anesthesia Del Locatn Provider FOB 10/02/16 Roxane 39 live - full term 7lbs 4oz Female 12 hours none [facility] Delivery Date: 10/02/16 Borderline HELP [...] oriented to person and oriented to place [facility] Head: normal to inspection Neck Neck: normal [...] recurs/wants IUD then Plan - Yenifer Beth AIRCRAFT MAINTENANCE MANAGER, AIRCRAFT MAINTENANCE MANAGER-C: Completed breast and pelvic exam Reviewed diet and exercise Pap 2018 breast self exam encouraged monthly Contraception nexplanon; will call if irregular bleeding recurs RTO 1 year, prn with problems Yenifer Beth MOTORCOACH DRIVER Plan Details Other Medications: Changed: From: citalopram (Celexa) 20 mg PO DAILY 90 tabs 1RF To: citalopram (Celexa) 30 mg PO DAILY 06/24/21 1355 <Electronically signed by Yenifer Beth NP AIRCRAFT MAINTENANCE MANAGER-C> Date Yenifer Beth NP AIRCRAFT MAINTENANCE MANAGER-C Cosigner Signature: Date (if applicable) CC: Zeinab William DO Work Phone: Start: 04-13-2021 End: 04-13-2021 Adult Specialist Office Visit Report Comments: See Note; NOTES: [facility] [place] [address] [place], [place] [address] OFFICE VISIT Date of Service: 04/13/21 MR#: [id number] Acct: [id number] Name: STEFANO ESPINOZA Rep #: [id number] : 1995 Provider: Dr. Zakia ledbetter MD Age/Sex: 25/F [place] [facility] [place]: Signed Intake Vital Signs 04/13/21 14:59 Height 5 ft 4 in Weight: 128 lb BMI 21.9 BP 110/80 Intake Visit Reasons: bleeding w/Nexplanon Senior Network Engineer Required: No Is patient in pain?: No Allergies No Known Allergies Allergy (Verified 04/13/21 14:59) Medications citalopram 20 mg tablet 20 mg PO DAILY #90 tab 02/26/20 [Rx Confirmed 04/13/21] norgestimate 0.25 mg-ethinyl estradiol 35 mcg tablet 1 tab PO DAILY #84 tab 04/13/21 [Rx Confirmed 04/13/21] Post menopausal: No Patient : No [facility] History (Updated 04/13/21 @ 15:13 by [...] Rogelio- [employer] and [employer] Patient works at [employer] HPI bleeding w/Nexplanon Details: STEFANO ESPINOZA is [...] Weight [facility]ant Gen [facility] 10/02/16 Roxane 39 live - full term 7lbs 4oz Female 12 hours none [facility] Delivery Date: 10/02/16 Borderline HELP Yahaira Tate Const Constitutional: Denies chills, fatigue or fever(s) [...] TAB PO DAILY 84 tabs 0RF 04/13/21 2889 <Electronically signed by Zakia Whitehead MD> Date Zakia Whitehead MD Cosigner Signature: Date (if applicable) CC: Zeinab William DO Work Phone: Start: 01-01-2021 End: 01-02-2021 Foot min 3 Views Comments: See Note; NOTES: [facility]iology [address] [place] [address] Foot min 3 Views MR#: [id number] Acct: [id number] Name: STEFANO ESPINOZA Rep #: [id number] : 1995 F 25 From: Dayron Roberts MD PCP: Dr. Zeinab William DO Status: DEP AMB Study: Foot min 3 Views Date of Exam: 01/01/21 Exam# [id number] Ordering Dr: Zeinab William DO STUDY: X-RAY [...] support , CC: Dr. Zeinab William DO Astronomy Professor: Signed Zeinab William DO Work Phone: Start: 09-08-2020 End: 09-09-2020 Adult Specialist Office Visit Report Comments: See Note; NOTES: [facility] [address] [place] [address] OFFICE VISIT Date of Service: 09/08/20 MR#: [id number] Acct: [id number] Name: STEFANO ESPINOZA Rep #: [id number] : 1995 Provider: Dr. Amira peterson MD Age/Sex: 25/F [place] [facility] [place]: Signed Intake Vital Signs 09/08/20 Height 5 ft 4 in 09/08/20 Weight: 129 lb 09/08/20 BMI 22.1 09/08/20 BP 120/82 H Intake Visit Reasons: Nexplanon insertion Chief Complaint: nexplanon insertion Senior Network Engineer Required: No Is patient in pain?: No [...] (Updated 09/09/20 @ 03:[address] Amira Owen MD) Smoking Status: Never smoker alcohol intake: never substance use type: does not use caffeine: Yes what type of physical activity do you participate in: walking frequency: 3-4 times per week seatbelt use: always do you feel safe at home: Yes additional social history: - Rogelio- Ayana and Nelda Patient works at [employer] Pregancy History 1 Elective abortions Hx Para 1 Spontaneous abortions 1 Hx # Term Pregnancies Ectopic pregnancies Hx # Pregnancies Multiple births # of living children Past Pregnancies Del. Date Name GA/Weeks Outcome Route Bth Weight Infant Gen Labor Lgth Anesthesia Del Locatn Provider FOB 10/02/16 Roxane 39 live - full term 7lbs 4oz Female 12 hours none [facility] Delivery Date: 10/02/16 Borderline HELP [...] applied. Office Meds Nexplanon Performing Provider: Amira Owen MD Administered by: Ava Field on 09/08/20 16:22 Dose Route Admin Location Lot Number Expiration Date NDC Manufactu rer 68 mg subdermal left arm [id number] 09/26/22 7337-0677-58 [employer]. Assessment Plan Problems 1. Pelvic pain R10.2 2. Metrorrhagia N92.1 Plan fu annually or prn Orders Orders: Nexplanon insert 09/08/20 Z30.9 Coding Level of Care Code Off vis,est,level 2 Diagnoses Pelvic pain R10.2 Metrorrhagia N92.1 Additional Codes Nexplanon Insertion (80989) 09/09/20 0307 <Electronically signed by Amira Owen MD> Date Amira Owen MD Cosigner Signature: Date (if applicable) CC: Zeinab William Start: 05-15-2020 End: 05-15-2020 Pelvic (Non ) Comments: See Note; NOTES: [facility] Imaging Services [address] [place] [address] Pelvic (Non ) MR#: [id number] Acct: [id number] Name: STEFANO ESPINOZA Rep #: [id number] : 1995 F 24 From: Rod ferro MD PCP: Dr. Zeinab William, DO Status: REG CLI Study: Pelvic (Non ) Date of Exam: 05/15/20 Exam# [id number] Ordering Dr: Yenifer Beth AIRCRAFT MAINTENANCE MANAGER AIRCRAFT MAINTENANCE MANAGER -C STUDY: ULTRASOUND OF THE FEMALE PELVIS [...] , CC: BRUNILDA Beth; Dr. Zeinab William, Astronomy Professor: Signed Zeinab William Work Phone: Start: 05-15-2020 End: 05-15-2020 Transvaginal Non- Comments: See Note; NOTES: [facility] Imaging Services [address] [place] [address] Transvaginal Non- MR#: [id number] Acct: [id number] Name: STEFANO ESPINOZA Rep #: [id number] : 1995 F 24 From: Rod ferro MD PCP: Dr. Zeinab William, DO Status: REG CLI Study: Transvaginal Non- Date of Exam: Exam# [id number] Ordering Dr: Yenifer Beth AIRCRAFT MAINTENANCE MANAGER AIRCRAFT MAINTENANCE MANAGER -C STUDY: ULTRASOUND OF THE FEMALE PELVIS [...] 15:44 EST , Service support , CC: AIRCRAFT MAINTENANCE MANAGERVilla Beth; Dr. Zeinab William DO Astronomy Professor: Signed Zeinab William Work Phone: Start: 04-04-2020 End: 04-04-2020 Transvaginal Non- Comments: See Note; NOTES: [facility] Imaging Services [address] [place] [address] Transvaginal Non- MR#: [id number] Acct: [id number] Name: STEFANO ESPINOZA Rep #: [id number] : 1995 F 24 From: Mathew Clifford i, MD PCP: Dr. Zeinab William, Status: REG CLI Study: Transvaginal Non- Date of Exam: Exam# [id number] Ordering Dr: Yenifer Beth NP, NP STUDY: [...] 22:08 EDT , Service support , CC: TIMI-Law Beth; Dr. Zeinab William DO Astronomy Professor: Signed Zeinab William Work Phone: Start: 04-04-2020 End: 04-04-2020 Pelvic (Non ) Comments: See Note; NOTES: [facility] Imaging Services [address] [place] [address] Pelvic (Non ) MR#: [id number] Acct: [id number] Name: STEFANO ESPINOZA Rep #: [id number] : 1995 F 24 From: Mathew Clifford i, MD PCP: Dr. Zeinab William DO Status: REG CLI Study: Pelvic (Non ) Date of Exam: 04/04/20 Exam# [id number] Ordering Dr: Yenifer Beth NP AIRCRAFT MAINTENANCE MANAGER -C STUDY: ULTRASOUND OF THE FEMALE PELVIS [...] CC: BRUNILDA Beth; Dr. Zeinab William DO Astronomy Professor: Signed Zeinab William Work Phone: Start: 11-30-2019 End: 11-30-2019 Adult Specialist Office Visit Report Comments: See Note; NOTES: [facility] [address] [place] [address] OFFICE VISIT Date of Service: 11/30/19 MR#: [id number] Acct: [id number] Name: STEFANO ESPINOZA Rep #: [id number] : 1995 Provider: Dr. Amira peterson MD Age/Sex: 24/F [place] [facility] [place]: Signed Intake Vital Signs 11/30/19 BMI 20.9 11/30/19 Height 5 ft 4 in 11/30/19 Weight: 123 lb 11/30/19 BMI 21.1 11/30/19 BP 90/58 L Intake Visit Reasons: ER f/u for heavy bleeding episode Chief Complaint: ER follow up for menorrhagia Senior Network Engineer Required: No Is patient in pain?: No Allergies No Known Allergies Allergy (Verified 11/30/19 13:15) Medications citalopram 20 mg tablet 20 mg PO DAILY #30 tab 02/19/19 [Rx Confirmed 11/30/19] busPIRone [Buspar] 15 mg PO DAILY 11/23/19 [History Confirmed 11/30/19] Post menopausal: No Patient : No : No [facility] Medical History Anxiety (Chronic) Surgical History labioplasty (Acute) Family History Mother Diabetes Congestive heart failure Father Narcolepsy Grandmother Kidney disease Grandfather Heart disease Alzheimer disease Social History (Updated 11/30/19 @ 13:[address] Amira Owen MD) Smoking Status: Never smoker alcohol intake: never substance use type: does not use caffeine: Yes what type of physical activity do you participate in: walking frequency: 3-4 times per week seatbelt use: always do you feel safe at home: Yes additional social history: - Rogelio- [employer] and [employer] Patient works at [employer] [facility] [employer] ER f/u for heavy bleeding episode: Details: [...] full term 7lbs 4oz Female [facility] Delivery Date: 10/02/16 On 03/07/18 [...] Nutritional Appearance: average body habitus Orientation: alert [facility] Head: normal to inspection, normocephalic Ears: hearing [...] Urine Glucose Negative Last Edit by Ava Yip Field on 11/30/19 13:20 Office Urine Ketones Last Edit by Ava Yip Field on 11/30/19 13:20 Off Ur Spec [place] 1.015 Last Edit by Ava Yip Field on 11/30/19 13:20 Office Urine pH Last Edit by Ava Theodora Field on 11/30/19 13:20 Office Urine Bilirubin Negative Last Edit by Ava Theodora Field on 11/30/19 13:20 Office Urine Urobilinogen Negative Last Edit by Ava Yip Field on 11/30/19 13:20 Office Urine Blood Last Edit by Ava Theodora Field on 11/30/19 13:20 Office Urine Blood Hemolyzed Large Last Edit by Ava Theodora Field on 11/30/19 13:20 Office Urine Protein Negative Last Edit by Ava Theodora Rashida on 11/30/19 13:20 Office Urine Nitrate Negative Last Edit by Avabreanne Field on 11/30/19 13:20 Off Ur Leukocytes Positive Last Edit by Ava Yip Field on 11/30/19 13:20 Assessment Plan Problems 1. Pelvic pain R10.2 2. Metrorrhagia N92.1 Plan recommend checking TSH, reassurrance given. offered lysteda. discussed possible infertility Orders Orders: POC Urinalysis Dip (Clinic) Today N92.0 Culture, Urine Today N92.0 Coding Level of Care Code Off vis,est,level 3 Diagnoses Pelvic pain R10.2 Metrorrhagia N92.1 11/30/19 1332 <Electronically signed by Amira Owen MD> Date Amira Owen MD Cosigner Signature: Date (if applicable) CC: Zeinab William Start: 11-23-2019 End: 11-24-2019 MR/ED.DCSUM Comments: See Note; NOTES: [facility] Medical Records Department [address] [place] [address] Emergency Department Summary 11/23/19 MR#: [id number] Acct: [id number] Name: STEFANO ESPINOZA Rep #: [id number] : 1995 24 From: Leticia Santo MD PCP: Dr. Zeinab William DO Status:DEP ER History of Present Illness [...] Medical History (1) Anxiety Status: Chronic Comment: celexa Past Medical History - Allergies and Home [...] no major interval change. Electronically Signed: Ken LopezDO at 23:27 EDT Tel [phone], Service support , 11/23/19 22:06 Transvaginal Non- [US] Stat Laboratory Results 11/23/19 11/23/19 22:20 22:20 WBC 4.4 RBC 4.20 Hgb 12.1 Hct 37.4 MCV 89.0 MCH 28.8 MCHC 32.4 RDW Std Deviation 42.3 RDW Coeff of Chapin 13.0 Plt Count 148 L MPV 11.6 Immature Gran % (Auto) 0.200 Neut % (Auto) 54.3 Lymph % (Auto) 33.9 Cla[place]orne % (Auto) 9.1 Eos % (Auto) 1.8 [...] Instructions: ED Bleeding Menstrual Heavy Referrals: Amira Owen MD [STAFF PHYSICIAN] - 5-7 Days What to do if you have Problems For any increased pain, shortness of breath, bleeding, nausea or vomiting, chest pain, or any unexpected problems, contact your Primary Care Provider. Call [facility] ([phone]) or report to the closest Emergency Room. Call 911 if necessary. 11/24/19 0211 <Electronically signed by Leticia Sanot MD> Date Leticia Santo MD Cosigner Signature (If Indicated): Date CC: DO Zeinab Johnson Start: 11-23-2019 End: 11-23-2019 Transvaginal Non- Comments: See Note; NOTES: [facility] Imaging Services [address] [place] [address] Transvaginal Non- MR#: [id number] Acct: [id number] Name: STEFANO ESPINOZA Rep #: [id number] : 1995 F 24 From: Ken Lopez DO PCP: Dr. Zeinab William DO Status: REG ER Study: Transvaginal Non- Date of Exam: Exam# [id number] Ordering Dr: Leticia Santo MD STUDY: ULTRASOUND [...] Ken Lopez DO at 23:27 EDT Tel [phone], Service support , CC: Dr. Leticia Santo MD; Dr. Zeinab William DO Astronomy Professor: Signed Zeinab William Start: 09-18-2019 End: 09-18-2019 Adult Specialist Office Visit Report Comments: See Note; NOTES: [facility] [address] [place] [address]. [address] [place] [address] OFFICE VISIT Date of Service: 09/18/19 MR#: [id number] Acct: [id number] Name: STEFANO ESPINOZA Rep #: [id number] : 1995 Provider: TIMI Beth Age/Sex: 24/F [place] [facility] [place]: Signed Intake Vital Signs09/18/19 Height 5 ft 4 in 09/18/19 Weight: 122 lb 8 oz 09/18/19 BMI 21.0 09/18/19 BP 112/70 Intake Visit Reasons: SPOTTING BTWN PERIODS Senior Network Engineer Required: No Is patient in pain?: Yes Allergies No Known Allergies Allergy (Verified 09/18/19 13:41) Medications citalopram 20 mg tablet 20 mg PO DAILY #30 tab 02/19/19 [Rx Confirmed 09/18/19] doxycycline monohydrate 100 mg capsule 100 mg PO BID #20 cap 09/18/19 [Rx Confirmed 09/18/19] Is last menstrual period known: Yes Post menopausal: No Patient : No : No [facility] Medical History Anxiety (Acute) Surgical [...] additional social history: - Rogelio- Ayana and Lidiaon Patient works at [employer] [employer] BTWN PERIODS: Details: STEFANO ESPINOZA is a 24 year old who presents for continued irregular spotting and pain with intercourse. Was seen in July [address] Owen and had negative comprehensive vaginal culture and normal ultrasound. Per last OV note was to take doxycycline but did not get Rx. She is and they are attempting . LMP 08/30/19 Pregancy History 1 Elective abortions Hx Para 1 Spontaneous abortions Past Pregnancies Del. DatName GA/WeeksOutcome Route [facility] LgAnesthesDel LocaProviderFOB e ht en ia tn Delivery Date: 10/02/16 On 03/07/18 [...] CC: Zeinab William Start: 07-26-2019 End: 07-26-2019 Adult Specialist Office Visit Report Comments: See Note; NOTES: [facility] [address] [place] [address]. [address] [place] [address] OFFICE VISIT Date of Service: 07/26/19 MR#: [id number] Acct: [id number] Name: STEFANO ESPINOZA Rep #: [id number] : 1995 Provider: Amira Owen MD Age/Sex: 23/F [place] [facility] [place]: Signed Intake Vital Signs07/26/19 BMI 20.5 07/26/19 Height 5 ft 4 in 07/26/19 Weight: 121 lb 07/26/19 BMI 20.7 07/26/19 BP 120/68 Intake Visit Reasons: spotting/trying to get Chief Complaint: spotting between periods, after intercourse Senior Network Engineer Required: No Is patient in pain?: No Allergies No Known Allergies Allergy (Verified 07/26/19 13:17) Medications citalopram 20 mg tablet 20 mg PO DAILY #30 tab 02/19/19 [Rx Confirmed 07/26/19] Is last menstrual period known: Yes Last Menstral Period: 07/01/19 Post menopausal: No Patient : No : No [facility] Social History (Updated 07/26/19 @ 13:50 by Amira Owen MD) Smoking Status: Never smoker alcohol intake: never substance use type: does not use caffeine: Yes what type of physical activity do you participate in: walking frequency: 3-4 times per week seatbelt use: always do you feel safe at home: Yes additional social history: - Rogelio- Ayana and Lidiaon Patient works at [employer] spotting/trying to get : Details: STEFANO ESPINOZA [...] abortions Past Pregnancies Del. DatName GA/WeeksOutcome Route [facility] LocaProviderFOB e ht en ia tn Delivery Date: 10/02/16 On 03/07/18 [...] 4 Diagnoses Postcoital bleeding N93.0 Metrorrhagia N92.1 07/26/19 1350 <Electronically signed by Amira Owen MD> Date Amira Owen MD [facility] Signature: Date (if applicable) CC: Zeinab William Start: 05-09-2019 End: 05-09-2019 Discharge Instruction Comments: See Note; NOTES: [facility] Medical Records Department [address] [place] [address] Discharge Instruction 05/09/19 1335 MR#: [id number] Acct: [id number] Name: STEFANO ESPINOZA Rep #: [id number] : 1995 23 From: Edilberto Iqbal MD [...] problems, contact your Primary Care Provider. Call [employer] [facility] ([phone]) or report to the closest Emergency Room. Call 911 if necessary. 05/09/19 1703 <Electronically signed by Edilberto Iqbal MD> Date Edilberto Iqbal MD Cosigner Signature (If Indicated): Date CC: Zeinab Perkins Start: 05-09-2019 End: 05-09-2019 Emergency Department Summary Comments: See Note; NOTES: [facility] Medical Records Department [address] [place] [address] Emergency Department Summary 05/09/19 1333 MR#: [id number] Acct: [id number] Name: STEFANO ESPINOZA Rep #: [id number] : 1995 23 From: Edilberto Iqbal MD [...] On repeat exam at 1456 she is diaper machine tender in the suprapubic area and right [...] pain G. This note was generated with Beamr dictation software. It may contain incorrect words, [...] your Primary Care Provider. Call [facility] ([phone]) or report to the closest Emergency Room. Call 911 if necessary. 05/09/19 4799 <Electronically signed by Edilberto Iqbal MD> Date Edilberto Iqbal MD Cosigner Signature (If Indicated): Date CC: Zeinab Perkins Start: 05-09-2019 End: 05-09-2019 Abdomen/Pelvis without Cont Comments: See Note; NOTES: [facility] Imaging Services [address] [facility] [place] [address] Abdomen/Pelvis without Cont MR#: [id number] Acct: [id number] Name: STEFANO ESPINOZA Rep #: [id number] : 1995 F 23 From: Rod Mina MD PCP: Zeinab William DO Status: REG ER Study: Abdomen/Pelvis without Cont Date of Exam: 05/09/19 Exam# [id number] Ordering Dr: Edilberto Iqbal MD STUDY: CT [...] CC: Edilberto Iqbal MD; Zeinab William DO Astronomy Professor: Signed Tessa Bain MD Work Phone: Start: 02-16-2019 End: 02-16-2019 Discharge Instruction Comments: See Note; NOTES: [facility] Medical Records Department [address] [place] [address] Instructions for Home/Discharge Instructions 02/16/19 1331 MR#: [id number] Acct: [id number] Name: STEFANO ESPINOZA Rep #: [id number] : 1995 23 From: Amira Owen MD PCP: Zeinab William DO Status: REG [facility] Discharge Diet: No Restrictions Discharge Activity: Return [...] if applicable. Please Follow Up With: Amira Owen MD - [phone] 02/16/19 1332 <Electronically signed by Amira Owen MD> Date Amira Owen MD CC: Zeinab William DO Signed Zeinab William Start: 02-16-2019 End: 02-16-2019 Operative Report Comments: See Note; NOTES: [facility] Medical Records Department [address] [place] [address] Operative Report 02/16/19 1329 MR#: [id number] Acct: [id number] Name: STEFANO ESPINOZA Rep #: [id number] : 1995 23 From: Amira Owen MD PCP: Zeinab William DO Status: [facility] Y Location: [place] [address] Problem List (1) Missed Status: Acute Report [...] Select Codes - Urinary/Genital Urinary/Genital CPT Codes: 14303 Care of miscarriage 02/16/19 1331 <Electronically signed by Amira Owen MD> Date Amira Owen MD CC: Zeinab William DO; Amira Owen MD Signed Zeinab William Start: 02-16-2019 End: 02-16-2019 History and Physical Exam Comments: See Note; NOTES: [facility] Medical Records Department [address] [place] [address] History and Physical 02/15/19 0543 MR#: [id number] Acct: [id number] Name: STEFANO ESPINOZA Rep #: [id number] : 1995 23 From: Amira Owen MD PCP: Zeinab William DO Status: [facility] Y Location: [place] [address] - Problem List (1) Missed Status: Acute History and Physical Date of Admission: 02/16/19 Intake Vital Signs 02/13/19 Body Mass Index (BMI) 20.5 02/13/19 Height 5 ft 4.5 in 02/13/19 Weight: 120 lb 02/13/19 Body Mass Index (BMI) 20.2 Intake Visit Reasons: NOB LMP 12/16 Chief Complaint: NEW OB Senior Network Engineer Required: No Is patient in pain?: No [...] History (Updated 02/13/19 @ 13:54 by Amira Owen MD) Smoking Status: Never smoker alcohol intake: never substance use type: does not use caffeine: Yes what type of physical activity do you participate in: walking frequency: 3-4 times per week seatbelt use: always do you feel safe at home: Yes additional social history: - Rogelio- Ayana and Nelda Patient works at [employer] Pregancy History 1 Elective abortions Hx Para 1 Spontaneous abortions Past Pregnancies Del. 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 Amira Owen MD 02/16/19 1329 <Electronically signed by Amira Owen MD> Date Amira Owen MD [facility] Signature: Date (if applicable) CC: Zeinab William DO; Amira Owen MD Signed Zeinab William Start: 02-01-2019 End: 02-01-2019 Transvaginal w/Preg US Comments: See Note; NOTES: [facility] Imaging Services [address] [facility] [place] [address] Transvaginal w/Preg US MR#: [id number] Acct: [id number] Name: STEFANO ESPINOZA Rep #: [id number] : 1995 F 23 From: Zbigniew Berger MD PCP: Zeinab William DO Status: [facility] CLI Study: Transvaginal w/Preg US Date of Exam: 02/01/19 Exam# [id number] Ordering Dr: Yenifer Beth STUDY: FIRST TRIMESTER [...] , CC: TIMI Beth; Zeinab William DO Astronomy Professor: Signed Zeinab William Work Phone: Start: 10-05-2018 End: 10-05-2018 Emergency Department Summary Comments: See Note; NOTES: [facility] Medical Records Department [address] [facility] [place] [address] Emergency Department Summary 10/05/18 1533 MR#: [id number] Acct: [id number] Name: STEFANO ESPINOZA Rep #: [id number] : 1995 23 From: James Terry MD PCP: Zeinab William DO Status: REG ER - ER Visit Summary Date of Service: 10/05/18 Chief Complaint: [] History of Present Illness: The patient is a 23 F [] Physical Examination: [] Test Results: [] Emergency Department Course and Treatment: [] Treatment Plan: [] Disposition: [] Impression: [] This note was generated with Beamr dictation software. It may contain incorrect words, spelling, and punctuation that were not noted in review of the chart prior to signing ED Disposition - Plan for ED Patient: Disposition: Acute Care Hospital [facility] Diagnosis: 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 Instructions: ED Inflam Bowel Disease Crohn Prescriptions: Hydrocodone Bitart/Apap 5-325 [Medway 5MG-325MG] 1 tablet PO Q6H PRN PRN [...] problems, contact your Primary Care Provider. Call [employer] [facility] [employer] [facility] ([phone]) or report to the closest Emergency Room. Call 911 if necessary. 10/05/18 1537 <Electronically signed by James Terry MD> Date James Terry MD Cosigner Signature (If Indicated): Date CC: Zeinab Perkins Start: 10-05-2018 End: 10-05-2018 Abdomen/Pelvis WITH Contrast Comments: See Note; NOTES: [facility] Imaging Services [address] [place] [address] Abdomen/Pelvis WITH Contrast MR#: [id number] Acct: [id number] Name: STEFANO ESPINOZA Rep #: [id number] : 1995 F 23 From: Rod Mina MD PCP: Zeinab William DO Status: REG ER Study: Abdomen/Pelvis WITH Contrast Date of Exam: 10/05/18 Exam# [id number] Ordering Dr: James Terry MD STUDY: CT [...] CC: Zeinab William DO; James Terry MD Astronomy Professor: Signed Zeinab William Start: 05-31-2018 End: 05-31-2018 Adult Specialist Office Visit Report Comments: See Note; NOTES: [facility] [address] [place] [address] OFFICE VISIT Date of Service: 05/31/18 MR#: [id number] Acct: [id number] Name: JALINDA FUCHSJEREMIAH Yip Rep #: [id number] : 1995 Provider: Amira Owen MD Age/Sex: 22/F [place] [facility] [place]: Signed Intake Vital Signs05/31/18 Weight: 115 lb 05/31/18 Height 5 ft 4 in 05/31/18 Blood Pressure 98/68 Intake Visit Reasons: RECHECK Chief Complaint: 6w post op, estrace Senior Network Engineer Required: No Is patient in pain?: No Allergies No Known Allergies Allergy (Verified 05/31/18 09:37) Medications melatonin 10 mg tablet 10 mg PO HS PRN 03/07/18 [History Confirmed 05/31/18] Norgestimate-Ethinyl Estradiol [Mononessa 28 Tablet] 1 ea PO DAILY 04/05/18 [History Confirmed 05/31/18] Blu's Wort 600 mg PO DAILY 04/05/18 [History [...] Rogelio- Ayana and Nelda Patient works at [employer] Pregancy History 1 Elective abortions Hx Para [...] Dyspareunia 05/31/18 1036 <Electronically signed by Amira Owen MD> Date Amira Owen MD Cosigner Signature: Date (if applicable) CC: Zeinab William Start: 05-06-2018 End: 05-06-2018 Adult Specialist Office Visit Report Comments: See Note; NOTES: [facility] [address] [place] [address] OFFICE VISIT Date of Service: 05/03/18 MR#: [id number] Acct: [id number] Name: STEFANO ESPINOZA Rep #: [id number] : 1995 Provider: Amira Owen MD Age/Sex: 22/F Location: [facility] Status: Signed Intake Vital Signs05/03/18 Height 5 ft 4 in 05/03/18 Weight: 116 lb 2 oz 05/03/18 Body Mass Index (BMI) 19.9 05/03/18 Blood Pressure 98/62 Intake Visit Reasons: 3 week post op Chief Complaint: 3w post op Senior Network Engineer Required: No Is patient in pain?: Yes Allergies No Known Allergies Allergy (Verified 05/03/18 11:49) Medications melatonin 10 mg tablet 10 mg PO HS PRN 03/07/18 [History Confirmed 05/03/18] Norgestimate-Ethinyl Estradiol [Mononessa 28 Tablet] 1 ea PO DAILY 04/05/18 [History Confirmed 05/03/18] Sequim's Wort 600 mg PO DAILY 04/05/18 [History [...] home: Yes additional social history: - Rogelio- [employer] and Lidiaon Patient works at [employer] 3 week post op: Details: STEFANO ESPINOZA [...] Dyspareunia 05/06/18 0533 <Electronically signed by Amira Owen MD> Date Amira Owen MD Cosigner Signature: Date (if applicable) CC: Zeinab William Start: 04-13-2018 End: 04-13-2018 Operative Report Comments: See Note; NOTES: [facility] Medical Records Department [address] [place] [address] Operative Report 04/12/18 1415 MR#: [id number] Acct: [id number] Name: STEFANO ESPINOZA Rep #: [id number] : 1995 22 From: Amira Owen MD PCP: Zeinab William DO Status: [facility] Y Location: [facility] Problem List (1) Anxiety Status: Acute (2) [...] None 04/13/18 0437 <Electronically signed by Amira Owen MD> Date Amira Owen MD CC: Zeinab William DO; Amira Owen MD Signed Zeinab William Start: 04-12-2018 Antibody screen Zeinab William Comment on above: Reason for Type AND Screen/Red Cells: [facility] [id number] [facility] [place], [address] Start: 04-12-2018 End: 04-12-2018 Discharge Instruction Comments: See Note; NOTES: [facility] Medical Records Department [address] [place] [address] Instructions for Home/Discharge Instructions 04/12/18 1331 MR#: [id number] Acct: [id number] Name: JAJEFSTEFANO M Rep #: [id number] : 1995 22 From: Amira Owen MD PCP: Zeinab William DO Status: REG [facility] Discharge Diet: No Restrictions Discharge Activity: Return to Normal Activity, May Shower May resume sexual activity in: 4-6 weeks Call your doctor if you observe: Fever of 101 or Higher, Coldness, Increased Pain, Change in Color Cleanse incision/area with: Soap AND Water Allergies/Adverse Reactions: Allergies No Known Allergies Allergy (Verified 04/05/18 13:08) Medications to take at Discharge melatonin 10 mg tablet 10 mg PO HS PRN 03/07/18 Norgestimate-Ethinyl Estradiol [Mononessa 28 Tablet] 1 each PO DAILY 04/05/18 Sequim's Wort 600 mg PO DAILY 04/05/18 Primary Care Physician: Zeinab William DO [Primary Care Provider] - Test Results: Test results from this visit will be discussed in further detail at your follow-up appointment, if applicable. Please Follow Up With: Amira Owen MD - [phone] 04/12/18 1332 <Electronically signed by Amira Owen MD> Date Amira Owen MD CC: Zeinab Perkins Start: 04-12-2018 End: 04-12-2018 History and Physical Exam Comments: See Note; NOTES: [facility] Medical Records Department [address] [place] [address] History and Physical 04/12/18 1329 MR#: [id number] Acct: [id number] Name: STEFANO ESPINOZA Rep #: [id number] : 1995 22 From: Amira Owen MD PCP: Zeinab William DO Status: REG [facility] Y Location: [place] [address] - Problem List (1) Anxiety Status: Acute (2) Dyspareunia Status: Chronic History and Physical Date of Admission: 04/12/18 Intake Vital Signs 03/07/18 Height 5 ft 4 in 03/07/18 Weight: 112 lb 03/07/18 Body Mass Index (BMI) 19.2 03/07/18 Blood Pressure 114/76 Intake Visit Reasons: VAGINAL TEAR NOT HEALING PROPERLY Senior Network Engineer Required: No Is patient in pain?: Yes Pain scale (1-10): 5 Allergies No Known Allergies Allergy (Verified 03/07/18 12:01) Medications melatonin 10 mg tablet 10 mg PO HS PRN 03/07/18 [History Confirmed 03/07/18] norgestimate 0.25 mg-ethinyl estradiol 35 mcg tablet 1 tab PO DAILY 03/07/18 [History Confirmed 03/07/18] Is last menstrual period known: Yes Last Menstral Period: 02/14/18 Post menopausal: No Patient : No : No PFSH Medical History Anxiety (Acute) Family History Mother Diabetes Congestive heart [...] Rogelio- [employer] Patient works at [employer] VAGINAL TEAR NOT HEALING PROPERLY: Details: STEFANO ESPINOZA is a 22 year old who presents for dyspareunia since delivery of her child. she delivered 9 months ago and had a repair of her right labia and it broke down and is two separate areas. she has pain with intercourse and vaginal pain with exercise, sitting. she denies any irregular bleeding. Female Reproductive History Last Menstral Period: 02/14/18 Pregancy History 1 Elective abortions Hx Para 1 Spontaneous abortions Past Pregnancies Del. DateName GA/Weeks Outcome Route Bth WeighInfant GeLabor LgtAnesthesiDel LocatProvider FOB t n h a n Delivery Date: 10/02/16 On 03/07/18 @ 12:08 Yahaira Tate Borderline HELP ROS Const Constitutional: Denies poor appetite, headache(s), fever(s), increased appetite, weight gain, weight loss or fatigue ENT ENT: Denies dizziness or dry mouth Cardio Card: Denies chest pain Resp Resp: Denies dyspnea or cough GI GI: Reports as per HPI; denies vomiting, nausea, abdominal pain or constipation : Reports as per HPI; denies urinary urgency, vaginal discharge, urinary frequency, vaginal itching, vaginal odor, vaginal dryness, urinary incontinence, urinary hesitancy, pelvic pain, difficulty urinating or painful urination Musc Musc: Denies muscle weakness, joint pain or back pain Skin Skin/Breast: Denies hair loss, change in hair, dry skin, breast pain, breast skin changes or breast lump Neuro Neuro: Denies dizziness Psych Psych: Denies anxiety or depression Endo Endo: Denies cold intolerance, increased thirst, excessive sweating or heat intolerance Waldemar/Lymph Hematologic/Lymphatic: Denies easy bleeding, Denies easy bruising, Denies enlarged lymph nodes Exam Const General: cooperative, healthy appearing, comfortable, no acute distress, well developed Nutritional Appearance: average body habitus Orientation: alert [facility] Head: normal to inspection, normocephalic Ears: hearing grossly normal bilaterally, external ears normal Nose: external nose normal, nares normal Face and sinus: normal facial exam Neck Neck: normal visual inspection, trachea midline, no lymphadenopathy Thyroid: thyroid normal Chest Chest palpation AND inspection: normal inspection of the chest Resp Effort AND Inspection: normal respiratory effort Cardio Rate: regular rate GI Inspection: normal to inspection, non-distended Palpation: soft, no hepatosplenomegaly General: bladder normal to palpation External Female Exam: abnormal external appearance (right labia in two sections, tender to touch), normal appearance of the urethra Urethra: normal appearance of the urethra, normal palpation, no discharge Speculum Exam - Vagina: normal appearance of the vagina, normal vaginal discharge Speculum Exam - Cervix: normal appearance of the cervix, nontender Bimanual Exam- Vagina AND Uterus: bladder normal to palpation, No cervical tenderness, normal bimanual exam, normal vaginal palpation, uterine size normal, uterine shape normal, uterine mobility normal, uterine consistency normal, normal cervical palpation, uterus non-tender Bimanual Exam- Adnexa, other: normal adnexae, adnexae mobile, no adnexal masses, pelvic support normal Pelvic Support: normal Musc Cervical Spine: other Other: gross motor intact no deficits, full bilateral strength Skin General: no rashes or lesions noted Neuro General: alert, awake, no focal motor deficits, moves all extremities Motor: muscle tone normal throughout Extrem General: normal to inspection, no pedal edema Psych Appearance: grossly normal Mental Status: mental status grossly normal Affect: normal affect Speech and Movement: speech and movement normal Assessment AND Plan Problems 1. Dyspareunia Plan labiaplasty. risk of bleeding infection dyspareunia discussed. 04/12/18 4910 <Electronically signed by Amira Owen MD> Date Amira Owen MD [facility] Signature: Date (if applicable) CC: Zeinab William DO; Amira Owen MD Signed Zeinab William Start: 03-15-2018 End: 03-15-2018 Adult Specialist Office Visit Report Comments: See Note; NOTES: [facility] [address] [place] [address]. [address] [place] [address] OFFICE VISIT Date of Service: 03/07/18 MR#: [id number] Acct: [id number] Name: STEFANO ESPINOZA Rep #: [id number] : 1995 Provider: Amira Owen MD Age/Sex: 22/F [place] [facility] Status: Signed Intake Vital Signs03/07/18 Height 5 ft 4 in 03/07/18 Weight: 112 lb 03/07/18 Body Mass Index (BMI) 19.2 03/07/18 Blood Pressure 114/76 Intake Visit Reasons: VAGINAL TEAR NOT HEALING PROPERLY Senior Network Engineer Required: No Is patient in pain?: Yes Pain scale (1-10): 5 Allergies No Known Allergies Allergy (Verified 03/07/18 12:01) Medications melatonin 10 mg tablet 10 mg PO HS PRN 03/07/18 [History Confirmed 03/07/18] norgestimate 0.25 mg-ethinyl estradiol 35 mcg tablet 1 tab PO DAILY 03/07/18 [History Confirmed 03/07/18] Is last menstrual period known: Yes Last Menstral Period: 02/14/18 Post menopausal: No Patient : No : No PFSH Medical History Anxiety (Acute) Family History Mother Diabetes Congestive heart [...] Rogelio- Ayana and Nelda Patient works at [employer] VAGINAL TEAR NOT HEALING PROPERLY: Details: STEFANO ESPINOZA is a 22 year old who presents for dyspareunia since delivery of her child. she delivered 9 months ago and had a repair of her right labia and it broke down and is two separate areas. she has pain with intercourse and vaginal pain with exercise, sitting. she denies any irregular bleeding. Female Reproductive History Last Menstral Period: 02/14/18 Pregancy History 1 Elective abortions Hx Para 1 Spontaneous abortions Past Pregnancies Del. DateName GA/Weeks Outcome Route Bth WeighInfant GeLabor LgtAnesthesiDel LocatProvider FOB t n h a n Delivery Date: 10/02/16 On 03/07/18 @ 12:08 Yahaira Tate Borderline HELP ROS Const Constitutional: Denies poor appetite, headache(s), fever(s), increased appetite, weight gain, weight loss or fatigue ENT ENT: Denies dizziness or dry mouth Cardio Card: Denies chest pain Resp Resp: Denies dyspnea or cough GI GI: Reports as per HPI; denies vomiting, nausea, abdominal pain or constipation : Reports as per HPI; denies urinary urgency, vaginal discharge, urinary frequency, vaginal itching, vaginal odor, vaginal dryness, urinary incontinence, urinary hesitancy, pelvic pain, difficulty urinating or painful urination Musc Musc: Denies muscle weakness, joint pain or back pain Skin Skin/Breast: Denies hair loss, change in hair, dry skin, breast pain, breast skin changes or breast lump Neuro Neuro: Denies dizziness Psych Psych: Denies anxiety or depression Endo Endo: Denies cold intolerance, increased thirst, excessive sweating or heat intolerance Waldemar/Lymph Hematologic/Lymphatic: Denies easy bleeding, Denies easy bruising, Denies enlarged lymph nodes Exam Const General: cooperative, healthy appearing, comfortable, no acute distress, well developed Nutritional Appearance: average body habitus Orientation: alert [facility] Head: normal to inspection, normocephalic Ears: hearing grossly normal bilaterally, external ears normal Nose: external nose normal, nares normal Face and sinus: normal facial exam Neck Neck: normal visual inspection, trachea midline, no lymphadenopathy Thyroid: thyroid normal Chest Chest palpation AND inspection: normal inspection of the chest Resp Effort AND Inspection: normal respiratory effort Cardio Rate: regular rate GI Inspection: normal to inspection, non-distended Palpation: soft, no hepatosplenomegaly General: bladder normal to palpation External Female Exam: abnormal external appearance (right labia in two sections, tender to touch), normal appearance of the urethra Urethra: normal appearance of the urethra, normal palpation, no discharge Speculum Exam - Vagina: normal appearance of the vagina, normal vaginal discharge Speculum Exam - Cervix: normal appearance of the cervix, nontender Bimanual Exam- Vagina AND Uterus: bladder normal to palpation, No cervical tenderness, normal bimanual exam, normal vaginal palpation, uterine size normal, uterine shape normal, uterine mobility normal, uterine consistency normal, normal cervical palpation, uterus non-tender Bimanual Exam- Adnexa, other: normal adnexae, adnexae mobile, no adnexal masses, pelvic support normal Pelvic Support: normal Musc Cervical Spine: other Other: gross motor intact no deficits, full bilateral strength Skin General: no rashes or lesions noted Neuro General: alert, awake, no focal motor deficits, moves all extremities Motor: muscle tone normal throughout Extrem General: normal to inspection, no pedal edema Psych Appearance: grossly normal Mental Status: mental status grossly normal Affect: normal affect Speech and Movement: speech and movement normal Assessment AND Plan Problems 1. Dyspareunia Plan discussed surgical treatment and repair. patient desires intervention- schedule. Coding Level of Care Code Off vis,new,level 4 Diagnoses Dyspareunia 03/15/18 0529 <Electronically signed by Amira Owen MD> Date Amira Owen MD Cosigner Signature: Date (if applicable) CC: Zeinab William Start: 02-27-2018 End: 02-27-2018 No Known Past Surgical History Apryl Jones Plan of Treatment Date Care Activity Detail Author Start: 04-01-2025 [facility] Start: 12-21-2024 [facility] Start: 07-10-2023 [facility] Start: 04-01-2023 [place] influenza 2019 Novel Coronavirus (COVID-19), KENJI (80147) [facility] Work Phone: Start: 01-10-2023 Procedure Education Eprescribed prescriptions (G8553) [facility]; [facility] Work Phone: Start: 01-10-2023 Glucose quantitative blood xcpt reagent strip GLUCOSE (99320) [facility]; [facility] Work Phone: Start: 01-10-2023 Lipid panel LIPID PANEL (09633) [facility] Work Phone: Start: 07-30-2022 Provider Instructions for Treatment Reviewed Lab [facility]; [facility] Work Phone: Start: 07-30-2022 25 hydroxy includes fractions if performed CALCIFEDIOL (50191) [facility]; [facility] Work Phone: Start: 07-30-2022 Cyanocobalamin vitamin b-12 VITAMIN B-12 (CYANOCOBALAMIN) (45948) [facility]; [facility] Work Phone: Start: 06-28-[address]lam[address] [facility] Work Phone: Start: 06-28-2022 Liquid based cervical cytology screening [facility] Work Phone: Start: 06-17-2022 Procedure Education Eprescribed prescriptions (G8553) [facility]; [facility] Work Phone: Start: 06-17-2022 25 hydroxy includes fractions if performed CALCIFIDIOL (20049) VIT D 25 [facility]; [facility] Work Phone: Start: 06-17-2022 Cyanocobalamin vitamin b-12 VITAMIN B-12 (CYANOCOBALAMIN) (53960) [facility]; [facility] Work Phone: Start: 06-17-2022 Assay of thyroid stimulating hormone tsh TSH (20388) [facility]; [facility] Work Phone: Start: 06-17-2022 Comprehensive metabolic panel METABOLIC PANEL, COMPREHENSIVE (12760) [facility]; [facility] Work Phone: Start: 06-17-2022 Antinuclear antibodies lee ann LEE ANN (ANTINUCLEAR ANTIBODY) (44601) [facility]; [facility] Work Phone: Start: 06-17-2022 Culture bct isol&prsmptv id isolate ea urine URINE NATHANIEL CULTURE-IDENTIFICATN (57493) [facility]; [facility] Work Phone: Start: 06-17-2022 Blood count manual cell count each CBC WITH MANUAL DIFF (84518) [facility]; [facility] Work Phone: Start: 06-17-2022 Thromboplastin time partial plasma/whole blood PTT (Activated Partial Thromboplastin Time) (13326) [facility]; [facility] Work Phone: Start: 06-17-2022 Prothrombin time PT (Prothrobim Time) (71828) [facility]; [facility] Work Phone: Start: 06-17-2022 Lactate dehydrogenase ldh LDH (LD) (LACTATE DEHYDROGENASE) (24107) [facility]; [facility] Work Phone: Start: 06-17-2022 C-reactive protein C-REACTIVE PROTEIN (15152) [facility]; [facility] Work Phone: Start: 06-17-2022 Sedimentation rate rbc non-automated ESR-F (SED RATE ERYTHROCYTE - FEMALE) (75889) [facility]; [facility] Work Phone: Start: 03-11-2022 Influenza vaccination INFLUENZA (#1) [facility] Start: 02-01-2022 Procedure Education Eprescribed prescriptions (G8553) [facility]; [facility] Work Phone: Start: 01-14-2022 Tb cell mediated antign respnse gamma interferon QuantiFERON-TB Gold Plus (QFT-Plus) (70043) [facility]; [facility] Work [...] [place] influenza 2019 Novel Coronavirus (COVID-19), KENJI (40130) [facility]; [facility] Work Phone: Start: 05-25-2021 Hepatitis b surf antibody hbsab HEPATITIS B SURFACE ANTIBODY (36126) [facility]; [facility] Work Phone: Start: 05-22-2021 Antibody bordetella BORDETELLA ANTIBODY (60582) [facility]; [facility] Work Phone: Start: 05-22-2021 Antibody varicella-zoster Varicella - Zoster Antibody Igg (76741) [facility]; [facility] Work Phone: Start: 05-22-2021 Immunoassay infectious agent antibody catia nos Tetanus/Diphtheria Antibody Profile (79755) [facility]; [facility] Work Phone: Start: 05-20-2021 Antibody rubeola RUBEOLA IgG (73817) [facility] Work Phone: Start: 05-20-2021 Antibody mumps MUMPS IgG (05821) [facility]; [facility] Work Phone: Start: 05-20-2021 Antibody rubella RUBELLA IgG (65266) [facility]; [facility] Work Phone: [...] (Office - Urine Drug Screen 9 Panel) (77770) [facility]; [facility] Work Phone: Start: 01-07-2021 Drug screen class list a Drug Screen (7drug + Alcohol) (86600) [facility]; [facility] Work [...] 25 hydroxy includes fractions if performed CALCIFEDIOL (88803) [facility]; [facility] Work Phone: Start: 12-17-2020 Cyanocobalamin vitamin b-12 VITAMIN B12 AND FOLATES (97672) [facility]; [facility] Work [...] 09-05-2020 Comprehensive metabolic panel METABOLIC PANEL, COMPREHENSIVE (46039) [facility]; [facility] Work Phone: Start: 09-05-2020 Blood count complete auto&auto difrntl wbc CBC W/AUTO DIFF WBC (22039) [facility]; [facility] Work Phone: Start: 09-05-2020 TSH Qn TSH (82677) [facility]; [facility] Work Phone: Start: 09-05-2020 Lipid panel LIPID PANEL (55563) [facility]; [facility] Work Phone: [...] in 3 days 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 [facility]; [facility] Work Phone: Start: 12-24-2019 Procedure Education Eprescribed prescriptions (G8553) [facility] Work Phone: Start: 12-24-2019 Provider Instructions for Treatment Continue Current Prescription(s) [facility] Work Phone: Start: 08-23-2018 Culture bacterial quanttative colony count urine URINE NATHANIEL CULTURE-CATIA COL COUNT (89620) [facility] Work Phone: Start: 08-23-2018 Hemoglobin A1c/Hemoglobin.total mass fraction (Bld) HGB A1C (13018) [facility] Work Phone: Start: 08-23-2018 Hemoglobin glycosylated a1c HGB A1C (90297) [facility]; [facility] Work Phone: Start: 08-23-2018 Procedure Education Eprescribed prescriptions (G8553) [facility] Work Phone: Start: 05-05-2018 Glucose mass conc GLUCOSE (43188) [facility] Work Phone: Start: 05-05-2018 Lipid panel LIPID PANEL (79167) [facility] Work Phone: Start: 05-05-2018 Procedure Education Eprescribed prescriptions (G8553) [facility] Work Phone: Start: 2016 PAP TESTING PAP TESTING [facility] Start: 2014 Urine microalbumin profile DTAP,TDAP,TD (1 - Tdap) [facility] Start: 2013 HEPATITIS C SCREENING HEPATITIS C SCREENING [facility] Start: 2013 HIV SCREENING HIV SCREENING [facility] Start: 2009 PEDS TO ADULT TRANSITION ANNUAL ASSESSMENT PEDS TO ADULT TRANSITION ANNUAL ASSESSMENT [facility] Start: 2007 Adult depression screening assessment DEPRESSION SCREENING [facility] Start: 2007 PEDS TO ADULT TRANSITION INITIAL DISCUSSION PEDS TO ADULT TRANSITION INITIAL DISCUSSION [facility] Start: 2006 HPV VACCINE (1 - 2-dose series) HPV VACCINE (1 - 2-dose series) [facility] Start: 02-06-1996 COVID-19 VACCINE (#1) COVID-19 VACCINE (#1) [facility] Neisseria gonorrhoea e rRNA [Presence] in Unspecified specimen by KENJI with probe detection [facility] Work Phone: Path report.final Dx Spec [facility] Work Phone: Patient Education [facility] Work Phone: Patient referral [facility] Work Phone: PCR test for Chlamyd ia trachomatis [facility] Work Phone: [facility] Work Phone: [facility] [...] Immunizations Immunization Date Immunization Notes Care Provider [facility] 04-05-2024 influenza, seasonal, injectable, preservative free Dr. Zeinab William DO Work Phone: [facility] 04-01-2023 influenza, injectabl e, quadrivalent, contains preservative Zeinab William DO Work Phone: [facility]; [facility] Work Phone: Comment on above: Site: Left Deltoid lot: [id number]: 01/07.5 ml prefilled syringeleft dltd, IMCM, ENTRY LEVEL FINANCE 10-08-2020 COVID-19 (Moderna) Zeinab Foy [facility]; [facility] Work Phone: Payers Date Payer Category Payer Unknown [id number] 2024 Self-pay [id number] 2022 Unknown [id number] 2021 Unknown [id number] 2021 Unknown [id number] 2018 Unknown [employer] [facility] [id number] 2018-Present [phone] [address] [address] [place] [address] Indemnity [id number] 2018 Unknown [employer] [id number] 2018-Present [phone] [address] [place] [address] Indemnity [id number] 2018 [employer] ( and others) [id number] 1995 Unknown [id number] Unknown Unknown [id number] Unknown [id number] Unknown [id number] Unknown [id number] Unknown [id number] Unknown [id number] Unknown [id number] Unknown [id number] Unknown [id number] Unknown [id number] Unknown [id number] Unknown [id number] Social History Date Type Detail Facility Caffeine Use [facility] Work Phone: Comment on above: qd Exercise History: [facility] regularly[facility]: Living Situation: Lives with spouse. Comp [facility] Work Phone: Number of Child (age 0-17) Dependents: 1. [facility] Work Phone: Pets/Animals: Dog. [facility] Work Phone: Exercise History: Exercise History: Compr [facility]; [facility] Work Phone: [facility] Work Phone: Number of Child (age 0-17) Dependents: Number of Child (age 0-17) Dependents: [facility]; [facility] Work Phone: Pets/Animals: Pets/Animals: [facility]; [facility] Work Phone: Start: 05-09-2019 End: 12-21-2024 Tobacco smoking status HIIS Never smoked tobacco [facility] Start: 05-09-2019 Tobacco use and exposure Smokeless tobacco non-user [facility] Start: 1995 Sex Assigned At Not on file C [facility] Start: 11-18-2021 End: 07-10-2023 Tobacco smoking status NHIS Unknown if ever smoked [facility] Start: 10-05-2018 None [facility] Start: 11-23-2019 With Family [facility] Start: 02-14-2019 Non-smoker [facility] Start: 1995 Sex Assigned At Female W [facility] Sex Female [facility] Clinical Notes 01-14-2022 to 04-01-2025 Telephone Encounter - Teddy Yazmin - 02/11/2022 10:23 AM EDTTelephone Encounter - Teddy Delgado - 01/14/2022 4:02 PM EDT Note Date & Type Note Facility 04-01-2025 Progress note [facility] 12-21-2024 Radiology Diagnostic study note [facility] Imaging Services [address] [place], [place] [address] Abdomen/Pelvis without Cont MR#: [id number] Acct: [id number] Name: STEFANO ESPINOZA Rep #: [id number] : 1995 F 29 From: Carissa Verdin MD PCP: Dr. Zeinab William DO Status: RE G ER Study:Abdomen/Pelvis without Cont Date of Exa m: 12/21/24 Exam# [id number] Ordering Dr: Darrick Ford DO PROCEDURE: ABDOMEN/PELVIS WITHOUT CONT 12/21/2024 REASON FOR EXAM: LEFT FLANK PAIN TECHNIQUE: ABDOMEN/PELVIS WITHOUT CONT Noncontrast technique limits evaluation of the abdominal and pelvic viscera. Coronal and Sagittal reconstruction series were provided. One or more dose reduction techniques were used (e.g., Automated exposure control, adjustment of the mA and/or kV according to patient size, use of iterative reconstruction technique). ORAL CONTRAST TYPE: None. COMPARISON: CT abdomen pelvis 07/01/2022. FINDINGS: Lung bases: Unremarkable. Liver: Mild hepatomegaly. No biliary ductal dilation. Gallbladder: No radiopaque stones within the gallbladder. Spleen: Normal in size. Pancreas: The unopacified pancreas is unremarkable. Adrenals: No adrenal mass. Kidneys: Persistent punctate bilateral renal calculi. Obstructing stone within the left ureterovesical junction measuring approximately 0.5 cm (series 2, image 148). Moderate left hydroureteronephrosis. No right hydronephrosis. Bladder: Decompressed. Reproductive Organs: An IUD is present. Adnexal regions are unremarkable. Bowel: The bowel loops are nondilated. No ascites or pneumoperitoneum. Normal appendix. Lymph nodes: Visualization is limited without the use of IV contrast. No lymphadenopathy. Vasculature: The abdominal aorta and IVC contours are normal. Noncontrast technique limits evaluation. Bones: Unremarkable. CT/Abdomen/Pelvis without Cont IMPRESSION: 1. Obstructing stone within the left ureterovesical junction. 2. Mild hepatomegaly. Reading Location: [id number] CC: Dr. Darrick Ford, DO; Dr. 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 02-11-2022 Miscellaneous Notes PHONED STEFANO EXPLAINED WE DO NOT HAVE HER VACCINE RECORDS. SHE STATED SHE WAS ABLE TO OBTAIN THESE FROM THE CORRECT PROVIDER WHO HAD THEM. documented in this encounter [facility] 01-14-2022 Miscellaneous Notes PATIENT REQUESTING MEDICAL VACCINE RECORDS FOR [employer] [place] NAME-VOLODYMYR PATIENT #[phone] documented in this encounter [facility] Evaluation note No assessment information availa ble [facility] Work Phone: Evaluation note Diagnosis Onset Date Postcoital bleeding acute Encounter for routine gyneco logical examination noneactive [facility] Work Phone: Evaluation note* Diagnosis Onset Date Resolution Status Encounter for pre-employment health screening examination acute [facility] Work Phone: Evaluation note* Diagnosis Onset Date Resolution Status Admit Date Encounter for IUD removal acute April 01, 2025 9:12am [facility] Work Phone: Instructions* Name Dates Details Patient [...] Informa tion Online using Patient Portal and [employer] Indication:Attention deficit disorder (ADD) in [...] Informa tion Online using Patient Portal and [employer] Indication:Non-smoker Start:08-Aug-2020 Instruction Type:Patient Education [...] Informa tion Online using Patient Portal and [employer] Indication:BMI 22.0-22.9, adult Start:27-Mar-2021 Instruction Type:Patient Education Patient Instructions Indication:Attention deficit disorder (ADD) in adult Start:22-Jan-2021 Instruction Type:Provider Instructions for Treatment How to Access Health Informa tion Online using Patient Portal and [employer] Apps Indication:Attention deficit disorder (ADD) in adult Start:22-Jan-2021 Instruction Type:Patient Education Patient Instructions Indication:Attention deficit disorder (ADD) in adult Start:07-Jan-2021 Instruction Type:Provider Instructions for Treatment How to Access Health Informa tion Online using Patient Portal and [employer] Indication:Attention deficit disorder (ADD) in adult Start:07-Jan-2021 Instruction Type:Patient Education How to Access Health Informa tion Online using Patient Portal and [employer] Indication:Non-smoker Start:01-Jan-2021 Instruction Type:Patient Education [...] Informa tion Online using Patient Portal and [employer] Apps Indication:Non-smoker Start:17-Dec-2020 Instruction Type:Patient Education How [...] Informa tion Online using Patient Portal and [employer] Indication:Non-smoker Start:16-Jul-2021 Instruction Type:Patient Education Patient Instructions Indication:Attention deficit disorder (ADD) in adult Start:18-May-2021 Instruction Type:Provider Instructions for Treatment How to [facility] Informa tion Online using Patient Portal and [employer] Apps Indication:Attention deficit disorder (ADD) in adult Start:18-May-2021 Instruction Type:Patient Education Patient Instructions Indication:BMI 22.0-22.9, adult Start:27-Mar-2021 Instruction Type:Provider Instructions for Treatment How to [facility] Informa tion Online using Patient Portal and [employer] Indication:BMI 22.0-22.9, adult Start:27-Mar-2021 Instruction Type:Patient Education Patient Instructions Indication:Attention deficit disorder (ADD) in adult Start:22-Jan-2021 Instruction Type:Provider Instructions for Treatment How to [facility] Informa tion Online using Patient Portal and [employer] Indication:Attention deficit disorder (ADD) in adult Start:22-Jan-2021 Instruction Type:Patient Education Patient Instructions Indication:Attention deficit disorder (ADD) in adult Start:07-Jan-2021 Instruction Type:Provider Instructions for Treatment How to [facility] Informa tion Online using Patient Portal and [employer] Indication:Attention deficit disorder (ADD) in [...] Informa tion Online using Patient Portal and [employer] Indication:BMI 21.0-21.9, adult Start:05-Aug-2020 Instruction [...] Informa tion Online using Patient Portal and [employer] Indication:Attention deficit disorder (ADD) in [...] Informa tion Online using Patient Portal and [employer] Indication:BMI 22.0-22.9, adult Start:27-Mar-2021 Instruction Type:Patient Education Patient Instructions Indication:Attention deficit disorder (ADD) in adult Start:22-Jan-2021 Instruction Type:Provider Instructions for Treatment How to [facility] Informa tion Online using Patient Portal and [employer] Apps Indication:Attention deficit disorder (ADD) in adult Start:22-Jan-2021 Instruction Type:Patient Education Patient Instructions Indication:Attention deficit disorder (ADD) in adult Start:07-Jan-2021 Instruction Type:Provider Instructions for Treatment How to [facility] Informa tion Online using Patient Portal and [employer] Apps Indication:Attention deficit disorder (ADD) in adult Start:07-Jan-2021 Instruction Type:Patient Education How to Access [facility] Informa tion Online using Patient Portal and [employer] Apps Indication:Non-smoker Start:01-Jan-2021 Instruction Type:Patient Education Patient Instructions Indication:Non-smoker Start:01-Jan-2021 Instruction Type:Provider Instructions for Treatment Patient Instructions Indication:Non-smoker Start:24-Dec-2020 Instruction Type:Provider Instructions for Treatment How to [facility] Informa tion Online using Patient Portal and [employer] Indication:Non-smoker Start:24-Dec-2020 Instruction Type:Patient Education Patient Instructions Indication:Non-smoker Start:17-Dec-2020 Instruction Type:Provider Instructions for Treatment How to [facility] Informa tion Online using Patient Portal and [employer] Indication:Non-smoker Start:17-Dec-2020 Instruction Type:Patient Education How [...] Informa tion Online using Patient Portal and [employer] Indication:BMI 22.0-22.9, adult Start:05-Oct-2021 Instruction Type:Patient Education Patient Instructions Indication:Attention deficit disorder (ADD) in adult Start:04-Aug-2021 Instruction Type:Provider Instructions for Treatment How to [facility] Informa tion Online using Patient Portal and [employer] Indication:Attention deficit disorder (ADD) in adult Start:04-Aug-2021 Instruction Type:Patient Education Patient Instructions Indication:Non-smoker Start:16-Jul-2021 Instruction Type:Provider Instructions for Treatment How to [facility] Informa tion Online using Patient Portal and [employer] Indication:Non-smoker Start:16-Jul-2021 Instruction Type:Patient Education Patient Instructions Indication:Attention deficit disorder (ADD) in adult Start:18-May-2021 Instruction Type:Provider Instructions for Treatment How to [facility] Informa tion Online using Patient Portal and [employer] Indication:Attention deficit disorder (ADD) in adult [...] Informa tion Online using Patient Portal and [employer] Indication:BMI 22.0-22.9, adult Start:05-Oct-2021 Instruction [...] Informa tion Online using Patient Portal and [employer] Indication:Attention deficit disorder (ADD) in adult Start:01-Feb-2022 Instruction Type:Patient Education Patient Instructions Indication:Attention deficit disorder (ADD) in adult Start:01-Feb-2022 Instruction Type:Provider Instructions for Treatment Patient Instructions Indication:BMI 22.0-22.9, adult Start:14-Jan-2022 Instruction Type:Provider Instructions for Treatment How to Access [facility] Informa tion Online using Patient Portal and [employer] Indication:BMI 22.0-22.9, adult Start:14-Jan-2022 Instruction [...] Informa tion Online using Patient Portal and [employer] Indication:Attention deficit disorder (ADD) in adult Start:01-Feb-2022 Instruction Type:Patient Education Patient Instructions Indication:Attention deficit disorder (ADD) in adult Start:01-Feb-2022 Instruction Type:Provider Instructions for Treatment Patient Instructions Indication:BMI 22.0-22.9, adult Start:14-Jan-2022 Instruction Type:Provider Instructions for Treatment How to Access Health Informa tion Online using Patient Portal and [employer] Indication:BMI 22.0-22.9, adult Start:14-Jan-2022 Instruction Type:Patient Education Patient Instructions Indication:BMI 22.0-22.9, adult Start:05-Oct-2021 Instruction Type:Provider Instructions for Treatment How to Access Health Informa tion Online using Patient Portal and [employer] Indication:BMI 22.0-22.9, adult Start:05-Oct-2021 Instruction Type:Patient Education Patient Instructions Indication:Attention deficit disorder (ADD) in adult Start:04-Aug-2021 Instruction Type:Provider Instructions for Treatment How to Access Health Informa tion Online using Patient Portal and [employer] Indication:Attention deficit disorder (ADD) in [...] Informa tion Online using Patient Portal and [employer] Indication:Attention deficit disorder (ADD) in [...] Informa tion Online using Patient Portal and [employer] Indication:BMI 21.0-21.9, adult Start:05-Aug-2020 Instruction [...] Informa tion Online using Patient Portal and [employer] Indication:Non-smoker Start:24-Dec-2020 Instruction Type:Patient Education Patient Instructions Indication:Non-smoker Start:17-Dec-2020 Instruction Type:Provider Instructions for Treatment How to Access Health Informa tion Online using Patient Portal and [employer] Indication:Non-smoker Start:17-Dec-2020 Instruction Type:Patient Education How to Access Health Informa tion Online using Patient Portal and [employer] Apps Indication:BMI 21.0-21.9, adult Start:03-Oct-2020 Instruction Type:Patient Education Patient Instructions Indication:BMI 21.0-21.9, adult Start:03-Oct-2020 Instruction Type:Provider Instructions for Treatment Patient Instructions Indication:Non-smoker Start:05-Sep-2020 Instruction Type:Provider Instructions for Treatment How to Access Health Informa tion Online using Patient Portal and [employer] Indication:Non-smoker Start:05-Sep-2020 Instruction Type:Patient Education How to Access Health Informa tion Online using Patient Portal and [employer] Indication:Non-smoker Start:08-Aug-2020 Instruction Type:Patient Education Patient Instructions Indication:Non-smoker Start:08-Aug-2020 Instruction Type:Provider Instructions for Treatment Patient Instructions Indication:BMI 21.0-21.9, adult Start:05-Aug-2020 Instruction Type:Provider Instructions for Treatment How to Access Health Informa tion Online using Patient Portal and [employer] Indication:BMI 21.0-21.9, adult Start:05-Aug-2020 Instruction [...] Informa tion Online using Patient Portal and [employer] Indication:Flank pain Start:17-Jun-2022 Instruction Type:Patient Education How to Access Health Informa tion Online using Patient Portal and [employer] Indication:Attention deficit disorder (ADD) in [...] Informa tion Online using Patient Portal and [employer] Indication:Attention deficit disorder (ADD) in adult Start:01-Feb-2022 Instruction Type:Patient Education Patient Instructions Indication:Attention deficit disorder (ADD) in adult Start:01-Feb-2022 Instruction Type:Provider Instructions for Treatment Patient Instructions Indication:BMI 22.0-22.9, adult Start:14-Jan-2022 Instruction Type:Provider Instructions for Treatment How to Access Health Informa tion Online using Patient Portal and [employer] Indication:BMI 22.0-22.9, adult Start:14-Jan-2022 Instruction Type:Patient Education Patient Instructions Indication:BMI 22.0-22.9, adult Start:05-Oct-2021 Instruction Type:Provider Instructions for Treatment How to Access Health Informa tion Online using Patient Portal and [employer] Indication:BMI 22.0-22.9, adult Start:05-Oct-2021 Instruction Type:Patient Education Patient Instructions Indication:Attention deficit disorder (ADD) in adult Start:04-Aug-2021 Instruction Type:Provider Instructions for Treatment How to Access Health Informa tion Online using Patient Portal and [employer] Indication:Attention deficit disorder (ADD) in adult Start:04-Aug-2021 Instruction Type:Patient Education Patient Instructions Indication:Non-smoker Start:16-Jul-2021 Instruction Type:Provider Instructions for Treatment How to Access Health Informa tion Online using Patient Portal and [employer] Indication:Non-smoker Start:16-Jul-2021 Instruction Type:Patient Education [...] Informa tion Online using Patient Portal and [employer] Indication:Attention deficit disorder (ADD) in [...] Informa tion Online using Patient Portal and [employer] Indication:Attention deficit disorder (ADD) in [...] Informa tion Online using Patient Portal and [employer] Indication:BMI 21.0-21.9, adult Start:10-Jan-2023 Instruction [...] Informa tion Online using Patient Portal and [employer] Indication:BMI 21.0-21.9, adult Start:10-Jan-2023 Instruction Type:Patient Education Patient Instructions Indication:Flank pain Start:17-Jun-2022 Instruction Type:Provider Instructions for Treatment How to Access Health Informa tion Online using Patient Portal and [employer] Indication:Flank pain Start:17-Jun-2022 Instruction Type:Patient [...] Internal Medicine; [facility] Work Phone: progress note Author Leticia Villeda [facility] Note Date/Time April 01, 2025 9:59am [facility] [address], [address] [place] [address] OFFICE VISIT Date of Service: 04/01/25 MR#: [id number] Acct: [id number] Name: STEFANO ESPINOZA Rep #: [id number] : 1995 Provider: Dr. Janina Patel, Age/Sex: 29/F [place] 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 Is patient in pain?: No Allergies No Known Allergies Allergy (Verified 12/21/24 16:46) Medications ?Medication ?Instructions ?Recorded ?Confirmed ?Type citalopram 20 mg tablet (Celexa) 30 mg PO DAILY 04/01/25 History lisdexamfetamine 30 mg capsule 30 mg PO DAILY 06/24/21 04/01/25 History (Vyvanse) levonorgestrel 20.4 mcg/24 hr (up 1 device intrauterin e ONCE 11/18/21 04/01/25 History to 8 yrs) 52 mg intrauterine device (Liletta) Post menopausal: No Control Method: liletta PFSH PFSH Medical History ADD (attention deficit disorder) Anxiety Surgical History labioplasty Family History Mother Diabetes Congestive heart failure Renal failure Father Narcolepsy Grandmother Kidney disease Grandfather Heart disease Alzheimer disease Social History current occupational status: student current occupation: [employer] Smoking Status: Never smoker alcohol intake: never substance use type: does not use caffeine: Yes what type of physical activity do you participate in: walking and aerobics frequency: 5-6 times per week seatbelt use: always do you feel safe at home: Yes additional social history: - Rogelio- Ayana and Lidiaon History 2 Elective abortions Hx Para 1 Spontaneous abortions 1 Hx # Term Pregnancies Ectopic pregnancies Hx # Pregnancies Multiple births # of living children Past Pregnancies Del. Date Name GA/Weeks Outcome Route Bth Weight Gen Labor Lgth Anesthesia Del Locatn Provider FOB 10/02/16 Roxane 39 live - full term 7lbs 4oz Female [facility] Delivery Date: 10/02/16 Last Updated by: Yahaira Tate Borderline HELP HPI IUD REMOVAL Details: STEFANO ESPIONZA is a 29 year old who presents for IUD removal. She wants to get . She plans on weaning off vyvanse. ROS Const ROS Unobtainable: All systems reviewed & are unremarkable except as noted in H Resp Resp: Reports system reviewed and no additional complaints, except as documented; Denies cough GI GI: Reports as per HPI Psych Psych: Reports system reviewed and no additional complaints, except as documented Exam Const General: cooperative, healthy appearing, comfortable and no acute distress Resp Effort & Inspection: normal respiratory effort Skin General: no rashes or lesions noted Psych Appearance: grossly normal Speech and Movement: speech and movement normal Coding Level of Care Code Attention Reji Diagnoses Encounter for IUD removal Z30.432 Assessment and Plan Assessment and Plan (1) Encounter for IUD removal: Status: Acute Plan: IUD successfully removed. pt to stop Vyvanse and start vitamins Orders: Orders IUD Removal Today Z30.432 - Encounter for removal of intrauterine contraceptivedevice 04/01/25 1001 <Electronically signed by Leticia Mckinney DO> Date _ Leticia Patel DO Cosigner Signature: Date (if applicable) CC: ~ [facility] Work Phone: Reason for referral (narrative)No reason for referral information availableWMer[facility] Work Phone: Instructions Name Dates Details Non-smoker [...] Purpose Family History No Family History Records Found Relationship Condition Age at Onset Recorded Date/T thaddeus mother Diabetes mellitus Unknown Congestive heart failure Unknown Renal failure Unknown father Narcolepsy Unknown grandmother Kidney disorder Unknown grandfather Cardiac disease Unknown Alzheimer's disease Unknown Advance Directives No Advanced Directives Records Found Name Dates Details Immunization Registry [place] - Effective on 10/09/2020. Expiration date unspecified Effective:09-Oct-2020 Name Dates Details Immunization Registry [place] - Effective on 10/09/2020. Expiration date unspecified Effective:09-Oct-2020 Name Dates Details Immunization Registry [place] - Effective on 10/09/2020. Expiration date unspecified Effective:09-Oct-2020 Name Dates Details Immunization Registry [place] - Effective on 10/09/2020. Expiration date unspecified Effective:09-Oct-2020 Name Dates Details Immunization Registry [place] - Effective on 10/09/2020. Expiration date unspecified Effective:09-Oct-2020 Name Dates Details Immunization Registry [place] - Effective on 10/09/2020. Expiration date unspecified Effective:09-Oct-2020 Name Dates Details Immunization Registry [place] - Effective on 10/09/2020. Expiration date unspecified Effective:09-Oct-2020 Name Dates Details Immunization Registry [place] - Effective on 10/09/2020. Expiration date unspecified Effective:09-Oct-2020 Name Dates Details Immunization Registry [place] - Effective on 10/09/2020. Expiration date unspecified Effective:09-Oct-2020 Name Dates Details Immunization Registry [place] - Effective on 10/09/2020. Expiration date unspecified Effective:09-Oct-2020 Name Dates Details Immunization Registry [place] - Effective on 10/09/2020. Expiration date unspecified Effective:09-Oct-2020 Name Dates Details Immunization Registry [place] - Effective on 10/09/2020. Expiration date unspecified Effective:09-Oct-2020 Name Dates Details Immunization Registry [place] - Effective on 10/09/2020. Expiration date unspecified Effective:09-Oct-2020 Name Dates Details Immunization Registry [place] - Effective on 10/09/2020. Expiration date unspecified Effective:09-Oct-2020 Name Dates Details Immunization Registry [place] - Effective on 10/09/2020. Expiration date unspecified Effective:09-Oct-2020 Name Dates Details Immunization Registry [place] - Effective on 10/09/2020. Expiration date unspecified Effective:09-Oct-2020 Name Dates Details Immunization Registry [place] - Effective on 10/09/2020. Expiration date unspecified Effective:09-Oct-2020 Name Dates Details Immunization Registry [place] - Effective on 10/09/2020. Expiration date unspecified Effective:09-Oct-2020 Name Dates Details Immunization Registry [place] - Effective on 10/09/2020. Expiration date unspecified Effective:09-Oct-2020 Name Dates Details Immunization Registry [place] - Effective on 10/09/2020. Expiration date unspecified Effective:09-Oct-2020 Name Dates Details Immunization Registry [place] - Effective on 10/09/2020. Expiration date unspecified Effective:09-Oct-2020 Name Dates Details Immunization Registry [place] - Effective on 10/09/2020. Expiration date unspecified Effective:09-Oct-2020 Name Dates Details Immunization Registry [place] - Effective on 10/09/2020. Expiration date unspecified Effective:09-Oct-2020 Name Dates Details Immunization Registry [place] - Effective on 10/09/2020. Expiration date unspecified Effective:09-Oct-2020 Name Dates Details Immunization Registry [place] - Effective on 10/09/2020. Expiration date unspecified Effective:09-Oct-2020 Name Dates Details Immunization Registry [place] - Effective on 10/09/2020. Expiration date unspecified Effective:09-Oct-2020 Advance Directive Response Recorded Date/ Time Living Will No September 23, 2021 1:50pm Power of Master Control Engineer No September 23 1:50pm Name Dates Details Immunization Registry [place] - Effective on 10/09/2020. Expiration date unspecified Effective:09-Oct-2020 Name Dates Details Immunization Registry [place] - Effective on 10/09/2020. Expiration date unspecified Effective:09-Oct-2020 Name Dates Details Immunization Registry [place] - Effective on 10/09/2020. Expiration date unspecified Effective:09-Oct-2020 Name Dates Details Immunization Registry [place] - Effective on 10/09/2020. Expiration date unspecified Effective:09-Oct-2020 Name Dates Details Immunization Registry [place] - Effective on 10/09/2020. Expiration date unspecified Effective:09-Oct-2020 Name Dates Details Immunization Registry [place] - Effective on 10/09/2020. Expiration date unspecified Effective:09-Oct-2020 Name Dates Details Immunization Registry [place] - Effective on 10/09/2020. Expiration date unspecified Effective:09-Oct-2020 Name Dates Details Immunization Registry [place] - Effective on 10/09/2020. Expiration date unspecified Effective:09-Oct-2020 Name Dates Details Immunization Registry [place] - Effective on 10/09/2020. Expiration date unspecified Effective:09-Oct-2020 Name Dates Details Immunization Registry [place] - Effective on 10/09/2020. Expiration date unspecified Effective:09-Oct-2020 Name Dates Details Immunization Registry [place] - Effective on 10/09/2020. Expiration date unspecified Effective:09-Oct-2020 Advance Directive Response Recorded Date/ Time Living Will No March 01 11:02am Power of Master Control Engineer No March 01, 2 023 11:02am Name Dates Details Immunization Registry [place] - Effective on 10/09/2020. Expiration date unspecified Effective:09-Oct-2020 Advance Directive Response Recorded Date/ Time Living Will No July 10, 2 023 10:07am Power of Master Control Engineer No July 10, 2023 10:07am Advance Directive Response Recorded Date/ Time Living Will No July 10 023 11:07am Power of Master Control Engineer No July 10, 2023 11:07am Advance Directive Response Recorded Date/ Time Do you have a Healthcare Power of Master Control Engineer? 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 Reason for Visit Encounter for pre-em ployment health screening examination Chief Complaint [facility] NEW EMPLOYEE PHY SICAL CAT BITE Chief Complaint CAT BITE Chief Complaint Admit Date flank December 21, 2024 4:43 pm Chief Complaint Admit Date flank December 21, 2024 4:43 pm IUD REMOVAL April 01, 2025 9:12am Reason for Visit Admit Date Encounter for IUD removal March 9:12am Additional Source Comments INFORMATION SOURCE (unrecogn ized section and content) DATE CREATED AUTHOR 05/11/2019 [facility] DATE CREATED AUTHOR AUTHOR'S ORGANIZ ATION 02/12/2022 [facility] DATE CREATED AUTHOR AUTHOR'S ORGANIZ ATION 09/23/2022 [facility] DATE CREATED AUTHOR AUTHOR'S ORGANIZ ATION 11/23/2022 [facility] DATE CREATED AUTHOR AUTHOR'S ORGANIZ ATION 04/29/2025 [facility] Source Comments (unrecognize d section and content) In the event this informatio n is protected by the Federal Confidentiality of Alcohol and Drug Abuse Patient Records regulations: The Federal rules restrict any use of the information to criminally investigate or prosecute any alcohol or drug abuse patient.[facility] the event this information is protected by the Federal Confidentiality of Alcohol and Drug Abuse Patient Records regulations: The Federal rules restrict any use of the information to criminally investigate or prosecute any alcohol or drug abuse patient.[facility] Reason for Visit (unrecogniz ed section and content) Reason Comments Patient Update Reason Comments Patient Question REQUESTING MEDICAL V ACCINE RECORDS FROM [facility]... Goals (unrecognized section and content) Goals may be documented in a n alternate sectionGoals may be documented in an alternate sectionGoals may be documented in an alternate sectionGoals may be documented in an alternate sectionGoals may be documented in an alternate sectionGoals may be documented in an alternate sectionGoals may be documented in an alternate sectionGoals may be documented in an alternate sectionGoals may be documented in an alternate section Care Teams (unrecognized sec tion and content) Team Status: Active Member Role Status Dates Dr. Zeinab William DO Family Provider Active Dr. Zeinab William DO Primary Care Provider Active Team Status: Inactive Member Role Status Dates Dr. Zeinab William DO Primary Care Provider, Referr ing Provider Active Venkat REYNOSO, [place] Attending Provider Active Team Status: Active Member Role Status Dates Employee Health Attending Provider Active Team Status: Active Member Role Status Dates Dr. Zeinab William DO Primary Care Provider Active Health Risk Assessment Attending Provider, Referring P rand Active Team Status: Inactive Member Role Status Dates Dr. Zeinab William DO Primary Care Provider Active Dr. Gerber Oneill MD Attending Provider, Referring Pr vanessa Active Team Status: Inactive Member Role Status Dates Dr. Zeinab William DO Primary Care Provider Active Dr. Eros Robin MD Emergency Provider Active Team Status: Inactive Member Role Status Dates Dr. Zeinab William DO Primary Care Provider Active Dr. Eros Robin MD Attending Provider, Emergency Provider Active Team Status: Inactive Member Role Status Dates Dr. Zeinab William DO Primary Care Pr ovider, Attending Provider, Referring Provider Active Team Status: Active Member Role Status Dates Dr. Zeinab William DO Primary Care Provider Active Team Status: Inactive Member Role Status Dates Dr. Zeinab William DO Primary Care Provider Active Start: December 21, 2024 End: December 21, 2024 Dr. Darrick Ford DO Emergency Provider Active Start: December 21, 2024 End: December 21, 2024 Dr. Tessa Bain MD Other Provider Active Star t: December 21, 2024 End: December 21, 2024 Team Status: Active Member Role/Relationship Status Dates Dr. Zeinab William DO Primary Care Provider Active Team Status: Inactive Member Role/Relationship Status Dates Dr. Zeinab William DO Primary Care Provider Active Start: December 21, 2024 End: December 21, 2024 Dr. Darrick Ford DO Attending Provider Active Start: December 21, 2024 End: December 21, 2024 Dr. Darrick Ford DO Emergency Provider Active Start: December 21, 2024 End: December 21, 2024 Dr. Tessa Bain MD Other Provider Active Star t: December 21, 2024 End: December 21, 2024 Team Status: Inactive Member Role/Relationship Status Dates Dr. Zeinab William DO Primary Care Provider Active Start: January 08, 2025 Dr. Gena Izaguirre MD Attending Provider Active Start: January 08, 2025 Team Status: Inactive Member Role/Relationship Status Dates Dr. Zeinab William DO Primary Care Provider Active Start: February 27, 2025 End: March 10, 2025 Gerber BECERRA MD Attending Provider Active S tart: February 27, 2025 End: March 10, 2025 Gerber BECERRA MD Referring Provider Active S tart: February 27, 2025 End: March 10, 2025 Team Status: Active Member Role/Relationship Status Dates Dr. Zeinab William DO Primary care physician Active Team Status: Inactive Member Role/Relationship Status Dates Dr. Zeinab William DO Primary care physician Active Start: December 21, 2024 End: December 21, 2024 Dr. Darrick Ford DO Attending physician Active Start: December 21, 2024 End: December 21, 2024 Dr. Darrick Ford DO Emergency Department Physician Active Start: December 21, 2024 End: December 21, 2024 Dr. Tessa Bain MD Nurse Practitioner Active Start: December 21, 2024 End: December 21, 2024 Team Status: Inactive Member Role/Relationship Status Dates Dr. Zeinab William DO Primary care physician Active Start: January 08, 2025 Dr. Gena Izaguirre MD Attending physician Active Start: January 08, 2025 Team Status: Inactive Member Role/Relationship Status Dates Dr. Zeinab William DO Primary care physician Active Start: February 27, 2025 End: March 10, 2025 Gerber BECERRA MD Attending physician Active Start: February 27, 2025 End: March 10, 2025 Gerber BECERRA MD Referring Provider Active S tart: February 27, 2025 End: March 10, 2025 Team Status: Inactive Member Role/Relationship Status Dates Dr. Zeinab William DO Primary care physician Active Start: April 01, 2025 End: April 01, 2025 Dr. Zeinab William DO Referring Provider Active Start: April 01, 2025 End: April 01, 2025 Dr. Leticia Patel DO Attending physician Active Start: March End: April 01, 2025 FOR RECORDS PERTAINING TO PATIENTS WHO ARE [...] BE BASED ON THE PRIMARY CLINICAL RECORDS. [facility]. provides no warranty or guarantee of the accuracy or completeness of information in this document.
== END | disposition home or self-care (01) ==
LOC: LABSPEC 07:06
PROVIDERS: PCP Internal Medicine; Referring Provider Internal Medicine; Visit Provider Internal Medicine
DX: R73.09 Other abnormal glucose (principal)
CPT/HCPCS: 83036